=== PATIENT | male | born 1940 | race African-American/Black ===

== ENCOUNTER 2023-11-21 13:56 | Outpatient (CLI) | payer MEDICARE, SELFPAY ==
--- NOTE | ~2023-11-21 | CT_ITS ---
EXAMINATION: CT abdomen pelvis wo con DATE: 11/21/2023 14:34 INDICATION: Abdominal pain TECHNIQUE: Computed tomography (CT) of the abdomen and pelvis was performed without intravenous contr ast. Automated exposure control and iterative reconstruction technique were employed. Exam dose: 301 .36 mGy-cm total exam DLP. COMPARISON: None. FINDINGS: Multiple scattered bullae. No infiltrate or consolidation at the included lung bases. Normal heart size. No pericardial or pleural effusion. Posterior upper right hepatic approximately 1.7 cm probable cyst. The liver is otherwise unremarkable . The gallbladder is present. No gallbladder wall thickening or pericholecystic fluid or fat strandin g. No bile duct or pancreatic duct dilatation. No pancreatic mass lesion is noted. Normal splenic siz e. Normal morphology of the adrenal glands. There are multiple hypoattenuating and hyperattenuating lesions of variable size scattered throughout both kidneys including some with attenuation up to 96 Hounsfield units. Examination is limited on th is noncontrast examination. Occasional punctate calcifications the left kidney. No ureteral calculus or hydroureteronephrosis. Mild diffuse bladder wall thickening moderately prominent bladder distention. There is prostate enlargement. There is prominent abdominal aortic calcification, probably calcification at the origin of the celiac and superior mesenteric and renal arteries. There is extensive iliac and femoral arterial calcificat ion. No abdominal aortic aneurysm. No intraperitoneal or retroperitoneal or pelvic mass lesion or travis nopathy or ascites is noted. There is a prominent amount of fecal material within the colon. No bowel obstruction or intraperitone al free air is noted. Consider CT examination with IV contrast material or preferably MRI examination for more definitive evaluation of the renal masses. Transitional lumbosacral vertebra. No suspicious osteolytic or osteoblastic lesions are noted. IMPRESSION: Numerous bilateral hypoattenuating hyperattenuating lesions scattered throughout both ki dneys, with occasional calcifications on the left. Further evaluation with renal MRI is suggested for most optimal evaluation. 1.7 cm probable right hepatic cyst Prostate enlargement, prominent distention and mild thickening of the wall of the urinary bladder Reviewed, dictated and finalized at [facility]. Reviewed, dictated and finalized at [facility]. IMPRESSION: Numerous bilateral hypoattenuating hyperattenuating lesions scatte red throughout both kidneys, with occasional calcifications on the left. Furthe r evaluation with renal MRI is suggested for most optimal evaluation. 1.7 cm probable right hepatic cyst Prostate enlargement, prominent distention and mild thickening of the wall of t he urinary bladder
== END 2023-11-21 13:57 | disposition home or self-care (01) ==
PROVIDERS: Visit Provider Internal Medicine
DX: N28.89 Other specified disorders of kidney and ureter (principal); N40.0 Benign prostatic hyperplasia without lower urinary tract symptoms; N32.89 Other specified disorders of bladder
CPT/HCPCS: 74176

== ENCOUNTER 2024-10-07 12:32 | Outpatient (CLI) | payer MEDICARE, SELFPAY ==
[2024-10-07 13:49] LABS: Vitamin D 25 Hydroxy 52.2 ng/mL
--- OUTSIDE RECORDS SUMMARY | 2024-10-07 15:05 | XMS_ITS | Clinical Summary ---
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
--- OUTSIDE RECORDS SUMMARY | 2024-10-07 15:05 | XMS_ITS | Encounter Summary ---
Author Organization [facility] Address 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
--- OUTSIDE RECORDS SUMMARY | 2024-10-07 15:05 | XMS_ITS | Clinical Summary ---
Author Organization [facility] [id number] [place] [id number] Care Team Providers Care Instructor Business Education Name Role Phone James Hou MD Primary Care Provider [phone] Allergies Active Allergy Reactions Criticality Noted Date Comments Morphine Nausea only Medium 05/07/2019 Sulfa Unknown 01/04/2018 Sulfamethoxazole-Trimeth oprim Other (See comments) Low 03/04/2019 Sulfasalazine Unknown 01/21/2015 Turned penis black in color Medications cholecalcifer ol (VITAMIN D3) 2,000 unit capsule take one by oral route one time every day 0 0 014 Active amLODIPine (NORVASC) 10 mg tablet take 1 tablet by oral route every day 0 0 014 Active blood glucose diagnostic (ACCU-CHEK SMARTVIEW TEST STRIP) strip test 1 by finger stick BS route before meals and bed time 0 strip 0 014 Active lancets (ACCU-CHEK FASTCLIX) misc test blood sugars 4 times every day 0 each 0 014 Active blood-glucose meter (ACCU-CHEK JAMIE) misc test blood suagrs 4 times every day 0 each 0 014 Active montelukast (SINGULAIR) 10 mg tablet take 1 tablet by oral route every day in the evening 0 0 015 Active pen needle, diabetic (PEN NEEDLE) 31 gauge x 5/16 needle USE FOR INJECTIONS 4 TIMES DAILY 100 11 12/09/2 014 Active tamsulosin (FLOMAX) 0.4 mg capsule,exten ded release 24hr take 1 capsule by oral route every day 1/2 hour following the same meal each day 0 0 016 Active finasteride (PROSCAR) 5 mg tablet take 1 tablet by oral route every day 0 0 016 Active atorvastatin (LIPITOR) 10 mg tablet TK 1 T PO QD 3 017 Active valsartan (DIOVAN) 160 mg tablet Take 1 tablet (160 mg total) by mouth 2 daily to equal 320mg 021 Active flash glucose scanning reader ([employer] Herbert 2 [place]) misc Use for BG monitoring 1 each 023 Active insulin aspart niacinamide (FIASP) 100 unit/mL (3 mL) pen for injectionIndi cations:Type 2 diabetes mellitus with hyperglycemia , with long-term current use of insulin ([facility]) Inject 4-8 Units under the skin 3 (three) times a day before meals 3 mL 023 Active omeprazole (PriLOSEC) 20 mg capsule TAKE 1 CAPSULE BY MOUTH BEFORE BREAKFAST 023 Active calcitRIOL (ROCALTROL) 0.25 mcg capsule Take 1 capsule (0.25 mcg total) by mouth 3 (three) times a week 023 Active dapagliflozin propanediol (Farxiga) 5 mg tablet Take 1 tablet (5 mg total) by mouth daily Active famotidine (PEPCID) 20 mg tablet Take 1 tablet (20 mg total) by mouth 2 (two) times a day Activ e LANTUS 100 unit/mL (3 mL) pen for injectionIndi cations:Type 2 diabetes mellitus with hyperglycemia , with long-term current use of insulin ([facility]) Inject 40 Units under the skin nightly 45 mL 2 024 2024 Active Additional Information Patient taking differently: 40-42 Unitssubcutaneous Nightly, Reported on 09/17/2024 HumaLOG 100 unit/mL pen for injectionIndi cations:Type 2 diabetes mellitus with hyperglycemia , with long-term current use of insulin ([facility]) INJECT 8-16 UNITS SUBCUTANEOUSLY THREE TIMES DAILY BEFORE MEALS WITH SSI MAX DAILY DOSE 48 UNITS 15 mL 024 Active clobetasoL (TEMOVATE) 0.05 % external solution APPLY SOLUTION TOPICALLY TWICE DAILY TO AFFECTED AREA OF SCALP FOR 2 WEEKS, REPEAT NEEDED FOR FLARES Active Procto-Med HC 2.5 % rectal cream APPLY A THIN LAYER TOPICALLY TO THE AFFECTED AREA(S) TWICE DAILY Active oseltamivir (TAMIFLU) 75 mg capsule TAKE 1 CAPSULE BY MOUTH ONCE DAILY FOR 5 DAYS Active triamcinolone (KENALOG) 0.1 % cream APPLY TO AFFECTED AREA ONCE TO TWICE DAILY FOR UP TO TWO WEEKS. TAKE A SMALL BREAK FOR 1-2 DAYS, AND REPEAT NECESSARY FOR FLARES. AVOID THE FACE, AXILLA AND GROIN Active flash glucose sensor (FreeStyle Herbert 2 Sensor) kitIndication s:Type 2 diabetes mellitus with hyperglycemia , with long-term current use of insulin ([facility]) USE DIRECTED 2 kit 2 025 Active flash glucose sensor (FreeStyle Herbert 2 Sensor) kitIndication s:Type 2 diabetes mellitus with hyperglycemia , with long-term current use of insulin ([facility]) USE DIRECTED 2 kit 025 2024 Discontinued prednisoLONE acetate (PRED FORTE) 1 % ophthalmic suspension INSTILL 1 DROP INTO RIGHT EYE THREE TIMES DAILY FOR 1 WEEK THEN TWICE DAILY FOR 2 WEEKS 2024 Discontinued(T herapy completed) Active Problems Problem Noted Date Diagnosed Date CKD (chronic kidney disease) stage 4, GFR 15-29 ml/min ([facility]) 01/02/2023 Assessment & Plan (09/17/2024 1:55 PM INSPECTOR PROCESS): Chronic problem. Managed by Dr Beach at [place]; seen q3mos. 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 Valsartan 160mg daily. Last MA: 03/13/24 (186). Last creat/GFR: 03/13/24 GFR=22, CR=2.77. seeing Dr Núñez at [facility] for L kidney mass & bilat renal cysts. Had MRI 07/05/24 to check kidney lesions (3). Has repeat MRI set up for 11/2024. Will see Dr Núñez 12/06/24. Plan per Dr Núñez's note 07/05/24 is to continue surveillance of slow growing L renal mass. Assessment & Plan (03/13/2024 11:10 AM CDT): Chronic problem. Managed by Dr Beach at [place]. Seen q3mos. 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 Valsartan 160mg daily. Last MA: 07/13/22 (64). Last creat/GFR: 07/13/22 GFR=21, CR=2.85. L Kidney mass. Now seeing Dr Avery Núñez at [facility]. 06/14/24. Will be having MRI also per Mr Kahn. Assessment & Plan (05/08/2023 1:59 PM CDT): Chronic problem. Managed by Dr Beach at [place]. Seen q3mos. 05/30/23. Assessment & Plan (01/02/2023 1:59 PM CDT): Chronic problem. Managed by Dr Beach at [place]. Seen q3mos. Hypoglycemia associated with diabetes ([facility]) 03/04/2019 Assessment & Plan (07/13/2022 2:14 PM INSPECTOR PROCESS): Lower evening Lantus dose Assessment & Plan (09/12/2019 12:57 PM INSPECTOR PROCESS): Order Dexcom Assessment & Plan (03/04/2019 11:17 AM CDT): Dose of Lantus lowered Request DEXCOM Type 2 diabetes mellitus 02/22/2017 Assessment & Plan (09/17/2024 1:54 PM INSPECTOR PROCESS): Chronic problem. Not at goal but A1c improved slightly from at 9.9% 03/13/24 to 9.8 today. reviewed FSL download with Mr Kahn during appt. Reviewed diet; eating increased carbs (crackers). -increase lantus from 40 to 45 units every evening -increase Humalog with meals as below (higher if blood sugar is over 250--see below) Current medications: Lantus 45 units at dinner Humalog: breakfast 8 units (10 units if over 250), lunch 12 units (14 units if over 250), dinner 16 units (18 units if over 250) Will update lipid. Does not mychart. Verified phone #/address to contact re: results. 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 Receives injections OU) Strive for regular exercise (30min most days) and diet (get at least 4-5 servings of fruit and veggies daily, avoid processed foods, increase lean protein intake and decrease carb portions as well as fruit juices, regular soda & desserts). Watch carbs and simple sugars. Check the blood sugar Freestyle. Check the feet daily for skin breakdown and infection. Assessment & Plan (03/13/2024 11:04 AM CDT): Chronic problem. Not at goal but A1c stable at 9.9%. reviewed FSL download with Mr Kahn during appt. Please change insulin: -lantus 40 units at dinner (not twice any longer) -Humalog: keep breakfast at 6 units (8 units if over 250), increase lunch to 10 units (12 units if over 250), dinner 12 units (14 units if over 250) Current medications: Lantus 40 units at dinner Humalog 6 units before breakfast, 10 units before lunch, 12 units before dinner For blood sugars over 250: take 8 units with breakfast, 12 units with Lunch & 14 units with dinner Will update labs today. Does not mychart. Verified phone #/address to contact re: results. UTD on DM eye exam. Reports frequent appts to [facility]; appt 2-3 weeks ago. Letter sent to get copy of results. Strive for regular exercise (30min most days) and diet (get at least 4-5 servings of fruit and veggies daily, avoid processed foods, increase lean protein intake and decrease carb portions as well as fruit juices, regular soda & desserts). Watch carbs and simple sugars. Check the blood sugar Freestyle. Check the feet daily for skin breakdown and infection. Assessment & Plan (08/08/2023 1:42 PM INSPECTOR PROCESS): Hba1c was Lab Results Component Value Date HGBA1C 9.9 08/08/2023 today, indicating poor DM control, with hyper and hypoglycemia Blood glucose level in the 130-180 160 range was explained Low carb diet and daily aerobic and /or resistant exercise were advised Prevention and treatment of hyypoglcyemia were discussed with the patient Blood glucose monitoring : FSL Adjustment to medications: Take all of your insulin, Lantus and Humalog, in your belly. Take Lantus, 20 units at bedtime and 10 units in the morning. Take Humalog 6 units before breakfast and lunch and 10 units before dinner. For sugars over 250, take 8 units before breakfast and lunch and 12 units before dinner Assessment & Plan (05/08/2023 1:58 PM CDT): Chronic problem. Not at goal but A1c improved from 10.0% 11/16/22 to now 8.7% Asked him to ensure that he takes his insulin with him when he's going to be out of the house at mealtime (missing doses). Has been exercising on stationary bike nearly daily. UTD on labs. UTD on DM eye exam. Reports frequent appts to [facility]; appt 2-3 weeks ago. Letter sent to get copy of results. Strive for regular exercise (30min most days) and diet (get at least 4-5 servings of fruit and veggies daily, avoid processed foods, increase lean protein intake and decrease carb portions as well as fruit juices, regular soda & desserts). Watch carbs and simple sugars. Check the feet daily for skin breakdown and infection. Current medications: Lantus 18 units every morning, 20 units at bedtime Humalog before meals: For sugars <100, do not take any. For sugars over 100, take 8 units For sugars over 150, take 10 units For sugars over 200, take 12 units For sugars over 250, take 14 units For sugars over 300, take 16 units Once consistently under 200: For sugars <100, do not take any. For sugars over 100, take 4 units For sugars over 150, take 5 units For sugars over 200, take 6 units For sugars over 250, take 7 units For sugars over 300, take 8 units Strive for regular exercise (30min most days) and diet (get at least 4-5 servings of fruit and veggies daily, avoid processed foods, increase lean protein intake and decrease carb portions as well as fruit juices, regular soda & desserts). Watch carbs and simple sugars. Check the blood sugar Freestyle. Check the feet daily for skin breakdown and infection. Assessment & Plan (01/02/2023 2:30 PM CDT): Chronic problem. Not at goal but A1c improved from 10.0% 11/16/22 to now 8.7% Asked him to ensure that he takes his insulin with him when he's going to be out of the house at mealtime (missing doses). Has been exercising on stationary bike nearly daily. UTD on labs. UTD on DM eye exam. Reports frequent appts to [facility]. Letter sent to get copy of results. Strive for regular exercise (30min most days) and diet (get at least 4-5 servings of fruit and veggies daily, avoid processed foods, increase lean protein intake and decrease carb portions as well as fruit juices, regular soda & desserts). Watch carbs and simple sugars. Check the feet daily for skin breakdown and infection. Current medications: Lantus 18 units every morning, 20 units at bedtime Humalog before meals: For sugars <100, do not take any. For sugars over 100, take 8 units For sugars over 150, take 10 units For sugars over 200, take 12 units For sugars over 250, take 14 units For sugars over 300, take 16 units Once consistently under 200: For sugars <100, do not take any. For sugars over 100, take 4 units For sugars over 150, take 5 units For sugars over 200, take 6 units For sugars over 250, take 7 units For sugars over 300, take 8 units Assessment & Plan (11/16/2022 11:48 AM CDT): Hba1c was Lab Results Component Value Date HGBA1C 10.0 (A) 11/16/2022 today, indicating worsening DM control Goal Hba1c and blood glucose explained Diet and exercise were advised Prevention and treatment of hyypoglcyemia were discussed with the patient Blood glucose monitoring : Would recommend CGM with freestyle Herbert . Patient agrees. I have sent prescription to see if it is covered. In the meantime, the patient will continue doing fingersticks a.c. and HS Adjustment to medications: Increase Lantus : take 18 units in the morning and 20 units at bedtime Humalog before meals: For sugars <100, do not take any. For sugars over 100, take 8 units For sugars over 150, take 10 units For sugars over 200, take 12 units For sugars over 250, take 14 units For sugars over 300, take 16 units For your sugars start dropping under 200, most of the time, lower Humalog: Humalog before meals: For sugars <100, do not take any. For sugars over 100, take 4 units For sugars over 150, take 5 units For sugars over 200, take 6 units For sugars over 250, take 7 units For sugars over 300, take 8 units Patient to follow-up with us in 6 weeks Assessment & Plan (07/13/2022 2:10 PM INSPECTOR PROCESS): With some hypoglycemia Lower evening Lantus to 15 ( 18 units for BG over 200 ) Continue current Humalog sliding scale Assessment & Plan (03/15/2022 3:23 PM CDT): Chronic problem, not at goal. Due to day to day changes in diet, sometimes missed doses. He does not have logbook with him today and CBG recall is vague. Increase Lantus to 20 units at HS if >250, otherwise continue same insulin doses. We discussed again CGM but he declines, felt it was painful. He will bring his logbook to next visit so we can better evaluate. Update routine labs today. Assessment & Plan (09/13/2021 12:40 PM INSPECTOR PROCESS): Chronic problem, not at goal with frequent hypo and hyperglycemia. He has declined CGMS. Change insulin doses to below - lower Lantus in the evening for fasting lows, and lower aB HL by 2 units. He may need more HL at dinner but will see if eliminating lows first helps limit rebound highs. Given his age and CKD, want to avoid hypoglycemia. Lantus 10 units in the morning and 18 units at night. Before breakfast: For sugars <100, do not take any. For sugars over 100, take 2 units For sugars over 150, take 3 units For sugars over 200, take 4 units For sugars over 250, take 5 units For sugars over 300, take 6 units Before lunch and dinner: For sugars <100, do not take any. For sugars over 100, take 4 units For sugars over 150, take 5 units For sugars over 200, take 6 units For sugars over 250, take 7 units For sugars over 300, take 8 units Assessment & Plan (06/14/2021 11:44 AM CDT): Hba1c was Lab Results Component Value Date HGBA1C 8.7 06/14/2021 today, indicating Inadequate DM control Goal blood glucose levels : 120-160 Target Hba1c : 7-8 BG monitoring : ac and hs Pt not interested in CGM Prevention and treatment of hyypoglcyemia discussed. Insulin regimen adjustments: Take Lantus, 20 units at bedtime and 10 units in the morning. Take Humalog, 4 units before meals. For sugars over 150, take 5 units For sugars over 200, take 6 units For sugars over 250, take 7 units For sugars over 300,take 8 units Assessment & Plan (03/30/2021 4:07 PM CDT): A1c 7.8 but is reporting BG < 70. Reduce Lantus 22 bid. Do not take Humalog today or if not eating carbs at meal. Keep BG in mid 150, no lower than 130. Send in BG logs weekly. BG recovered to 120 with treatment of food and 35 grams juice and glucagon injection Assessment & Plan (11/30/2020 3:47 PM CDT): A1c 8.6. Variability in pattern may be due to snacks, prunes at various times. Advised to eat them at same time every day to see if pattern can be established. Continue Lantus 18 bid. Adjust Humalog as follows: For sugars under 100, none 101-150, take 3 units 151-200, take 6 units 201-300, take 9 units Over 301, take 10 units Assessment & Plan (08/31/2020 9:49 AM INSPECTOR PROCESS): Hba1c was Lab Results Component Value Date HGBA1C 8.8 08/31/2020 today, indicating inadequate DM control Goal blood sugars in the 120-150 range , with Hb1c under 7.0 % was explained 1800 calorie, consistent carb diet recommended. No more than 30-45 grams of carbs per meal recommended, as well as avoiding high concentrated sweet drinks . 25-45 min daily exercise, combining both aerobic and resistance exercise recommended. The need to monitor blood glucose before meals and bedtime was discussed. Prevention and treatment of hyypoglcyemia discussed. Check you sugars before meals and bedtime Stay on Lantus, 18 units morning and bedtime If you blood sugars are under 120, take 10 units of Lantus Humalog, before meals as follows: For sugars under 100, none 101-150, take 4 units 151-200, take 6 units 201-300, take 8 units Over 301, take 10 units Will request [facility] CGMS Assessment & Plan (02/24/2020 12:53 PM CDT): Hba1c was Lab Results Component Value Date HGBA1C 8.8 02/24/2020 today, indicating Inadequate DM control, with hypoglycemia 1800 calorie, consistent carb diet recommended. No more than 30-45 grams of carbs per meal recommended, as well as avoiding high concentrated sweet drinks . 25-45 min daily exercise, combining both aerobic and resistance exercise recommended. The need to monitor blood glucose before meals and bedtime was discussed. Prevention and treatment of hyypoglcyemia discussed. Insulin dose: continue current regimen, Assessment & Plan (11/11/2019 2:30 PM CDT): Continue Lantus 18 units every 12 h Humalog, before breakfast and dinner Take 4 units For sugars over 150 take 5 units For sugars over 200 take 6 units For sugars over 250 take 7 units Follow lunch time take Humalog 4 units If sugar is under 100 at lunchtime, eat 1st and then take the 4 units Assessment & Plan (09/12/2019 12:55 PM INSPECTOR PROCESS): A1c 8.9. Poor control continues to be impacted by diet. Reviewed insulin plan. Will refer to RD for education. Recommend that he has Dexcom for alerts for hypoglycemia and to monitor diet. In meantime advise to do ac/pc BG a few times a week to monitor diet impact. Recovered to 80 with treatment. Assessment & Plan (05/09/2019 9:49 AM CDT): A1c is 8.6. Lows are from taking insulin at a meal without carb. Reviewed and advised to only use CF if needed if no carb meal. Reduce portions and smaller fruit servings. Advised to schedule eye exam. Assessment & Plan (03/04/2019 11:12 AM CDT): Your Hba1c today was: Lab Results Component Value Date HGBA1C 10.5 03/04/2019 meaning a 3 month average sugar of : 264 Your goal sugars are in the 13-180 range Exercise recommendations: It is recommended that you do daily aerobic ( walking, riding a bike, swimming ) and resistance exercises ( light weight lifting, resistance band stretching ) for at least 30 minutes , most days of the week. If you can not walk, chair exercises for 10-15 min a day would help tremendously. As little as 15-20 minutes exercise , in one or two sessions a day, is still very helpful to improve your diabetes control . Diet recommendations: Eat small portion meals, trying not to consume more than 1800 calories a day . Try to eat not more than than 2 servings of carbs ( starches ) wiith your meals. Avoid soft drinks, including regular sodas , fruit juices and sweetened tea. Drink water instead. Eat plenty of green and leafy vegetables, including salads. Medications: Take your medications regularly. Setting phone alarms can help . Keep your medication on the kitchen dinner table, by the bedside table or by the sink where they are visible to you. If you are taking insulin : the insulin that you are currently using does not need to be refrigerated. Keep it where you can see it . Monitor your sugar levels with finger sticks regularly and keep a log sheet or book. Bring your sugar meter and /or a log book or log sheet to every office visit. Take Lantus, 18 units twice a day, before breakfast and dinner Take Humalog, before meals as follows For sugars under 100, none 100-150, 6 units 151-200, 8 units 201-250 9 units 251-300, 10 units Over 301 12 units Over 400, 13 units Will requeat a DEXCOM, continuous glucose monitoring Assessment & Plan (12/03/2018 2:33 PM CDT): A1c improving at 8.8 (9.5). Continue Januvia and Humalog. Increase Lantus to 24 units twice a day. Importance of diet and exercise reviewed. BG goals reviewed. Assessment & Plan (09/09/2018 7:45 PM INSPECTOR PROCESS): Your A1c worsening to 9.5.Increase Lantus to 23 units twice a day Humalog 6 ac. CF 1:50>150 tid ac. Send in BG weekly and will adjust this based on results. BG goals reviewed. Will need to check feet next OV so needs to wear shoes easy to remove. Assessment & Plan (03/21/2018 10:42 AM CDT): A1c continues to go up now at 8.9. Increase Lantus to 22 bid and send in BG logs for adjustment. Main issue appears to be diet related as no steroid exposure since last OV. Education provided on carbs and label reading. Have asked him to focus on 45-60 grams carb per meal and reduce snacks to 15-20 grams when needed. Continue with exercise efforts. Assessment & Plan (12/04/2017 10:17 AM CDT): A1c worsening at 8.4. Will increase Lantus 21/19 for one week. If continue > 150 advised to increase each 1 units and send in BG logs. Call if steroids prescribed. Continue same ssi for now. BG goals reviewed. Assessment & Plan (09/04/2017 12:43 PM INSPECTOR PROCESS): Hba1c was 8.0 today, indicating DM control 1800 calorie, consistent carb diet recommended 30 min daily aerobic and resistance exercise recommended Prevention and treatment of hyypoglcyemia discussed. Blood glucose monitoring with fingers sticks 1-2 x day . Foot care was discussed. Assessment & Plan (05/24/2017 9:56 AM CDT): A1c 7.5 with variable Bg. Pattern is that FBG are more often above goal. Will gently Increase hs dose Lantus to 17 units. Needs to schedule dilated eye exam. Assessment & Plan (02/22/2017 5:03 PM CDT): A1c 7.6. No change to insulin doses. Take noon dose daily. Check sugars before mowing lawn-provided with directions. Blood sugar goals reviewed. Hyperlipidemia associated with type 2 diabetes mira wells 01/25/2016 Overview (11/24/2016): Hyperlipidemia associated with type 2 diabetes mellitus Assessment & Plan (09/17/2024 12:49 PM INSPECTOR PROCESS): Chronic problem. Currently taking Atorvastatin 10mg. Last lipid panel: 08/07/23 LDL=56, TG=92. Will update labs. Does not mychart. Verified phone #/address to contact re: results. Assessment & Plan (03/13/2024 10:41 AM CDT): Chronic problem. Currently taking Atorvastatin 10mg. Last lipid panel: 07/13/22 LDL=22, PJ=388. Will update labs today. Does not mychart. Verified phone #/address to contact re: results. Assessment & Plan (05/08/2023 1:14 PM CDT): Chronic problem. Currently taking Atorvastatin 10mg. Last lipid panel: 07/13/22 LDL=22, PN=681. No changes at this time Assessment & Plan (01/02/2023 1:43 PM CDT): Chronic problem. Currently taking Atorvastatin 10mg. Last lipid panel: 07/13/22 LDL=22, XO=171. No changes at this time Assessment & Plan (03/15/2022 2:46 PM CDT): Chronic problem. On statin therapy, no changes. Assessment & Plan (09/13/2021 11:22 AM INSPECTOR PROCESS): Chronic problem. On statin therapy, no changes. Assessment & Plan (03/01/2021 9:39 AM CDT): Check lipid panel today Assessment & Plan (11/30/2020 3:30 PM CDT): LDL 72. Continue statin Assessment & Plan (09/12/2019 12:57 PM INSPECTOR PROCESS): Will order lipid panel and adjust as indicated. Assessment & Plan (05/09/2019 9:46 AM CDT): Controlled on current medications. Continue plan. Assessment & Plan (12/03/2018 2:32 PM CDT): At goal on current medications. Hypertension associated with diabetes 01/25/2016 Overview (11/24/2016): Hypertension associated with diabetes Assessment & Plan (09/17/2024 12:49 PM INSPECTOR PROCESS): Chronic problem. BP elevated upon rooming & again at recheck. Recently took antihypertensives. Currently taking Valsartan 160mg daily, amlodipine 10mg daily Assessment & Plan (03/13/2024 11:06 AM CDT): Chronic problem. BP elevated upon rooming & again at recheck. Recently took antihypertensives. Currently taking Valsartan 160mg daily, amlodipine 10mg daily Will update labs today. Does not mychart. Verified phone #/address to contact re: results. Assessment & Plan (05/08/2023 1:14 PM CDT): Chronic problem. Currently taking Valsartan 160mg daily, amlodipine 10mg daily Assessment & Plan (01/02/2023 2:08 PM CDT): Chronic problem. BP elevated initially & upon recheck today. Aware to check at home/pharmacy. To contact PCP if BP remains elevated. Currently taking Valsartan 160mg daily, amlodipine 10mg daily Assessment & Plan (07/13/2022 2:14 PM INSPECTOR PROCESS): Chronic, well controlled Importance of low salt diet and exercise were discussed Continue current meds Update BMP Assessment & Plan (03/15/2022 2:46 PM CDT): Controlled on current medications, no changes. Assessment & Plan (09/13/2021 11:22 AM INSPECTOR PROCESS): Controlled on current medications, no changes. Assessment & Plan (03/01/2021 9:39 AM CDT): Continue current medication. BP elevated likely d/t hypoglycemic event now. Assessment & Plan (11/30/2020 3:27 PM CDT): Controlled on current medications. Continue plan. Assessment & Plan (02/24/2020 12:54 PM CDT): Goal blood pressure is less than 140/85 Low salt diet recommended Daily aerobic exercise Continue current meds, including CHRISTIAN-I or ARB Assessment & Plan (09/12/2019 12:56 PM INSPECTOR PROCESS): Controlled on current medications. Continue plan. Assessment & Plan (05/09/2019 9:46 AM CDT): Controlled on current medications. Continue plan. Assessment & Plan (12/03/2018 2:32 PM CDT): Controlled on current medications. Assessment & Plan (09/09/2018 7:47 PM INSPECTOR PROCESS): Controlled on current medications. Assessment & Plan (03/21/2018 10:42 AM CDT): Controlled on current medications. Assessment & Plan (12/04/2017 10:15 AM CDT): Controlled on current medications. Assessment & Plan (09/04/2017 12:44 PM INSPECTOR PROCESS): Goal blood pressure is less than 140/85 Low salt diet recommended Daily aerobic exercise Continue current meds, including CHRISTIAN-I or ARB Assessment & Plan (05/24/2017 9:54 AM CDT): Controlled on current medications. Assessment & Plan (02/22/2017 5:03 PM CDT): Continue current medications. Resolved Problems Problem Noted Date Diagnosed Date Resolved Date Hyperlipidemia 02/22/2017 01/02/2023 Assessment & Plan (09/09/2018 7:46 PM INSPECTOR PROCESS): Check lipid panel today Assessment & Plan (03/21/2018 10:42 AM CDT): At goal on current medications. Assessment & Plan (12/04/2017 10:16 AM CDT): At goal on current medications. Assessment & Plan (09/04/2017 12:43 PM INSPECTOR PROCESS): Goal of treatment , LDL cholesterol less than 100 ( less than 70 in patients with history of heart attacks and / or strokes ) NonHDL cholesterol goal less than 130 ( less than 100 in patients with history of heart attacks and / or strokes ) Continue statin therapy Assessment & Plan (05/24/2017 9:54 AM CDT): Needs to have labs done today Assessment & Plan (02/22/2017 5:03 PM CDT): Check labs Encounters Date Type Department Care Team Description 10/01/2024 Telephone [facility] Diabetes and Endocrinology [address] [place] [phone] Gretel Burr, TELEGRAPH SERVICE RATER Med Management 09/27/2024 Orders Only [facility] Diabetes [facility] Endocrinology [address] [place] [phone] ProviderChristian MD 09/17/2024 2:00 PM INSPECTOR PROCESS - 09/17/2024 11:59 PM INSPECTOR PROCESS Hospital Encounter [address] [address] Type 2 diabetes mellitus with hyperglycemia, with long-term current use of insulin (HCC); Hyperlipidemia associated with type 2 diabetes mellitus (HCC) Discharge Disposition: Discharge to home or self care 09/17/2024 2:00 PM INSPECTOR PROCESS Lab [facility] Outpatient Lab at [address] [phone] Hyperlipidemia associated with type 2 diabetes mellitus (HCC) (Primary Dx); Hypertension associated with diabetes (HCC) 09/17/2024 1:00 PM INSPECTOR PROCESS Office Visit [facility] Diabetes [facility]ocr[facility] [address] [place] [phone] Gretel Burr, AMANDA Type 2 diabetes mellitus with hyperglycemia, with long-term current use of insulin (HCC) (Primary Dx); Hypertension associated with diabetes (HCC); Hyperlipidemia associated with type 2 diabetes mellitus (HCC); CKD (chronic kidney disease) stage 4, GFR 15-29 ml/min (CMS/HCC) (HCC) 08/05/2024 Telephone [facility] [address] [place] [phone] Ozzie Guadarrama MD Med Refill 07/31/2024 Orders Only [facility] [address] [phone] ProviderChristian MD from Last 3 Months Surgical History Surgery Date Site/Laterality Comments LA NJX AA&/STRD TFRML EPI CERVICAL/THORACIC 1 LEVEL Corticosteroid Inj Transforaminal Approach Cervical W/ Fluoroscopic Guidance - left C8 (Added by Conv) Medical History Medical History Date Comments Hx Other Medical claustrophobic; Comments: PETERSEN 07/02/2014 - Type 2 diabetes mellitus (HCC) D iabetes type 2 Hyperlipidemia Hyperlipidemia Hypertension Hypertension Family History Medical History Relation Name Comments Cancer Father Family history of malignant neoplasm - (Added by TW Conv) Cancer Sister Family history of malignant neoplasm - (Added by TW Conv) Relation Name Status Comments Father Sister Social History Tobacco Use Types Packs/Day Years Used Date Smoking Tobacco: Former Smokeless Tobacco: Never Alcohol Use Standard Drinks/Week Comments No 0 (1 standard drink = 0.6 oz pur e alcohol) PHQ-2 Answer Date Recorded PHQ-2 Total Score (If total score is 3 or more points, staff should administer the PHQ-9) 0 08/08/2023 Sex and Gender Information Value Date Recorded Sex Assigned at Not on file Legal Sex Male 1:10 PM INSPECTOR PROCESS Gender Identity Not on file Sexual Orientation Not on file Obstetrics History Last Filed Vital Signs Vital Sign Reading Time Taken Comments Blood Pressure 164/82 09/17/2024 1:03 PM INSPECTOR PROCESS Pulse 94 09/17/2024 1:03 PM INSPECTOR PROCESS Temperature - - Respiratory Rate 16 09/17/2024 1:03 PM INSPECTOR PROCESS Oxygen Saturation - - Inhaled Oxygen Concentration - - Weight 74.4 kg (164 lb) 09/17/2024 1:03 PM INSPECTOR PROCESS Height 170.2 cm (5' 7.01 ) 09/17/2024 1:03 PM CS T Body Mass Index 25.68 09/17/2024 1:03 PM INSPECTOR PROCESS Plan of Treatment Health Maintenance Due Date Last Done Comments DTaP/Tdap/Td Vaccine (1 - Tdap) 1951 Hepatitis B Screening 02/15/1958 Zoster Vaccine (1 of 2) 02/15/1988 Well Visit 65+ 2003 Influenza Vaccine (#1) 2024 9, 05/01/2018, 04/26/2018, Additional history exists Depression Screening 08/08/2024 08/08/2023, 01/02/2023, 11/16/2022, Additional history exists Fall Risk Assessment 08/08/2024 08/08/2023 Albumin Creatinine Ratio, Urine 03/13/2025 03/13/2024, 07/13/2022, 03/01/2021, Additional history exists eGFR 03/13/2025 03/13/2024, 06/22, 03/01/2021, Additional history exists Hemoglobin A1C 03/17/2025 09/17/2024, 02/19, 08/08/2023, Additional history exists Foot Exam 09/17/2025 09/17/2024, 02/19, 05/08/2023, Additional history exists Lipid Panel 09/17/2025 09/17/2024, 07/21, 07/13/2022, Additional history exists Dilated Eye Exam 09/19/2025 09/19/2024, 04/2024, 02/05/2024, Additional history exists Pneumococcal vaccine 65+ Completed 020, 09/12/2018, 07/27/2015 Procedures Procedure Name Priority Date/Time Associated Diagnosis Comments DIABETES EYE EXAM Routine 09/19/2024 7:19 AM INSPECTOR PROCESS LIPID PANEL Routine 09/17/2024 2:00 PM INSPECTOR PROCESS Type 2 diabetes mellitus with hyperglycemia, with long-term current use of insulin (HCC) Hyperlipidemia associated with type 2 diabetes mellitus (HCC) POCT GLUCOSE Routine 09/17/2024 1:05 PM INSPECTOR PROCESS Type 2 diabetes mellitus with hyperglycemia, with long-term current use of insulin (HCC) POCT HEMOGLOBIN A1C Routine 09/17/2024 1 :05 PM INSPECTOR PROCESS Type 2 diabetes mellitus with hyperglycemia, with long-term current use of insulin (HCC) DIABETES EYE EXAM Routine 07/29/2024 7:35 AM INSPECTOR PROCESS EGFR Routine 03/13/2024 11:17 AM CDT Type 2 diabetes mellitus with hyperglycemia, with long-term current use of insulin (HCC) Hypertension associated with diabetes (HCC) ALBUMIN CREATININE RATIO, URINE Routine 03/13/2024 11:17 AM CDT Type 2 diabetes mellitus with hyperglycemia, with long-term current use of insulin (HCC) from Last 3 Months or Most Recently Relevant to Health Maintenance Results * DIABETES EYE EXAM (09/19/2024 7:19 AM INSPECTOR PROCESS) Historical Provider HEALTH MAINTENANCE Final Result * (ABNORMAL) Lipid panel (09/17/2024 2:00 PM INSPECTOR PROCESS) [facility] Cholesterol 182 30 - 199 mg/dL Comment: Interpretive Data Ages < or = 19 years Acceptable: <170 mg/dL Borderline high: 170-199 mg/dL High: >or= 200 mg/dL Ages > or = 20 years Desirable: <200 mg/dL Borderline high: 200-239 mg/dL High: >or= 240 mg/dL Literature References: 1. Expert Panel on Integrated Guidelines for Cardiovascular Health and Risk Reduction in Children and Adolescents. Pediatrics 2011;128:S213 2. NCEP Expert Panel. Circulation 2004;110:227 Current Interpretive Data was last revised on 2018. Triglycerides 160(H) <=149 mg/dL [facility] CH Comment: Interpretive Data Ages < or = 9 years Acceptable: <75 mg/dL Borderline high: 75-99 mg/dL High: >or= 100 mg/dL Ages 10 to 20 years Acceptable: <90 mg/dL Borderline high: 90-129 mg/dL High: >or= 130 mg/dL Ages > or = 20 years Desirable: <150 mg/dL Borderline high: 150-199 mg/dL High: 200-499 mg/dL Very high: >or= 499 mg/dL Literature References: 1. Expert Panel on Integrated Guidelines for Cardiovascular Health and Risk Reduction in Children and Adolescents. Pediatrics 2011;128:S213 2. NCEP Expert Panel. Circulation 2004;110:227 Current Interpretive Data was last revised on 2018. HDL 61 >=40 mg/dL [facility] CH Comment: Interpretive Data Ages < or = 19 years Acceptable: >45 mg/dL Borderline low: 40-45 mg/dL Low: <40 mg/dL Ages > or = 20 years Desirable: >or= 60 mg/dL Low: <40 mg/dL Literature References: 1. Expert Panel on Integrated Guidelines for Cardiovascular Health and Risk Reduction in Children and Adolescents. Pediatrics 2011;128:S213 2. NCEP Expert Panel. Circulation 2004;110:227 Current Interpretive Data was last revised on 2018. LDL, calculated 94 <=129 mg/dL [facility] CH Comment: Interpretive Data Ages < or = 19 years Acceptable: <110 mg/dL Borderline high: 110-129 mg/dL High: >or= 130 mg/dL Ages > or = 20 years Optimal: <100 mg/dL Near optimal: 100-129 mg/dL Borderline high: 130-159 mg/dL High: >160 mg/dL Calculated using the Puma LDL-C estimating equation. This equation was implemented on 2024. Prior to this date LDL-C was estimated using the Friedewald equation. Literature References: 1. Expert Panel on Integrated Guidelines for Cardiovascular Health and Risk Reduction in Children and Adolescents. Pediatrics 2011;128:S213 2. NCEP Expert Panel. Circulation 2004;110:227 3. Puma Crowe al. AMANDA Cardiol. 2020 December 19;5(5):540-548. doi: [email or web address] Current Interpretive Data was last revised on 2024. Non-HDL Cholesterol 121 mg/dL [facility] Comment: Interpretive Data Ages < or = 19 years Acceptable: <120 mg/dL Borderline high: 120-144 mg/dL High: >145 mg/dL Ages > or = 20 years When triglycerides are >200 mg/dL, Non-HDL cholesterol is a secondary target of therapy with treatment goals that are 30 mg/dL greater than the LDL cholesterol target. Literature References: 1. Expert Panel on Integrated Guidelines for Cardiovascular Health and Risk Reduction in Children and Adolescents. Pediatrics 2011;128:S213 2. NCEP Expert Panel. Circulation 2004;110:227 Current Interpretive Data was last revised on 2018. Chol/HDL ratio 3 [facility] Blood 09/17/2024 2:00 PM INSPECTOR PROCESS 09/17/2024 8:37 PM INSPECTOR PROCESS Gretel Burr NP LAB BLOOD ORDERABLES Shaye l Result [facility] [id number] [place] [address] * (ABNORMAL) POCT hemoglobin A1c (09/17/2024 1:05 PM INSPECTOR PROCESS) Hemoglobin A1C, POC 9.8 4.0 - 5.6 % Blood 09/17/2024 1:05 PM INSPECTOR PROCESS Gretel Burr NP POINT OF CARE TEST ORDERA BLES Final Result * (ABNORMAL) POCT glucose (09/17/2024 1:05 PM INSPECTOR PROCESS) Glucose Blood, POC 478 mg/dL Blood 09/17/2024 1:05 PM INSPECTOR PROCESS Gretel Burr NP POINT OF CARE TEST ORDERA BLES Final Result * (ABNORMAL) DIABETES EYE EXAM (07/29/2024 7:35 AM INSPECTOR PROCESS) us Historical Provider HEALTH MAINTENANCE Final Result * (ABNORMAL) eGFR (03/13/2024 11:17 AM CDT) eGFR 22(L) >=60 mL/min/1. 73 m2 Comment: Interpretive Data Reference Interval Normal >/= 90 mL/min/1.73m2 Mildly decreased* 60 - 89 mL/min/1.73m2 Mildly to moderately decreased 45 - 59 mL/min/1.73m2 Moderately to severely decreased 30 - 44 mL/min/1.73m2 Severely decreased 15 - 29 mL/min/1.73m2 Kidney Failure < 15 mL/min/1.73m2 *Relative to young adult level Estimated glomerular filtration rate is determined by the 2020 CKD-EPI equation recommended by the National Kidney Foundation (A Unifying Approach to GFR Estimation: Recommendations of the NKF-ASK Task Force on Reassessing the Inclusion of Race in Diagnosing Kidney Disease, JASN 2020). The CKD-EPI equation should not be used for patients with unstable renal function and has not been validated in children and those over 70. Current interpretive data was last reviewed 2021. Blood 03/13/2024 11:1 7 AM CDT 03/13/2024 4:26 PM CDT Gretel Brur NP LAB BLOOD ORDERABLES Shaye alexa Result [facility] [address] [place] [address] * (ABNORMAL) Albumin Creatinine Ratio, Urine (03/13/2024 11:17 AM CDT) Albumin Ur 106.1 mg/L Comment: Interpretive Data No reference range established. Current interpretive data was last revised 2019. Creatinine Ur 57.1 mg/dL [facility] CH Comment: Interpretive Data No reference range established. Current interpretive data was last revised 2019. Albumin Creatinine Ratio, Ur 186(H) 1 - 29 mg/g [facility] CH Urine 03/13/2024 11:1 7 AM CDT 03/13/2024 2:48 PM CDT Gretel Burr NP LAB URINE ORDERABLES Shaye alexa Result Performing Organization Address City/State/ZIP [place] Phone Number [facility] [id number] [place] [address] from Last 3 Months or Most Recently Relevant to Health Maintenance Insurance [employer] [facility] MEDIC[facility] Address: [address] [place] [address] MEDICARE [email or web address] [facility] MED[facility] Address: [address] [place] [address] MEDICARE [email or web address] Care Teams Instructor Business Education Relationship Specialty Start Date End Date James Hou MD PCP - General 11/18/16
--- OUTSIDE RECORDS SUMMARY | 2024-10-07 15:05 | XMS_ITS | Encounter Summary ---
[facility] Organization [facility] Address [address] [place] [address] Care Team Providers Care Dictaphone Mechanic Name Role Phone Zac Floyd MD Primary Care Provider [phone] Encounter Details Date Type Department Care Team (Latest Contact Info) Description 09/06/2007 Outpatient Historical [facility] [place] [address] [place] [phone] Unspecified Disorder of Kidney and Ureter Social History Tobacco Use Types Packs/Day Years Used Date Smoking Tobacco: Never Assessed Sex and Gender Information Value Date Recorded Sex Assigned at Not on file Legal Sex Male 3:01 AM ALLERGIST/MD Gender Identity Not on file Sexual Orientation Not on file documented as of this encounter Plan of Treatment Not on file documented as of this encounter Procedures Procedure Name Priority Date/Time Associated Diagnosis Comments PSA Routine 09/06/2007 2:33 PM ALLERGIST/MD COMPREHENSIVE METABOLIC PANEL Routine 09/06/2007 2:33 PM ALLERGIST/MD documented in this encounter Results * PSA (09/06/2007 2:33 PM ALLERGIST/MD) PSA 1.1 0.0 - 4.0 ng/mL INTERFACE SYSTEM Comment:Performed on [email or web address] System 09/06/2007 2:33 PM ALLERGIST/MD us Yvan Kay MD CHEMISTRY ORDERABLES Edited INTERFACE SYSTEM Refer to clinic/hospital department * (ABNORMAL) COMPREHENSIVE METABOLIC PANEL (09/06/2007 2:33 PM ALLERGIST/MD) GLUCOSE 52(L) 65 - 99 mg/dL INTERFACE SYSTEM CREATININE 1.36(H) 0.67 - 1.17 mg/dL INTERFACE SYSTEM CALCIUM 8.3(L) 8.4 - 10.2 mg/dL INTERFACE SYSTEM ALKALINE PHOSPHATASE 77 40 - 129 U/L INTERFACE SYSTEM AST 25 12 - 38 U/L INTERFACE SYSTEM ALT 17 0 - 41 U/L INTERFACE SYSTEM TOTAL PROTEIN 7.4 6.3 - 8.6 g/dL INTERFACE SYSTEM ALBUMIN 3.6 3.4 - 4.8 g/dL INTERFACE SYSTEM BILIRUBIN TOTAL 0.4 0.2 - 1.0 mg/dL INTERFACE SYSTEM BUN 17 6 - 20 mg/dL INTERFACE SYSTEM SODIUM 139 135 - 145 mmol/L INTERFACE SYSTEM POTASSIUM 4.1 3.5 - 4.9 mmol/L INTERFACE SYSTEM CHLORIDE 103 96 - 108 mmol/L INTERFACE SYSTEM CO2 30 22 - 30 mmol/L INTERFACE SYSTEM GFR, >60 >=60 mL/min/1. 7 sq meter INTERFACE SYSTEM GFR 52(L) >=60 mL/min/1. 7 sq meter INTERFACE SYSTEM Comment: Estimated GFR rate interpretative information for both Americans and non- Americans is available on the [facility] Intranet at: [email or web address] Select: Lab Policies and Procedures Select: Reference Ranges - GFR 09/06/2007 2:33 PM ALLERGIST/MD Yvan Kay MD CHEMISTRY ORDERABLES Edited INTERFACE SYSTEM Refer to clinic/hospital department documented in this encounter Visit Diagnoses Diagnosis Unspecified disorder of kidney and ureter documented in this encounter Care Teams Dictaphone Mechanic Relationship Specialty Start Date End Date Zac Floyd MD [address] [place] [id number] PCP - General 06/19/03 documented as of this encounter
--- OUTSIDE RECORDS SUMMARY | 2024-10-07 15:05 | XMS_ITS | Data Portability ---
Author Organization [facility], Main Office Address [address] [place] [address] Care Team Providers Care Final Application Reviewer Name Role Phone JENNYFER HOU Primary Care Provider JENNYFER HOU Referring Provider THELMA MCNAIR Activities Director Scouting NICK ALAMO Family Preservation Worker Assessment Encounter Date Assessment Date Assessment LastModified by Organization Details LastModified Time 01/03/2023 01/03/2023 This note is dictated and transcribed by [employer]. [employer] Commission Agent variances may occur. Despite proofreading, typographical errors may occur. [email or web address] Not available 01/03/2023 12:19:31 02/17/2023 02/17/2023 Will continue with current therapy will follow-up in 4 months all questions answered [email or web address] Not available 02/18/2023 17:12:34 04/10/2023 04/10/2023 Will continue current therapy blood work has been ordered all questions have been answered he will follow-up in 4 months Not available 04/23/2023 21:23:44 08/07/2023 08/07/2023 Overall has been doing fine he has had his flu COVID and RSV immunizations will continue current therapy blood work has been ordered all questions have been answered will follow-up in 4 months. [email or web address] Not available 08/07/2023 22:27:15 Plan of Treatment Reminders Order Date Submit Date Provider Last Modified By Organization Details Last Modified Time Details Appointments None recorded. Lab glycohemogl obin, total, blood 2022 023 [facility] (Lab), [address] [place], [address], 3 20:50:46 CBC w/ auto diff 2022 023 [facility] (Lab), [address] [place], [address], 3 14:29:08 CMP, serum or plasma 2022 023 [facility] (Lab), [address] [place], [address], 3 14:36:40 lipid panel, serum 2022 023 [facility] (Lab), [address] [place], [address], 3 14:36:45 PSA, serum or plasma 2022 023 [facility] (Lab), [address] [place], [address], 3 14:23:37 PTH (parathyroi d hormone), intact, serum or plasma [address] (Lab), [address] [place], [address], 3 15:34:36 HbA1c (hemoglobin A1c), blood 2022 023 [facility] (Lab), [address] [place], [address], 3 14:23:31 CMP, serum or plasma [address] (Lab), [address] [place], [address], 3 15:34:36 lipid panel, serum [address] (Lab), [address] [place], [address], 3 15:34:36 CBC w/ auto diff 2022 023 [facility] (Lab), [address] [place], [address], 3 15:34:36 Referral None recorded. Procedures None recorded. Surgeries None recorded. Imaging None recorded. Medication Orders mometasone 0.1 % topical cream 2022 023 [facility] [place], [address], 14:27:49 Patient TargetsNo targets recorded. Patient InstructionsNo instructions recorded. Reason for Referral None Reported. Results Created Date Observation Date Name Description Value Unit Range Abnormal Flag Note LastModifiedBy Organization Detail LastModifiedTime 04/10/2004/10/2023 CBC/C OMPLE TE BLD COUNT W/DIF F white blood cells 4.7 x10'3 /uL 4.2-10 .8 Not Available [facility] (Lab) [address] [place], [address], 04/10/2023 13:43:41 04/10/20 23 04/10/2023 CBC/C OMPLE TE BLD COUNT W/DIF F red blood cells 4.31 x10'6 /uL 4.10-5 .80 Not Available [facility] (Lab) [address] [place], [address], 04/10/2023 13:43:41 04/10/20 23 04/10/2023 CBC/C OMPLE TE BLD COUNT W/DIF F hemoglobin 12.2 g/dL 13.2-1 7.0 low Not Available [facility] (Lab) [address] [place], [address], 04/10/2023 13:43:41 04/10/20 23 04/10/2023 CBC/C OMPLE TE BLD COUNT W/DIF F hematocrit 35.1 % 39.3-5 0.0 low Not Available [facility] (Lab) [address] [place], [address], 04/10/2023 13:43:41 04/10/20 23 04/10/2023 CBC/C OMPLE TE BLD COUNT W/DIF F mean red cell volume 81.4 fL 80.0-9 7.0 Not Available [facility] (Lab) [address] [place], [address], 04/10/2023 13:43:41 04/10/20 23 04/10/2023 CBC/C OMPLE TE BLD COUNT W/DIF F mean red cell hemoglobin 28.3 pg 27.0-3 3.0 Not Available [facility] (Lab) [address] [place], [address], 04/10/2023 13:43:41 04/10/20 23 04/10/2023 CBC/C OMPLE TE BLD COUNT W/DIF F mean RBC HGB concentratio n 34.8 g/dL 31.0-3 6.0 Not Available [facility] (Lab) [address] [place], [address], 04/10/2023 13:43:41 04/10/20 23 04/10/2023 CBC/C OMPLE TE BLD COUNT W/DIF F red cell distribution width 14.6 % 11.8-1 5.5 Not Available [facility] (Lab) [address] [place], [address], 04/10/2023 13:43:41 04/10/20 23 04/10/2023 CBC/C OMPLE TE BLD COUNT W/DIF F platelets 174 x10'3 /uL 150-40 0 Not Available [facility] (Lab) [address] [place], [address], 04/10/2023 13:43:41 04/10/20 23 04/10/2023 CBC/C OMPLE TE BLD COUNT W/DIF F mean platelet volume 12.7 fL 9.0-12 .4 high Not Available [facility] (Lab) [address] [place], [address], 04/10/2023 13:43:41 04/10/20 23 04/10/2023 CBC/C OMPLE TE BLD COUNT W/DIF F neutrophils 47.1 % 39.0-7 2.0 Not Available [facility] (Lab) [address] [place], [address], 04/10/2023 13:43:41 04/10/20 23 04/10/2023 CBC/C OMPLE TE BLD COUNT W/DIF F lymphocytes 33.0 % 16.0-4 7.0 Not Available [facility] (Lab) [address] [place], [address], 04/10/2023 13:43:41 04/10/20 23 04/10/2023 CBC/C OMPLE TE BLD COUNT W/DIF F monocytes 15.4 % 5.0-12 .0 high Not Available [facility] (Lab) [address] [place], [address], 04/10/2023 13:43:41 04/10/20 23 04/10/2023 CBC/C OMPLE TE BLD COUNT W/DIF F eosinophils 3.0 % 1.0-7. 0 Not Available [facility] (Lab) [address] [place], [address], 04/10/2023 13:43:41 04/10/20 23 04/10/2023 CBC/C OMPLE TE BLD COUNT W/DIF F basophils 1.1 % 0.0-2. 0 Not Available [facility] (Lab) [address] [place], [address], 04/10/2023 13:43:41 04/10/20 23 04/10/2023 CBC/C OMPLE TE BLD COUNT W/DIF F immature granulocytes 0.4 % 0.00-0 .50 Not Available [facility] (Lab) [address] [place], [address], 04/10/2023 13:43:41 04/10/20 23 04/10/2023 CBC/C OMPLE TE BLD COUNT W/DIF F neutrophils, absolute count 2.20 x10'3 /uL 1.5-8. 0 Not Available [facility] (Lab) [address] [place], [address], 04/10/2023 13:43:41 04/10/20 23 04/10/2023 CBC/C OMPLE TE BLD COUNT W/DIF F lymphocytes, absolute count 1.54 x10'3 /uL 1.07-3 .43 Not Available [facility] (Lab) [address] [place], [address], 04/10/2023 13:43:41 04/10/20 23 04/10/2023 CBC/C OMPLE TE BLD COUNT W/DIF F monocytes, absolute count 0.72 x10'3 /uL 0.29-0 .99 Not Available [facility] (Lab) [address] [place], [address], 04/10/2023 13:43:41 04/10/20 23 04/10/2023 CBC/C OMPLE TE BLD COUNT W/DIF F eosinophils, absolute count 0.14 x10'3 /uL 0.02-0 .53 Not Available [facility] (Lab) [address] [place], [address], 04/10/2023 13:43:41 04/10/20 23 04/10/2023 CBC/C OMPLE TE BLD COUNT W/DIF F basophils, absolute count 0.05 x10'3 /uL 0.01-0 .08 Not Available [facility] (Lab) [address] [place], [address], 04/10/2023 13:43:41 04/10/20 23 04/10/2023 CBC/C OMPLE TE BLD COUNT W/DIF F immature granulocytes ,absolute 0.02 x10'3 /uL 0.00-0 .05 Not Available [facility] (Lab) [address] [place], [address], 04/10/2023 13:43:41 04/10/20 23 04/10/2023 CBC/C OMPLE TE BLD COUNT W/DIF F nucleated red blood cells 0.0 % -0 Not Available [facility] (Lab) [address] [place], [address], 04/10/2023 13:43:41 04/10/20 23 04/10/2023 CBC/C OMPLE TE BLD COUNT W/DIF F NRBC# 0.00 x10'3 /uL Not Available [facility] (Lab) [address] [place], [address], 04/10/2023 13:43:41 04/10/20 23 04/10/2023 PARAT HY.HO RM(PT H)INT ACT-W /O CA intact parathyroid hormone 168.6 pg/mL 24.0-7 8.0 high Pleas e note new refer ence range effec tive 09/16 . Not Available [facility] (Lab) [address] [place], [address], 04/10/2023 14:35:59 04/10/20 23 04/10/2023 COMPR EHENS MAYNOR METAB OLIC PANEL sodium 133 mmol/ L 137-14 5 low Not Available [facility] (Lab) [address] [place], [address], 04/10/2023 14:42:43 04/10/20 23 04/10/2023 COMPR EHENS MAYNOR METAB OLIC PANEL potassium 5.2 mmol/ L 3.5-5. 1 high Not Available [facility] (Lab) [address] [place], [address], 04/10/2023 14:42:43 04/10/20 23 04/10/2023 COMPR EHENS MAYNOR METAB OLIC PANEL chloride 100 mmol/ L 98-107 Not Available [facility] (Lab) [address] [place], [address], 04/10/2023 14:42:43 04/10/20 23 04/10/2023 COMPR EHENS MAYNOR METAB OLIC PANEL carbon dioxide 24 mmol/ L 22-30 Not Available [facility] (Lab) [address] [place], [address], 04/10/2023 14:42:43 04/10/20 23 04/10/2023 COMPR EHENS MAYNOR METAB OLIC PANEL anion gap 14.2 mmol/ L 14-22 Not Available [facility] (Lab) [address] [place], [address], 04/10/2023 14:42:43 04/10/20 23 04/10/2023 COMPR EHENS MAYNOR METAB OLIC PANEL glucose 347 mg/dL 70-99 high Not Available [facility] (Lab) [address] [place], [address], 04/10/2023 14:42:43 04/10/20 23 04/10/2023 COMPR EHENS MAYNOR METAB OLIC PANEL BUN 47 mg/dL 8-19 high Not Available [facility] (Lab) [address] [place], [address], 04/10/2023 14:42:43 04/10/20 23 04/10/2023 COMPR EHENS MAYNOR METAB OLIC PANEL creatinine 2.61 mg/dL 0.66-1 .25 high Not Available [facility] (Lab) [address] [place], [address], 04/10/2023 14:42:43 04/10/20 23 04/10/2023 COMPR EHENS MAYNOR METAB OLIC PANEL GFR 28 Refer ence Range : Lead ge GFR Healt hy Adult : >60 mL/mi n/1.7 3 m2 Chron ic Kidne y Disea se: 15-60 mL/mi n/1.7 3 m2 Kidne y Failu re: <15/m L/min /1.73 m2 www.n iddk. nih.g ov The MDRD study equat ion has not been valid ated in child jose <18 years of age; pregn ant women ; the elder ly >85 years of age; or in some racia l or ethni c subgr oups, such as Hispa nics. Outsi de the valid ated ophelia eters , estim ated GFR is less accur ate, requi ring clini karen judgm ent on a case- by-ca se basis . Clini karen inter preta tion for other races and ages must be made by the clini srinath. The MDRD study equat ion has not been valid ated for the evalu ation of serum creat inine relat ed to nutri mónica l statu s or medic ation usage . For perso ns <18 years of age, a pedia tric GFR calcu lator is avail able on the [facility] websi te: https ://cris mckee.daria persaud.o rg/pr ofess ional s/kdo qi/gf r_cal culat or Not Available [facility] (Lab) [address] [place], [address], 04/10/2023 14:42:43 04/10/20 23 04/10/2023 COMPR EHENS MAYNOR METAB OLIC PANEL alkaline phosphatase 126 U/L 38-126 Not Available [facility] (Lab) [address] [place], [address], 04/10/2023 14:42:43 04/10/20 23 04/10/2023 COMPR EHENS MAYNOR METAB OLIC PANEL alanine aminotransfe rase 23 U/L 0-50 Not Available [facility] (Lab) [address] [place], [address], 04/10/2023 14:42:43 04/10/20 23 04/10/2023 COMPR EHENS MAYNOR METAB OLIC PANEL aspartate aminotransfe rase 30 U/L 15-46 Not Available [facility] (Lab) [address] [place], [address], 04/10/2023 14:42:43 04/10/20 23 04/10/2023 COMPR EHENS MAYNOR METAB OLIC PANEL bilirubin, total 0.30 mg/dL 0.20-1 .30 Not Available [facility] (Lab) [address] [place], [address], 04/10/2023 14:42:43 04/10/20 23 04/10/2023 COMPR EHENS MAYNOR METAB OLIC PANEL calcium 8.6 mg/dL 8.4-10 .2 Not Available [facility] (Lab) [address] [place], [address], 04/10/2023 14:42:43 04/10/20 23 04/10/2023 COMPR EHENS MAYNOR METAB OLIC PANEL total protein 7.3 g/dL 6.3-8. 2 Not Available [facility] (Lab) [address] [place], [address], 04/10/2023 14:42:43 04/10/20 23 04/10/2023 COMPR EHENS MAYNOR METAB OLIC PANEL albumin 4.0 g/dL 3.0-4. 4 Not Available [facility] (Lab) [address] [place], [address], 04/10/2023 14:42:43 04/10/20 23 04/10/2023 COMPR EHENS MAYNOR METAB OLIC PANEL globulin 3.3 g/dL 2.6-4. 2 Not Available [facility] (Lab) [address] [place], [address], 04/10/2023 14:42:43 04/10/20 23 04/10/2023 COMPR EHENS MAYNOR METAB OLIC PANEL A/G ratio 1.2 ratio 1.0-2. 0 Not Available [facility] (Lab) [address] [place], [address], 04/10/2023 14:42:43 04/10/20 23 04/10/2023 LIPID PANEL cholesterol 119 mg/dL 140-19 9 low NIH FRANCI NSUS RECOM MENDA TION FOR PERRY STERO L: ADULT CHILD LOW RISK: <200 <170 BORDE RLINE : <200- 239 ----- HIGH RISK: >240 >200 Not Available [facility] (Lab) [address] [place], [address], 04/10/2023 14:42:51 04/10/20 23 04/10/2023 LIPID PANEL triglyceride s 77 mg/dL 0-150 NIH FRANCI NSUS REPOR T RECOM MENDA TION FOR TRIGL YCERI ROCCO: ADULT CHILD LOW RISK: <150 ----- BODER LINE: 150-1 99 ----- HIGH RISK: >200 ----- Not Available [facility] (Lab) [address] [place], [address], 04/10/2023 14:42:51 04/10/20 23 04/10/2023 LIPID PANEL HDL cholesterol 51 mg/dL 40- Not Available [facility] (Lab) [address] [place], [address], 04/10/2023 14:42:51 04/10/20 23 04/10/2023 LIPID PANEL LDL cholesterol, calculated 53 mg/dL 0-130 NIH FRANCI NSUS REPOR T RECOM MENDA TIONS FOR LDL: ADULT CHILD LOW RISK <130 <110 (OPTI MAL LDL) <100 ----- BORDE RLINE : 130-1 59 ----- HIGH RISK: >160 >130 A TRIGL YCERI DE RESUL T >400 INVAL IDATE S THE CALCU LATIO N FOR LDL FRACT IONAT ION - THE LDL RESUL T WILL NOT BE REPOR EJ. Not Available [facility] (Lab) [address] [place], [address], 04/10/2023 14:42:51 04/10/20 23 04/10/2023 HEMOG LOBIN A1C HA1C 8.0 % 4.0-6. 0 high Diabe darrin Scree darek Crite eyal: <5.7% Consi stent with absen ce of diabe darrin 5.7-6 .4% Consi stent with incre ased risk for diabe darrin (pred iabet es) >OR=6 .5% Consi stent with diabe darrin REFER ENCE: Diabe darrin Care 2015, 39(Chavez ppl.1 ):s13 -s22 Not Available [facility] (Lab) [address] [place], [address], 04/10/2023 14:51:17 04/10/20 23 04/10/2023 PSA SCREE N PSA medicare screen 3.04 NG/mL 0.00-4 .00 Not Available [facility] (Lab) [address] [place], [address], 04/10/2023 15:25:14 08/07/20 23 08/07/2023 CBC/C OMPLE TE BLD COUNT W/DIF F white blood cells 4.0 x10'3 /uL 4.2-10 .8 low Not Available [facility] (Lab) [address] [place], [address], 08/07/2023 14:29:07 08/07/20 23 08/07/2023 CBC/C OMPLE TE BLD COUNT W/DIF F red blood cells 4.33 x10'6 /uL 4.10-5 .80 Not Available [facility] (Lab) [address] [place], [address], 08/07/2023 14:29:07 08/07/20 23 08/07/2023 CBC/C OMPLE TE BLD COUNT W/DIF F hemoglobin 12.2 g/dL 13.2-1 7.0 low Not Available [facility] (Lab) [address] [place], [address], 08/07/2023 14:29:07 08/07/20 23 08/07/2023 CBC/C OMPLE TE BLD COUNT W/DIF F hematocrit 35.8 % 39.3-5 0.0 low Not Available [facility] (Lab) [address] [place], [address], 08/07/2023 14:29:07 08/07/20 23 08/07/2023 CBC/C OMPLE TE BLD COUNT W/DIF F mean red cell volume 82.7 fL 80.0-9 7.0 Not Available [facility] (Lab) [address] [place], [address], 08/07/2023 14:29:07 08/07/20 23 08/07/2023 CBC/C OMPLE TE BLD COUNT W/DIF F mean red cell hemoglobin 28.2 pg 27.0-3 3.0 Not Available [facility] (Lab) [address] [place], [address], 08/07/2023 14:29:07 08/07/20 23 08/07/2023 CBC/C OMPLE TE BLD COUNT W/DIF F mean RBC HGB concentratio n 34.1 g/dL 31.0-3 6.0 Not Available [facility] (Lab) [address] [place], [address], 08/07/2023 14:29:07 08/07/20 23 08/07/2023 CBC/C OMPLE TE BLD COUNT W/DIF F red cell distribution width 13.7 % 11.8-1 5.5 Not Available [facility] (Lab) [address] [place], [address], 08/07/2023 14:29:07 08/07/20 23 08/07/2023 CBC/C OMPLE TE BLD COUNT W/DIF F platelets 176 x10'3 /uL 150-40 0 Not Available [facility] (Lab) [address] [place], [address], 08/07/2023 14:29:07 08/07/20 23 08/07/2023 CBC/C OMPLE TE BLD COUNT W/DIF F mean platelet volume 13.3 fL 9.0-12 .4 high Not Available [facility] (Lab) [address] [place], [address], 08/07/2023 14:29:07 08/07/20 23 08/07/2023 CBC/C OMPLE TE BLD COUNT W/DIF F neutrophils 48.0 % 39.0-7 2.0 Not Available [facility] (Lab) [address] [place], [address], 08/07/2023 14:29:07 08/07/20 23 08/07/2023 CBC/C OMPLE TE BLD COUNT W/DIF F lymphocytes 29.6 % 16.0-4 7.0 Not Available [facility] (Lab) [address] [place], [address], 08/07/2023 14:29:07 08/07/20 23 08/07/2023 CBC/C OMPLE TE BLD COUNT W/DIF F monocytes 17.0 % 5.0-12 .0 high Not Available [facility] (Lab) [address] [place], [address], 08/07/2023 14:29:07 08/07/20 23 08/07/2023 CBC/C OMPLE TE BLD COUNT W/DIF F eosinophils 3.8 % 1.0-7. 0 Not Available [facility] (Lab) [address] [place], [address], 08/07/2023 14:29:07 08/07/20 23 08/07/2023 CBC/C OMPLE TE BLD COUNT W/DIF F basophils 1.3 % 0.0-2. 0 Not Available [facility] (Lab) [address] [place], [address], 08/07/2023 14:29:07 08/07/20 23 08/07/2023 CBC/C OMPLE TE BLD COUNT W/DIF F immature granulocytes 0.3 % 0.00-0 .50 Not Available [facility] (Lab) [address] [place], [address], 08/07/2023 14:29:07 08/07/20 23 08/07/2023 CBC/C OMPLE TE BLD COUNT W/DIF F neutrophils, absolute count 1.92 x10'3 /uL 1.5-8. 0 Not Available [facility] (Lab) [address] [place], [address], 08/07/2023 14:29:07 08/07/20 23 08/07/2023 CBC/C OMPLE TE BLD COUNT W/DIF F lymphocytes, absolute count 1.18 x10'3 /uL 1.07-3 .43 Not Available [facility] (Lab) [address] [place], [address], 08/07/2023 14:29:07 08/07/20 23 08/07/2023 CBC/C OMPLE TE BLD COUNT W/DIF F monocytes, absolute count 0.68 x10'3 /uL 0.29-0 .99 Not Available [facility] (Lab) [address] [place], [address], 08/07/2023 14:29:07 08/07/20 23 08/07/2023 CBC/C OMPLE TE BLD COUNT W/DIF F eosinophils, absolute count 0.15 x10'3 /uL 0.02-0 .53 Not Available [facility] (Lab) [address] [place], [address], 08/07/2023 14:29:07 08/07/20 23 08/07/2023 CBC/C OMPLE TE BLD COUNT W/DIF F basophils, absolute count 0.05 x10'3 /uL 0.01-0 .08 Not Available [facility] (Lab) [address] [place], [address], 08/07/2023 14:29:07 08/07/20 23 08/07/2023 CBC/C OMPLE TE BLD COUNT W/DIF F immature granulocytes ,absolute 0.01 x10'3 /uL 0.00-0 .05 Not Available [facility] (Lab) [address] [place], [address], 08/07/2023 14:29:07 08/07/20 23 08/07/2023 CBC/C OMPLE TE BLD COUNT W/DIF F nucleated red blood cells 0.0 % -0 Not Available [facility] (Lab) [address] [place], [address], 08/07/2023 14:29:07 08/07/20 23 08/07/2023 CBC/C OMPLE TE BLD COUNT W/DIF F NRBC# 0.00 x10'3 /uL Not Available [facility] (Lab) [address] [place], [address], 08/07/2023 14:29:07 08/07/20 23 08/07/2023 COMPR EHENS MAYNOR METAB OLIC PANEL sodium 138 mmol/ L 137-14 5 Not Available [facility] (Lab) [address] [place], [address], 08/07/2023 14:36:40 08/07/20 23 08/07/2023 COMPR EHENS MAYNOR METAB OLIC PANEL potassium 4.0 mmol/ L 3.5-5. 1 Not Available [facility] (Lab) [address] [place], [address], 08/07/2023 14:36:40 08/07/20 23 08/07/2023 COMPR EHENS MAYNOR METAB OLIC PANEL chloride 105 mmol/ L 98-107 Not Available [facility] (Lab) [address] [place], [address], 08/07/2023 14:36:40 08/07/20 23 08/07/2023 COMPR EHENS MAYNOR METAB OLIC PANEL carbon dioxide 25 mmol/ L 22-30 Not Available [facility] (Lab) [address] [place], [address], 08/07/2023 14:36:40 08/07/20 23 08/07/2023 COMPR EHENS MAYNOR METAB OLIC PANEL anion gap 12.0 mmol/ L 14-22 low Not Available [facility] (Lab) [address] [place], [address], 08/07/2023 14:36:40 08/07/20 23 08/07/2023 COMPR EHENS MAYNOR METAB OLIC PANEL glucose 134 mg/dL 70-99 high Not Available [facility] (Lab) [address] [place], [address], 08/07/2023 14:36:40 08/07/20 23 08/07/2023 COMPR EHENS MAYNOR METAB OLIC PANEL BUN 48 mg/dL 8-19 high Not Available [facility] (Lab) [address] [place], [address], 08/07/2023 14:36:40 08/07/20 23 08/07/2023 COMPR EHENS MAYNOR METAB OLIC PANEL creatinine 2.70 mg/dL 0.66-1 .25 high Not Available [facility] (Lab) [address] [place], [address], 08/07/2023 14:36:40 08/07/20 23 08/07/2023 COMPR EHENS MAYNOR METAB OLIC PANEL GFR 27 Refer ence Range : Lead ge GFR Healt hy Adult : >60 mL/mi n/1.7 3 m2 Chron ic Kidne y Disea se: 15-60 mL/mi n/1.7 3 m2 Kidne y Failu re: <15/m L/min /1.73 m2 www.n iddk. nih.g ov The MDRD study equat ion has not been valid ated in child jose <18 years of age; pregn ant women ; the elder ly >85 years of age; or in some racia l or ethni c subgr oups, such as Hispa nics. Outsi de the valid ated ophelia eters , estim ated GFR is less accur ate, requi ring clini karen judgm ent on a case- by-ca se basis . Clini karen inter preta tion for other races and ages must be made by the clini srinath. The MDRD study equat ion has not been valid ated for the evalu ation of serum creat inine relat ed to nutri mónica l statu s or medic ation usage . For perso ns <18 years of age, a pedia tric GFR calcu lator is avail able on the [facility] websi te: https ://cris persaud.josie clancy/pr sosa vo s/kdo qi/gf r_cal culat or Not Available [facility] (Lab) [address] [place], [address], 08/07/2023 14:36:40 08/07/20 23 08/07/2023 COMPR EHENS MAYNOR METAB OLIC PANEL alkaline phosphatase 97 U/L 38-126 Not Available [facility] (Lab) [address] [place], [address], 08/07/2023 14:36:40 08/07/20 23 08/07/2023 COMPR EHENS MAYNOR METAB OLIC PANEL alanine aminotransfe rase 20 U/L 0-50 Not Available [facility] (Lab) [address] [place], [address], 08/07/2023 14:36:40 08/07/20 23 08/07/2023 COMPR EHENS MAYNOR METAB OLIC PANEL aspartate aminotransfe rase 27 U/L 15-46 Not Available [facility] (Lab) [address] [place], [address], 08/07/2023 14:36:40 08/07/20 23 08/07/2023 COMPR EHENS MAYNOR METAB OLIC PANEL bilirubin, total 0.50 mg/dL 0.20-1 .30 Not Available [facility] (Lab) [address] [place], [address], 08/07/2023 14:36:40 08/07/20 23 08/07/2023 COMPR EHENS MAYNOR METAB OLIC PANEL calcium 9.0 mg/dL 8.4-10 .2 Not Available [facility] (Lab) [address] [place], [address], 08/07/2023 14:36:40 08/07/20 23 08/07/2023 COMPR EHENS MAYNOR METAB OLIC PANEL total protein 7.4 g/dL 6.3-8. 2 Not Available [facility] (Lab) [address] [place], [address], 08/07/2023 14:36:40 08/07/20 23 08/07/2023 COMPR EHENS MAYNOR METAB OLIC PANEL albumin 3.8 g/dL 3.0-4. 4 Not Available [facility] (Lab) [address] [place], [address], 08/07/2023 14:36:40 08/07/20 23 08/07/2023 COMPR EHENS MAYNOR METAB OLIC PANEL globulin 3.6 g/dL 2.6-4. 2 Not Available [facility] (Lab) [address] [place], [address], 08/07/2023 14:36:40 08/07/20 23 08/07/2023 COMPR EHENS MAYNOR METAB OLIC PANEL A/G ratio 1.1 ratio 1.0-2. 0 Not Available [facility] (Lab) [address] [place], [address], 08/07/2023 14:36:40 08/07/20 23 08/07/2023 LIPID PANEL cholesterol 121 mg/dL 140-19 9 low NIH FRANCI NSUS RECOM MENDA TION FOR PERRY STERO L: ADULT CHILD LOW RISK: <200 <170 BORDE RLINE : <200- 239 ----- HIGH RISK: >240 >200 Not Available [facility] (Lab) [address] [place], [address], 08/07/2023 14:36:45 08/07/20 23 08/07/2023 LIPID PANEL triglyceride s 92 mg/dL 0-150 NIH FRANCI NSUS REPOR T RECOM MENDA TION FOR TRIGL YCERI ROCCO: ADULT CHILD LOW RISK: <150 ----- BODER LINE: 150-1 99 ----- HIGH RISK: >200 ----- Not Available [facility] (Lab) [address] [place] [address], [id number], 08/07/2023 14:36:45 08/07/20 23 08/07/2023 LIPID PANEL HDL cholesterol 47 mg/dL 40- Not Available [facility] (Lab) [address] [place] [address], [id number], 08/07/2023 14:36:45 08/07/20 23 08/07/2023 LIPID PANEL LDL cholesterol, calculated 56 mg/dL 0-130 NIH FRANCI NSUS REPOR T RECOM MENDA TIONS FOR LDL: ADULT CHILD LOW RISK <130 <110 (OPTI MAL LDL) <100 ----- BORDE RLINE : 130-1 59 ----- HIGH RISK: >160 >130 A TRIGL YCERI DE RESUL T >400 INVAL IDATE S THE CALCU LATIO N FOR LDL FRACT IONAT ION - THE LDL RESUL T WILL NOT BE REPOR EJ. Not Available [facility] (Lab) [address] [place], [address], 08/07/2023 14:36:45 08/07/20 23 08/07/2023 HEMOG LOBIN A1C HA1C 9.8 % 4.0-6. 0 high Diabe darrin Scree darek Crite eyal: <5.7% Consi stent with absen ce of diabe darrin 5.7-6 .4% Consi stent with incre ased risk for diabe darrin (pred iabet es) >OR=6 .5% Consi stent with diabe darrin REFER ENCE: Diabe darrin Care 2016, 39(Chavez ppl.1 ):s13 -s22 Not Available [facility] (Lab) [address] [place], [address], 08/07/2023 20:50:46 12/31/19 23 12/30/2022 (RODRICK) ankle brach ial index * No observ ation record ed. [email or web address] [facility] [address] [place], [address], 01/05/2023 08:03:15 11/21/19 24 11/21/2023 CT, abdom en + pelvi s, w/o contr ast No observ ation record ed. ind[address], [place], [address], 11/23/2023 10:39:23 11/23/19 24 11/21/2023 CT, abdom en, w/o contr ast No observ ation record ed. [address], [place], [address], 11/25/2023 15:38:21 01/18/20 24 01/17/2024 MRI, abdom en + pelvi s, w/wo contr ast No observ ation record ed. [address] [facility] [address] [facility] [address], [place], [address], 03/05/2024 10:17:01 Result Notes None recorded. Problems Name Problem SNOMED Code Status Onset Date Resolution Date Notes Provider Name and Address Organization Details Recorded Time Benign essential hypertens ion 5442503 Active Not Available [facility] 4 11:52:07 Nausea and vomiting 35444923 Completed Not Available [facility] 3 00:46:39 Gastroeso phageal reflux disease without esophagit is 627750299 Active 2021 Not Available [facility] 4 11:52:08 Retention of urine 206540925 Active Not Available [facility] 4 11:52:08 Pure hyperchol esterolem ia 943671692 Active Not Available [facility] 4 11:52:08 Low back pain 790271721 Active 2021 Not Available [facility] 4 11:52:08 Pain in toe 034450246 Completed Not Available [facility] 3 00:46:39 Chest pain 78016443 Completed Not Available [facility] 3 00:46:39 Hypoglyce hugo 712063778 Active Not Available [facility] 4 11:52:08 Pain in coccyx 22767202 Completed Not Available [facility] 3 00:46:40 Sinusitis 80854698 Completed Not Available [facility] 3 00:46:40 Chronic kidney disease stage 3 621075583 Active Not Available [facility] 4 11:52:08 Uncontrol led type 2 diabetes mellitus 067813859 Active Not Available [facility] 4 11:52:08 Herpes zoster 2390449 Completed Not Available [facility] 3 00:46:40 Hip pain 93426519 Active 2021 Not Available [facility] 4 11:52:08 Cough 32830441 Active 2021 Not Available [facility] 4 11:52:08 Upper respirato ry infection 82761788 Completed Not Available [facility] 3 00:46:41 Rhinitis 56470834 Completed Not Available [facility] 3 00:46:41 Hemorrhoi ds 14330850 Completed Not Available [facility] 3 00:46:41 Chronic kidney disease 582175765 Active 2021 Not Available [facility] 4 11:52:08 Diabetes mellitus 99170621 Active Not Available [facility] 4 11:52:08 COVID-19 057249580 Active 2022 Not Available [facility] 4 11:52:08 Periphera l arterial occlusive disease 381916851 Active 2022 Not Available [facility] 4 11:52:08 Arthritis 5548014 Active 2022 Not Available [facility] 4 11:52:08 Disorder of eye 133950402 Active 2022 Not Available [facility] 4 11:52:08 Ingrowing toenail 504441036 Active 2022 Not Available [facility] 4 11:52:08 Chronic sinusitis 10278937 Active 2022 Not Available [facility] 4 11:52:08 Acute sinusitis 14527415 Active 2022 Not Available [facility] 4 11:52:07 Eczema of external auditory canal 21086087 Active 2022 Not Available [facility] 4 11:52:08 Impacted cerumen in left ear 68728094653 [address] Active 2022 Not Available [facility] 4 11:52:07 Problem Notes None recorded. Procedures Surgical History Date Name Laterality Status Provider Name and Address Organization Details Recorded Time 01/04/20 23 Nail Debridement completed Dimitrios Hokpins DPM [address], [place], [address], [employer] [facility] [employer] 01/03/2023 12:20:45 12/09/19 23 Nail Debridement completed Dimitrios Hopkins DPM [address], [place], [address], [employer] [facility] [employer] [facility] 12/08/2022 10:15:31 12/09/19 17 Colon ca scrn not hi rsk ind completed Not Available [facility] 10/19/2022 00:42:26 excision of lipoma completed Not Available [facility] 10/19/2022 00:42:26 Imaging Results Imaging Date Name Status LastModified by Organiz ation Details LastModified Time 12/30/2022 (RODRICK) ankle brachial index* completed [email or web address] [facility] [address] [place], [address], 01/05/2023 08:03:15 11/21/2023 CT, abdomen + pelvis, w/o contrast completed [email or web address] [place] [address] [place] [address], [address], 11/23/2023 10:39:23 11/21/2023 CT, abdomen, w/o contrast completed [email or web address], [address], 11/25/2023 15:38:21 01/17/2024 MRI, abdomen + pelvis, w/wo contrast completed [email or web address] [place] [address] [facility] [address] [facility] [address], Medical [address], [place], [address], 03/05/2024 10:17:01 Procedure Notes None recorded. Medical Equipment None Reported. Allergies Allergen ID Allergen Name Allergen Category Reaction Reaction Severity Criticality Documentation Date Start Date Code Code System Note Provider Name and Address Organization Details Recorded Time 334 morphine medicatio n nausea moderate Not available 10/19/2022 7052 RxNorm itchi ng and nause a Not Available [facility] 3 00:51:13 335 Bactrim medicatio n Not available Not available Not available 10/19/2022 [address]50 9 RxNorm Not Available [facility] 3 00:51:14 Medications Name Sig Start Date Stop Date Status Note LastModified by Organization Details LastModified Time amoxicillin 500 mg capsule 11/07 completed Not Available Not Available Not Available atorvastati n 10 mg tablet TAKE 1 TABLET BY MOUTH ONCE DAILY active Not Available Not Available No t Available azithromyci n 250 mg tablet 01/05 completed Not Available Not Available Not Available tizanidine 4 mg tablet Take 1 tablet every day by oral route at bedtime. active Not Available Not Available No t Available hydrocodone 5 mg-acetamin ophen 325 mg tablet 03/16 completed Not Available Not Available Not Available ondansetron HCl 8 mg tablet Take 1 tablet every 8 hours by oral route for 2 days. 01/05 completed Not Available Not Available Not Available prednisone 20 mg tablet Take 2 tablets every day by oral route for 5 days. active Not Available Not Available No t Available Lantus U-100 Insulin 100 unit/mL subcutaneou s solution inject 19 units in the morning and 16 units in the evening active Not Available Not Available No t Available acetaminoph en 300 mg-codeine 30 mg tablet Take 1 tablet twice a day by oral route as needed. 03/16 completed Not Available Not Available Not Available Tamiflu 75 mg capsule Take 1 capsule twice a day by oral route for 5 days. 08/08 completed Not Available Not Available Not Available hydrocodone 10 mg-acetamin ophen 325 mg tablet 03/16 completed Not Available Not Available Not Available peg-electro lyte solution 420 gram oral solution TAKE DIRECTED PER OFFICE active Not Available Not Available No t Available aspirin 81 mg tablet,slava yed release Take 1 tablet every day by oral route. 04/04 completed Not Available Not Available Not Available amoxicillin 500 mg tablet Take 1 tablet 3 times a day by oral route for 10 days. 11/07 completed Not Available Not Available Not Available acyclovir 800 mg tablet active Not Available Not Available Not Available ketorolac 0.5 % eye drops active Not Available Not Available Not Available famotidine 20 mg tablet TAKE 1 TABLET BY MOUTH TWICE DAILY active Not Available Not Available No t Available tamsulosin 0.4 mg capsule TAKE 1 CAPSULE BY MOUTH ONCE DAILY active Not Available Not Available No t Available OneTouch Ultra Test strips USE 1 STRIP EACH TIME YOU TEST BLOOD SUGAR QID 03/16 completed Not Available Not Available Not Available amlodipine 10 mg tablet TAKE 1 TABLET BY MOUTH ONCE DAILY active Not Available Not Available No t Available hydrocodone 7.5 mg-acetamin ophen 325 mg tablet 03/16 completed Not Available Not Available Not Available cephalexin 500 mg capsule Take 1 capsule twice a day by oral route for 7 days. 08/08 completed Not Available Not Available Not Available promethazin e 25 mg tablet TAKE 1/2 (ONE-HALF ) TABLET BY MOUTH EVERY 6 HOURS NEEDED active Not Available Not Available No t Available valsartan 320 mg tablet TAKE 1 TABLET BY MOUTH ONCE DAILY active Not Available Not Available No t Available metoprolol tartrate 50 mg tablet Take 1 tablet by mouth twice daily active Not Available Not Available No t Available omeprazole 20 mg capsule,del ayed release TAKE 1 CAPSULE BY MOUTH BEFORE BREAKFAST active Not Available Not Available No t Available montelukast 10 mg tablet TAKE 1 TABLET BY MOUTH ONCE DAILY active Not Available Not Available No t Available Nasonex 50 mcg/actuati on [place] active Not Available Not Available Not Available Anusol-HC 25 mg rectal suppository Insert 1 supposito ry twice a day by rectal route for 14 days. 07/23 completed Not Available Not Available Not Available methylpredn isolone 4 mg tablets in a dose pack Take 1 dose pk by oral route as directed. 11/06 completed Not Available Not Available Not Available cefdinir 300 mg capsule TAKE 1 CAPSULE BY MOUTH EVERY 12 HOURS 08/16 completed Not Available Not Available Not Available fluticasone propionate 50 mcg/actuati on nasal spray,suspe nsion Lincoln 1 spray every day by intranasa l route. 09/18 completed Not Available Not Available Not Available calcitriol 0.25 mcg capsule TAKE 1 TAB BY MOUTH 3 TIMES WEEKLY active Not Available Not Available No t Available finasteride 5 mg tablet TAKE 1 TABLET BY MOUTH ONCE DAILY active Not Available Not Available No t Available gentamicin 0.1 % topical ointment 07/08 completed Not Available Not Available Not Available mometasone 0.1 % topical cream APPLY A THIN LAYER TOPICALLY TO THE AFFECTED AREA(S) ONCE DAILY active Not Available Not Available No t Available valsartan 160 mg tablet TAKE 2 TABLETS BY MOUTH ONCE DAILY active Not Available Not Available No t Available Pneumovax-2 3 25 mcg/0.5 mL injection syringe PHARMACIS T ADMINISTE RED IMMUNIZAT ION ADMINISTE RED AT TIME OF DISPENSIN G active Not Available Not Available No t Available Crestor 10 mg tablet Take 1 tablet every day by oral route. 09/14 completed Not Available Not Available Not Available Cinnamon 500 mg capsule Take by oral route. 08/08 completed Not Available Not Available Not Available mometasone 0.1 % topical solution APPLY 4 DROPS TOPICALLY TO EACH EAR TWICE DAILY active Not Available Not Available No t Available BD Ultra-Fine Short Pen Needle 31 gauge x 5/16 use bid active Not Available Not Available Not Available Januvia 25 mg tablet TAKE 1 TABLET BY MOUTH ONCE DAILY 09/18 completed Not Available Not Available Not Available Lantus Solostar U-100 Insulin 100 unit/mL (3 mL) subcutaneou s pen INJECT 18 UNITS IN THE MORNING. INJECT 20 UNITS AT BEDTIME active Not Available Not Available No t Available Bystolic 10 mg tablet Take 1 tablet every day by oral route. 02/19 completed Not Available Not Available Not Available Humalog KwikPen (U-100) Insulin 100 unit/mL subcutaneou s INJECT 5 UNITS SUBCUTANE OUSLY THREE TIMES DAILY BEFORE MEAL(S) PLUS SLIDING SCALE. MAX DAILY DOSE OF 40 UNITS active Not Available Not Available No t Available cholecalcif tian (vitamin D3) 50 mcg (2,000 unit) capsule Take 1 capsule every day by oral route. 2019 active Not Available Not Available Not Avai lable Apidra SoloStar U-100 Insulin 100 unit/mL subcutaneou s pen 09/14 completed Not Available Not Available Not Available Prevnar 13 (PF) 0.5 mL intramuscul ar syringe 11/09 completed Not Available Not Available Not Available Accu-Chek Viviane active Not Available Not Available Not Available Accu-Chek SmartView Control Solution active Not Available Not Available Not Available Farxiga 5 mg tablet TAKE 1 TABLET BY MOUTH ONCE DAILY active Not Available Not Available No t Available Procto-Med HC 2.5 % topical cream perineal applicator APPLY A THIN LAYER TOPIUCALL Y TO THE AFFECTED AREA(S) TWICE DAILY active Not Available Not Available No t Available FreeStyle Herbert 2 Sensor kit USE DIRECTED FOR BLOOD GLUCOSE MONITORIN G active Not Available Not Available No t Available FreeStyle Herbert 2 [employer] USE DIRECTED FOR BLOOD GLUCOSE MONITORIN G active Not Available Not Available No t Available Fluzone High-Dose Quad 2019- (PF) 240 mcg/0.7 mL IM syringe PHARMACIS T ADMINISTE RED IMMUNIZAT ION ADMINISTE RED AT TIME OF DISPENSIN G active Not Available Not Available No t Available Paxlovid 300 mg (150 mg x 2)-100 mg tablets in a dose pack Take 3 tablets twice a day by oral route for 5 days. 11/14 completed Not Available Not Available Not Available Vitals Date Recorded Body height Provider Name an d Address Organization Details Last Updated DateTime 01/03/2023 172.72 cm [facility] 01/03/2023 11:53:08 Date Recorded Body mass index (BMI) Body weight Heart rate Respiratory rate Oxygen saturation Oxygen saturation in Arterial blood by Pulse oximetry Systolic blood pressure Diastolic blood pressure Provider Name and Address Organization Details Last Updated DateTime 3 24 kg/m2 95148.5 9 g 85 /min 14 /min 98 % 98 % 162 mm[Hg] 73 mm[Hg] Kanika Curiel [facility] [employer] [facility] 3 12:03:19 Date Recorded Body height Body mass index (BMI) Body weight Body temperature Heart rate Oxygen saturation Oxygen saturation in Arterial blood by Pulse oximetry Systolic blood pressure Diastolic blood pressure Provider Name and Address Organization Details Last Updated DateTime 3 172.72 cm 24.4 kg/m2 54078.5 g 96.6 [degF] 80 /min 97 % 97 % 140 mm[Hg] 86 mm[Hg] Sonal Loza MA [facility] [employer] [facility] 3 13:26:52 Date Recorded Body height Body mass index (BMI) Body weight Body temperature Heart rate Oxygen saturation Oxygen saturation in Arterial blood by Pulse oximetry Systolic blood pressure Diastolic blood pressure Provider Name and Address Organization Details Last Updated DateTime 3 172.72 cm 25.4 kg/m2 01711.9 3 g 97 [degF] 84 /min 98 % 98 % 130 mm[Hg] 68 mm[Hg] Bernie Funes MA [facility] [employer] [facility] 3 11:17:47 Date Recorded Body height Body mass index (BMI) Body weight Body temperature Heart rate Oxygen saturation Oxygen saturation in Arterial blood by Pulse oximetry Systolic blood pressure Diastolic blood pressure Provider Name and Address Organization Details Last Updated DateTime 3 172.72 cm 25.2 kg/m2 92653.3 3 g 97.8 [degF] 84 /min 98 % 98 % 128 mm[Hg] 68 mm[Hg] Geena early CMA [facility] [employer] [facility] 12:03:20 Date Recorded Body height Body mass index (BMI) Body weight Body temperature Provider Name and Address Organization Details Last Updated DateTime 08/17/2023 172.72 cm 25.7 kg/m2 18311.11 g 98.1 [degF] Jocelyne Chaves RN [facility] [employer] [facility] 08/17/2023 14:01:38 Social History Question Answer Notes LastModified by Organization Details LastModified Time Tobacco Smoking Status Former Smoker quit in Not Available [facility] 10/19/2022 00:41:25 Do You Have An Advance Directive? No MIGRATION.0301 [id number] Information not available 10/19/2022 What Is Your Level Of Alcohol Consumption? None MIGRATION.0301 [id number] Information not available 10/19/2022 Are You Blind Or Do You Have Difficulty Seeing? Yes Wears Glasses MIGRATION.030 [id number] Information not available 10/19/2022 What Is Your Level Of Caffeine Consumption? Occasional MIGRATION.0301 431558 Information not available 10/19/2022 How Much Tobacco Do You Chew? None MIGRATION.0301 237118 Information not available 10/19/2022 In The 14 Days Before Symptom Onset, Have You Had Close Contact With A Laboratory-conf irmed COVID-19 While That Case Was Ill? No MIGRATION.0301 [id number] Information not available 10/19/2022 In The 14 Days Before Symptom Onset, Have You Had Close Contact With A Person Who Is Under Investigation For COVID-19 While That Person Was Ill? No MIGRATION.0301 361901 Information not available 10/19/2022 Are You Deaf Or Do You Have Serious Difficulty Hearing? Yes Diminished MIGRATION.0301 604086 Information not available 10/19/2022 What Type Of Diet Are You Following? REGULAR MIGRATION.0301 808221 Information not available 10/19/2022 Which Illicit Or Recreational Drugs Have You Used? None Cannabis User In The 1970s MIGRATION.0301 748212 Information not available 10/19/2022 Do You Or Have You Ever Used E-cigarettes Or Vape? Never Used Electronic Cigarettes MIGRATION.0301 780496 Information not available 10/19/2022 What Is The Highest Grade Or Level Of School You Have Completed Or The Highest Degree You Have Received? [id number] MIGRATION.0301 450702 Information not available 10/19/2022 What Is Your Occupation? Retired MIGRATION.0301 189634 Information not available 10/19/2022 Have There Been Any Changes To Your Family Or Social Situation? No MIGRATION.0301 181864 Information not available 10/19/2022 What Is The Fluoride Status Of Your Home? Unknown MIGRATION.0301 905891 Information not available 10/19/2022 When Did You Quit Smoking? 14+yearssincelastc igarette MIGRATION.0301 495985 Information not available 10/19/2022 Are There Any Guns Present In Your Home? Yes MIGRATION.0301 807249 Information not available 10/19/2022 Do You Use Insect Repellent Routinely? No MIGRATION.0301 666097 Information not available 10/19/2022 Where Do You Live? SingleLevelHouse MIGRATION.0301 516885 Information not available 10/19/2022 Do You Have A Medical Power Of Jumpbasting Canvas Baster? No MIGRATION.0301 431488 Information not available 10/19/2022 What Was The Date Of Your Most Recent Tobacco Screening? 11/14/2022 [email or web address] Information not available 11/14/2022 Do You Have Any Pets? No MIGRATION.0301 750363 Information not available 10/19/2022 What Is Your Relationship Status? MIGRATION.0301 307864 Information not available 10/19/2022 Do You Use Your Seat Belt Or Car Seat Routinely? Yes MIGRATION.0301 182492 Information not available 10/19/2022 Do You Have Smoke And Carbon Monoxide Detectors In Your Home? Yes MIGRATION.0301 771277 Information not available 10/19/2022 Are You Passively Exposed To Smoke? No MIGRATION.0301 989401 Information not available 10/19/2022 Do You Or Have You Ever Used Smokeless Tobacco? Never Used Smokeless Tobacco MIGRATION.0301 070466 Information not available 10/19/2022 Are There Any Smokers In Your House? No MIGRATION.0301 586574 Information not available 10/19/2022 How Much Tobacco Do You Smoke? No Was Less Than 1ppd MIGRATION.0301 348671 Information not available 10/19/2022 What Types Of Sporting Activities Do You Participate In? None MIGRATION.0301 701916 Information not available 10/19/2022 Do You Feel Stressed (tense, Restless, Nervous, Or Anxious, Or Unable To Sleep At Night)? [id number] MIGRATION.0301 046105 Information not available 10/19/2022 Do You Use Any Illicit Or Recreational Drugs? No MIGRATION.0301 107531 Information not available 10/19/2022 Do You Use Sunscreen Routinely? No MIGRATION.0301 660241 Information not available 10/19/2022 Has Tobacco Cessation Counseling Been Provided? No MIGRATION.0301 337580 Information not available 10/19/2022 Have You Recently Traveled Abroad? No MIGRATION.0301 044910 Information not available 10/19/2022 Do You Have Any Dietary Restrictions? No MIGRATION.0301 046929 Information not available 10/19/2022 Do You Or Have You Ever Used Any Other Forms Of Tobacco Or Nicotine? No MIGRATION.0301 248884 Information not available 10/19/2022 Sex: Male Functional Status Question Answer Note LastModified by The [employer] ion Details LastModified Time Do you have difficulty walking or climbing stairs? No MIGRATION.8021625 026 Information not available 10/19/2022 Do you have transportation difficulties? No MIGRATION.7895362 026 Information not available 10/19/2022 Are you able to walk? YESWOREST MIGRATION.9861203 026 Information not available 10/19/2022 Do you have difficulty doing errands alone? No MIGRATION.4054802 026 Information not available 10/19/2022 Are you able to care for yourself? Yes MIGRATION.9157478 026 Information not available 10/19/2022 Do you have difficulty dressing or bathing? No MIGRATION.4774444 026 Information not available 10/19/2022 What is your exercise level? Occasional MIGRATION.5823951 026 Information not available 10/19/2022 Mental Status Question Answer Note LastModified by Organizat ion Details LastModified Time Do you have difficulty concentrating, remembering or making decisions? No MIGRATION.[id number] 6 Information not available 10/19/2022 Family History Relationship Description Onset Age of this Age Resolved Age Notes LastModified by Organization Details LastModified Time Father General health good MIGRATION.056 [id number] Not available 10/19/2022 00:42:29 Mother General health good MIGRATION.201 [id number] Not available 10/19/2022 00:42:29 Unspecified Relation Family history of Hypertension MIGRATION.177 [id number] Not available 10/19/2022 00:42:29 Unspecified Relation Arthritis [email or web address] Not available 023 11:55:08 Notes:NO ENT Medical History Condition Response NERVE DISEASE N BLINDNESS N RHEUMATIC FEVER N KIDNEY STONES N BLADDER PROBLEMS N MRSA N OTHER # 1 N POLIO N LUNG DISEASE/DISORDER N RADIATION / CHEMOTHERAPY N COPD N Other # 2 N BLOOD DISEASES N SURGERY N EAR OR HEARING PROBLEMS Y MUMPS N BOWEL PROBLEMS N DEPRESSION (INCLUDING POST ) N STROKE/TIA N ULCERS N BENIGN PROSTATIC HYPERPLASIA N MEASLES N MYOCARDIAL INFARCTION N OBESITY N GERD/NAUSEA N ANEURYSM N URINARY/BLADDER/KIDNEY PROBLEMS Y INPATIENT PSYCH CARE N CORONARY ARTERY DISEASE (CAD) N ENDOMETRIOSIS N Impotence N USE OF BLOOD THINNERS N SKIN PROBLEMS N GASTROINTESTINAL DISORDER N PARATHYROID DISEASE N PERIPHERAL VASCULAR DISEASE N MUSCLE,JOINT OR BONE PROBLEMS N GASTROINTESTINAL BLEEDING N BLOOD CLOTS N ASTHMA N CATARACTS N ERECTILE DYSFUNCTION N VARICOSITIES N GI PROBLEMS N CHF N Low Testosterone N AIDS/HIV N FRACTURES N CHEMOTHERAPY / RADIATION N LIVER DISEASE N MALE HYPOGONADISM N HYPERTENSION Y Deficiency N TOURETTE'S N BLOOD TRANSFUSION N ANEMIA/BLOOD DISORDER N CHRONIC EAR INFECTIONS N BRONCHITIS N TUBERCULOSIS N GLAUCOMA N FOOT PROBLEM N DIVERTICULITIS N CHICKENPOX N SLEEP APNEA N ALLERGIES/HAYFEVER N INFECTIOUS DISEASE N HEART ARRHYTHMIA N PROSTATE N INSOMNIA N HIGH CHOLESTEROL / HYPERLIPIDEMIA Y HYPERTHYROIDISM N EYE PROBLEMS N NEUROLOGICAL PROBLEMS N EDEMA N CHRONIC PAIN SYNDROME N HYPOTHYROIDISM N CAROTID BLOCKAGE N CONSTIPATION N BACK / NECK PROBLEMS N HAVE YOU BEEN HOSPITALIZED OR SEEN IN [facility] IN THE PAST YEAR ? N BREAST PROBLEMS N DIALYSIS N ECZEMA N OSTEOPOROSIS N ARTHRITIS Y NO SIGNIFICANT PAST MEDICAL HISTORY N DIABETES, TYPE Y ENT N SEASONAL ALLERGIES N HEARTBURN / REFLUX N HEPATITIS / LIVER DISEASE N PULMONARY DISEASE N SLEEP DISORDER N ALZHEIMER'S DISEASE N FATIGUE N Brain Problems N HERPES N DEMENTIA N HEADACHES/MIGRAINES N SEIZURES/EPILEPSY N VASCULAR DISEASE N PACEMAKER N Blood Disorder N DIZZINESS N HEART DISEASE/HEART PROBLEMS N KIDNEY DISEASE Y MULTIPLE SCLEROSIS N CARDIAC ARRHYTHMIA N CANCER: SPECIFY N ANESTHESIA COMPLICATIONS N ATRIAL FIBRILLATION N PULMONARY EMBOLISM N AUTOIMMUNE DISEASE N Immunizations Vaccine Type Date Status Note Provider Nam e and Address Organization Details Recorded Time COVID-19, mRNA, LNP-S, PF, 100 mcg/0.5mL dose or 50 mcg/0.25mL dose 3 completed Not Available [facility] 09/25/2023 11:52:09 RSV, recombinant, protein subunit RSVpreF, adjuvant reconstituted, 0.5 mL, PF 3 completed Not Available [facility] 09/25/2023 11:52:09 Influenza, high-dose, quadrivalent, PF 3 completed Not Available [facility] 09/25/2023 11:52:08 Influenza, split virus, trivalent, preservative 3 completed Not Available [facility] 09/25/2023 11:52:09 COVID-19, mRNA, LNP-S, PF, 100 mcg/0.5mL dose or 50 mcg/0.25mL dose 1 completed Not Available [facility] 09/25/2023 11:52:09 COVID-19, mRNA, LNP-S, PF, 100 mcg/0.5mL dose or 50 mcg/0.25mL dose 1 completed Not Available [facility] 09/25/2023 11:52:09 Influenza, high-dose, quadrivalent, PF 0 completed Not Available [facility] 09/25/2023 11:52:08 pneumococcal polysaccharide PPV23 0 completed Not Available [facility] 09/25/2023 11:52:09 Pneumococcal conjugate PCV 13 9 completed Not Available [facility] 09/25/2023 11:52:09 influenza, unspecified formulation 8 completed Not Available [facility] 09/25/2023 11:52:09 Influenza, high-dose, quadrivalent, PF 2 completed Not Available [facility] 09/25/2023 11:52:08 COVID-19, mRNA, LNP-S, PF, 100 mcg/0.5mL dose or 50 mcg/0.25mL dose 1 completed Not Available [facility] 09/25/2023 11:52:09 Influenza, high-dose, quadrivalent, PF 1 completed Not Available [facility] 09/25/2023 11:52:08 Influenza, high-dose, trivalent, PF 6 completed Not Available [facility] 09/25/2023 11:52:09 Influenza, split virus, trivalent, preservative 5 completed Not Available [facility] 09/25/2023 11:52:09 Influenza, high-dose, trivalent, PF 9 completed Not Available [facility] 09/25/2023 11:52:09 Influenza, high-dose, trivalent, PF 6 completed Not Available [facility] 09/25/2023 11:52:09 Influenza, high-dose, trivalent, PF 7 completed Not Available [facility] 09/25/2023 11:52:09 Pneumococcal conjugate PCV 13 5 completed Not Available [facility] 09/25/2023 11:52:09 Influenza, split virus, trivalent, preservative 4 completed Not Available [facility] 09/25/2023 11:52:09 Influenza, split virus, quadrivalent, PF 5 completed Not Available [facility] 09/25/2023 11:52:09 Past Encounters Encounter ID Performer Location Encounter Start Date Encounter Closed Date Diagnosis/Indication Diagnosis SNOMED-CT Code Diagnosis ICD10 Code Diagnosis Note [id number] _SOPHIE_M IGRATION_ DEFAULT_1 _1 , 10/23/2020 00:00:00 10/23/2020 10:15:13 [id number] [facility] Internal [facility] [address] [place] [address] [address] [address] 01/15/2021 00:00:00 01/16/2021 10:56:58 [id number] S_[facility] Internal Med [facility] [address] [place] [address] Ave[address] [address] 02/19/2021 00:00:00 03/12/2021 21:35:56 [id number] [facility] Internal Med [facility] [address] [place] [address] Ave[address] [address] 05/17/2021 00:00:00 06/06/2021 15:56:26 [id number] [facility] Internal Med [facility] [address] [place] [address] Ave[address] [address] 09/20/2021 00:00:00 09/20/2021 21:21:00 [id number] [facility] Internal Med [address] [place] [address] 09/27/2021 00:00:00 09/27/2021 21:40:44 [id number] [facility] [address] [place] [address] 10/11/2021 00:00:00 10/17/2021 17:34:54 [id number] [facility] Internal Med [address] [address] 01/03/2022 00:00:00 01/03/2022 21:54:38 [id number] [facility] [address] [place] [address] 04/04/2022 00:00:00 04/05/2022 21:07:05 [id number] [facility] [address] [address] 08/08/2022 00:00:00 08/08/2022 21:36:45 [id number] Jennyfer Hou MD [facility] [address] [place] [address] 11/14/2022 11:49:09 11/14/2022 12:27:18 Benign essential hypertension 4342057 I10 Chronic ki dney disease stage 3 036598559 N18.30 Diabetes mellitus 664316 09 E11.21 Gastroesop hageal reflux disease without esophagitis 882677841 K21.9 [id number] Dimitrios Hopkins DPM [facility] [place] [address] [facility] [place] [address] 12/08/2022 09:54:28 12/08/2022 12:23:28 Diabetes mellitus 87995606 E11.21 Patient educated on neuropathy , diabetes, diabetic diet, and daily foot exams. Patient is to check feet daily for new wounds, blisters, redness to prevent infection and ulceration s to the feet. Patient will return to clinic in 3 months for diabetic foot workup. Peripheral arterial occlusive disease 590152700 I73.9 Noninvasiv e vascular testing orderedRet urn to office in 3-4 weeks to review [id number] Dimitrios Hopkins DPM [facility] [place] [address] [place] [address] 01/03/2023 11:50:39 01/03/2023 12:27:55 Peripheral arterial occlusive disease 427413881 I73.9 Noninvasiv e vascular testing reviewed with the patientwil l continue to monitor Ingrowing toenail 855148 009 L60.0 right medial borderSlan t back procedure performedC ontinue wound care daily to prevent infectionF ollow-up in 1 week if not resolved [id number] Jennyfer Hou MD [facility] Internal Med [place] [address] [facility] 15 [place] [address] 02/17/2023 12:38:24 02/17/2023 14:03:57 Chronic kidney disease stage 3 656540554 N18.30 Benign ess ential hypertension 8231040 I10 Diabetes mellitus 790314 09 E11.21 Gastroesop hageal reflux disease without esophagitis 301888420 K21.9 [id number] Jennyfer Hou MD [facility] Internal Med [place] [address] [facility] 15 [place] [address] 04/10/2023 11:06:39 04/10/2023 11:55:28 Benign essential hypertension 1667767 I10 Chronic ki dney disease 455685469 N18.9 Diabetes mellitus 988415 09 E11.21 Screening for malignant neoplasm of prostate 982826454 Z12.5 [id number] Ian Parra MD [facility] [place] [address] [place] [address] 08/17/2023 13:51:18 08/17/2023 14:37:34 Eczema of external auditory canal 21181930 H60.549 Impacted c erumen in left ear 6607730341 043476 H61.22 [id number] Jennyfer Hou MD S_G Internal Med [facility] [address] [facility] [place] [address] 08/07/2023 11:20:31 08/07/2023 12:11:31 Benign essential hypertension 9754307 I10 Uncontroll ed type 2 diabetes mellitus 919365319 E11.65 Chronic ki dney disease stage 3 191453004 N18.30 Pure hypercholesterolemia 822860578 E78.00 Health Concerns Section Related Observation LastModified by Organization Detai ls LastModified Time None Recorded Concern Status LastModified by Organization Details LastModified Time None Recorded Advance Directives Directive N: Payers Encounter Date Sequence Insurance Name Policy Number Policy Soria Covered Member ID Soria Member ID Guarantor Name 01/03/2023 1 [facility] (MEDICARE REPLACEMENT/A DVANTAGE - HMO) [id number] Aliyah Kahn [id number] Aliyah Kahn 02/17/2023 1 [facility] (MEDICARE REPLACEMENT/A DVANTAGE - HMO) [id number] Aliyah Kahn [id number] Aliyah Kahn 04/10/2023 1 [facility] (MEDICARE REPLACEMENT/A DVANTAGE - HMO) [id number] Aliyah Kahn [id number] Aliyah Kahn 08/07/2023 1 [facility] (MEDICARE REPLACEMENT/A DVANTAGE - HMO) [id number] Aliyah Kahn [id number] Aliyah Kahn 08/17/2023 1 [facility] (MEDICARE REPLACEMENT/A DVANTAGE - HMO) [id number] Aliyah Kahn [id number] Aliyah Kahn Notes Date Note Type Note Provider Name and Address Organization Details Recorded Time 3 text/html . Patient is an 82-year-old male who returns for follow-up on arterial testing. Patient was shown to have some disease to the lower legs. Patient states overall he is doing okay. Patient denies any new cramping of the lower legs. Patient states that he has developed new pain to his right great toe. Patient states the medial corner is causing him a lot of discomfort and shooting pain at the toe. Patient denies any injury of the toe. Patient denies any fever, chills, nausea vomiting. Patient denies any treatment. Patient states this has been ongoing for the last couple days. Patient denies any other pedal complaints. Dimitrios Hopkins DPM [address], [place], [address], [facility] [employer] [facility] [employer] [facility] 01/03/2023 12:21:00 3 text/html GERD been doing okayDiabetes no polyphagia no polydipsiaChronic kidney disease he has not had any nausea vomiting skin rashes or fatigueHypertension no headache no dizzinessChronic low back pain about the same Jennyfer Hou MD [address], [place], [address], [employer] [facility] [employer] 02/18/2023 17:12:52 3 text/html GERD been doing okayDiabetes no polyphagia no polydipsiaChronic kidney disease he has not had any nausea vomiting skin rashes or fatigueHypertension no headache no dizzinessChronic low back pain about the same Jennyfer Hou MD [address], [place], [address], [employer] [facility] [employer] 04/23/2023 21:24:01 3 text/html GERD been doing okayDiabetes no polyphagia no polydipsiaChronic kidney disease he has not had any nausea vomiting skin rashes or fatigueHypertension no headache no dizzinessChronic low back pain about the same Jennyfer Hou MD [address], [place], [address], [employer] [facility] [employer] 08/07/2023 22:28:04 3 text/html this gentleman reports itching of both ears. He was given mometasone almost 3 years ago but has run out Ian Parra MD [address], [place], [address], [facility] [employer] 08/17/2023 14:28:03
--- OUTSIDE RECORDS SUMMARY | 2024-10-07 15:05 | XMS_ITS | Clinical Summary ---
Author Organization [facility] [employer] Address [address] [place] [address] Care Team Providers Care Software Engineer Mobile Name Role Phone James Hou MD Primary Care Provider [phone] Source Comments [facility],non-[facility] Affiliates and Associated Physician Practices is amultiple site organization consisting of ambulatory clinics and hospital sitesin [place], [place], [place] and [place]. This disclosure is being madepursuant to the Care Everywhere program and may not contain all information available regarding this patient. Last updated 18.[facility] [employer] Allergies Active Allergy Reactions Criticality Noted Date Comments Morphine Nausea and/or Vomiting Medium 05/07/2019 Sulfa Drugs 01/21/2015 Turned penis black in color Sulfacetamide Unknown 01/04/2018 Sulfamethoxazole W-Trimethoprim Unknown,Other Low 03/04/2019 Medications * Be aware that medications may not be up to date on this document. Alwaysverify current medications with the patient. Medication Sig Dispensed Refills Start Date End Date Status acarbose (PRECOSE) 50 MG tablet Take 1 Tab by mouth 6 times daily. 180 prn 01/06/2011 Active metoprolol succinate XL 24hr (TOPROL XL) 50 MG tabletIndications: Hypertension Take 1 (one) tablet by mouth 2 times daily Reasons: High Blood Pressure Active Insulin Glargine (LANTUS SC) Inject 18 Units subcutaneously 2 times daily. Active insulin glulisine (APIDRA SOLOSTAR) pen Inject subcutaneously 3 times daily before meals. Sliding scale Active valsartan (DIOVAN) 320 MG tabletIndications: Hypertension Take 1 (one) tablet by mouth once daily Reasons: High Blood Pressure Active amLODIPine (NORVASC) 10 MG tablet Take 1 (one) tablet by mouth once daily Active rosuvastatin (CRESTOR) 10 MG tablet Take 1 (one) tablet by mouth once daily Active montelukast (SINGULAIR) 10 MG tablet Take 1 (one) tablet by mouth at bedtime Active vitamin D, cholecalciferol, 2000 UNITS tablet Take 1 (one) tablet by mouth once daily Active finasteride (Proscar) 5 MG tablet Take 1 (one) tablet by mouth once daily Active Social History Tobacco Use Types Packs/Day Years Used Date Smoking Tobacco: Never Smokeless Tobacco: Never Alcohol Use Standard Drinks/Week Comments No 0 (1 standard drink = 0.6 oz pur e alcohol) Sex and Gender Information Value Date Recorded Sex Assigned at Not on file Gender Identity Not on file Sexual Orientation Not on file Last Filed Vital Signs Vital Sign Reading Time Taken Comments Blood Pressure 196/87 07/05/2024 11:02 AM WOODS SUPERINTENDENT Pulse 99 07/05/2024 11:02 AM WOODS SUPERINTENDENT Temperature 37.1 C (98.8 F) 07/05/2024 11:02 AM WOODS SUPERINTENDENT Respiratory Rate 16 02/16/2024 8:11 AM CDT Oxygen Saturation 98% 07/05/2024 11:02 AM WOODS SUPERINTENDENT Inhaled Oxygen Concentration - - Weight 72.1 kg (159 lb) 07/05/2024 11:02 AM WOODS SUPERINTENDENT Height 170.2 cm (5' 7 ) 07/05/2024 11:02 AM WOODS SUPERINTENDENT Body Mass Index 24.9 07/05/2024 11:02 AM WOODS SUPERINTENDENT Plan of Treatment Upcoming Encounters Date Type Department Care Team (Late st Contact Info) Description 12/06/2024 9:30 AM CDT Appointment [facility] MRI [address] [place] [address] Gurwinder Núñez MD [address] [address] 01/03/2025 8:30 AM CDT Office Visit [facility] - Urology [facility] [address] [place] [address] Gurwinder Núñez MD [address] [place] [address] Health Maintenance Due Date Last Done Comments DTAP/TDAP/TD VACCINES (1 - Tdap) 1959 PNEUMOCOCCAL VACCINE 50+ (1 of 1 - PCV) 02/15/1988 ZOSTER VACCINE (1 of 2) 02/15/1988 Respiratory Syncytial Virus (RSV) Vaccine Pt: or over 60 yrs (1 - 1-dose 75+ series) 2013 COVID-19 VACCINE ( season) 2024 06/13/2023, 07/28/2021, 11/09/2020, Additional history exists INFLUENZA VACCINE (#1) 2024 9, 05/01/2018, 06/08/2017, Additional history exists DEPRESSION SCREENING 08/21/2024 MEDICARE AWV CALENDAR YEAR 2024 HEPATITIS B VACCINE Aged Out No longe r eligible based on patient's age to complete this topic HIB VACCINE Aged Out No longer eligi ble based on patient's age to complete this topic HPV VACCINE Aged Out No longer eligi ble based on patient's age to complete this topic MENINGOCOCCAL (Group B) VACCINE Aged Out No longer eligible based on patient's age to complete this topic MENINGOCOCCAL VACCINE Aged Out No lul marta eligible based on patient's age to complete this topic Medical Devices Implanted Type Area Boot Trimmer Device Identifier Shelf Expiration Date Model / Serial / Lot Lens Iol Dioptr 21.5 Implanted:Qty: 1 on 01/21/2015 by Marielos Caputo MD at [facility] Left: Eye [employer] 09/20/2019 [id number] / / [id number] Care Teams Software Engineer Mobile Relationship Specialty Start Date End Date James Hou MD PCP - General Internal Medicine 01/19/15
--- OUTSIDE RECORDS SUMMARY | 2024-10-07 15:05 | XMS_ITS | Referral Summary ---
Author Organization [facility] [employer] Address [address] [place] [address] Care Team Providers Care Manager Billing Name Role Phone James Hou MD Primary Care Provider Source Comments [facility]non[facility] Affiliates and Associated Physician Practices is amultiple site organization consisting of ambulatory clinics and hospital sitesin [place], [place], [place] and [place]. This disclosure is being madepursuant to the Care Everywhere program and may not contain all information available regarding this patient. Last updated 18.[facility] [employer] Allergies Active Allergy Reactions Criticality Noted Date [...] Comments Blood Pressure 196/87 07/05/2024 11:02 AM SALES DEPARTMENT CLERK Pulse 99 07/05/2024 11:02 AM SALES DEPARTMENT CLERK Temperature 37.1 C (98.8 F) 07/05/2024 11:02 AM SALES DEPARTMENT CLERK Respiratory Rate 16 02/16/2024 8:11 AM CDT Oxygen Saturation 98% 07/05/2024 11:02 AM SALES DEPARTMENT CLERK Inhaled Oxygen Concentration - - Weight 72.1 kg (159 lb) 07/05/2024 11:02 AM SALES DEPARTMENT CLERK Height 170.2 cm (5' 7 ) 07/05/2024 11:02 AM SALES DEPARTMENT CLERK Body Mass Index 24.9 07/05/2024 11:02 AM SALES DEPARTMENT CLERK Functional Status Functional Status Response Date of Assess ment Is person deaf or have serious hearing difficult y? No 01/21/2015 Is person blind or have serious difficulty seein g? No 01/21/2015 Does person have serious dif ficulty walking/climbing stairs? No 01/21/2015 Does person have difficulty dressing/bathing? No 01/21/2015 Does person have difficulty doing errands alone? No 01/21/2015 Cognitive Status Response Date of Assessm ent Does person have difficulty concentrating/remembering/making decisions? No 01/21/2015 Plan of Treatment Upcoming Encounters Date Type Department Care Team (Late st Contact Info) Description 12/06/2024 9:30 AM CDT Appointment [facility] MRI [address] [place] [address] Gurwinder Núñez MD [address] [facility] [address] [place] [address] 01/03/2025 8:30 AM CDT Office Visit [facility] - Urology [address] [place] [address] [address] [place] [phone] Gurwinder Núñez MD [address] [facility] [address] [place] [address] Medical Devices Implanted Type Area Fern Picker Device Identifier Shelf Expiration Date Model / Serial / Lot Lens Iol Dioptr 21.5 Implanted:Qty: 1 on 01/21/2015 by Marielos Caputo MD at [facility] Left: Eye [employer] 09/20/2019 [id number] / / [id number] Care Teams Manager Billing Relationship Specialty Start Date End Date James Hou MD PCP - General Internal Medicine 01/19/15
--- OUTSIDE RECORDS SUMMARY | 2024-10-07 15:05 | XMS_ITS | Patient Health Summary ---
Author Organization [facility] Address [address] [place] [address] Care Team Providers Care Charge Lpn Name Role Phone James Hou MD Primary Care Provider [phone] Note from [facility],non-owned Affiliates and Associated Physician Practices is amultiple site organization consisting of ambulatory clinics and hospital sitesin [place], [place], [place] and [place]. This disclosure is being madepursuant to the Care Everywhere program and may not contain all information available regarding this patient. Last updated 18.[facility] Allergies * Morphine(Nausea and/or Vomiting) -Medium Criticality * Sulfa Drugs(Turned penis black in color) * Sulfacetamide(Unknown) * Sulfamethoxazole W-Trimethoprim(Unknown,Other) -Low Criticality Medications * Be aware that medications may not be up to date on this document. Alwaysverify current medications with the patient. * acarbose (PRECOSE) 50 MG tablet(Started 01/06/2011) Take 1 Tab by mouth 6 times daily. * metoprolol succinate XL 24hr (TOPROL XL) 50 MG tablet Take 1 (one) tablet by mouth 2 times daily Reasons: High Blood Pressure * Insulin Glargine (LANTUS SC) Inject 18 Units subcutaneously 2 times daily. * insulin glulisine (APIDRA SOLOSTAR) pen Inject subcutaneously 3 times daily before meals. Sliding scale * valsartan (DIOVAN) 320 MG tablet Take 1 (one) tablet by mouth once daily Reasons: High Blood Pressure * amLODIPine (NORVASC) 10 MG tablet Take 1 (one) tablet by mouth once daily * rosuvastatin (CRESTOR) 10 MG tablet Take 1 (one) tablet by mouth once daily * montelukast (SINGULAIR) 10 MG tablet Take 1 (one) tablet by mouth at bedtime * vitamin D, cholecalciferol, 2000 UNITS tablet Take 1 (one) tablet by mouth once daily * finasteride (Proscar) 5 MG tablet Take 1 (one) tablet by mouth once daily Social History Tobacco Use Types Packs/Day Years [...] Comments Blood Pressure 196/87 07/05/2024 11:02 AM DONOR RELATIONS MANAGER Pulse 99 07/05/2024 11:02 AM DONOR RELATIONS MANAGER Temperature 37.1 C (98.8 F) 07/05/2024 11:02 AM DONOR RELATIONS MANAGER Respiratory Rate 16 02/16/2024 8:11 AM CDT Oxygen Saturation 98% 07/05/2024 11:02 AM DONOR RELATIONS MANAGER Inhaled Oxygen Concentration - - Weight 72.1 kg (159 lb) 07/05/2024 11:02 AM DONOR RELATIONS MANAGER Height 170.2 cm (5' 7 ) 07/05/2024 11:02 AM DONOR RELATIONS MANAGER Body Mass Index 24.9 07/05/2024 11:02 AM DONOR RELATIONS MANAGER Medical Devices Implanted Type Area Public Service Director Device Identifier Shelf Expiration Date Model / Serial / Lot Lens Iol Dioptr 21.5 Implanted:Qty: 1 on 01/21/2015 by Marielos Caputo MD at [facility] Left: Eye Chago [employer] 09/20/2019 [id number] / / [id number] Procedures * MRI ABDOMEN WWO CONTRAST(Performed 07/05/2024) Performed for Left kidney mass, Bilateral renal cysts * EXTRACTION CATARACT WITH INSERTION LENS (COMPLEX)(Performed 01/21/2015) Performed for Total or mature senile cataract * GLUCOSE - POINT OF CARE(Performed 01/21/2015) * BASIC METABOLIC PANEL (CALCIUM TOTAL)(Performed 08/25/2008) * GROSS + MICRO EXAM(Performed 01/08/1998) Results * MRI ABDOMEN WWO CONTRAST (07/05/2024 9:28 AM DONOR RELATIONS MANAGER) Anatomical Region Laterality Modality Abdomen Magnetic Resonan ce 07/05/2024 11:5 1 AM DONOR RELATIONS MANAGER Impressions 07/05/2024 2:51 PM DONOR RELATIONS MANAGER IMPRESSION: 1. 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 2. 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 3. Numerous additional Bosniak 2F cystic lesions bilaterally. > Interpreting Provider: James Coronado MD on 07/05/2024 2:51 PM Narrative 07/05/2024 2:51 PM DONOR RELATIONS MANAGER PROCEDURE: MRI ABDOMEN WWO CONTRAST DATE/TIME OF EXAM: 07/05/2024 9:29 AM CLINICAL INFORMATION: None relevant/not provided if blank. Indication: N28.89: Other specified disorders of kidney and ureter N28.1: Cyst of kidney, acquired Additional History: COMPARISON: None. TECHNIQUE: Multiplanar multisequence MR imaging of the abdomen before and following uneventful administration of intravenous contrast according to standard contrast-enhanced protocol. CONTRAST: GADOTERATE MEGLUMINE 0.5 MMOL/ML IV SSM SO:16 mL FINDINGS: Liver: Parenchyma: No evidence of hepatic steatosis. No evidence of cirrhosis. Focal lesions: Few cysts.. Vasculature: The hepatic veins are normal. The portal veins are normal. Biliary tree: Normal. Gallbladder: Normal. Spleen: Normal. Pancreas: Normal. Adrenal glands: Normal. Kidneys: Suggestion of 3 heterogeneously T2 hyperintense avidly enhancing left interpolar/lower pole lesions, for reference the largest measuring 3.0 x 2.8 cm on image 18 of series 2 which abuts a lesion more anteriorly, in conglomerate measuring approximately 4.1 x 2.8 cm axially. No definite intra-Voxel lipid. Numerous bilateral cortical cysts, including numerous hemorrhagic/proteinaceous cysts, some of which are heterogeneous hemorrhagic/proteinaceous, as well as others containing several smooth enhancing septations (Bosniak 2F). The most suspicious cystic lesion is a complex cyst or conglomeration of cysts in the left lower pole posteriorly measuring 3.3 x 2.2 cm axially on image 20 of series 2 with heterogeneously hemorrhagic/proteinaceous components, thick enhancing and somewhat irregular septations (Bosniak 3). Additional findings: Trace bilateral pleural effusions. Bladder is distended and trabeculated. Procedure Note James Coronado MD - 07/05/2024 PROCEDURE: MRI ABDOMEN WWO CONTRAST DATE/TIME OF EXAM: 07/05/2024 9:29 AM CLINICAL INFORMATION: None relevant/not provided if blank. Indication: N28.89: Other specified disorders of kidney and ureter N28.1: Cyst of kidney, acquired Additional History: COMPARISON: None. TECHNIQUE: Multiplanar multisequence MR imaging of the abdomen before and following uneventful administration of intravenous contrast according to standard contrast-enhanced protocol. CONTRAST: GADOTERATE MEGLUMINE 0.5 MMOL/ML IV SSM SO:16 mL FINDINGS: Liver: Parenchyma: No evidence of hepatic steatosis. No evidence of cirrhosis. Focal lesions: Few cysts.. Vasculature: The hepatic veins are normal. The portal veins are normal. Biliary tree: Normal. Gallbladder: Normal. Spleen: Normal. Pancreas: Normal. Adrenal glands: Normal. Kidneys: Suggestion of 3 heterogeneously T2 hyperintense avidlyenhancing left interpolar/lower pole lesions, for reference the largest measuring3.0 x 2.8 cm on image 18 of series 2 which abuts a lesion more anteriorly,in conglomerate measuring approximately 4.1 x 2.8 cm axially. No definite intra-Voxel lipid. Numerous bilateral cortical cysts, including numerous hemorrhagic/proteinaceous cysts, some of which are heterogeneous hemorrhagic/proteinaceous, as well as others containing several smooth enhancing septations (Bosniak 2F). The most suspicious cystic lesion is a complex cyst or conglomeration of cysts in the left lower pole posteriorly measuring 3.3 x 2.2 cm axiallyon image 20 of series 2 with heterogeneously hemorrhagic/proteinaceous components, thick enhancing and somewhat irregular septations (Bosniak3). Additional findings: Trace bilateral pleural effusions. Bladder is distended and trabeculated. IMPRESSION: 1. 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 Primary considerations are clear cell renal cell carcinoma oroncocytoma. 2. 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 3. Numerous additional Bosniak 2F cystic lesions bilaterally. > Interpreting Provider: James Coronado MD on 07/05/2024 2:51 PM Gurwinder Núñez MD MR ORDERABLES * (ABNORMAL) GLUCOSE - POINT OF CARE (01/21/2015 9:06 AM CDT) Glucose WB/POC 306(H) 70 - 106 mg/dL 01/21/2015 9:09 AM CDT [facility] Blood BLOOD SPECIMEN / Unknown 01/21/2015 9:06 AM CDT 01/21/2015 9:09 AM CDT Marielos Caputo MD LAB - POINT OF CARE ORDERABLES [facility] [address] [id number] * (ABNORMAL) BASIC METABOLIC PANEL (CALCIUM TOTAL) (08/25/2008 4:29 PM DONOR RELATIONS MANAGER) Glucose 44(L) 65 - 99 mg/dL [facility] ACCOUNT BILL Comment: This serum sample was in contact with the red cells when received. This may adversely affect serum Chemistries. BUN 25 5 - 26 mg/dL [facility] ACCOUNT BILL Creatinine 1.80(H) 0.76 - 1.27 mg/dL [facility] ACCOUNT BILL eGFR by MDRD 37(L) >59 mL/min/1.7 3 [facility] ACCOUNT BILL eGFR by MDRD 45(L) >59 mL/min/1.7 3 [facility] ACCOUNT BILL Comment: Note: Persistent reduction for 3 months or more in an eGFR <60 mL/min/1.73 m2 defines CKD. Patients with eGFR values >/=60 mL/min/1.73 m2 may also have CKD if evidence of persistent proteinuria is present. Additional information may be found at [email or web address]. BUN/Creatinine Ratio 14 8 - 27 [facility] ACCOUNT BILL Sodium 137 135 - 145 mmol/L [facility] ACCOUNT BILL Potassium 4.8 3.5 - 5.2 mmol/L [facility] ACCOUNT BILL Chloride 100 97 - 108 mmol/L [facility] ACCOUNT BILL CO2 21 20 - 32 mmol/L [facility] ACCOUNT BILL Calcium 8.7 8.5 - 10.6 mg/dL [facility] ACCOUNT BILL 08/25/2008 4:29 PM DONOR RELATIONS MANAGER 08/25/2008 10:12 PM DONOR RELATIONS MANAGER Narrative Resulting Agency Comment [facility] [address] [id number] Zac Floyd MD LAB - CHEMISTRY KATTY [facility] Organization Address City/State/ZIP Co de Phone Number [facility] ACCOUNT BILL * GROSS + MICRO EXAM (01/08/1998 9:45 AM CDT) Result CASE NUMBER [id number] Comment: ORDERING PHYSICIAN HALLIE HOOKER SPECIMEN TYPE Tissue-Rt up. chest Date 01/09/1998 Physician Ishan Gross Description The specimen is received in a container labeled with the patient's name and right upper chest mass , and consists of a fragment of guy-yellow soft tissue measuring 2 x 1 x 0.8 cm. The entire surface of the specimen is painted with black ink. The specimen is bisected, revealing the cut surface as guy-yellow. The entire specimen is submitted in cassette A. The next specimen is received in formalin, labeled with the patient's name and chest mass, left upper chest , and consists of a fragment of guy-white relatively firm soft tissue measuring 2.5 x 2.3 x 1.3 cm. The surface of the specimen is painted with black ink. The specimen is bisected revealing the cut surface to be a guy-yellow well-circumscribed mass. Tooling Manager section is submitted in cassette B. The next specimen is received in formalin, labeled with the patient's name and lower chest mass , and consists of a piece of guy-yellow soft tissue measuring 2.8 x 2 x 1.3 cm. The surface of the specimen is painted with black ink. The specimen is bisected revealing the cut surface as guy-yellow. Tooling Manager section of the specimen is submitted in cassette C. YZ/lmj Microscopic Exam Part A-Microscopic Fragments of mature adipose tissue with adherent fibroconnective tissue showing mild focal fibrosis. Part B-Microscopic Mature adipose tissue with adherent fibroconnective tissue showing mild focal fibrosis. Part C-Microscopic Mature adipose tissue with adherent fibroconnective tissue showing diffuse irregular fibrosis. A focus of granulation tissue reaction formation with capillary proliferation is focally identified within one of the fatty lobules. Diagnosis I. Chest, right upper A. Lipoma. II. Chest, left upper A. Lipoma. III. Chest, lower A. Lipoma. Assistance Specialist [facility] All Gates M.D. Snomed. 01/13/1998 1702 <1> CPT code 81639 [id number] MISCELLANEOUS SAMPLES / Unknown 01/08/1998 9:45 AM CDT 01/09/1998 9:45 AM CDT Historical Provider LAB - PATHOLOGY/C YTOLOGY ORDERABLES Care Teams Charge Lpn Relationship Specialty Start Date End Date James Hou MD PCP - General Internal Medicine 01/19/15
--- OUTSIDE RECORDS SUMMARY | 2024-10-07 15:05 | XMS_ITS | Encounter Summary ---
Author Organization [facility] Address 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 Gender Identity Not on file Sexual Orientation Not on file documented as of this encounter Plan of Treatment Not on file documented as of this encounter Procedures Procedure Name Priority Date/Time Associated Diagnosis Comments POC CREATININE Routine 03/07/2007 7:47 AM CDT documented in this encounter Results * (ABNORMAL) POC CREATININE (03/07/2007 7:47 AM CDT) CREATININE POC 1.4(H) 0.6 - 1.3 mg/dL INTERFACE SYSTEM 03/07/2007 7:47 AM CDT us Yvan Kay MD POINT OF CARE TESTING Edited INTERFACE SYSTEM Refer to clinic/hospital department documented in this encounter Visit Diagnoses Diagnosis Hypertrophy of prostate without urinary obstruction and other lower urinary tract symptoms (LUTS)- Primary documented in this encounter Care Teams Rn Telehealth Relationship Specialty Start Date End Date Zac Floyd MD [address] [place] [id number] PCP - General 06/19/03 documented as of this encounter
--- OUTSIDE RECORDS SUMMARY | 2024-10-07 15:05 | XMS_ITS | Encounter Summary ---
Author Organization [facility] Address 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
--- OUTSIDE RECORDS SUMMARY | 2024-10-07 15:05 | XMS_ITS | Encounter Summary ---
Author Organization [facility] Address 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
--- OUTSIDE RECORDS SUMMARY | 2024-10-07 15:05 | XMS_ITS | Encounter Summary ---
Author Organization [facility] Address 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 MAIL DISTRIBUTOR Gender Identity Not on file Sexual Orientation Not on file documented as of this encounter Plan of Treatment Not on file documented as of this encounter Procedures Procedure Name Priority Date/Time Associated Diagnosis Comments CT ABDOMEN W WO CONT PELVIS W CONT Routine 09/20/2007 11:20 AM MAIL DISTRIBUTOR documented in this encounter Results * CT ABDOMEN W WO CONT PELVIS W CONT (09/20/2007 11:20 AM MAIL DISTRIBUTOR) Anatomical Region Laterality Modality Abdomen Other 09/20/2007 11:2 0 AM MAIL DISTRIBUTOR Narrative 09/26/2007 8:01 AM MAIL DISTRIBUTOR [facility] [address], [place] [address] Admit Date: 09/20/2007 ALIYAH KAHN Sex: M Admit Prov: YVAN KAY Date: 1940 Primary Care Prov: ZAC FLOYD CMRN: [id number] Room: [facility] SSN: [id number] IMAGING SERVICES Ordering Prov: N/A Accession Number: [id number] Interpretation EXAM: CT OF THE ABDOMEN WITHOUT AND WITH INTRAVENOUS CONTRAST AND CT OF THE PELVIS WITH INTRAVENOUS CONTRAST, 09/20/2007 History: Abnormal left kidney with multiple left renal nodules. Scan Technique: CT of the abdomen is performed without and with contrast and CT of the pelvis is performed with contrast. Continuous spiral imaging is performed from above the diaphragm to below the symphysis pubis. Images are reconstructed in the axial plane at 5 mm intervals. Lung, liver, soft tissue and bone windows are reviewed. Oral contrast was not administered. Findings: Exam is compared to prior exams dated 03/07/2007 and 08/24/2006. Tiny hypodensities in the liver are unchanged since prior examinations. These are too small to definitively characterize at this time. There is no bile duct dilatation. The spleen, pancreas, and right adrenal gland are unremarkable. The hypodense nodule in the left adrenal gland which measures fat density on the noncontrast examination consistent with adenoma is not different since prior examinations. Tiny hypodensities in the upper pole of the right kidney are unchanged since prior examination. Lesions are too small to definitively determine contrast enhancement. The atypical lesions in the left kidney are again identified and are unchanged in size since prior examinations. One in the upper pole of the left kidney measures 1.6 x 1.1 cm and another in the lower pole of the left kidney measures 1.5 x 1 cm. These lesions do show definite enhancement after contrast and I am suspicious of renal neoplasm. The one in the lower pole of the left kidney enhances from 28 Hounsfield units to 80 Hounsfield units and the one in the upper pole of the left kidney enhances from 17 Hounsfield units to 40-50 Hounsfield units. No additional abnormality is seen in the kidneys. There is no hydronephrosis. No adenopathy is seen. The prostate is unchanged since prior examination. No bowel obstruction, free air, or fluid collection is seen. There is no additional finding except for sclerotic bone densities described on prior exam which are unchanged. No new abnormality or other change is seen. Impression: Enhancing lesions in the left kidney are unchanged in size since prior exam. However, the pattern of enhancement is suspicious for small renal neoplasms in the left kidney. There is no evidence of distant metastatic disease or adenopathy currently. The left renal vein is patent, the inferior vena cava is patent, and the right renal vein is patent, with no evidence of thrombosis. Tiny lesions in the upper pole of the right kidney are unchanged since prior exam. Stable left adrenal adenoma. Stable sclerotic lesions in right iliac bone and L1 spinous process. No additional finding and no other change since prior exam. . Dictated by: JAMES SARABIA 09/25/2007 13:27 Electronically signed by: JAMES SARABIA 09/26/2007 08:01 Transcribed: 09/25/2007 18:41 DKT Procedure Note James Sarabia - 09/26/2007 [facility] [address], [place] [address] Admit Date: 09/20/2007 ALIYAH KAHN Sex: M Admit Prov: YVAN KAY Date: 1940 Primary Care Prov: ZAC FLOYD CMRN: [id number] Room: [facility] SSN: [id number] IMAGING SERVICES Ordering Prov: N/A Interpretation EXAM: CT OF THE ABDOMEN WITHOUT AND WITH INTRAVENOUS CONTRAST AND CTOF THE PELVIS WITH INTRAVENOUS CONTRAST, 09/20/2007 History: Abnormal left kidney with multiple left renal nodules. Scan Technique: CT of the abdomen is performed without and withcontrast and CT of the pelvis is performed with contrast. Continuous spiralimaging is performed from above the diaphragm to below the symphysis pubis.Images are reconstructed in the axial plane at 5 mm intervals. Lung, liver,soft tissue and bone windows are reviewed. Oral contrast was notadministered. Findings: Exam is compared to prior exams dated 03/07/2007 and08/24/2006. Tiny hypodensities in the liver are unchanged since priorexaminations. These are too small to definitively characterize at this time. Thereis no bile duct dilatation. The spleen, pancreas, and right adrenal glandare unremarkable. The hypodense nodule in the left adrenal gland whichmeasures fat density on the noncontrast examination consistent with adenoma isnot different since prior examinations. Tiny hypodensities in the upper pole of the right kidney areunchanged since prior examination. Lesions are too small to definitivelydetermine contrast enhancement. The atypical lesions in the left kidney are again identified andare unchanged in size since prior examinations. One in the upper pole ofthe left kidney measures 1.6 x 1.1 cm and another in the lower pole ofthe left kidney measures 1.5 x 1 cm. These lesions do show definiteenhancement after contrast and I am suspicious of renal neoplasm. The one in thelower pole of the left kidney enhances from 28 Hounsfield units to 80Hounsfield units and the one in the upper pole of the left kidney enhances from17 Hounsfield units to 40-50 Hounsfield units. No additional abnormalityis seen in the kidneys. There is no hydronephrosis. No adenopathy isseen. The prostate is unchanged since prior examination. No bowel obstruction,free air, or fluid collection is seen. There is no additional findingexcept for sclerotic bone densities described on prior exam which are unchanged.No new abnormality or other change is seen. Impression: Enhancing lesions in the left kidney are unchanged in size sinceprior exam. However, the pattern of enhancement is suspicious for smallrenal neoplasms in the left kidney. There is no evidence of distantmetastatic disease or adenopathy currently. The left renal vein is patent, the inferior vena cava is patent, and the right renal vein is patent,with no evidence of thrombosis. Tiny lesions in the upper pole of the right kidney are unchangedsince prior exam. Stable left adrenal adenoma. Stable sclerotic lesions in right iliac bone and L1 spinousprocess. No additional finding and no other change since prior exam. . Dictated by: JAMES SARABIA 09/25/2007 13:27 Electronically signed by: JAMES SARABIA 09/26/2007 08:01 Transcribed: 09/25/2007 18:41 DKT us Yvan Kay MD CT ORDERABLES Final Result documented in this encounter Visit Diagnoses Diagnosis Unspecified disorder of kidney and ureter documented in this encounter Care Teams [employer] Division Manager Relationship Specialty Start Date End Date Zac Floyd MD [address] [place] [address] PCP - General 06/19/03 documented as of this encounter
--- OUTSIDE RECORDS SUMMARY | 2024-10-07 15:05 | XMS_ITS | Data Portability ---
Author Organization [facility] [place] Address [address] [facility] [place] [address] Care Team Providers Care Reshipping Clerk Name Role Phone JENNYFER HOU Primary Care Provider [phone] Assessment Encounter Date Assessment Date Assessment LastModified by Organization Details LastModified Time 11/13/2023 11/13/[address] of the abdomen pelvis obtain blood work. To include CBC CMP lipid A1c urinalysis. I like to see him back in a month he can try some Tylenol but do not take Advil diabetes hypertension hyperlipidemia BPH is chronic rhinitis GERD and his abdominal back pain have been discussed in detail. Obtain old records for database completion [email or web address] Not available 11/13/2023 22:10:43 02/13/2024 02/13/2024 we will await the specialist opinion diagnosis and assessment and plan have been discussed as well as target for blood pressure A1c and LDL he will see me back in about 3 months all questions have been answered to patient's satisfaction was also in attendance today. [email or web address] Not available 02/25/2024 20:23:17 03/20/2024 03/20/2024 clinically blood sugars have been doing okay note from Endo reviewed we will follow up with me in 4 months check a urinalysis blood pressures have been doing fine BPH stable renal lesions to be rescanned by specialist GERD has been doing fine on H2 tuan dyslipidemia atorvastatin follow up in 3-4 months [email or web address] Not available 03/20/2024 13:58:02 06/19/2024 06/19/2024 flu B positive. Tamiflu. Rest. Fluids. Isolate for 5 days wear mask for 10 days. Call if worse. Otherwise medicines we will continue. Follow up in 3 months [email or web address] Not available 06/23/2024 15:11:10 09/18/2024 09/18/2024 I will obtain some blood Bliss. Trial of primidone. Continue to follow up with specialists. Agreeable to immunizations today Tdap unfortunately we do not have high dose flu shot in the clinic today he will have to get it at local pharmacy follow up with me in 3 months [email or web address] Not available 09/21/2024 22:39:42 Plan of Treatment Reminders Order Date Submit Date Provider Last Modified By Organization Details Last Modified Time Details Appointments ANY 15 2024 11:00A Emma Hou MD Not available Not available Not available Lab HbA1c (hemoglob in A1c), blood 2024 025 [facility], [address] [place] [address], [address], [place], [address], 09/19/2024 10:13:43 albumin/c reatinine , mass ratio, urine 2024 025 [facility], [address] [place] [address], [address], [place], [address], 09/19/2024 10:13:39 lipid panel, serum 2024 025 [facility], [address] [place] [address], [address], [place], [address], 09/19/2024 10:13:40 CMP, serum or plasma 2024 025 [facility], [address] [place] [address], [address], [place], [address], 09/19/2024 10:13:42 CBC w/ auto diff 2024 025 [facility], [address] [place] [address], [address], [place], [address], 09/19/2024 10:13:44 influenza virus A + B + SARS-CoV- 2 (COVID19) Ag panel, rapid IA, upper respirato ry specimen 2023 024 [email or web address] In-Office Order, Internal Use Only DO Not Attach Compendium DO Not Attach Compendium, Do Not Delete/merge, [id number] 06/19/2024 15:31:33 urinalysi s complete, reflex culture 2023 024 [facility], [address] [facility], [address], [place], [address], 03/21/2024 08:28:28 HbA1c (hemoglob in A1c), blood 2023 024 [email or web address] In-Office Order, Internal Use Only DO Not Attach Compendium DO Not Attach Compendium, Do Not Delete/merge, [id number] 11/13/2023 13:42:52 Referral None recorded. Procedures None recorded. Surgeries None recorded. Imaging CT, abdomen + pelvis, w/o contrast 2023 024 [facility] (Im[facility]), [address] [place] [address], [address], 11/30/2023 12:43:43 Medication Orders primidone 50 mg tablet [address] [facility], [address] [place] [address], [address], 09/23/2024 14:06:47 Tamiflu 75 mg capsule 2023 024 [email or web address] [facility], [address] [place] [address], [address], 06/19/2024 15:31:33 Patient TargetsNo targets recorded. Patient Instructions Encounter Date Encounter Id Patient Instructions Last Modified By Organization Details Last Modified Time 02/13/2024 [id number] A healthy lifestyle: care instructions [email or web address] Not available 02/13/2024 13:25:15 09/18/2024 [id number] A healthy lifestyle: care instructions [email or web address] Not available 09/18/2024 14:04:22 Reason for Referral None Reported. Results Created Date Observation Date Name Description Value Unit Range Abnormal Flag Note LastModifiedBy Organization Detail LastModifiedTime 11/13/19 24 11/13/2023 HbA1c (hemo globi n A1c), blood HbA1c 8.6 Not Available In-Office Order Internal Use Only DO Not Attach Compendium DO Not Attach Compendium, Do Not Delete/merge, [id number] 11/13/2023 12:45:22 03/20/20 24 03/21/2024 MICRO SCOPI C EXAMI NATIO N WBC 0-5 /hpf 0-5 Not Available [facility] ([facility]) [address] [facility], [place], [address], 03/21/2024 08:28:28 03/20/20 24 03/21/2024 MICRO SCOPI C EXAMI NATIO N RBC None seen /hpf 0-2 Not Available [facility] ([facility]) [address] [facility], [place], [address], 03/21/2024 08:28:28 03/20/20 24 03/21/2024 MICRO SCOPI C EXAMI NATIO N epithelial cells (non renal) None seen /hpf 0-10 Not Available [facility] ([facility]) [address] [facility], [place], [address], 03/21/2024 08:28:28 03/20/20 24 03/21/2024 MICRO SCOPI C EXAMI NATIO N casts None seen /lpf nonese en Not Available [facility] ([facility]) [address] [facility], [place], [address], 03/21/2024 08:28:28 03/20/20 24 03/21/2024 MICRO SCOPI C EXAMI NATIO N bacteria None seen nonese en/few Not Available [facility] ([facility]) [address] [facility], [place], [address], 03/21/2024 08:28:28 03/20/20 24 03/21/2024 UA/M W/RFL X CULTU RE, ROUTI NE specific gravity 1.015 1.005- 1.030 Not Available [facility] ([facility]) [address] [place], [address], 03/21/2024 08:28:28 03/20/20 24 03/21/2024 UA/M W/RFL X CULTU RE, ROUTI NE pH 6.0 5.0-7. 5 Not Available [facility] ([facility]) [address] [place], [address], 03/21/2024 08:28:28 03/20/20 24 03/21/2024 UA/M W/RFL X CULTU RE, ROUTI NE urine-color YELLOW yellow Not Available [facility] ([facility]) [address] [facility], [place], [address], 03/21/2024 08:28:28 03/20/20 24 03/21/2024 UA/M W/RFL X CULTU RE, ROUTI NE appearance CLEAR clear Not Available [facility] ([facility]) [address] [place], [address], 03/21/2024 08:28:28 03/20/20 24 03/21/2024 UA/M W/RFL X CULTU RE, ROUTI NE WBC esterase NEGATI VE negati ve Not Available [facility] ([facility]) [address] [place], [address], 03/21/2024 08:28:28 03/20/20 24 03/21/2024 UA/M W/RFL X CULTU RE, ROUTI NE protein 1+ negati ve/tra ce abnormal Not Available [facility] ([facility]) [address] [place], [address], 03/21/2024 08:28:28 03/20/20 24 03/21/2024 UA/M W/RFL X CULTU RE, ROUTI NE glucose 1+ negati ve abnormal Not Available [facility] ([facility]) [address] [facility], [place], [address], 03/21/2024 08:28:28 03/20/20 24 03/21/2024 UA/M W/RFL X CULTU RE, ROUTI NE ketones NEGATI VE negati ve Not Available [facility] ([facility]) [address] [facility], [place], [address], 03/21/2024 08:28:28 03/20/20 24 03/21/2024 UA/M W/RFL X CULTU RE, ROUTI NE occult blood NEGATI VE negati ve Not Available [facility] ([facility]) [address] [facility], [place], [address], 03/21/2024 08:28:28 03/20/20 24 03/21/2024 UA/M W/RFL X CULTU RE, ROUTI NE bilirubin NEGATI VE negati ve Not Available [facility] ([facility]) [address] [facility], [place], [address], 03/21/2024 08:28:28 03/20/20 24 03/21/2024 UA/M W/RFL X CULTU RE, ROUTI NE urobilinogen ,semi-qn 0.2 mg/dL 0.2-1. 0 Not Available [facility] ([facility]) [address] [facility], [place], [address], 03/21/2024 08:28:28 03/20/20 24 03/21/2024 UA/M W/RFL X CULTU RE, ROUTI NE nitrite, urine NEGATI VE negati ve Not Available [facility] ([facility]) [address] [facility], [place], [address], 03/21/2024 08:28:28 03/20/20 24 03/21/2024 UA/M W/RFL X CULTU RE, ROUTI NE microscopic examination SEE BELOW: Micro scopi c was indic ated and was perfo rmed. Not Available [facility] ([facility]) [address] [facility], [place], [address], 03/21/2024 08:28:28 03/20/20 24 03/21/2024 UA/M W/RFL X CULTU RE, ROUTI NE urinalysis reflex COMMEN T This speci men will not refle x to a Urine Cultu re. Not Available [facility] ([facility]) [address] [facility], [place], [address], 03/21/2024 08:28:28 06/19/20 24 06/19/2024 influ zachary virus A + B + SARS- CoV-2 (COVI D19) Ag panel , rapid IA, upper respi rator y speci men Flu A negati ve Not Available In-Office Order Internal Use Only DO Not Attach Compendium DO Not Attach Compendium, Do Not Delete/merge, [id number] 06/19/2024 12:55:06 06/19/20 24 06/19/2024 influ zachary virus A + B + SARS- CoV-2 (COVI D19) Ag panel , rapid IA, upper respi rator y speci men Flu B positi ve Not Available In-Office Order Internal Use Only DO Not Attach Compendium DO Not Attach Compendium, Do Not Delete/merge, [id number] 06/19/2024 12:55:06 06/19/20 24 06/19/2024 influ zachary virus A + B + SARS- CoV-2 (COVI D19) Ag panel , rapid IA, upper respi rator y speci men Rapid SARS CoV 2 Ag, QL IA, respiratory specimen negati ve Not Available In-Office Order Internal Use Only DO Not Attach Compendium DO Not Attach Compendium, Do Not Delete/merge, [id number] 06/19/2024 12:55:06 09/18/19 25 09/19/2024 ALBUM IN/CR EATIN INE RATIO ,URIN E creatinine, urine 55.3 mg/dL notest ab. Not Available [facility] ([facility]) [address] [facility], [place], [address], 09/19/2024 10:13:38 09/18/19 25 09/19/2024 ALBUM IN/CR EATIN INE RATIO ,URIN E albumin, urine 474.0 ug/mL notest ab. Resul ts confi rmed on dilut ion. Not Available [facility] ([facility]) [address] [facility], [place], [address], 09/19/2024 10:13:38 09/18/19 25 09/19/2024 ALBUM IN/CR EATIN INE RATIO ,URIN E alb/creat ratio 857 mg/g_ creat 0-29 above high normal Beryl l: 0 - 29 Moder ately incre ased: 30 - 300 Sever caitie incre ased: >300 Not Available [facility] ([facility]) [address] [facility], [place], [address], 09/19/2024 10:13:38 09/18/19 25 09/19/2024 LIPID PANEL cholesterol, total 183 mg/dL 100-19 9 Not Available [facility] ([facility]) [address] [facility], [place], [address], 09/19/2024 10:13:40 09/18/19 25 09/19/2024 LIPID PANEL triglyceride s 116 mg/dL 0-149 Not Available [facility] ([facility]) [address] [facility], [place], [address], 09/19/2024 10:13:40 09/18/19 25 09/19/2024 LIPID PANEL HDL cholesterol 60 mg/dL >39 Not Available [facility] ([facility]) [address] [place], [address], 09/19/2024 10:13:40 09/18/19 25 09/19/2024 LIPID PANEL VLDL cholesterol karen 21 mg/dL 5-40 Not Available [facility] ([facility]) [address] [place], [address], 09/19/2024 10:13:40 09/18/19 25 09/19/2024 LIPID PANEL LDL chol calc ([facility]) 102 mg/dL 0-99 above high normal Not Available [facility] ([facility]) [address] [place], [address], 09/19/2024 10:13:40 09/18/19 25 09/19/2024 COMP. METAB OLIC PANEL (14) glucose 83 mg/dL 70-99 Not Available [facility] ([facility]) [address] [place], [address], 09/19/2024 10:13:41 09/18/19 25 09/19/2024 COMP. METAB OLIC PANEL (14) BUN 43 mg/dL 8-27 above high normal Not Available [facility] ([facility]) [address] [place], [address], 09/19/2024 10:13:41 09/18/19 25 09/19/2024 COMP. METAB OLIC PANEL (14) creatinine 3.01 mg/dL 0.76-1 .27 above high normal Not Available [facility] ([facility]) [address] [place], [address], 09/19/2024 10:13:41 09/18/19 25 09/19/2024 COMP. METAB OLIC PANEL (14) eGFR 20 mL/mi n/1.7 3 >59 below low normal Not Available [facility] ([facility]) [address] [place], [address], 09/19/2024 10:13:41 09/18/19 25 09/19/2024 COMP. METAB OLIC PANEL (14) BUN/creatini ne ratio 14 10-24 Not Available [facility] ([facility]) [address] [place], [address], 09/19/2024 10:13:41 09/18/19 25 09/19/2024 COMP. METAB OLIC PANEL (14) sodium 138 mmol/ L 134-14 4 Not Available [facility] ([facility]) [address] [facility] [place], [address], 09/19/2024 10:13:41 09/18/19 25 09/19/2024 COMP. METAB OLIC PANEL (14) potassium 4.8 mmol/ L 3.5-5. 2 Not Available [facility] ([facility] [address] [facility] [place], [address], 09/19/2024 10:13:41 09/18/19 25 09/19/2024 COMP. METAB OLIC PANEL (14) chloride 101 mmol/ L 96-106 Not Available [facility] ([facility]) [address] [place], [address], 09/19/2024 10:13:41 09/18/19 25 09/19/2024 COMP. METAB OLIC PANEL (14) carbon dioxide, total 24 mmol/ L - Not Available [facility] ([facility]) [address] [place], [address], 09/19/2024 10:13:41 09/18/19 25 09/19/2024 COMP. METAB OLIC PANEL (14) calcium 9.2 mg/dL 8.6-10 .2 Not Available [facility] ([facility]) [address] [facility] [place], [address], 09/19/2024 10:13:41 09/18/19 25 09/19/2024 COMP. METAB OLIC PANEL (14) protein, total 7.3 g/dL 6.0-8. 5 Not Available [facility] ([facility]) [address] [facility] [place], [address], 09/19/2024 10:13:41 09/18/19 25 09/19/2024 COMP. METAB OLIC PANEL (14) albumin 4.2 g/dL 3.7-4. 7 Not Available [facility] ([facility]) [address] [facility], [place], [address], 09/19/2024 10:13:41 09/18/19 25 09/19/2024 COMP. METAB OLIC PANEL (14) globulin, total 3.1 g/dL 1.5-4. 5 Not Available [facility] ([facility]) [address] [place], [address], 09/19/2024 10:13:41 09/18/19 25 09/19/2024 COMP. METAB OLIC PANEL (14) bilirubin, total 0.3 mg/dL 0.0-1. 2 Not Available [facility] ([facility]) [address] [place], [address], 09/19/2024 10:13:41 09/18/19 25 09/19/2024 COMP. METAB OLIC PANEL (14) alkaline phosphatase 99 IU/L 44-121 Not Available [facility] ([facility]) [address] [facility], [place], [address], 09/19/2024 10:13:41 09/18/19 25 09/19/2024 COMP. METAB OLIC PANEL (14) AST (SGOT) 21 IU/L 0-40 Not Available [facility] ([facility]) [address] [facility], [place], [address], 09/19/2024 10:13:41 09/18/19 25 09/19/2024 COMP. METAB OLIC PANEL (14) ALT (SGPT) 18 IU/L 0-44 Not Available [facility] ([facility]) [address] [place], [address], 09/19/2024 10:13:41 09/18/19 25 09/19/2024 HEMOG LOBIN A1C hemoglobin A1C 10.1 % 4.8-5. 6 above high normal Predi abete s: 5.7 - 6.4 Diabe darrin: >6.4 Glyce cullen contr ol for adult s with diabe darrin: <7.0 Not Available [facility] ([facility]) [address] [place], [address], 09/19/2024 10:13:43 09/18/19 25 09/19/2024 CBC WITH DIFFE RENTI AL/PL ATELE T WBC 6.1 x10e3 /uL 3.4-10 .8 Not Available [facility] ([facility]) [address] [place], [address], 09/19/2024 10:13:44 09/18/19 25 09/19/2024 CBC WITH DIFFE RENTI AL/PL ATELE T RBC 4.11 x10e6 /uL 4.14-5 .80 below low normal Not Available [facility] ([facility]) [address] [facility], [place], [address], 09/19/2024 10:13:44 09/18/19 25 09/19/2024 CBC WITH DIFFE RENTI AL/PL ATELE T hemoglobin 11.4 g/dL 13.0-1 7.7 below low normal Not Available [facility] ([facility]) [address] [place], [address], 09/19/2024 10:13:44 09/18/19 25 09/19/2024 CBC WITH DIFFE RENTI AL/PL ATELE T hematocrit 35.0 % 37.5-5 1.0 below low normal Not Available [facility] ([facility]) [address] [place], [address], 09/19/2024 10:13:44 09/18/19 25 09/19/2024 CBC WITH DIFFE RENTI AL/PL ATELE T MCV 85 fL 79-97 Not Available [facility] ([facility]) [address] [place], [address], 09/19/2024 10:13:44 09/18/19 25 09/19/2024 CBC WITH DIFFE RENTI AL/PL ATELE T MCH 27.7 pg 26.6-3 3.0 Not Available [facility] ([facility]) [address] [facility], [place], [address], 09/19/2024 10:13:44 09/18/19 25 09/19/2024 CBC WITH DIFFE RENTI AL/PL ATELE T MCHC 32.6 g/dL 31.5-3 5.7 Not Available [facility] ([facility]) [address] [facility], [place], [address], 09/19/2024 10:13:44 09/18/19 25 09/19/2024 CBC WITH DIFFE RENTI AL/PL ATELE T RDW 14.1 % 11.6-1 5.4 Not Available [facility] ([facility]) [address] [facility], [place], [address], 09/19/2024 10:13:44 09/18/19 25 09/19/2024 CBC WITH DIFFE RENTI AL/PL ATELE T platelets 166 x10e3 /uL 150-45 0 Not Available [facility] ([facility]) [address] [facility], [place], [address], 09/19/2024 10:13:44 09/18/19 25 09/19/2024 CBC WITH DIFFE RENTI AL/PL ATELE T neutrophils 59 % notest ab. Not Available [facility] ([facility]) [address] [facility], [place], [address], 09/19/2024 10:13:44 09/18/19 25 09/19/2024 CBC WITH DIFFE RENTI AL/PL ATELE T lymphs 23 % notest ab. Not Available [facility] ([facility]) [address] [place], [address], 09/19/2024 10:13:44 09/18/19 25 09/19/2024 CBC WITH DIFFE RENTI AL/PL ATELE T monocytes 15 % notest ab. Not Available [facility] ([facility]) [address] [facility], [place], [address], 09/19/2024 10:13:44 09/18/19 25 09/19/2024 CBC WITH DIFFE RENTI AL/PL ATELE T eos 2 % notest ab. Not Available [facility] ([facility]) [address] [facility], [place], [address], 09/19/2024 10:13:44 09/18/19 25 09/19/2024 CBC WITH DIFFE RENTI AL/PL ATELE T basos 1 % notest ab. Not Available [facility] ([facility]) [address] [facility], [place], [address], 09/19/2024 10:13:44 09/18/19 25 09/19/2024 CBC WITH DIFFE RENTI AL/PL ATELE T neutrophils (absolute) 3.6 x10e3 /uL 1.4-7. 0 Not Available [facility] ([facility]) [address] [facility], [place], [address], 09/19/2024 10:13:44 09/18/19 25 09/19/2024 CBC WITH DIFFE RENTI AL/PL ATELE T lymphs (absolute) 1.4 x10e3 /uL 0.7-3. 1 Not Available [facility] ([facility]) [address] [facility], [place], [address], 09/19/2024 10:13:44 09/18/19 25 09/19/2024 CBC WITH DIFFE RENTI AL/PL ATELE T monocytes(ab solute) 0.9 x10e3 /uL 0.1-0. 9 Not Available [facility] ([facility]) [address] [facility], [place], [address], 09/19/2024 10:13:44 09/18/19 25 09/19/2024 CBC WITH DIFFE RENTI AL/PL ATELE T eos (absolute) 0.1 x10e3 /uL 0.0-0. 4 Not Available [facility] ([facility]) [address] [facility], [place], [address], 09/19/2024 10:13:44 09/18/19 25 09/19/2024 CBC WITH DIFFE RENTI AL/PL ATELE T baso (absolute) 0.0 x10e3 /uL 0.0-0. 2 Not Available [facility] ([facility]) [address] [facility], [place], [address], 09/19/2024 10:13:44 09/18/19 25 09/19/2024 CBC WITH DIFFE RENTI AL/PL ATELE T immature granulocytes 0 % notest ab. Not Available [facility] ([facility]) [address] [facility], [place], [address], 09/19/2024 10:13:44 09/18/19 25 09/19/2024 CBC WITH DIFFE RENTI AL/PL ATELE T immature grans (abs) 0.0 x10e3 /uL 0.0-0. 1 Not Available [facility] ([facility]) [address] [facility], [place], [address], 09/19/2024 10:13:44 11/30/19 24 11/21/2023 CT, abdom en + pelvi s, w/o contr ast No observ ation record ed. [facility] [address], [place], [address], 12/01/2023 14:33:41 Result Notes None recorded. Problems Name Problem SNOMED Code Status Onset Date Resolution Date Notes Provider Name and Address Organization Details Recorded Time Low back pain 493138690 Active 2023 MYLES Gilbert [place] - [facility] 13:17:25 Abdominal pain 63915439 Active 2023 MYLES Gilbert, [place] - [facility] 4 13:17:26 Type 2 diabetes mellitus 22181601 Active 2023 Aubrey Abdullahi [place] null, [place] - [facility] 4 13:17:30 Essential hypertension 29875313 Active 2023 Jennyfer Hou MD Attn: Ladonna yolanda,[address] [place], [address], [place] - [facility] 4 22:08:41 Benign prostatic hyperplasia with outflow obstruction 663402953 Active 2023 Jennyfer Hou MD Attn: Ladonna guerrero,[address] [place], [address], [place] [facility] 4 22:08:50 Chronic rhinitis 31744434 Active 2023 Jennyfer Hou MD Attn: Ladonna guerrero,[address] [place], [address], [place] [facility] 4 22:08:51 Gastroesophage al reflux disease without esophagitis 825938576 Active 2023 Jennyfer Hou MD Attn: Ladonna guerrero,[address] [place], [address], [place] [facility] 4 22:08:53 Chronic kidney disease stage 3B 408684885 Active 2023 Jennyfer Hou MD Attn: Ladonna guerrero,[address] [place], [address], [place] [facility] 4 22:08:54 Tremor 40130792 Active 2024 Jennyfer Hou MD Attn: Ladonna guerrero,[address] [place] [address], [address], [place] [facility] 5 22:39:56 Administration of diphtheria, pertussis, and tetanus vaccine Active 2024 Jennyfer Hou MD Attn: Ladonna guerrero,[address] [place] [address], [address], [place] - [facility] 5 22:39:58 Problem Notes None recorded. Procedures Surgical History None recorded. Imaging Results Imaging Date Name Status [facility]Modified by [facility] Details LastModified Time 11/21/2023 CT, abdomen + pelvis, w/o contrast completed [facility] [address], [place], [address], 12/01/2023 14:33:41 Procedure Notes None recorded. Medical Equipment None Reported. Allergies No known drug allergies Medications Name Sig Start Date Stop Date Status Note LastModified by Organization Details LastModified Time primidone 50 mg tablet Take 1 tablet twice a day by oral route. 09/[address] Hou stated to this medicati on immediat caitie Not Available Not Available Not Available atorvasta tin 10 mg tablet TAKE 1 TABLET BY MOUTH ONCE DAILY active Not Available Not Available No t Available peg-elect rolyte solution 420 gram oral solution TAKE DIRECTED PER OFFICE 11/12 completed Not Available Not Available Not Available triamcino lone acetonide 0.1 % topical cream APPLY TO AFFECTED AREA ONCE TO TWICE DAILY FOR UP TO TWO WEEKS. TAKE A SMALL BREAK FOR 1-2 DAYS, AND REPEAT NECESSAR Y FOR FLARES. AVOID THE FACE, AXILLA AND GROIN active Not Available Not Available No t Available famotidin e 20 mg tablet Take 1 tablet twice a day by oral route. active Not Available Not Available No t Available prednisol one acetate 1 % eye drops,brian pension INSTILL 1 DROP INTO RIGHT EYE THREE TIMES DAILY FOR 1 WEEK THEN TWICE DAILY FOR 2 WEEKS active Not Available Not Available No t Available tamsulosi n 0.4 mg capsule TAKE 1 CAPSULE BY MOUTH TWICE DAILY FOR 7 DAYS active Not Available Not Available No t Available amlodipin e 10 mg tablet TAKE 1 TABLET BY MOUTH ONCE DAILY active Not Available Not Available No t Available oseltamiv ir 75 mg capsule TAKE 1 CAPSULE BY MOUTH ONCE DAILY FOR 5 DAYS active Not Available Not Available No t Available promethaz ine 25 mg tablet TAKE 1/2 (ONE-[place] F) TABLET BY MOUTH EVERY 6 HOURS NEEDED 11/12 completed Not Available Not Available Not Available omeprazol e 20 mg capsule,d elayed release TAKE 1 CAPSULE BY MOUTH BEFORE BREAKFAS T active Not Available Not Available No t Available [address] 10 mg tablet TAKE 1 TABLET BY MOUTH ONCE DAILY active Not Available Not Available No t Available clobetaso l 0.05 % scalp solution APPLY SOLUTION TOPICALL Y TWICE DAILY TO AFFECTED AREA OF SCALP FOR 2 WEEKS, REPEAT NEEDED FOR FLARES active Not Available Not Available No t Available cefdinir 300 mg capsule TAKE 1 CAPSULE BY MOUTH EVERY 12 HOURS 11/12 completed Not Available Not Available Not Available calcitrio l 0.25 mcg capsule TAKE 1 CAPSULE BY MOUTH THREE TIMES A WEEK active Not Available Not Available No t Available finasteri de 5 mg tablet TAKE 1 TABLET BY MOUTH ONCE DAILY active Not Available Not Available No t Available mometason e 0.1 % topical cream APPLY A THIN LAYER TOPICALL Y TO THE AFFECTED AREA(S) ONCE DAILY active Not Available Not Available No t Available valsartan 160 mg tablet TAKE 2 TABLETS BY MOUTH ONCE DAILY active Not Available Not Available No t Available Lantus Solostar U-100 Insulin 100 unit/mL (3 mL) subcutane ous pen INJECT 40 UNITS SUBCUTAN EOUSLY NIGHTLY active Not Available Not Available No t Available Humalog KwikPen (U-100) Insulin 100 unit/mL subcutane ous INJECT 8-16 UNITS SUBCUTAN EOUSLY THREE TIMES DAILY BEFORE MEALS WITH SSI MAX DAILY DOSE 48 UNITS active Not Available Not Available No t Available Farxiga 5 mg tablet TAKE 1 TABLET BY MOUTH ONCE DAILY 12/03 completed pt stopped himself BS too low Not Available Not Available Not Available Procto-Me d HC 2.5 % topical cream perineal applicato r APPLY A THIN LAYER TOPICALL Y TO THE AFFECTED AREA(S) TWICE DAILY active Not Available Not Available No t Available FreeStyle Herbert 2 Sensor kit USE DIRECTED active Not Available Not Available No t Available FreeStyle Herbert 2 Rogers USE DIRECTED FOR BLOOD GLUCOSE MONITORI NG active Not Available Not Available No t Available Vitals Date Recorded Body height Body weight Heart rate Oxygen saturation Oxygen saturation in Arterial blood by Pulse oximetry Systolic blood pressure Diastolic blood pressure Provider Name and Address Organization Details Last Updated DateTime 4 168.91 cm 45266.7 6 g 96 /min 98 % 98 % 130 mm[Hg] 68 mm[Hg] KARLA He[place] - [facility] 4 12:39:54 Date Recorded Body height Body mass index (BMI) Body weight Heart rate Body temperature Oxygen saturation Oxygen saturation in Arterial blood by Pulse oximetry Systolic blood pressure Diastolic blood pressure Provider Name and Address Organization Details Last Updated DateTime 4 168.91 cm 25.2 kg/m2 42665.3 9 g 86 /min 97.8 [degF] 97 % 97 % 132 mm[Hg] 60 mm[Hg] Kenia Joya MA [facility] 4 11:09:15 Date Recorded Body height Body mass index (BMI) Body weight Heart rate Oxygen saturation Oxygen saturation in Arterial blood by Pulse oximetry Systolic blood pressure Diastolic blood pressure Provider Name and Address Organization Details Last Updated DateTime 4 168.91 cm 25.4 kg/m2 38717.9 8 g 79 /min 98 % 98 % 122 mm[Hg] 64 mm[Hg] Silke Alfaro MA [facility] 4 11:47:00 Date Recorded Body height Body mass index (BMI) Body weight Heart rate Oxygen saturation Oxygen saturation in Arterial blood by Pulse oximetry Systolic blood pressure Diastolic blood pressure Provider Name and Address Organization Details Last Updated DateTime 4 168.91 cm 25.7 kg/m2 22880.6 g 85 /min 98 % 98 % 122 mm[Hg] 68 mm[Hg] Silke Alfaro MA [facility] 4 12:08:00 Date Recorded Body height Body mass index (BMI) Body weight Heart rate Oxygen saturation Oxygen saturation in Arterial blood by Pulse oximetry Systolic blood pressure Diastolic blood pressure Provider Name and Address Organization Details Last Updated DateTime 5 168.91 cm 26 kg/m2 49267.3 5 g 84 /min 98 % 98 % 118 mm[Hg] 62 mm[Hg] Silke Alfaro MA [facility] 5 12:40:11 Social History Question Answer Notes LastModified by Organizat ion Details LastModified Time Tobacco Smoking Status Former Smoker quit 1986 cigarettes Kenia Joya MA [facility], [facility] 02/13/2024 11:11:05 Do You Have An Advance Directive? No Information not available 03/20/2024 What Is Your Level Of Alcohol Consumption? Moderate Quit 1986 Information not available 02/13/2024 Are You Blind Or Do You Have Difficulty Seeing? Yes Glasses Information not available 03/20/2024 What Is Your Level Of Caffeine Consumption? Moderate Information not available 03/20/2024 In The 14 Days Before Symptom Onset, Have You Had Close Contact With A Laboratory-confi rmed COVID-19 While That Case Was Ill? No Information not available 03/20/2024 In The 14 Days Before Symptom Onset, Have You Had Close Contact With A Person Who Is Under Investigation For COVID-19 While That Person Was Ill? No Information not available 03/20/2024 Have You Been To An Area Known To Be High Risk For COVID-19? No Information not available 03/20/2024 Are You Currently Employed? No Information not available 03/20/2024 Are You Deaf Or Do You Have Serious Difficulty Hearing? No A Little Bit Information not available 03/20/2024 What Type Of Diet Are You Following? REGULAR Information not available 03/20/2024 Are There Any Guns Present In Your Home? No Information not available 03/20/2024 What Was The Date Of Your Most Recent Tobacco Screening? 09/18/2024 Information not available 09/18/2024 What Is Your Current Pack Years? [id number] ars Information not available 02/13/2024 What Is Your Relationship Status? Information not available 03/20/2024 Do You Use Your Seat Belt Or Car Seat Routinely? Yes Information not available 03/20/2024 Do You Have Smoke And Carbon Monoxide Detectors In Your Home? Yes Information not available 03/20/2024 How Much Tobacco Do You Smoke? No Information not available 02/13/2024 Do You Feel Stressed (tense, Restless, Nervous, Or Anxious, Or Unable To Sleep At Night)? [id number] Information not available 03/20/2024 Do You Use Sunscreen Routinely? No Information not available 03/20/2024 Has Tobacco Cessation Counseling Been Provided? No Information not available 02/13/2024 How Many Years Have You Smoked Tobacco? 30 Information not available 02/13/2024 Do You Or Have You Ever Used Any Other Forms Of Tobacco Or Nicotine? No Information not available 02/13/2024 Sex: Male Functional Status Question Answer Note LastModified by Organization D etails LastModified Time Are you able to care for yourself? Yes Information n ot available 03/20/2024 What is your exercise level? None Information not available 03/20/2024 Mental Status None recorded. Family History Nothing Reported. Medical History Condition Response Diabetes Y High Blood Pressure Y Immunizations Vaccine Type Date Status Note Provider Nam e and Address Organization Details Recorded Time Influenza, high-dose, quadrivalent, PF 0 completed [place]am [place], [place] [facility] 02/12/2024 16:01:21 Influenza, high-dose, quadrivalent, PF 2 completed [place] [facility] 02/12/2024 16:01:21 Influenza, high-dose, quadrivalent, PF 3 completed [place] [facility] 02/12/2024 16:01:21 Influenza, high-dose, quadrivalent, PF 1 [place] [facility] 02/12/2024 16:01:21 COVID-19, mRNA, LNP-S, PF, 100 mcg/0.5mL dose or 50 mcg/0.25mL dose 1 [place] [facility] 02/12/2024 16:01:21 COVID-19, mRNA, LNP-S, PF, 100 mcg/0.5mL dose or 50 mcg/0.25mL dose 1 [place] [facility] 02/12/2024 16:01:21 COVID-19, mRNA, LNP-S, PF, 100 mcg/0.5mL dose or 50 mcg/0.25mL dose 1 [place] [facility] 02/12/2024 16:01:21 RSV, recombinant, protein subunit RSVpreF, adjuvant reconstituted, 0.5 mL, PF 3 completed [place] [facility] 02/12/2024 16:01:21 COVID-19, mRNA, LNP-S, PF, 50 mcg/0.5 mL 3 completed [place]am [place] [facility] 02/12/2024 16:01:21 pneumococcal polysaccharide PPV23 0 completed [place] [facility] 02/12/2024 16:01:21 influenza, unspecified formulation 8 completed [place] [facility] 02/12/2024 16:01:21 Pneumococcal conjugate PCV 13 9 completed [place] [facility] 02/12/2024 16:01:21 Pneumococcal conjugate PCV 13 5 completed [place] [facility] 02/12/2024 16:01:21 Influenza, high-dose, trivalent, PF 8 completed [place] [facility] 02/12/2024 16:01:21 Influenza, high-dose, trivalent, PF 6 completed [place] [facility] 02/12/2024 16:01:21 Influenza, high-dose, trivalent, PF 6 completed [place] [facility] 02/12/2024 16:01:21 Influenza, high-dose, trivalent, PF 7 completed [place] [facility] 02/12/2024 16:01:21 Influenza, high-dose, trivalent, PF 9 completed [place] [facility] 02/12/2024 16:01:21 Influenza, split virus, trivalent, preservative 3 completed [place] [facility] 02/12/2024 16:01:21 Influenza, split virus, trivalent, preservative 4 completed [place] [facility] 02/12/2024 16:01:21 Influenza, split virus, quadrivalent, PF 5 completed [place] [facility] 02/12/2024 16:01:21 Tdap 5 completed Jennyfer Hou MD Attn: Accounting,[address] [facility], [place], [address], [facility] 09/21/2024 22:33:56 Past Encounters Encounter ID Performer Location Encounter Start Date Encounter Closed Date Diagnosis/Indication Diagnosis SNOMED-CT Code Diagnosis ICD10 Code Diagnosis Note [id number] Jennyfer Hou MD [facility] - [facility] Manuel Lofton [address] [place] [address] 11/13/2023 12:07:50 11/13/2023 13:13:56 Type 2 diabetes mellitus 52704320 E11.9 Low back pain 988798868 M54.50 Abdominal pain 07876568 R10.9 Essential hypertension 98476112 I10 Benign pro static hyperplasia with outflow obstruction 100104216 N40.1 Chronic rhinitis 0762397 6 J31.0 Gastroesop hageal reflux disease without esophagitis 645557437 K21.9 Chronic ki dney disease stage 3B 508383420 N18.32 [id number] Jennyfer Hou MD [facility] (Adult Med) [address] [place] [address] 02/13/2024 10:56:02 02/13/2024 12:02:02 Overweight 369027632 E66.3 Essential hypertension 45070506 I10 Gastroesop hageal reflux disease without esophagitis 357340729 K21.9 Low back pain 679519600 M54.50 Type 2 chato betes mellitus 96371197 E11.9 Chronic ki dney disease stage 3B 394160947 N18.32 Renal mass 915715115 N28 .89 [id number] Jennyfer Hou MD [facility] (Adult Med) [address] [place] [address] 03/20/2024 11:34:31 03/20/2024 12:18:53 Low back pain 364330653 M54.50 Essential hypertension 34011026 I10 Gastroesop hageal reflux disease without esophagitis 954266927 K21.9 Type 2 chato betes mellitus 18082671 E11.9 Chronic ki dney disease stage 3B 839709701 N18.32 [id number] [facility]fer H[facility] MD [facility] [address] [place] [address] [place] [address] 06/19/2024 11:49:55 06/19/2024 12:44:14 Influenza B virus present 216542831 J10.1 Nasal disc harge present 799479311 R09.89 Type 2 chato betes mellitus 56322264 E11.9 Gastroesop hageal reflux disease without esophagitis 804221337 K21.9 Essential hypertension 88805860 I10 Chronic ki dney disease stage 3B 568814847 N18.32 [id number] MD [facility] (Adult Med) [address] [place] [address] 09/18/2024 11:45:49 09/18/2024 13:09:59 Body mass index 25-29 - overweight 018159006 Z68.26 Overweight 848449462 E66 .3 Essential hypertension 41552833 I10 Type 2 chato betes mellitus 02801257 E11.9 Administra tion of diphtheria, pertussis, and tetanus vaccine 488891177 Z23 Tremor 67115155 R25.1 Chronic rhinitis 1848319 6 J31.0 Health Concerns Section Related Observation LastModified by Organization Detai ls LastModified Time None Recorded Concern Status LastModified by Organization Details LastModified Time None Recorded Advance Directives Directive N: Payers Encounter Date Sequence Insurance Name Policy Number Policy Soria Covered Member ID Soria Member ID Guarantor Name 11/13/2023 1 [facility] (MEDICARE REPLACEMENT/A DVANTAGE - HMO) [id number] Aliyah Kahn [id number] Aliyah Kahn 02/13/2024 1 [facility] (MEDICARE REPLACEMENT/A DVANTAGE - HMO) [id number] Aliyah Kahn [id number] Aliyah Kahn 03/20/2024 1 [facility] (MEDICARE REPLACEMENT/A DVANTAGE - HMO) [id number] Aliyah Kahn [id number] Aliyah Kahn 06/19/2024 1 [facility] (MEDICARE REPLACEMENT/A DVANTAGE - HMO) [id number] Aliyah Kahn [id number] Aliyah Kahn 09/18/2024 1 [facility] (MEDICARE REPLACEMENT/A DVANTAGE - HMO) [id number] Aliyah Kahn [id number] Aliyah Kahn Notes Date Note Type Note Provider Name and Address Organization Details Recorded Time 11/13/2023 text/html Diabetes no polyphasia no polydipsia. BPH doing fine on tamsulosin chronic rhinitis has been stable but this time a year with pollen up he gets a little bit more congested. GERD no nausea no vomiting. CKD 3B no new symptoms and he does have an appointment assess with his kidney doctor by phone. He has been of some low back pain and left lower quadrant pain has been kind of nagging and coming off and on for a couple of months now with no weight disturbance no change in stools no blood in the stool is mild to moderate nothing makes better nothing makes worse it does not wake him up at night Jennyfer Hou MD Attn: Accounting,[address] [facility], [place], [address], [facility] 11/13/2023 22:11:02 02/13/2024 text/html Diabetes no polyphasia no polydipsia. BPH doing fine on tamsulosin chronic rhinitis has been stable but this time a year with pollen up he gets a little bit more congested. GERD no nausea no vomiting. CKD 3B no new symptoms He has been of some low back pain and left lower quadrant pain has been kind of nagging and coming off and on for a couple of months now with no weight disturbance no change in stools no blood in the stool is mild to moderate nothing makes better nothing makes worse it does not wake him up at night. He has a left renal mass he is going to [facility] to see a specialist next week and they are going to contemplate a biopsy Jennyfer Hou MD Attn: Accounting,[address] [facility], [place], [address], [facility] 02/25/2024 20:23:39 03/20/2024 text/html Diabetes no polyphasia no polydipsia. BPH doing fine on tamsulosin chronic rhinitis has been stable but this time a year with pollen up he gets a little bit more congested. GERD no nausea no vomiting. CKD 3B no new symptoms He has been of some low back pain and left lower quadrant pain has been kind of nagging and coming off and on for a couple of months now with no weight disturbance no change in stools no blood in the stool is mild to moderate nothing makes better nothing makes worse it does not wake him up at night. his kidney masses were evaluated [facility] and they have chosen to monitor these lesions he will have an MRI they say in May of this year Jennyfer Hou MD Attn: Accounting, [address] [facility], [place], [address], [facility] 03/20/2024 13:58:20 06/19/2024 text/html hypertension he has not had any headache or dizziness. GERD no nausea no vomiting CKD 3 asymptomatic BPH urination has been okay diabetes does not take his sugars that often denies polyphagia polydipsia no hypoglycemic spells. She had a couple of days now nasal congestion body aches fever but he is not taking his temperature maybe some chills there has been slight cough mostly sinus type symptomatology though Jennyfer Hou MD Attn: Accounting, [address] [facility], [place], [address], [facility] 06/23/2024 15:11:29 09/18/2024 text/html diabetes he is d ue for blood work sugars I suspect her high at home he is not checking him that much but no polyphagia polydipsia or hypoglycemia. 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
--- OUTSIDE RECORDS SUMMARY | 2024-10-07 15:05 | XMS_ITS | Referral Summary ---
Author Organization [facility] Physician Office Building [address] [place] [id number] Care Team Providers Care Wood [place] Neck Whipper Name Role Phone James Hou MD Primary Care Provider [phone] Encounters Date Type Department Care Team Description 10/01/2024 Telephone [facility] Diabetes and Endocrinology [address] [place] [phone] Gretel Burr NP Med Management 09/27/2024 Orders Only [facility] Diabetes and Endocrinology [address] [place] [phone] ProviderChristian MD 09/17/2024 2:00 PM SCHOOL BUS DRIVER/CUSTODIAN - 09/17/2024 11:59 PM SCHOOL BUS DRIVER/CUSTODIAN Hospital Encounter [facility] [id number] [place] [id number] Type 2 diabetes mellitus with hyperglycemia, with long-term current use of insulin (HCC); Hyperlipidemia associated with type 2 diabetes mellitus (HCC) Discharge Disposition: Discharge to home or self care 09/17/2024 2:00 PM SCHOOL BUS DRIVER/CUSTODIAN Lab [facility] Outpatient Lab at [address] [phone] Hyperlipidemia associated with type 2 diabetes mellitus (HCC) (Primary Dx); Hypertension associated with diabetes (HCC) 09/17/2024 1:00 PM SCHOOL BUS DRIVER/CUSTODIAN Office Visit [facility] Diabetes and Endocrinology [address] [place] [phone] Gretel Burr, AMANDA Type 2 diabetes mellitus with hyperglycemia, with long-term current use of insulin (HCC) (Primary Dx); Hypertension associated with diabetes (HCC); Hyperlipidemia associated with type 2 diabetes mellitus (HCC); CKD (chronic kidney disease) stage 4, GFR 15-29 ml/min ([facility]) (HCC) 08/05/2024 Telephone [facility] Specialists of [address] [place] [phone] Ozzie Guadarrama MD Med Refill 07/31/2024 Orders Only [facility] Specialists of [address] [address] ProviderChristian MD from Last 3 Months Allergies Active Allergy Reactions Criticality Noted Date [...] meals and bed time 0 strip 0 Active lancets (ACCU-CHEK FASTCLIX) misc test blood [...] FOR INJECTIONS 4 TIMES DAILY 100 11 07/29/ 014 Active tamsulosin (FLOMAX) 0.4 mg capsule,exten [...] 320mg 021 Active flash glucose scanning reader (FreeStyle Herbert 2 Cades) misc Use for BG monitoring 1 each 023 Active insulin aspart niacinamide (FIASP) 100 unit/mL (3 mL) pen for injectionIndi cations:Type 2 diabetes mellitus with hyperglycemia , with long-term current use of insulin (HCC) Inject 4-8 Units under the skin 3 [...] with long-term current use of insulin (HCC) Inject 40 Units under the skin nightly 45 mL 2 024 2024 Active Additional Information Patient taking differently: 40-42 Unitssubcutaneous Nightly, Reported on 09/17/2024 HumaLOG 100 unit/mL pen for injectionIndi cations:Type 2 diabetes mellitus with hyperglycemia , with long-term current use of insulin (HCC) INJECT 8-16 UNITS SUBCUTANEOUSLY THREE TIMES DAILY BEFORE MEALS WITH SSI MAX DAILY DOSE 48 UNITS 15 mL 024 Active clobetasoL (TEMOVATE) 0.05 % external solution APPLY SOLUTION TOPICALLY TWICE DAILY TO AFFECTED AREA OF SCALP FOR 2 WEEKS, REPEAT NEEDED FOR FLARES 025 Active Procto-Med HC 2.5 % rectal cream [...] WEEK THEN TWICE DAILY FOR 2 WEEKS 024 2024 Discontinued(T herapy completed) Active Problems Problem Noted Date Diagnosed Date CKD (chronic kidney disease) stage 4, GFR 15-29 ml/min ([facility]) 01/02/2023 Assessment & Plan (09/17/2024 1:55 PM SCHOOL BUS DRIVER/CUSTODIAN): Chronic problem. Managed by Dr Beach at [place]; seen q3mos. 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 Valsartan 160mg daily. Last MA: 03/13/24 (186). Last creat/GFR: 03/13/24 GFR=22, CR=2.77. seeing Dr Núñez at [facility] for L kidney mass & bilat renal cysts. Had MRI 07/05/24 to check kidney lesions (3). Has repeat MRI set up for 11/2024. Will see Dr Núñez 12/06/24. Plan per [address] Núñez's note 07/05/24 is to continue surveillance of slow growing L renal mass. Assessment & Plan (03/13/2024 11:10 AM CDT): Chronic problem. Managed by Dr Beach at [place]. Seen q3mos. 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 Valsartan 160mg daily. Last MA: 07/13/22 (64). Last creat/GFR: 07/13/22 GFR=21, CR=2.85. L Kidney mass. Now seeing Dr Avery Núñez at [facility]. 06/14/24. Will be having MRI also per Mr Kahn. Assessment & Plan (05/08/2023 1:59 PM CDT): Chronic problem. Managed by Dr Beach at [place]. Seen q3mos. 05/30/23. Assessment & Plan (01/02/2023 1:59 PM CDT): Chronic problem. Managed by Dr Beach at [place]. Seen q3mos. Hypoglycemia associated with diabetes ([facility]) 03/04/2019 Assessment & Plan (07/13/2022 2:14 PM SCHOOL BUS DRIVER/CUSTODIAN): Lower evening Lantus dose Assessment & Plan (09/12/2019 12:57 PM SCHOOL BUS DRIVER/CUSTODIAN): Order Dexcom Assessment & Plan (03/04/2019 11:17 AM CDT): Dose of Lantus lowered Request DEXCOM Type 2 diabetes mellitus 02/22/2017 Assessment & Plan (09/17/2024 1:54 PM SCHOOL BUS DRIVER/CUSTODIAN): Chronic problem. Not at goal but A1c [...] DM eye exam. Reports frequent appts to [facility]; appt 2-3 weeks ago. Letter sent to [...] infection. Assessment & Plan (08/08/2023 1:42 PM SCHOOL BUS DRIVER/CUSTODIAN): Hba1c was Lab Results Component Value Date [...] DM eye exam. Reports frequent appts to [facility]; appt 2-3 weeks ago. Letter sent to [...] DM eye exam. Reports frequent appts to [facility]. Letter sent to get copy of results. [...] weeks Assessment & Plan (07/13/2022 2:10 PM SCHOOL BUS DRIVER/CUSTODIAN): With some hypoglycemia Lower evening Lantus to [...] today. Assessment & Plan (09/13/2021 12:40 PM SCHOOL BUS DRIVER/CUSTODIAN): Chronic problem, not at goal with frequent [...] units Assessment & Plan (08/31/2020 9:49 AM SCHOOL BUS DRIVER/CUSTODIAN): Hba1c was Lab Results Component Value Date [...] Over 301, take 10 units Will request [employer] Herbert CGMS Assessment & Plan (02/24/2020 12:53 PM [...] units Assessment & Plan (09/12/2019 12:55 PM SCHOOL BUS DRIVER/CUSTODIAN): A1c 8.9. Poor control continues to be [...] reviewed. Assessment & Plan (09/09/2018 7:45 PM SCHOOL BUS DRIVER/CUSTODIAN): Your A1c worsening to 9.5.Increase Lantus to [...] reviewed. Assessment & Plan (09/04/2017 12:43 PM SCHOOL BUS DRIVER/CUSTODIAN): Hba1c was 8.0 today, indicating DM control [...] reviewed. Hyperlipidemia associated with type 2 diabetes m russell 01/25/2016 Overview (11/24/2016): Hyperlipidemia associated with type 2 diabetes mellitus Assessment & Plan (09/17/2024 12:49 PM SCHOOL BUS DRIVER/CUSTODIAN): Chronic problem. Currently taking Atorvastatin 10mg. Last lipid panel: 08/07/23 LDL=56, TG=92. Will update labs. Does not mychart. Verified phone #/address to contact re: results. Assessment & Plan (03/13/2024 10:41 AM CDT): Chronic problem. Currently taking Atorvastatin 10mg. Last lipid panel: 07/13/22 LDL=22, HA=094. Will update labs today. Does not mychart. Verified phone #/address to contact re: results. Assessment & Plan (05/08/2023 1:14 PM CDT): Chronic problem. Currently taking Atorvastatin 10mg. Last lipid panel: 07/13/22 LDL=22, ZS=679. No changes at this time Assessment & Plan (01/02/2023 1:43 PM CDT): Chronic problem. Currently taking Atorvastatin 10mg. Last lipid panel: 07/13/22 LDL=22, UB=103. No changes at this time Assessment & Plan (03/15/2022 2:46 PM CDT): Chronic problem. On statin therapy, no changes. Assessment & Plan (09/13/2021 11:22 AM SCHOOL BUS DRIVER/CUSTODIAN): Chronic problem. On statin therapy, no changes. Assessment & Plan (03/01/2021 9:39 AM CDT): Check lipid panel today Assessment & Plan (11/30/2020 3:30 PM CDT): LDL 72. Continue statin Assessment & Plan (09/12/2019 12:57 PM SCHOOL BUS DRIVER/CUSTODIAN): Will order lipid panel and adjust as indicated. Assessment & Plan (05/09/2019 9:46 AM CDT): Controlled on current medications. Continue plan. Assessment & Plan (12/03/2018 2:32 PM CDT): At goal on current medications. Hypertension associated with diabetes 01/25/2016 Overview (11/24/2016): Hypertension associated with diabetes Assessment & Plan (09/17/2024 12:49 PM SCHOOL BUS DRIVER/CUSTODIAN): Chronic problem. BP elevated upon rooming & [...] daily Assessment & Plan (07/13/2022 2:14 PM SCHOOL BUS DRIVER/CUSTODIAN): Chronic, well controlled Importance of low salt diet and exercise were discussed Continue current meds Update BMP Assessment & Plan (03/15/2022 2:46 PM CDT): Controlled on current medications, no changes. Assessment & Plan (09/13/2021 11:22 AM SCHOOL BUS DRIVER/CUSTODIAN): Controlled on current medications, no changes. Assessment [...] ARB Assessment & Plan (09/12/2019 12:56 PM SCHOOL BUS DRIVER/CUSTODIAN): Controlled on current medications. Continue plan. Assessment & Plan (05/09/2019 9:46 AM CDT): Controlled on current medications. Continue plan. Assessment & Plan (12/03/2018 2:32 PM CDT): Controlled on current medications. Assessment & Plan (09/09/2018 7:47 PM SCHOOL BUS DRIVER/CUSTODIAN): Controlled on current medications. Assessment & Plan (03/21/2018 10:42 AM CDT): Controlled on current medications. Assessment & Plan (12/04/2017 10:15 AM CDT): Controlled on current medications. Assessment & Plan (09/04/2017 12:44 PM SCHOOL BUS DRIVER/CUSTODIAN): Goal blood pressure is less than 140/85 Low salt diet recommended Daily aerobic exercise Continue current meds, including CHRISTIAN-I or ARB Assessment & Plan (05/24/2017 9:54 AM CDT): Controlled on current medications. Assessment & Plan (02/22/2017 5:03 PM CDT): Continue current medications. Resolved Problems Problem Noted Date Diagnosed Date Resolved Date Hyperlipidemia 02/22/2017 01/02/2023 Assessment & Plan (09/09/2018 7:46 PM SCHOOL BUS DRIVER/CUSTODIAN): Check lipid panel today Assessment & Plan (03/21/2018 10:42 AM CDT): At goal on current medications. Assessment & Plan (12/04/2017 10:16 AM CDT): At goal on current medications. Assessment & Plan (09/04/2017 12:43 PM SCHOOL BUS DRIVER/CUSTODIAN): Goal of treatment , LDL cholesterol less [...] Plan (02/22/2017 5:03 PM CDT): Check labs Social History Tobacco Use Types Packs/Day Years [...] on file Legal Sex Male 1:10 PM SCHOOL BUS DRIVER/CUSTODIAN Gender Identity Not on file Sexual Orientation Not on file Last Filed Vital Signs Vital Sign Reading Time Taken Comments Blood Pressure 164/82 09/17/2024 1:03 PM SCHOOL BUS DRIVER/CUSTODIAN Pulse 94 09/17/2024 1:03 PM SCHOOL BUS DRIVER/CUSTODIAN Temperature - - Respiratory Rate 16 09/17/2024 1:03 PM SCHOOL BUS DRIVER/CUSTODIAN Oxygen Saturation - - Inhaled Oxygen Concentration - - Weight 74.4 kg (164 lb) 09/17/2024 1:03 PM SCHOOL BUS DRIVER/CUSTODIAN Height 170.2 cm (5' 7.01 ) 09/17/2024 1:03 PM CS T Body Mass Index 25.68 09/17/2024 1:03 PM SCHOOL BUS DRIVER/CUSTODIAN Plan of Treatment Not on file Procedures Procedure Name Priority Date/Time Associated Diagnosis Comments DIABETES EYE EXAM Routine 09/19/2024 7:19 AM SCHOOL BUS DRIVER/CUSTODIAN LIPID PANEL Routine 09/17/2024 2:00 PM SCHOOL BUS DRIVER/CUSTODIAN Type 2 diabetes mellitus with hyperglycemia, with long-term current use of insulin (HCC) Hyperlipidemia associated with type 2 diabetes mellitus (HCC) POCT GLUCOSE Routine 09/17/2024 1:05 PM SCHOOL BUS DRIVER/CUSTODIAN Type 2 diabetes mellitus with hyperglycemia, with long-term current use of insulin (HCC) POCT HEMOGLOBIN A1C Routine 09/17/2024 1 :05 PM SCHOOL BUS DRIVER/CUSTODIAN Type 2 diabetes mellitus with hyperglycemia, with long-term current use of insulin (HCC) DIABETES EYE EXAM Routine 07/29/2024 7:35 AM SCHOOL BUS DRIVER/CUSTODIAN EGFR Routine 03/13/2024 11:17 AM CDT Type [...] * DIABETES EYE EXAM (09/19/2024 7:19 AM SCHOOL BUS DRIVER/CUSTODIAN) us Historical Provider HEALTH MAINTENANCE Final Result * (ABNORMAL) Lipid panel (09/17/2024 2:00 PM SCHOOL BUS DRIVER/CUSTODIAN) [facility] Cholesterol 182 30 - 199 mg/dL Comment: [...] on 2018. HDL 61 >=40 mg/dL CARMELITA Comment: Interpretive Data Ages < or = [...] 2018. LDL, calculated 94 <=129 mg/dL CARMELITA Comment: Interpretive Data Ages < or = [...] 2004;110:227 3. Puma Crowe al. AMANDA Cardiol. 2019December 19;5(5):540-548. doi: [email or web address] Current Interpretive Data was [...] revised on 2018. Chol/HDL ratio 3 CARMELITA CH Blood 09/17/2024 2:00 PM SCHOOL BUS DRIVER/CUSTODIAN 09/17/2024 8:37 PM SCHOOL BUS DRIVER/CUSTODIAN Gretel Burr NP LAB BLOOD ORDERABLES Shaye l Result CARMELITA [id number] [place] [address] * (ABNORMAL) POCT hemoglobin A1c (09/17/2024 1:05 PM SCHOOL BUS DRIVER/CUSTODIAN) Hemoglobin A1C, POC 9.8 4.0 - 5.6 % Blood 09/17/2024 1:05 PM SCHOOL BUS DRIVER/CUSTODIAN Gretel Burr NP POINT OF CARE TEST ORDERA BLES Final Result * (ABNORMAL) POCT glucose (09/17/2024 1:05 PM SCHOOL BUS DRIVER/CUSTODIAN) Glucose Blood, POC 478 mg/dL Blood 09/17/2024 1:05 PM SCHOOL BUS DRIVER/CUSTODIAN Gretel Burr NP POINT OF CARE TEST ORDERA BLES Final Result * (ABNORMAL) DIABETES EYE EXAM (07/29/2024 7:35 AM SCHOOL BUS DRIVER/CUSTODIAN) us Historical Provider HEALTH MAINTENANCE Final Result [...] AM CDT 03/13/2024 4:26 PM CDT Gretel Burr PC NETWORK TECHNICIAN LAB BLOOD ORDERABLES Shaye l Result CARMELITA [id number] [place] [address] * (ABNORMAL) Albumin Creatinine Ratio, Urine (03/13/2024 [...] 7 AM CDT 03/13/2024 2:48 PM CDT us Gretel Burr NP LAB URINE ORDERABLES Shaye l Result CARMELITA [address] [place] [address] from Last 3 Months or Most Recently Relevant to Health Maintenance Insurance MEDICARE SOLUTIONS MEDICARE SOLUTIONS MEDICARE [employer] Care Teams Wood [place] Neck Whipper Relationship Specialty Start Date End Date James Hou MD PCP - General 11/18/16
--- OUTSIDE RECORDS SUMMARY | 2024-10-07 15:05 | XMS_ITS | Encounter Summary ---
Author Organization [facility] Address [address] [place] [address] Care Team Providers Care Translational Specialist Name Role Phone Zac Floyd MD Primary Care Provider [phone] Encounter Details Date Type Department Care Team (Late st Contact Info) Description 06/25/2006 Outpatient Historical [facility] Landry Higginbotham DO [address] [place] [address] Er, Authorized P NO ADDRESS ON FILE Orchitis/Epididymit NEC (Primary Dx) Social History Tobacco Use Types Packs/Day Years Used Date Smoking Tobacco: Never Assessed Sex and Gender Information Value Date Recorded Sex Assigned at Not on file Legal Sex Male 3:01 AM INSTRUCTOR BALLROOM DANCING Gender Identity Not on file Sexual Orientation Not on file documented as of this encounter Plan of Treatment Not on file documented as of this encounter Procedures Procedure Name Priority Date/Time Associated Diagnosis Comments URINALYSIS W/REFLEX MICROSCOPIC Routine 06/25/2006 4:39 PM INSTRUCTOR BALLROOM DANCING CBC WITH DIFFERENTIAL Routine 06/25/2006 3:53 PM INSTRUCTOR BALLROOM DANCING CBC WITH DIFFERENTIAL Routine 06/25/2006 3:53 PM INSTRUCTOR BALLROOM DANCING C-REACTIVE PROTEIN Routine 06/25/2006 3: 53 PM INSTRUCTOR BALLROOM DANCING documented in this encounter Results * (ABNORMAL) URINALYSIS (06/25/2006 4:39 PM INSTRUCTOR BALLROOM DANCING) COLOR UA Yellow INTERFACE SYSTEM CLARITY UA Clear Clear INTERFACE SYSTEM SPECIFIC GRAVITY UA 1.013 1.001 - 1.035 INTERFACE SYSTEM PH UA 5.5 5.0 - 8.0 INTERFACE SYSTEM LEUKOCYTE ESTERASE UA 3+(A) Negative INTERFACE SYSTEM NITRITE UA Negative Negative INTERFACE SYSTEM PROTEIN UA Negative Negative INTERFACE SYSTEM GLUCOSE UA 4+(A) Negative INTERFACE SYSTEM KETONES UA Negative Negative INTERFACE SYSTEM UROBILINOGEN UA <1 <=1 mg/dL INTE RFACE SYSTEM BILIRUBIN UA Negative Negative INTERFA CE SYSTEM BLOOD UA Trace(A) Negative INTERFACE SYSTEM WBC UA 43(H) 0 - 3 /HPF INTERFACE SYSTEM RBC UA 2 0 - 3 /HPF INTERFACE SYSTEM Comment: Microscopic verified by repeat analysis. Suggest red cell hemolysis or interfering substance. WBC CLUMPS Present(A) None Seen INTERFAC E SYSTEM MACRO COMMENT Results called INTERFACE SYSTEM Comment:Called 4+ glucose to Briana 06/25/2006 5:42 PM 06/25/2006 4:39 PM INSTRUCTOR BALLROOM DANCING Landry Higginbotham DO URINE ORDERABLES Final Result Performing Organization Address [facility] Phone Number INTERFACE SYSTEM Refer to clinic/hospital department * (ABNORMAL) CBC WITH DIFFERENTIAL (06/25/2006 3:53 PM INSTRUCTOR BALLROOM DANCING) Pathologist [facility] NEUTROPHILS 65 45 - 70 % INTERFAC E SYSTEM LYMPHOCYTES 19 16 - 45 % INTERFAC E SYSTEM MONOCYTES 15(H) 3 - 13 % INTERFACE SYSTEM EOSINOPHILS 1 0 - 7 % INTERFAC E SYSTEM BASOPHILS 0 0 - 2 % INTERFACE SYSTEM NEUTROPHIL ABSOLUTE 3.91 1.90 - 7.00 K/uL INTERFACE SYSTEM LYMPHOCYTE ABSOLUTE 1.11 0.70 - 4.50 K/uL INTERFACE SYSTEM MONOCYTE ABSOLUTE 0.91 0.10 - 1.30 K/uL INTERFACE SYSTEM EOSINOPHIL ABSOLUTE 0.04 0.00 - 0.70 K/uL INTERFACE SYSTEM BASOPHILS ABSOLUTE 0.02 0.00 - 0.20 K/uL INTERFACE SYSTEM 06/25/2006 3:53 PM INSTRUCTOR BALLROOM DANCING Landry Higginbotham DO HEMATOLOGY ORDERABLES Final R esult Performing Organization Address [facility] Phone Number INTERFACE SYSTEM Refer to clinic/hospital department * (ABNORMAL) CBC WITH DIFFERENTIAL (06/25/2006 3:53 PM INSTRUCTOR BALLROOM DANCING) WBC 6.0 4.0 - 9.8 K/uL INTERFACE SYSTEM RBC 4.39(L) 4.50 - 5.40 M/uL INTERFACE SYSTEM HEMOGLOBIN 11.8(L) 13.6 - 16.5 g/dL INTERFACE SYSTEM HEMATOCRIT 34.4(L) 40.0 - 48.0 % INTERFACE SYSTEM MCV 78.4(L) 82.0 - 99.0 fL INTERFACE SYSTEM MCH 26.9(L) 27.2 - 32.6 pg INTERFACE SYSTEM MCHC 34.3 31.5 - 35.5 % INTERFACE SYSTEM RDW 15.0(H) 11.5 - 14.5 % INTERFACE SYSTEM RDW-STDEV 42.8 37.1 - 48.7 fL INTERFACE SYSTEM PLATELETS 277 140 - 350 K/uL INTERFACE SYSTEM MPV 10.6 9.3 - 12.4 fL INTERFACE SYSTEM 06/25/2006 3:53 PM INSTRUCTOR BALLROOM DANCING Landry Higginbotham DO HEMATOLOGY ORDERABLES Final R esult Performing Organization Address [facility] Co de Phone Number INTERFACE SYSTEM Refer to clinic/hospital department * (ABNORMAL) C-REACTIVE PROTEIN (06/25/2006 3:53 PM INSTRUCTOR BALLROOM DANCING) Pathologist [facility] CRP 4.5(H) 0.0 - 0.8 mg/dL INTERFACE SYSTEM 06/25/2006 3:53 PM INSTRUCTOR BALLROOM DANCING Landry Higginbotham DO CHEMISTRY ORDERABLES Final Re sult Performing Organization Address [facility] Co de Phone Number INTERFACE SYSTEM Refer to clinic/hospital department documented in this encounter Visit Diagnoses Diagnosis Other orchitis, epididymitis, and epididymo-orchitis, without mention of abscess(604.99)- Primary Other orchitis, epididymitis, and epididymo-orchitis, without mention of abscess documented in this encounter Care Teams Translational Specialist Relationship Specialty Start Date End Date Zac Floyd MD [address] [address] PCP - General 06/19/03 documented as of this encounter
--- OUTSIDE RECORDS SUMMARY | 2024-10-07 15:05 | XMS_ITS | Clinical Summary ---
Author Organization [facility] Caitie rodríguez Address [address], [place] [address] Phone Care Team Providers Care Taxicab Driver Name Role Phone James Hou MD Primary Care Provider [phone] Allergies Active Allergy Reactions Criticality Noted Date Comments Sulfamethoxazole-Trimethoprim Medications Medication Sig Dispensed Refills Start Date End Date Status metoprolol tartrate (LOPRESSOR) 50 MG tablet One tablet two times daily 0 05/30/2016 Active amLODIPine (NORVASC) 10 MG tablet One tablet daily 0 05/30/2016 Active montelukast (SINGULAIR) 10 MG tablet One tablet daily 0 05/30/2016 Active cholecalciferol (VITAMIN D-3) 1000 units tablet One tablet daily 0 05/30/2016 Active valsartan (DIOVAN) 320 MG tablet One tablet daily 0 05/30/2016 Activ e insulin glargine (LANTUS) 100 UNIT/ML injection 22 units at noon and 22 units at bedtime 0 05/30/2016 Active Additional Information Patient taking differently:Subcutaneous,Indications: 18 units at noon and 18 units at bedtime, Reported on 04/30/2024 atorvastatin (LIPITOR) 10 MG tablet 1 tab by mouth daily 0 05/29/2018 Active Additional Information Patient taking differently: 10 mgOral Daily, Reported on 04/30/2024 omeprazole (PriLOSEC) [address] capsule 1 capsule by mouth daily 0 05/29/2018 Active insulin lispro (HUMALOG MAUREEN KWIKPEN) 100 UNIT/ML injection sliding scale 0 11/28/2017 Acti ve aspirin 81 MG tablet Take 81 mg by mouth 1 (one) time each day. Active finasteride (PROSCAR) 5 MG tablet finasteride 5 mg tablet TAKE 1 TABLET BY MOUTH ONCE DAILY Active tamsulosin (FLOMAX) 0.4 MG 24 hr capsule Take 0.4 mg by mouth 1 (one) time each day 07/17/2019 Active famotidine (PEPCID) 20 MG tablet Take by mouth Active calcitriol (ROCALTROL) 0.25 MCG capsule TAKE 1 CAPSULE BY MOUTH THREE TIMES A WEEK 15 capsule 3 05/27/2024 Active Active Problems Problem Noted Date Diagnosed Date Chronic kidney disease, stage 4 (severe) 023 Secondary hyperparathyroidism 05/22/2018 Type 2 diabetes mellitus with diabetic nephropat hy 05/22/2018 Hypertensive chronic kidney disease, benign, with chronic kidney disease stage I through stage IV, or unspecified 05/30/2016 Resolved Problems Problem Noted Date Diagnosed Date Resolved Date Urinary tract infectious disease 10/26/2022 05/19/2023 Stage 3b chronic kidney disease 05/30/2016 08/23/2022 Family History Medical History Relation Comments Cancer Father Malignant neoplastic disease Father Kidney disease Relative Relation Status Comments Father Relative Social History Tobacco Use Types Packs/Day Years Used Date Smoking Tobacco: Former Smokeless Tobacco: Never Tobacco Cessation:Counseling Given: Not Answered Alcohol Use Standard Drinks/Week Comments No 0 (1 standard drink = 0.6 oz pur e alcohol) AUDIT-C Answer Date Recorded Frequency of Alcohol Consumption Never 02/04/2019 Average Number of Drinks Not on file 019 Frequency of Binge Drinking Not on file 01/19 Sex and Gender Information Value Date Recorded Sex Assigned at Not on file Gender Identity Not on file Sexual Orientation Not on file Last Filed Vital Signs Vital Sign Reading Time Taken Comments Blood Pressure 152/79 04/30/2024 2:16 PM CDT Pulse 89 04/30/2024 2:16 PM CDT Temperature 36.4 C (97.6 F) 08/03/2021 10:41 AM MASKING MACHINE FEEDER Respiratory Rate - - Oxygen Saturation - - Inhaled Oxygen Concentration - - Weight 72.6 kg (160 lb) 04/30/2024 2:16 PM CDT Height 172.7 cm (5' 8 ) 04/30/2024 2:16 PM CDT Body Mass Index 24.33 04/30/2024 2:16 PM CDT Plan of Treatment Upcoming Encounters Date Type Department Care Team (Late st Contact Info) Description 10/29/2024 12:40 PM CDT Office Visit [facility] [address] [facility] [address] [place] [id number] Chidi Monae MD [address] [facility] [address] [place] [address] Health Maintenance Due Date Last Done Comments Diabetic Foot Exam 02/15/1950 Ophthalmology Exam 02/15/1950 Pneumococcal PPSV23/PCV13 65 + Years / High and Highest Risk (2 of 4 - PPSV23 or PCV20) 11/07/2018 09/12/2018, 07/27/2015 Influenza Vaccine (#1) 2024 8, 05/28/2015, 05/28/2015, Additional history exists Care Teams Taxicab Driver Relationship Specialty Start Date End Date James Hou MD [address] [facility] [address] [place] [id number] PCP - General 02/12/19
--- OUTSIDE RECORDS SUMMARY | 2024-10-07 15:05 | XMS_ITS | Encounter Summary ---
Author Organization [facility] Address 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
[2024-10-11 00:54] LABS: Vitamin D 1,25 (OH)2 Total 42 pg/mL (18-72); Vitamin D2 1,25 (OH)2 <8 pg/mL; Vitamin D3 1,25 (OH)2 42 pg/mL
== END 2024-10-07 12:33 | disposition home or self-care (01) ==
DX: L29.89 Other pruritus (principal); Z79.899 Other long term (current) drug therapy
CPT/HCPCS: 36415; 82306; 82652; 84443

== ENCOUNTER 2024-11-21 09:37 | Outpatient (CLI) | payer MEDICARE, SELFPAY ==
--- OUTSIDE RECORDS SUMMARY | 2024-11-21 10:05 | XMS_ITS | Encounter Summary ---
Author Organization [facility] Address 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 Gender Identity Not on file Sexual Orientation Not on file documented as of this encounter Plan of Treatment Not on file documented as of this encounter Procedures Procedure Name Priority Date/Time Associated Diagnosis Comments URINALYSIS W/REFLEX MICROSCOPIC Routine 06/25/2006 4:39 PM GEOPHYSICAL ENGINEER CBC WITH DIFFERENTIAL Routine 06/25/2006 3:53 PM GEOPHYSICAL ENGINEER CBC WITH DIFFERENTIAL Routine 06/25/2006 3:53 PM GEOPHYSICAL ENGINEER C-REACTIVE PROTEIN Routine 06/25/2006 3: 53 PM GEOPHYSICAL ENGINEER documented in this encounter Results * (ABNORMAL) URINALYSIS (06/25/2006 4:39 PM GEOPHYSICAL ENGINEER) COLOR UA Yellow INTERFACE SYSTEM CLARITY UA [...] Briana 06/25/2006 5:42 PM 06/25/2006 4:39 PM GEOPHYSICAL ENGINEER Landry Higginbotham DO URINE ORDERABLES Final Result Performing Organization Address [facility] Phone Number INTERFACE SYSTEM Refer to clinic/hospital department * (ABNORMAL) CBC WITH DIFFERENTIAL (06/25/2006 3:53 PM GEOPHYSICAL ENGINEER) Pathologist [facility] NEUTROPHILS 65 45 - 70 % INTERFAC [...] 0.20 K/uL INTERFACE SYSTEM 06/25/2006 3:53 PM GEOPHYSICAL ENGINEER Landry Higginbotham DO HEMATOLOGY ORDERABLES Final R esult Performing Organization Address [facility] Phone Number INTERFACE SYSTEM Refer to clinic/hospital department * (ABNORMAL) CBC WITH DIFFERENTIAL (06/25/2006 3:53 PM GEOPHYSICAL ENGINEER) WBC 6.0 4.0 - 9.8 K/uL INTERFACE [...] 12.4 fL INTERFACE SYSTEM 06/25/2006 3:53 PM GEOPHYSICAL ENGINEER Landry Higginbotham DO HEMATOLOGY ORDERABLES Final R esult Performing Organization Address City/[facility] Co de Phone Number INTERFACE SYSTEM Refer to clinic/hospital department * (ABNORMAL) C-REACTIVE PROTEIN (06/25/2006 3:53 PM GEOPHYSICAL ENGINEER) Pathologist [facility] CRP 4.5(H) 0.0 - 0.8 mg/dL INTERFACE SYSTEM 06/25/2006 3:53 PM GEOPHYSICAL ENGINEER Landry Higginbotham DO CHEMISTRY ORDERABLES Final Re sult Performing Organization Address [facility] Co de Phone Number INTERFACE SYSTEM Refer to clinic/hospital department documented in this encounter Visit Diagnoses Diagnosis Other orchitis, epididymitis, and epididymo-orchitis, without mention of abscess(604.99)- Primary Other orchitis, epididymitis, and epididymo-orchitis, without mention of abscess documented in this encounter Care Teams Shift Nurse Manager Relationship Specialty Start Date End Date Zac Floyd MD [address] [address] PCP - General 06/19/03 documented as of this encounter
--- OUTSIDE RECORDS SUMMARY | 2024-11-21 10:05 | XMS_ITS | Encounter Summary ---
Author Organization [employer] Address 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
--- OUTSIDE RECORDS SUMMARY | 2024-11-21 10:05 | XMS_ITS | Clinical Summary ---
Author Organization [facility] Caitie rodríguez Address [address] [place] [address] Phone Care Team Providers Care Dowel Pin Man Name Role Phone James Hou MD Primary Care Provider [phone] Allergies Active Allergy Reactions Criticality Noted Date [...] MOUTH THREE TIMES A WEEK 15 capsule 10/21/2024 Active Active Problems Problem Noted Date Diagnosed [...] Stage 3b chronic kidney disease 05/30/2016 08/23/2022 Encounters Date Type Department Care Team Description 10/21/2024 Refill [facility] [address] [facility] [address] [place] [address] Coral Hubbard, AMANDA from Last 3 Months Family History Medical History Relation Comments Cancer [...] 36.4 C (97.6 F) 08/03/2021 10:41 AM 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 Respiratory Rate - - Oxygen Saturation - - Inhaled Oxygen Concentration - - Weight 72.6 kg (160 lb) 04/30/2024 2:16 PM CDT Height 172.7 cm (5' 8 ) 04/30/2024 2:16 PM CDT Body Mass Index 24.33 04/30/2024 2:16 PM CDT Plan of Treatment Upcoming Encounters Date Type Department Care Team (Late st Contact Info) Description 11/26/2024 12:40 PM CDT Office Visit [facility] [address] [facility] [place] [address] Chidi Monae MD [address] [facility] [address] [place] [address] Health Maintenance Due Date Last Done Comments Diabetic Foot Exam 02/15/1948 Ophthalmology Exam 02/15/1948 Pneumococcal PPSV23/PCV13 65 + Years / High and Highest Risk (2 of 4 - PPSV23 or PCV20) 11/07/2018 09/12/2018, 07/27/2015 Influenza Vaccine (#1) 2024 8, 05/28/2015, 05/28/2015, Additional history exists Care Teams Dowel Pin Man Relationship Specialty Start Date End Date Jamse Hou MD [address] [facility] [address] [place] [address] PCP - General 02/12/19
--- OUTSIDE RECORDS SUMMARY | 2024-11-21 10:06 | XMS_ITS | Encounter Summary ---
Author Organization [facility] Address 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
--- OUTSIDE RECORDS SUMMARY | 2024-11-21 10:06 | XMS_ITS | Encounter Summary ---
Author Organization [facility] Address 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
--- OUTSIDE RECORDS SUMMARY | 2024-11-21 10:06 | XMS_ITS | Encounter Summary ---
Author Organization [facility] Address 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 Gender Identity Not on file Sexual Orientation Not on file documented as of this encounter Plan of Treatment Not on file documented as of this encounter Procedures Procedure Name Priority Date/Time Associated Diagnosis Comments CT ABDOMEN W WO CONT PELVIS W CONT Routine 09/20/2007 11:20 AM ANTHROPOLOGY PROFESSOR documented in this encounter Results * CT ABDOMEN W WO CONT PELVIS W CONT (09/20/2007 11:20 AM ANTHROPOLOGY PROFESSOR) Anatomical Region Laterality Modality Abdomen Other 09/20/2007 11:2 0 AM ANTHROPOLOGY PROFESSOR Narrative 09/26/2007 8:01 AM ANTHROPOLOGY PROFESSOR [facility] [address] [place], [place] [address] Admit Date: 09/20/2007 ALIYAH KAHN Sex: M Admit Prov: YVAN KAY Date: 1940 Primary Care Prov: ZAC FLOYD CMRN: [id number] Room: [facility] SSN: [id number] IMAGING SERVICES Ordering Prov: N/A Accession Number: [id number] Interpretation EXAM: CT OF THE ABDOMEN WITHOUT [...] DKT Procedure Note James Sarabia - 09/26/2007 [facility] [address] [place], [place] [address] Admit Date: 09/20/2007 ALIYAH KAHN Sex: M Admit Prov: YVAN KAY Date: 1940 Primary Care Prov: ZAC FLOYD CMRN: [id number] Room: [facility] SSN: [id number] IMAGING SERVICES Ordering Prov: N/A Interpretation EXAM: [...] ureter documented in this encounter Care Teams Loan Interviewer Relationship Specialty Start Date End Date Zac Floyd MD [address] [place] [address] PCP - General 06/19/03 documented as of this encounter
--- OUTSIDE RECORDS SUMMARY | 2024-11-21 10:06 | XMS_ITS | Data Portability ---
Author Organization [facility] [place] Address [address] [facility] [place] [address] Care Team Providers Care Tube Inspector Name Role Phone JENNYFER HOU Primary Care Provider [phone] Assessment Encounter Date Assessment Date Assessment LastModified [...] detail. Obtain old records for database completion [email or web address] Not available 11/13/2023 22:10:43 02/13/2024 02/13/2024 we will await the specialist opinion diagnosis and assessment and plan have been discussed as well as target for blood pressure A1c and LDL he will see me back in about 3 months all questions have been answered to patient's satisfaction was also in attendance today. Not available 02/25/2024 20:23:17 03/20/2024 03/20/2024 clinically blood sugars have been doing okay note from Endo reviewed we will follow up with me in 4 months check a urinalysis blood pressures have been doing fine BPH stable renal lesions to be rescanned by specialist GERD has been doing fine on H2 tuan dyslipidemia atorvastatin follow up in 3-4 months [email or web address] Not available 03/20/2024 13:58:02 06/19/2024 06/19/2024 flu B positive. Tamiflu. Rest. Fluids. Isolate for 5 days wear mask for 10 days. Call if worse. Otherwise medicines we will continue. Follow up in 3 months [email or web address] Not available 06/23/2024 15:11:10 09/18/2024 09/18/2024 I will obtain some blood Bliss. Trial of primidone. Continue to follow up with specialists. Agreeable to immunizations today Tdap unfortunately we do not have high dose flu shot in the clinic today he will have to get it at local pharmacy follow up with me in 3 months Not available 09/21/2024 22:39:42 Plan of Treatment Reminders Order Date Submit Date Provider Last Modified By Organization Details Last Modified Time Details Appointments ANY 15 2024 11:00A Emma Hou MD Not available Not available Not available Lab HbA1c (hemoglob in A1c), blood 2024 025 [facility], [address] [place] [address], [address], [place], [address], 09/19/2024 10:13:43 albumin/c reatinine , mass ratio, urine 2024 025 [facility], [address] [place] [address], [address], [place], [address], 09/19/2024 10:13:39 lipid panel, serum 2024 025 [facility], [address] [place] [address], [address], [place], [address], 09/19/2024 10:13:40 CMP, serum or plasma 2024 025 [facility], [address] [place] [address], [address], [place], [address], 09/19/2024 10:13:42 CBC w/ auto diff 2024 025 [facility], [address] [place] [address], [address], [place], [address], 09/19/2024 10:13:44 influenza virus A + B + SARS-CoV- 2 (COVID19) Ag panel, rapid IA, upper respirato ry specimen 2023 024 [email or web address] In-Office Order, Internal Use Only DO Not Attach Compendium DO Not Attach Compendium, Do Not Delete/merge, [id number] 06/19/2024 15:31:33 urinalysi s complete, reflex culture 2023 024 [facility], [address] [facility], [address], [place], [address], 03/21/2024 08:28:28 HbA1c (hemoglob in A1c), blood 2023 024 In-Office Order, Internal Use Only DO Not Attach Compendium DO Not Attach Compendium, Do Not Delete/merge, [id number] 11/13/2023 13:42:52 Referral None recorded. Procedures None recorded. Surgeries None recorded. Imaging CT, abdomen + pelvis, w/o contrast 2023 024 [facility] (Im[facility]), [address] [place] [address], [address], 11/30/2023 12:43:43 Medication Orders primidone 50 mg tablet 2024 025 [facility], [address] [place] [address], [address], 09/23/2024 14:06:47 Tamiflu 75 mg capsule 2023 024 [email or web address] [facility], [address] [place] [address], [address], 06/19/2024 15:31:33 Patient TargetsNo targets recorded. Patient Instructions Encounter Date Encounter Id Patient Instructions Last Modified By Organization Details Last Modified Time 02/13/2024 [id number] A healthy lifestyle: care instructions [email or web address] Not available 02/13/2024 13:25:15 09/18/2024 [id number] A healthy lifestyle: care instructions [email or web address] Not available 09/18/2024 14:04:22 Reason for Referral None Reported. Results Created Date Observation Date Name Description Value Unit Range Abnormal Flag Note LastModifiedBy Organization Detail LastModifiedTime 11/13/19 24 11/13/2023 HbA1c (hemo globi n A1c), blood HbA1c 8.6 Not Available In-Office Order Internal Use Only DO Not Attach Compendium DO Not Attach Compendium, Do Not Delete/merge, [id number] 11/13/2023 12:45:22 03/20/20 24 03/21/2024 MICRO SCOPI C EXAMI NATIO N WBC 0-5 /hpf 0-5 Not Available [facility] ([facility]) [address] [facility], [place], [address], 03/21/2024 08:28:28 03/20/20 24 03/21/2024 MICRO SCOPI C EXAMI NATIO N RBC None seen /hpf 0-2 Not Available [facility] ([facility]) [address] [facility], [place], [address], 03/21/2024 08:28:28 03/20/20 24 03/21/2024 MICRO SCOPI C EXAMI NATIO N epithelial cells (non renal) None seen /hpf 0-10 Not Available [facility] ([facility]) [address] [facility], [place], [address], 03/21/2024 08:28:28 03/20/20 24 03/21/2024 MICRO SCOPI C EXAMI NATIO N casts None seen /lpf nonese en Not Available [facility] ([facility]) [address] [facility], [place], [address], 03/21/2024 08:28:28 03/20/20 24 03/21/2024 MICRO SCOPI C EXAMI NATIO N bacteria None seen nonese en/few Not Available [facility] ([facility]) [address] [facility], [place], [address], 03/21/2024 08:28:28 03/20/20 24 03/21/2024 UA/M W/RFL X CULTU RE, ROUTI NE specific gravity 1.015 1.005- 1.030 Not Available [facility] ([facility]) [address] [place], [address], 03/21/2024 08:28:28 03/20/20 24 03/21/2024 UA/M W/RFL X CULTU RE, ROUTI NE pH 6.0 5.0-7. 5 Not Available [facility] ([facility]) [address] [place], [address], 03/21/2024 08:28:28 03/20/20 24 03/21/2024 UA/M W/RFL X CULTU RE, ROUTI NE urine-color YELLOW yellow Not Available [facility] ([facility]) [address] [facility], [place], [address], 03/21/2024 08:28:28 03/20/20 24 03/21/2024 UA/M W/RFL X CULTU RE, ROUTI NE appearance CLEAR clear Not Available [facility] ([facility]) [address] [place], [address], 03/21/2024 08:28:28 03/20/20 24 03/21/2024 UA/M W/RFL X CULTU RE, ROUTI NE WBC esterase NEGATI VE negati ve Not Available [facility] ([facility]) [address] [place], [address], 03/21/2024 08:28:28 03/20/20 24 03/21/2024 UA/M W/RFL X CULTU RE, ROUTI NE protein 1+ negati ve/tra ce abnormal Not Available [facility] ([facility]) [address] [place], [address], 03/21/2024 08:28:28 03/20/20 24 03/21/2024 UA/M W/RFL X CULTU RE, ROUTI NE glucose 1+ negati ve abnormal Not Available [facility] ([facility]) [address] [facility], [place], [address], 03/21/2024 08:28:28 03/20/20 24 03/21/2024 UA/M W/RFL X CULTU RE, ROUTI NE ketones NEGATI VE negati ve Not Available [facility] ([facility]) [address] [facility], [place], [address], 03/21/2024 08:28:28 03/20/20 24 03/21/2024 UA/M W/RFL X CULTU RE, ROUTI NE occult blood NEGATI VE negati ve Not Available [facility] ([facility]) [address] [facility], [place], [address], 03/21/2024 08:28:28 03/20/20 24 03/21/2024 UA/M W/RFL X CULTU RE, ROUTI NE bilirubin NEGATI VE negati ve Not Available [facility] ([facility]) [address] [facility], [place], [address], 03/21/2024 08:28:28 03/20/20 24 03/21/2024 UA/M W/RFL X CULTU RE, ROUTI NE urobilinogen ,semi-qn 0.2 mg/dL 0.2-1. 0 Not Available [facility] ([facility]) [address] [facility], [place], [address], 03/21/2024 08:28:28 03/20/20 24 03/21/2024 UA/M W/RFL X CULTU RE, ROUTI NE nitrite, urine NEGATI VE negati ve Not Available [facility] ([facility]) [address] [facility], [place], [address], 03/21/2024 08:28:28 03/20/20 24 03/21/2024 UA/M W/RFL X CULTU RE, ROUTI NE microscopic examination SEE BELOW: Micro scopi c was indic ated and was perfo rmed. Not Available [facility] ([facility]) [address] [facility], [place], [address], 03/21/2024 08:28:28 03/20/20 24 03/21/2024 UA/M W/RFL X CULTU RE, ROUTI NE urinalysis reflex COMMEN T This speci men will not refle x to a Urine Cultu re. Not Available [facility] ([facility]) [address] [facility], [place], [address], 03/21/2024 08:28:28 06/19/20 24 06/19/2024 influ zachary virus A + B + SARS- CoV-2 (COVI D19) Ag panel , rapid IA, upper respi rator y speci men Flu A negati ve Not Available In-Office Order Internal Use Only DO Not Attach Compendium DO Not Attach Compendium, Do Not Delete/merge, [id number] 06/19/2024 12:55:06 06/19/20 24 06/19/2024 influ zachary virus A + B + SARS- CoV-2 (COVI D19) Ag panel , rapid IA, upper respi rator y speci men Flu B positi ve Not Available In-Office Order Internal Use Only DO Not Attach Compendium DO Not Attach Compendium, Do Not Delete/merge, [id number] 06/19/2024 12:55:06 06/19/20 24 06/19/2024 influ zachary virus A + B + SARS- CoV-2 (COVI D19) Ag panel , rapid IA, upper respi rator y speci men Rapid SARS CoV 2 Ag, QL IA, respiratory specimen negati ve Not Available In-Office Order Internal Use Only DO Not Attach Compendium DO Not Attach Compendium, Do Not Delete/merge, [id number] 06/19/2024 12:55:06 09/17/19 25 09/17/2024 Hemog lobin A1c/H emogl obin. total in Blood hemoglobin A1C, POC 9.8 % low: 4%high : 5.6% Hemog lobin A1C, POC 9.8 4.0 - 5.6 % Not Available Not Available 10/09/2024 11:38:41 09/17/19 25 09/17/2024 Hemog lobin A1c/H emogl obin. total in Blood interpretati on and review of laboratory results Abnorm al Not Available Not Available 11:38:41 09/18/19 25 09/19/2024 ALBUM IN/CR EATIN INE RATIO ,URIN E creatinine, urine 55.3 mg/dL notest ab. Not Available [facility] ([facility]) [address] [place], [address], 09/19/2024 10:13:38 09/18/19 25 09/19/2024 ALBUM IN/CR EATIN INE RATIO ,URIN E albumin, urine 474.0 ug/mL notest ab. Resul ts confi rmed on dilut ion. Not Available [facility] ([facility]) [address] [place], [address], 09/19/2024 10:13:38 09/18/19 25 09/19/2024 ALBUM IN/CR EATIN INE RATIO ,URIN E alb/creat ratio 857 mg/g_ creat 0-29 above high normal Beryl l: 0 - 29 Moder ately incre ased: 30 - 300 Sever caitie incre ased: >300 Not Available [facility] ([facility]) [address] [place], [address], 09/19/2024 10:13:38 09/18/19 25 09/19/2024 LIPID PANEL cholesterol, total 183 mg/dL 100-19 9 Not Available [facility] ([facility]) [address] [place], [address], 09/19/2024 10:13:40 09/18/19 25 09/19/2024 LIPID PANEL triglyceride s 116 mg/dL 0-149 Not Available [facility] ([facility]) [address] [place], [address], 09/19/2024 10:13:40 09/18/19 25 09/19/2024 LIPID PANEL HDL cholesterol 60 mg/dL >39 Not Available [facility] ([facility]) [address] [place], [address], 09/19/2024 10:13:40 09/18/19 25 09/19/2024 LIPID PANEL VLDL cholesterol karen 21 mg/dL 5-40 Not Available [facility] ([facility]) [address] [place], [address], 09/19/2024 10:13:40 09/18/19 25 09/19/2024 LIPID PANEL LDL chol calc ([facility]) 102 mg/dL 0-99 above high normal Not Available [facility] ([facility]) [address] [place], [address], 09/19/2024 10:13:40 09/18/19 25 09/19/2024 COMP. METAB OLIC PANEL (14) glucose 83 mg/dL 70-99 Not Available [facility] ([facility]) [address] [place], [address], 09/19/2024 10:13:41 09/18/19 25 09/19/2024 COMP. METAB OLIC PANEL (14) BUN 43 mg/dL 8-27 above high normal Not Available [facility] ([facility]) [address] [place], [address], 09/19/2024 10:13:41 09/18/19 25 09/19/2024 COMP. METAB OLIC PANEL (14) creatinine 3.01 mg/dL 0.76-1 .27 above high normal Not Available [facility] ([facility]) [address] [place], [address], 09/19/2024 10:13:41 09/18/19 25 09/19/2024 COMP. METAB OLIC PANEL (14) eGFR 20 mL/mi n/1.7 3 >59 below low normal Not Available [facility] ([facility]) [address] [facility], [address], 09/19/2024 10:13:41 09/18/19 25 09/19/2024 COMP. METAB OLIC PANEL (14) BUN/creatini ne ratio 14 10-24 Not Available [facility] ([facility]) [address] [facility], [place], [address], 09/19/2024 10:13:41 09/18/19 25 09/19/2024 COMP. METAB OLIC PANEL (14) sodium 138 mmol/ L 134-14 4 Not Available [facility] ([facility]) [address] [facility] [place], [address], 09/19/2024 10:13:41 09/18/19 25 09/19/2024 COMP. METAB OLIC PANEL (14) potassium 4.8 mmol/ L 3.5-5. 2 Not Available [facility] ([facility]) [address] [facility], [place], [address], 09/19/2024 10:13:41 09/18/19 25 09/19/2024 COMP. METAB OLIC PANEL (14) chloride 101 mmol/ L 96-106 Not Available [facility] ([facility]) [address] [facility], [place], [address], 09/19/2024 10:13:41 09/18/19 25 09/19/2024 COMP. METAB OLIC PANEL (14) carbon dioxide, total 24 mmol/ L 20-29 Not Available [facility] ([facility]) [address] [facility], [place], [address], 09/19/2024 10:13:41 09/18/19 25 09/19/2024 COMP. METAB OLIC PANEL (14) calcium 9.2 mg/dL 8.6-10 .2 Not Available [facility] ([facility]) [address] [facility], [place], [address], 09/19/2024 10:13:41 09/18/19 25 09/19/2024 COMP. METAB OLIC PANEL (14) protein, total 7.3 g/dL 6.0-8. 5 Not Available [facility] ([facility]) [address] [facility], [place], [address], 09/19/2024 10:13:41 09/18/19 25 09/19/2024 COMP. METAB OLIC PANEL (14) albumin 4.2 g/dL 3.7-4. 7 Not Available [facility] ([facility]) [address] [facility], [place], [address], 09/19/2024 10:13:41 09/18/19 25 09/19/2024 COMP. METAB OLIC PANEL (14) globulin, total 3.1 g/dL 1.5-4. 5 Not Available [facility] ([facility]) [address] [facility], [place], [address], 09/19/2024 10:13:41 09/18/19 25 09/19/2024 COMP. METAB OLIC PANEL (14) bilirubin, total 0.3 mg/dL 0.0-1. 2 Not Available [facility] ([facility]) [address] [facility], [place], [address], 09/19/2024 10:13:41 09/18/19 25 09/19/2024 COMP. METAB OLIC PANEL (14) alkaline phosphatase 99 IU/L 44-121 Not Available [facility] ([facility]) [address] [facility], [place], [address], 09/19/2024 10:13:41 09/18/19 25 09/19/2024 COMP. METAB OLIC PANEL (14) AST (SGOT) 21 IU/L 0-40 Not Available [facility] ([facility]) [address] [facility], [place], [address], 09/19/2024 10:13:41 09/18/19 25 09/19/2024 COMP. METAB OLIC PANEL (14) ALT (SGPT) 18 IU/L 0-44 Not Available [facility] ([facility]) [address] [place], [address], 09/19/2024 10:13:41 09/18/19 25 09/19/2024 HEMOG LOBIN A1C hemoglobin A1C 10.1 % 4.8-5. 6 above high normal Predi abete s: 5.7 - 6.4 Diabe darrni: >6.4 Glyce cullen contr ol for adult s with diabe darrin: <7.0 Not Available [facility] ([facility]) [address] [place], [address], 09/19/2024 10:13:43 09/18/19 25 09/19/2024 CBC WITH DIFFE RENTI AL/PL ATELE T WBC 6.1 x10e3 /uL 3.4-10 .8 Not Available [facility] ([facility]) [address] [place], [address], 09/19/2024 10:13:44 09/18/19 25 09/19/2024 CBC WITH DIFFE RENTI AL/PL ATELE T RBC 4.11 x10e6 /uL 4.14-5 .80 below low normal Not Available [facility] ([facility]) [address] [place], [address], 09/19/2024 10:13:44 09/18/19 25 09/19/2024 CBC WITH DIFFE RENTI AL/PL ATELE T hemoglobin 11.4 g/dL 13.0-1 7.7 below low normal Not Available [facility] ([facility]) [address] [place], [address], 09/19/2024 10:13:44 09/18/19 25 09/19/2024 CBC WITH DIFFE RENTI AL/PL ATELE T hematocrit 35.0 % 37.5-5 1.0 below low normal Not Available [facility] ([facility]) [address] [place], [address], 09/19/2024 10:13:44 09/18/19 25 09/19/2024 CBC WITH DIFFE RENTI AL/PL ATELE T MCV 85 fL 79-97 Not Available [facility] ([facility]) [address] [facility], [place], [address], 09/19/2024 10:13:44 09/18/19 25 09/19/2024 CBC WITH DIFFE RENTI AL/PL ATELE T MCH 27.7 pg 26.6-3 3.0 Not Available [facility] ([facility]) [address] [facility], [place], [address], 09/19/2024 10:13:44 09/18/19 25 09/19/2024 CBC WITH DIFFE RENTI AL/PL ATELE T MCHC 32.6 g/dL 31.5-3 5.7 Not Available [facility] ([facility]) [address] [facility], [place], [address], 09/19/2024 10:13:44 09/18/19 25 09/19/2024 CBC WITH DIFFE RENTI AL/PL ATELE T RDW 14.1 % 11.6-1 5.4 Not Available [facility] ([facility]) [address] [facility], [place], [address], 09/19/2024 10:13:44 09/18/19 25 09/19/2024 CBC WITH DIFFE RENTI AL/PL ATELE T platelets 166 x10e3 /uL 150-45 0 Not Available [facility] ([facility]) [address] [facility], [place], [address], 09/19/2024 10:13:44 09/18/19 25 09/19/2024 CBC WITH DIFFE RENTI AL/PL ATELE T neutrophils 59 % notest ab. Not Available [facility] ([facility]) [address] [facility], [place], [address], 09/19/2024 10:13:44 09/18/19 25 09/19/2024 CBC WITH DIFFE RENTI AL/PL ATELE T lymphs 23 % notest ab. Not Available [facility] ([facility]) [address] [facility], [place], [address], 09/19/2024 10:13:44 09/18/19 25 09/19/2024 CBC WITH DIFFE RENTI AL/PL ATELE T monocytes 15 % notest ab. Not Available [facility] ([facility]) [address] [facility], [place], [address], 09/19/2024 10:13:44 09/18/19 25 09/19/2024 CBC WITH DIFFE RENTI AL/PL ATELE T eos 2 % notest ab. Not Available [facility] ([facility]) [address] [facility], [place], [address], 09/19/2024 10:13:44 09/18/19 25 09/19/2024 CBC WITH DIFFE RENTI AL/PL ATELE T basos 1 % notest ab. Not Available [facility] ([facility]) [address] [facility], [place], [address], 09/19/2024 10:13:44 09/18/19 25 09/19/2024 CBC WITH DIFFE RENTI AL/PL ATELE T neutrophils (absolute) 3.6 x10e3 /uL 1.4-7. 0 Not Available [facility] ([facility]) [address] [facility], [place], [address], 09/19/2024 10:13:44 09/18/19 25 09/19/2024 CBC WITH DIFFE RENTI AL/PL ATELE T lymphs (absolute) 1.4 x10e3 /uL 0.7-3. 1 Not Available [facility] ([facility]) [address] [facility], [place], [address], 09/19/2024 10:13:44 09/18/19 25 09/19/2024 CBC WITH DIFFE RENTI AL/PL ATELE T monocytes(ab solute) 0.9 x10e3 /uL 0.1-0. 9 Not Available [facility] ([facility]) [address] [facility], [place], [address], 09/19/2024 10:13:44 09/18/19 25 09/19/2024 CBC WITH DIFFE RENTI AL/PL ATELE T eos (absolute) 0.1 x10e3 /uL 0.0-0. 4 Not Available [facility] ([facility]) [address] [facility], [place], [address], 09/19/2024 10:13:44 09/18/19 25 09/19/2024 CBC WITH DIFFE RENTI AL/PL ATELE T baso (absolute) 0.0 x10e3 /uL 0.0-0. 2 Not Available [facility] ([facility]) [address] [facility], [place], [address], 09/19/2024 10:13:44 09/18/19 25 09/19/2024 CBC WITH DIFFE RENTI AL/PL ATELE T immature granulocytes 0 % notest ab. Not Available [facility] ([facility]) [address] [facility], [place], [address], 09/19/2024 10:13:44 09/18/19 25 09/19/2024 CBC WITH DIFFE RENTI AL/PL ATELE T immature grans (abs) 0.0 x10e3 /uL 0.0-0. 1 Not Available [facility] ([facility]) [address] [facility], [place], [address], 09/19/2024 10:13:44 11/30/19 24 11/21/2023 CT, abdom en + pelvi s, w/o contr ast No observ ation record ed. [facility] [address], [place], [address], 12/01/2023 14:33:41 Result Notes None recorded. Problems Name Problem SNOMED Code Status Onset Date Resolution Date Notes Provider Name and Address Organization Details Recorded Time Low back pain 198935194 Active 2023 Aubrey Abdullahi MA null, [place] - [facility] 4 13:17:25 Abdominal pain 57019426 Active 2023 Aubrey Abdullahi [place], [place] [facility] 4 13:17:26 Type 2 diabetes mellitus 13671699 Active 2023 Aubrey Abdullahi [place], [place] [facility] 4 13:17:30 Essential hypertension 89851198 Active 2023 Jennyfer Hou MD Attn: Ladonna guerrero,[address] [place] [address], [address], [place] - [facility] 4 22:08:41 Benign prostatic hyperplasia with outflow obstruction 260575221 Active 2023 Jennyfer Hou MD Attn: Ladonna guerrero,[address] [place], [address], [place] [facility] 4 22:08:50 Chronic rhinitis 19290138 Active 2023 Jennyfer Hou MD Attn: Ladonna guerrero,[address] [place], [address], [place] [facility] 4 22:08:51 Gastroesophage al reflux disease without esophagitis 619633233 Active 2023 Jennyfer Hou MD Attn: Ladonna guerrero,[address] [place], [address], [place] [facility] 4 22:08:53 Chronic kidney disease stage 3B 323690864 Active 2023 Jennyfer Hou MD Attn: Ladonna guerrero,[address] [place] [address], [address], [place] - [facility] 4 22:08:54 Tremor 09762620 Active 2024 Jennyfer Hou MD Attn: Ladonna guerrero,[address] [place] [address], [address], [facility] - [facility] 22:39:56 Administration of diphtheria, pertussis, and tetanus vaccine Active 2024 Jennyfer Hou MD Attn: Ladonna guerrero,[address], [place], [address], [facility] - [facility] 22:39:58 Problem Notes None recorded. Procedures Surgical History None recorded. Imaging Results Imaging Date Name Status LastModified by Organiz ation Details LastModified Time 11/21/2023 CT, abdomen + pelvis, w/o contrast completed [facility] [address], [place], [address], 12/01/2023 14:33:41 Procedure Notes None recorded. Medical [...] t Available amlodipin e 10 mg tablet Take 1 tablet by mouth once daily 2024 active Not Available Not Available Not Avai lable oseltamiv ir 75 mg capsule TAKE 1 CAPSULE BY MOUTH ONCE DAILY FOR 5 DAYS active Not Available Not Available No t Available promethaz ine 25 mg tablet TAKE 1/2 (ONE-[place] F) TABLET BY MOUTH EVERY 6 HOURS NEEDED 11/12 completed Not Available Not Available Not Available omeprazol e 20 mg capsule,d elayed release TAKE 1 CAPSULE BY MOUTH BEFORE BREAKFAS T 2024 active Not Available Not Available Not Avai lable monteluka st 10 mg tablet Take 1 tablet by mouth once daily 2024 active Not Available Not Available Not Avai lable clobetaso l 0.05 % scalp solution APPLY [...] No t Available valsartan 160 mg tablet Take 2 tablets by mouth once daily 2024 active Not Available Not Available Not Avai lable Lantus Solostar U-100 Insulin 100 unit/mL (3 [...] Available No t Available FreeStyle [place] 2 [place] USE DIRECTED FOR BLOOD GLUCOSE MONITORI NG active Not Available Not Available No t Available Vitals Date Recorded Body height Body weight Heart rate Oxygen saturation Oxygen saturation in Arterial blood by Pulse oximetry Systolic blood pressure Diastolic blood pressure Provider Name and Address Organization Details Last Updated DateTime 4 168.91 cm 73707.7 6 g 96 /min 98 % 98 % 130 mm[Hg] 68 mm[Hg] KARLA Heaton [facility] 4 12:39:54 Date Recorded Body height Body mass index (BMI) Body weight Heart rate Body temperature Oxygen saturation Oxygen saturation in Arterial blood by Pulse oximetry Systolic blood pressure Diastolic blood pressure Provider Name and Address Organization Details Last Updated DateTime 4 168.91 cm 25.2 kg/m2 29523.3 9 g 86 /min 97.8 [degF] 97 % 97 % 132 mm[Hg] 60 mm[Hg] Kenia [place] [facility] 4 11:09:15 Date Recorded Body height Body mass index (BMI) Body weight Heart rate Oxygen saturation Oxygen saturation in Arterial blood by Pulse oximetry Systolic blood pressure Diastolic blood pressure Provider Name and Address Organization Details Last Updated DateTime 4 168.91 cm 25.4 kg/m2 50686.9 8 g 79 /min 98 % 98 % 122 mm[Hg] 64 mm[Hg] Silke Alfaro [place] [facility] 4 11:47:00 Date Recorded Body height Body mass index (BMI) Body weight Heart rate Oxygen saturation Oxygen saturation in Arterial blood by Pulse oximetry Systolic blood pressure Diastolic blood pressure Provider Name and Address Organization Details Last Updated DateTime 4 168.91 cm 25.7 kg/m2 26098.6 g 85 /min 98 % 98 % 122 mm[Hg] 68 mm[Hg] Silke Alfaro MA [facility] 4 12:08:00 Date Recorded Body height Body mass index (BMI) Body weight Heart rate Oxygen saturation Oxygen saturation in Arterial blood by Pulse oximetry Systolic blood pressure Diastolic blood pressure Provider Name and Address Organization Details Last Updated DateTime 5 168.91 cm 26 kg/m2 48651.3 5 g 84 /min 98 % 98 % 118 mm[Hg] 62 mm[Hg] Silke Alfaro [place] [facility] 12:40:11 Social History Question Answer Notes LastModified by Organizat ion Details LastModified Time Tobacco Smoking Status Former Smoker quit 1986 cigarettes Kenia MYLES [place], [place] - [facility] 02/13/2024 11:11:05 Do You Have An Advance [...] What Is Your Current Pack Years? 20-29packye gen Information not available 02/13/2024 What Is Your [...] Anxious, Or Unable To Sleep At Night)? [id number] Information not available 03/20/2024 Do You Use [...] Influenza, high-dose, quadrivalent, PF 0 completed Selam [place] [facility] 02/12/2024 16:01:21 Influenza, high-dose, quadrivalent, PF 2 completed Selam [place] [facility] 02/12/2024 16:01:21 Influenza, high-dose, quadrivalent, PF 3 completed [place] [facility] 02/12/2024 16:01:21 Influenza, high-dose, quadrivalent, PF 1 completed [place] [facility] 02/12/2024 16:01:21 COVID-19, mRNA, LNP-S, PF, 100 mcg/0.5mL dose or 50 mcg/0.25mL dose 1 completed [place] [facility] 02/12/2024 16:01:21 COVID-19, mRNA, LNP-S, PF, 100 mcg/0.5mL dose or 50 mcg/0.25mL dose 1 completed Selam [place] [facility] 02/12/2024 16:01:21 COVID-19, mRNA, LNP-S, PF, 100 mcg/0.5mL dose or 50 mcg/0.25mL dose 1 completed Selam [place] [facility] 02/12/2024 16:01:21 RSV, recombinant, protein subunit RSVpreF, adjuvant reconstituted, 0.5 mL, PF 3 completed Selam [place] [facility] 02/12/2024 16:01:21 COVID-19, mRNA, LNP-S, PF, 50 mcg/0.5 mL 3 completed [place]am [place] [facility] 02/12/2024 16:01:21 pneumococcal polysaccharide PPV23 0 completed Selam [place] [facility] 02/12/2024 16:01:21 influenza, unspecified formulation 8 completed Selam [place] [facility] 02/12/2024 16:01:21 Pneumococcal conjugate PCV 13 9 completed Selam [place] [facility] 02/12/2024 16:01:21 Pneumococcal conjugate PCV 13 5 completed Selam [place] [facility] 02/12/2024 16:01:21 Influenza, high-dose, trivalent, PF 8 completed [place]am [place] [facility] 02/12/2024 16:01:21 Influenza, high-dose, trivalent, PF 6 completed [place]am [place] [facility] 02/12/2024 16:01:21 Influenza, high-dose, trivalent, PF 6 completed [place]am [place] [facility] 02/12/2024 16:01:21 Influenza, high-dose, trivalent, PF 7 completed [place] [facility] 02/12/2024 16:01:21 Influenza, high-dose, trivalent, PF 9 completed Selam [place] [facility] 02/12/2024 16:01:21 Influenza, split virus, trivalent, preservative 3 completed Selam [place] [facility] 02/12/2024 16:01:21 Influenza, split virus, trivalent, preservative 4 completed Selam [place] [facility] 02/12/2024 16:01:21 Influenza, split virus, quadrivalent, PF 5 completed Selam [place] [facility] 02/12/2024 16:01:21 Tdap 5 completed Jennyfer Hou MD Attn: Accounting,[address] [place], [address], [facility] - [facility] 09/21/2024 22:33:56 Past Encounters Encounter ID Performer Location Encounter Start Date Encounter Closed Date Diagnosis/Indication Diagnosis SNOMED-CT Code Diagnosis ICD10 Code Diagnosis Note [id number] Jennyfer Hou MD [facility] [address] [place] [address] 11/13/2023 12:07:50 11/13/2023 13:13:56 Type 2 diabetes mellitus 76479179 E11.9 Low back pain 603201239 M54.50 Abdominal pain 21806676 R10.9 Essential hypertension 44748954 I10 Benign pro static hyperplasia with outflow obstruction 625612206 N40.1 Chronic rhinitis 4096586 6 J31.0 Gastroesop hageal reflux disease without esophagitis 993571848 K21.9 Chronic ki dney disease stage 3B 160434365 N18.32 [id number] Jennyfer Hou MD [facility] ([facility]ult [facility]) [address] [place] [phone] 02/13/2024 10:56:02 02/13/2024 12:02:02 Overweight 162166602 E66.3 Essential hypertension 99019216 I10 Gastroesop hageal reflux disease without esophagitis 102224617 K21.9 Low back pain 976954543 M54.50 Type 2 chato betes mellitus 03374119 E11.9 Chronic ki dney disease stage 3B 478462398 N18.32 Renal mass 828840404 N28 .89 [id number] Jennyfer Hou MD [facility] ([facility]) [address] [place] [phone] 03/20/2024 11:34:31 03/20/2024 12:18:53 Low back pain 169103253 M54.50 Essential hypertension 99928270 I10 Gastroesop hageal reflux disease without esophagitis 841651915 K21.9 Type 2 chato betes mellitus 82976660 E11.9 Chronic ki dney disease stage 3B 513025243 N18.32 [id number] Jennyfer Hou MD [facility] ([facility]) [address] [place] [phone] 06/19/2024 11:49:55 06/19/2024 12:44:14 Influenza B virus present 732725540 J10.1 Nasal disc harge present 847850438 R09.89 Type 2 chato betes mellitus 29035702 E11.9 Gastroesop hageal reflux disease without esophagitis 818917208 K21.9 Essential hypertension 77804703 I10 Chronic ki dney disease stage 3B 437733796 N18.32 [id number] [facility] [address] [place] [phone] 09/18/2024 11:45:49 09/18/2024 13:09:59 Body mass index 25-29 - overweight 456168497 Z68.26 Overweight 027810840 E66 .3 Essential hypertension 00815431 I10 Type 2 chato betes mellitus 44591402 E11.9 Administra tion of diphtheria, pertussis, and tetanus vaccine 201061750 Z23 Tremor 71011436 R25.1 Chronic rhinitis 9957459 6 J31.0 Health Concerns Section Related Observation LastModified by Organization Detai ls LastModified Time None Recorded Concern Status LastModified by Organization Details LastModified Time None Recorded Advance Directives Directive N: Payers Encounter Date Sequence Insurance Name Policy Number Policy Soria Covered Member ID Soria Member ID Guarantor Name 11/13/2023 1 [facility] (MEDICARE REPLACEMENT/A DVANTAGE - HMO) [id number] Aliyah Kahn [id number] Aliyah Kahn 02/13/2024 1 [facility] (MEDICARE REPLACEMENT/A DVANTAGE - HMO) [id number] Aliyah Kahn [id number] lAiyah Kahn 03/20/2024 1 [facility] (MEDICARE REPLACEMENT/A DVANTAGE - HMO) [id number] Aliyah Kahn [id number] Aliyah Kahn 06/19/2024 1 [facility] (MEDICARE REPLACEMENT/A DVANTAGE - HMO) [id number] Aliyah Kahn [id number] Aliyah Kahn 09/18/2024 1 [facility] (MEDICARE REPLACEMENT/A DVANTAGE - HMO) [id number] Aliyah Kahn [id number] Aliyah Kahn Notes Date Note Type Note [...] night Jennyfer Hou MD Attn: Accounting[address] [place], [address], [facility] 11/13/2023 22:11:02 02/13/2024 text/html Diabetes no polyphasia [...] left renal mass he is going to [facility] to see a specialist next week and they are going to contemplate a biopsy Jennyfer Hou MD Attn: Accounting[address] [place], [address], [place] [facility] 02/25/2024 20:23:39 03/20/2024 text/html Diabetes no polyphasia [...] at night. his kidney masses were evaluated [facility] and they have chosen to monitor these lesions he will have an MRI they say in May of this year Jennyfer Hou MD Attn: Accounting, [address] [place], [address], [facility] 03/20/2024 13:58:20 06/19/2024 text/html hypertension he [...] though Jennyfer Hou MD Attn: Accounting, [address] [place], [address], [facility] 06/23/2024 15:11:29 09/18/2024 text/html diabetes he is d ue for blood work sugars I suspect her high at home he is not checking him that much but no polyphagia polydipsia or hypoglycemia. 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
--- OUTSIDE RECORDS SUMMARY | 2024-11-21 10:06 | XMS_ITS | CONTINUITY OF CARE DOCUMENT ---
Author Name carleen durant Address Unknown Organization [facility] Address [address] [place] [address] Phone [phone] Care Team Providers Care Manufacturing Advisor Name Role Phone Donavan COTO, Viviane Unavailable JENNYFER PEREZ MD Unavailable JENNYFER PEREZ MD Unavailable [phone] INSURANCE PROVIDERS Payer name Policy type / Coverage type [place] [employer] party ID [id number] MEDICARE COMPLETE HMO Other [id number]
--- OUTSIDE RECORDS SUMMARY | 2024-11-21 10:06 | XMS_ITS | Encounter Summary ---
Author Organization [facility] Address 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
--- OUTSIDE RECORDS SUMMARY | 2024-11-21 10:06 | XMS_ITS | Referral Summary ---
Author Organization [facility] Physician Office Building 1 Address [address] [place] [address] Care Team Providers Care Ground Instructor Basic Name Role Phone James Hou MD Primary Care Provider Encounters Date Type Department Care Team Description 10/08/2024 Orders Only [facility] Diabetes and Endocrinology [address] [place] [address] [phone] Christian Vasques MD 10/01/2024 Telephone [facility] Medical [facility] Diabetes and Endocrinology [address] [place] [address] [phone] Gretel Burr, PROJECT SYSTEMS ENGINEER Med Management 09/27/2024 Orders Only [facility] Medical [facility] Diabetes and Endocrinology [address] [place] [address] [phone] Christian Vasques MD 09/17/2024 2:00 PM OFFICE SERVICES REPRESENTATIVE - 09/17/2024 11:59 PM OFFICE SERVICES REPRESENTATIVE Hospital Encounter [facility] [address] [place] [address] Type 2 diabetes mellitus with hyperglycemia, with long-term current use of insulin (HCC); Hyperlipidemia associated with type 2 diabetes mellitus (HCC) Discharge Disposition: Discharge to home or self care 09/17/2024 2:00 PM OFFICE SERVICES REPRESENTATIVE Lab [facility] Outpatient Lab at [address] [phone] Hyperlipidemia associated with type 2 diabetes mellitus (HCC) (Primary Dx); Hypertension associated with diabetes (HCC) 09/17/2024 1:00 PM OFFICE SERVICES REPRESENTATIVE Office Visit [facility] Diabetes and Endocrinology [address] [place] [phone] Gretel Burr NP Type 2 diabetes mellitus with hyperglycemia, with long-term current use of insulin ([facility]) (Primary Dx); Hypertension associated with diabetes ([facility]); Hyperlipidemia associated with type 2 diabetes mellitus ([facility]); CKD (chronic kidney disease) stage 4, GFR 15-29 ml/min ([facility]) from Last 3 Months Allergies Active Allergy Reactions Criticality Noted Date Comments Morphine Nausea only Medium 05/07/2019 Sulfa Unknown 01/04/2018 Sulfamethoxazole-Trimeth oprim Other (See comments) Low 03/04/2019 Sulfasalazine Unknown 01/21/2015 Turned penis black in color Medications cholecalciferol (VITAMIN D3) 2,000 unit capsule take one by oral route one time every day 0 0 07/02/20 14 Active amLODIPine (NORVASC) 10 mg tablet take 1 tablet by oral route every day 0 0 07/02/20 14 Active blood glucose diagnostic (ACCU-CHEK SMARTVIEW TEST STRIP) strip test 1 by finger stick BS route before meals and bed time 0 strip 0 07/02/20 14 Active lancets (ACCU-CHEK FASTCLIX) misc test blood sugars 4 times every day 0 each 0 07/02/20 14 Active blood-glucose meter (ACCU-CHEK JAMIE) misc test blood suagrs 4 times every day 0 each 0 07/02/20 14 Active montelukast (SINGULAIR) 10 mg tablet take 1 tablet by oral route every day in the evening 0 0 11/07/19 15 Active pen needle, diabetic (PEN NEEDLE) 31 gauge x 5/16 needle USE FOR INJECTIONS 4 TIMES DAILY 100 11 07/29/20 14 Active tamsulosin (FLOMAX) 0.4 mg capsule,extende d release 24hr take 1 capsule by oral route every day 1/2 hour following the same meal each day 0 0 01/25/20 16 Active finasteride (PROSCAR) 5 mg tablet take 1 tablet by oral route every day 0 0 01/25/20 16 Active atorvastatin (LIPITOR) 10 mg tablet TK 1 T PO QD 3 02/16/20 17 Active valsartan (DIOVAN) 160 mg tablet Take 1 tablet (160 mg total) by mouth 2 daily to equal 320mg 06/30/20 21 Active flash glucose scanning reader (FreeStyle Herbert 2 Lavinia) [facility] Use for BG monitoring 1 each 11/17/19 23 Active insulin aspart niacinamide (FIASP) 100 unit/mL (3 mL) pen for injectionIndica tions:Type 2 diabetes mellitus with hyperglycemia, with long-term current use of insulin (HCC) Inject 4-8 Units under the skin 3 (three) times a day before meals 3 mL 01/03/20 23 Active omeprazole (PriLOSEC) 20 mg capsule TAKE 1 CAPSULE BY MOUTH BEFORE BREAKFAST 02/08/20 23 Active calcitRIOL (ROCALTROL) 0.25 mcg capsule Take 1 capsule (0.25 mcg total) by mouth 3 (three) times a week 05/31/20 23 Active dapagliflozin propanediol (Farxiga) 5 mg tablet Take 1 tablet (5 mg total) by mouth daily Active famotidine (PEPCID) 20 mg tablet Take 1 tablet (20 mg total) by mouth 2 (two) times a day Active LANTUS 100 unit/mL (3 mL) pen for injectionIndica tions:Type 2 diabetes mellitus with hyperglycemia, with long-term current use of insulin (HCC) Inject 40 Units under the skin nightly 45 mL 2 05/17/20 24 025 Active Additional Information Patient taking differently: 40-42 Unitssubcutaneous Nightly, Reported on 09/17/2024 clobetasoL (TEMOVATE) 0.05 % external solution APPLY SOLUTION TOPICALLY TWICE DAILY TO AFFECTED AREA OF SCALP FOR 2 WEEKS, REPEAT NEEDED FOR FLARES 08/30/19 25 Active Procto-Med HC 2.5 % rectal cream APPLY A THIN LAYER TOPICALLY TO THE AFFECTED AREA(S) TWICE DAILY 07/24/20 24 Active oseltamivir (TAMIFLU) 75 mg capsule TAKE 1 CAPSULE BY MOUTH ONCE DAILY FOR 5 DAYS 06/19/20 24 Active triamcinolone (KENALOG) 0.1 % cream APPLY TO AFFECTED AREA ONCE TO TWICE DAILY FOR UP TO TWO WEEKS. TAKE A SMALL BREAK FOR 1-2 DAYS, AND REPEAT NECESSARY FOR FLARES. AVOID THE FACE, AXILLA AND GROIN 01/10/20 25 Active flash glucose sensor (FreeStyle Herbert 2 Sensor) kitIndications: Type 2 diabetes mellitus with hyperglycemia, with long-term current use of insulin ([facility]) USE DIRECTED 2 kit 2 10/01/19 Active HumaLOG 100 unit/mL pen for injectionIndica tions:Type 2 diabetes mellitus with hyperglycemia, with long-term current use of insulin ([facility]) INJECT 8-16 UNITS SUBCUTANEOUSLY THREE TIMES DAILY BEFORE MEALS WITH SSI MAX DAILY DOSE 48 UNITS 15 mL 3 10/16/19 25 Active Active Problems Problem Noted Date Diagnosed Date CKD (chronic kidney disease) stage 4, GFR 15-29 ml/min 01/02/2023 Assessment & Plan (09/17/2024 1:55 PM OFFICE SERVICES REPRESENTATIVE): Chronic problem. Managed by Dr Beach at [facility]; seen q3mos. 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 Valsartan 160mg daily. Last MA: 03/13/24 (186). Last creat/GFR: 03/13/24 GFR=22, CR=2.77. seeing Dr Núñez at [facility] for L kidney mass & bilat renal cysts. Had MRI 07/05/24 to check kidney lesions (3). Has repeat MRI set up for 11/2024. Will see Dr Núñez 12/06/24. Plan [address] Núñez's note 07/05/24 is to continue surveillance of slow growing L renal mass. Assessment & Plan (03/13/2024 11:10 AM CDT): Chronic problem. Managed by Dr Beach at [facility]. Seen q3mos. 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 Valsartan 160mg daily. Last MA: 07/13/22 (64). Last creat/GFR: 07/13/22 GFR=21, CR=2.85. L Kidney mass. Now seeing Dr [place] Núñez at [facility]. 06/14/24. Will be having MRI also per Mr Kahn. Assessment & Plan (05/08/2023 1:59 PM CDT): Chronic problem. Managed by Dr Beach at [facility]. Seen q3mos. NOV 05/30/23. Assessment & Plan (01/02/2023 1:59 PM CDT): Chronic problem. Managed by Dr Beach at [facility]. Seen q3mos. Hypoglycemia associated with diabetes 03/04/2019 Assessment & Plan (07/13/2022 2:14 PM OFFICE SERVICES REPRESENTATIVE): Lower evening Lantus dose Assessment & Plan (09/12/2019 12:57 PM OFFICE SERVICES REPRESENTATIVE): Order Dexcom Assessment & Plan (03/04/2019 11:17 AM CDT): Dose of Lantus lowered Request DEXCOM Type 2 diabetes mellitus 02/22/2017 Assessment & Plan (09/17/2024 1:54 PM OFFICE SERVICES REPRESENTATIVE): Chronic problem. Not at goal but A1c [...] DM eye exam. Reports frequent appts to [facility]; appt 2-3 weeks ago. Letter sent to [...] infection. Assessment & Plan (08/08/2023 1:42 PM OFFICE SERVICES REPRESENTATIVE): Hba1c was Lab Results Component Value Date [...] DM eye exam. Reports frequent appts to [facility]; appt 2-3 weeks ago. Letter sent to [...] DM eye exam. Reports frequent appts to [facility]. Letter sent to get copy of results. [...] weeks Assessment & Plan (07/13/2022 2:10 PM OFFICE SERVICES REPRESENTATIVE): With some hypoglycemia Lower evening Lantus to [...] today. Assessment & Plan (09/13/2021 12:40 PM OFFICE SERVICES REPRESENTATIVE): Chronic problem, not at goal with frequent [...] units Assessment & Plan (08/31/2020 9:49 AM OFFICE SERVICES REPRESENTATIVE): Hba1c was Lab Results Component Value Date [...] Over 301, take 10 units Will request Frestyle Herbert CGMS Assessment & Plan (02/24/2020 12:53 [...] units Assessment & Plan (09/12/2019 12:55 PM OFFICE SERVICES REPRESENTATIVE): A1c 8.9. Poor control continues to be [...] reviewed. Assessment & Plan (09/09/2018 7:45 PM OFFICE SERVICES REPRESENTATIVE): Your A1c worsening to 9.5.Increase Lantus to [...] reviewed. Assessment & Plan (09/04/2017 12:43 PM OFFICE SERVICES REPRESENTATIVE): Hba1c was 8.0 today, indicating DM control [...] mellitus Assessment & Plan (09/17/2024 12:49 PM OFFICE SERVICES REPRESENTATIVE): Chronic problem. Currently taking Atorvastatin 10mg. Last lipid panel: 08/07/23 LDL=56, TG=92. Will update labs. Does not mychart. Verified phone #/address to contact re: results. Assessment & Plan (03/13/2024 10:41 AM CDT): Chronic problem. Currently taking Atorvastatin 10mg. Last lipid panel: 07/13/22 LDL=22, CZ=837. Will update labs today. Does not mychart. Verified phone #/address to contact re: results. Assessment & Plan (05/08/2023 1:14 PM CDT): Chronic problem. Currently taking Atorvastatin 10mg. Last lipid panel: 07/13/22 LDL=22, WY=570. No changes at this time Assessment & Plan (01/02/2023 1:43 PM CDT): Chronic problem. Currently taking Atorvastatin 10mg. Last lipid panel: 07/13/22 LDL=22, NC=219. No changes at this time Assessment & Plan (03/15/2022 2:46 PM CDT): Chronic problem. On statin therapy, no changes. Assessment & Plan (09/13/2021 11:22 AM OFFICE SERVICES REPRESENTATIVE): Chronic problem. On statin therapy, no changes. Assessment & Plan (03/01/2021 9:39 AM CDT): Check lipid panel today Assessment & Plan (11/30/2020 3:30 PM CDT): LDL 72. Continue statin Assessment & Plan (09/12/2019 12:57 PM OFFICE SERVICES REPRESENTATIVE): Will order lipid panel and adjust as indicated. Assessment & Plan (05/09/2019 9:46 AM CDT): Controlled on current medications. Continue plan. Assessment & Plan (12/03/2018 2:32 PM CDT): At goal on current medications. Hypertension associated with diabetes 01/25/2016 Overview (11/24/2016): Hypertension associated with diabetes Assessment & Plan (09/17/2024 12:49 PM OFFICE SERVICES REPRESENTATIVE): Chronic problem. BP elevated upon rooming & [...] daily Assessment & Plan (07/13/2022 2:14 PM OFFICE SERVICES REPRESENTATIVE): Chronic, well controlled Importance of low salt diet and exercise were discussed Continue current meds Update BMP Assessment & Plan (03/15/2022 2:46 PM CDT): Controlled on current medications, no changes. Assessment & Plan (09/13/2021 11:22 AM OFFICE SERVICES REPRESENTATIVE): Controlled on current medications, no changes. Assessment [...] ARB Assessment & Plan (09/12/2019 12:56 PM OFFICE SERVICES REPRESENTATIVE): Controlled on current medications. Continue plan. Assessment & Plan (05/09/2019 9:46 AM CDT): Controlled on current medications. Continue plan. Assessment & Plan (12/03/2018 2:32 PM CDT): Controlled on current medications. Assessment & Plan (09/09/2018 7:47 PM OFFICE SERVICES REPRESENTATIVE): Controlled on current medications. Assessment & Plan (03/21/2018 10:42 AM CDT): Controlled on current medications. Assessment & Plan (12/04/2017 10:15 AM CDT): Controlled on current medications. Assessment & Plan (09/04/2017 12:44 PM OFFICE SERVICES REPRESENTATIVE): Goal blood pressure is less than 140/85 Low salt diet recommended Daily aerobic exercise Continue current meds, including CHRISTIAN-I or ARB Assessment & Plan (05/24/2017 9:54 AM CDT): Controlled on current medications. Assessment & Plan (02/22/2017 5:03 PM CDT): Continue current medications. Resolved Problems Problem Noted Date Diagnosed Date Resolved Date Hyperlipidemia 02/22/2017 01/02/2023 Assessment & Plan (09/09/2018 7:46 PM OFFICE SERVICES REPRESENTATIVE): Check lipid panel today Assessment & Plan (03/21/2018 10:42 AM CDT): At goal on current medications. Assessment & Plan (12/04/2017 10:16 AM CDT): At goal on current medications. Assessment & Plan (09/04/2017 12:43 PM OFFICE SERVICES REPRESENTATIVE): Goal of treatment , LDL cholesterol less [...] on file Legal Sex Male 1:10 PM OFFICE SERVICES REPRESENTATIVE Gender Identity Not on file Sexual Orientation Not on file Last Filed Vital Signs Vital Sign Reading Time Taken Comments Blood Pressure 164/82 09/17/2024 1:03 PM OFFICE SERVICES REPRESENTATIVE Pulse 94 09/17/2024 1:03 PM OFFICE SERVICES REPRESENTATIVE Temperature - - Respiratory Rate 16 09/17/2024 1:03 PM OFFICE SERVICES REPRESENTATIVE Oxygen Saturation - - Inhaled Oxygen Concentration - - Weight 74.4 kg (164 lb) 09/17/2024 1:03 PM OFFICE SERVICES REPRESENTATIVE Height 170.2 cm (5' 7.01 ) 09/17/2024 1:03 PM CS T Body Mass Index 25.68 09/17/2024 1:03 PM OFFICE SERVICES REPRESENTATIVE Plan of Treatment Not on file Procedures Procedure Name Priority Date/Time Associated Diagnosis Comments DIABETES EYE EXAM Routine 09/30/2024 8:45 AM OFFICE SERVICES REPRESENTATIVE DIABETES EYE EXAM Routine 09/19/2024 7:19 AM OFFICE SERVICES REPRESENTATIVE LIPID PANEL Routine 09/17/2024 2:00 PM OFFICE SERVICES REPRESENTATIVE Type 2 diabetes mellitus with hyperglycemia, with long-term current use of insulin (HCC) Hyperlipidemia associated with type 2 diabetes mellitus (HCC) POCT GLUCOSE Routine 09/17/2024 1:05 PM OFFICE SERVICES REPRESENTATIVE Type 2 diabetes mellitus with hyperglycemia, with long-term current use of insulin (HCC) POCT HEMOGLOBIN A1C Routine 09/17/2024 1 :05 PM OFFICE SERVICES REPRESENTATIVE Type 2 diabetes mellitus with hyperglycemia, with long-term current use of insulin (HCC) EGFR Routine 03/13/2024 11:17 AM CDT Type 2 diabetes mellitus with hyperglycemia, with long-term current use of insulin (HCC) Hypertension associated with diabetes (HCC) ALBUMIN CREATININE RATIO, URINE Routine 03/13/2024 11:17 AM CDT Type 2 diabetes mellitus with hyperglycemia, with long-term current use of insulin (HCC) from Last 3 Months or Most Recently Relevant to Health Maintenance Results * (ABNORMAL) DIABETES EYE EXAM (09/30/2024 8:45 AM OFFICE SERVICES REPRESENTATIVE) us Historical Provider MD HEALTH MAINTENANCE Final Result * DIABETES EYE EXAM (09/19/2024 7:19 AM OFFICE SERVICES REPRESENTATIVE) us Historical Provider MD HEALTH MAINTENANCE Final Result * (ABNORMAL) Lipid panel (09/17/2024 2:00 PM OFFICE SERVICES REPRESENTATIVE) Cholesterol 182 30 - 199 mg/dL Comment: [...] 3 [facility] Blood 09/17/2024 2:00 PM OFFICE SERVICES REPRESENTATIVE 09/17/2024 8:37 PM OFFICE SERVICES REPRESENTATIVE Gretel Burr NP LAB BLOOD ORDERABLES Shaye l Result [place] [address] [address] [facility] [place] [address] * (ABNORMAL) POCT hemoglobin A1c (09/17/2024 1:05 PM OFFICE SERVICES REPRESENTATIVE) Hemoglobin A1C, POC 9.8 4.0 - 5.6 % Blood 09/17/2024 1:05 PM OFFICE SERVICES REPRESENTATIVE Gretel Burr NP POINT OF CARE TEST ORDERA BLES Final Result * (ABNORMAL) POCT glucose (09/17/2024 1:05 PM OFFICE SERVICES REPRESENTATIVE) Glucose Blood, POC 478 mg/dL Blood 09/17/2024 1:0 5 PM OFFICE SERVICES REPRESENTATIVE Gretel Burr NP POINT OF CARE TEST ORDERA BLES Final Result * (ABNORMAL) eGFR (03/13/2024 11:17 [...] glomerular filtration rate is determined by the 2021 CKD-EPI equation recommended by the National Kidney Foundation (A Unifying Approach to GFR Estimation: Recommendations of the NKF-ASK Task Force on Reassessing the Inclusion of Race in Diagnosing Kidney Disease, JASN 202). The CKD-EPI equation should not be used for patients with unstable renal function and has not been validated in children and those over 70. Current interpretive data was last reviewed 2021. Blood 03/13/2024 11:1 7 AM CDT 03/13/2024 4:26 PM CDT us Gretelpedro Burr PROJECT SYSTEMS ENGINEER LAB BLOOD ORDERABLES Shaye l Result Performing Organization Address City[facility] [place] [address] [address] [facility] [facility] [place], [place] [id number] * (ABNORMAL) Albumin Creatinine Ratio, Urine (03/13/2024 11:17 AM CDT) Albumin Ur 106.1 mg/L Comment: Interpretive Data No reference range established. Current interpretive data was last revised 2019. Creatinine Ur 57.1 mg/dL [facility] CH Comment: Interpretive Data No reference range established. Current interpretive data was last revised 2019. Albumin Creatinine Ratio, Ur 186(H) 1 - 29 mg/g [facility] Urine 03/13/2024 11:1 7 AM CDT 03/13/2024 2:48 PM CDT us Gretel Burr PROJECT SYSTEMS ENGINEER LAB URINE [place] [address] [address] [facility] [place] [address] from Last 3 Months or Most Recently Relevant to Health Maintenance Insurance [facility] MEDICARE [facility] MEDICARE Address: [address] [place] [address] MED[address] [facility] MEDICARE Address: [address] [place], [place] [id number] [address] [facility] MEDICARE Address: [address] [place], [place] [phone] Care Teams Ground Instructor Basic Relationship Specialty Start Date End Date James Hou MD PCP - General 11/18/16
--- OUTSIDE RECORDS SUMMARY | 2024-11-21 10:06 | XMS_ITS | Clinical Summary ---
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
--- OUTSIDE RECORDS SUMMARY | 2024-11-21 10:06 | XMS_ITS | Encounter Summary ---
Author Organization [email or web address] Address 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
--- OUTSIDE RECORDS SUMMARY | 2024-11-21 10:06 | XMS_ITS | Clinical Summary ---
Author Organization [facility] [employer] Address [address] [address] Care Team Providers Care Configuration Management Advisor Name Role Phone James Hou MD Primary Care Provider [phone] Source Comments [facility],non-[facility] Affiliates and Associated Physician Practices is amultiple site organization consisting of ambulatory clinics and hospital sitesin [place], [place], [place] and [place]. This disclosure is being madepursuant to the Care Everywhere program and may not contain all information available regarding this patient. Last updated 18.[facility] Allergies Active Allergy Reactions Criticality Noted Date [...] (one) tablet by mouth once daily Active Encounters Date Type Department Care Team Description 11/01/2024 Travel from Last 3 Months Social History Tobacco Use Types Packs/Day Years [...] Comments Blood Pressure 196/87 07/05/2024 11:02 AM BENCH TECHNICIAN Pulse 99 07/05/2024 11:02 AM BENCH TECHNICIAN Temperature 37.1 C (98.8 F) 07/05/2024 11:02 AM BENCH TECHNICIAN Respiratory Rate 16 02/16/2024 8:11 AM CDT Oxygen Saturation 98% 07/05/2024 11:02 AM BENCH TECHNICIAN Inhaled Oxygen Concentration - - Weight 72.1 kg (159 lb) 07/05/2024 11:02 AM BENCH TECHNICIAN Height 170.2 cm (5' 7 ) 07/05/2024 11:02 AM BENCH TECHNICIAN Body Mass Index 24.9 07/05/2024 11:02 AM BENCH TECHNICIAN Plan of Treatment Upcoming Encounters Date Type Department Care Team (Late st Contact Info) Description 12/06/2024 8:15 AM CDT Appointment [facility] Health Imaging Services - [facility] [address] [place] [address] Gurwinder Núñez MD [address] [place] [phone] 01/03/2025 8:30 AM CDT Office Visit [facility] - Urology [address] [place] [address] [address] [place] [address] Gurwinder Núñez MD [address] [place] [phone] Health Maintenance Due Date Last Done Comments DTAP/TDAP/TD VACCINES (1 - Tdap) 1957 PNEUMOCOCCAL VACCINE 50+ (1 of 1 - PCV) 02/15/1988 ZOSTER VACCINE (1 of 2) 02/15/1988 Respiratory Syncytial Virus (RSV) Vaccine Pt: or over 60 yrs (1 - 1-dose 75+ series) 2013 COVID-19 VACCINE ( season) 2024 06/13/2023, 07/28/2021, 11/09/2020, Additional history exists DEPRESSION SCREENING 08/21/2024 MEDICARE AWV CALENDAR YEAR 2024 INFLUENZA VACCINE (Season Ended) 2025 07/10/2019, 05/01/2018, 06/08/2017, Additional history exists HEPATITIS B VACCINE Aged Out No longe r eligible based on patient's age to complete this topic HIB VACCINE Aged Out No longer eligi ble based on patient's age to complete this topic HPV VACCINE Aged Out No longer eligi ble based on patient's age to complete this topic MENINGOCOCCAL (Group B) VACCINE SHARED DECISION-MAKING Aged Out No longer eligible based on patient's age to complete this topic MENINGOCOCCAL GROUPS A/C/Y/W VACCINE Aged Out No longer eligible based on patient's age to complete this topic Medical Devices Implanted Type Area Ice Skating Instructor Device Identifier Shelf Expiration Date Model / Serial / Lot Lens Iol Dioptr 21.5 Implanted:Qty: 1 on 01/21/2015 by Marielos Caputo MD at [facility] Left: Eye [employer] 09/20/2019 [id number] / / [id number] Care Teams Configuration Management Advisor Relationship Specialty Start Date End Date James Hou MD PCP - General Internal Medicine 01/19/15
--- OUTSIDE RECORDS SUMMARY | 2024-11-21 10:06 | XMS_ITS | Encounter Summary ---
Author Organization [facility] Address 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 Gender Identity Not on file Sexual Orientation Not on file documented as of this encounter Plan of Treatment Not on file documented as of this encounter Procedures Procedure Name Priority Date/Time Associated Diagnosis Comments PSA Routine 09/06/2007 2:33 PM BOLT MAKER COMPREHENSIVE METABOLIC PANEL Routine 09/06/2007 2:33 PM BOLT MAKER documented in this encounter Results * PSA (09/06/2007 2:33 PM BOLT MAKER) PSA 1.1 0.0 - 4.0 ng/mL INTERFACE SYSTEM Comment:Performed on Galenea70 System 09/06/2007 2:33 PM BOLT MAKER us Yvan Kay MD CHEMISTRY ORDERABLES Edited INTERFACE SYSTEM Refer to clinic/hospital department * (ABNORMAL) COMPREHENSIVE METABOLIC PANEL (09/06/2007 2:33 PM BOLT MAKER) GLUCOSE 52(L) 65 - 99 mg/dL INTERFACE [...] and non- Americans is available on the [facility] Intranet at: [email or web address] Select: Lab Policies and Procedures Select: Reference Ranges - GFR 09/06/2007 2:33 PM BOLT MAKER Yvan Kay MD CHEMISTRY ORDERABLES Edited INTERFACE SYSTEM Refer to clinic/hospital department documented in this encounter Visit Diagnoses Diagnosis Unspecified disorder of kidney and ureter documented in this encounter Care Teams Sport Intern Relationship Specialty Start Date End Date Zac Floyd MD [address] [place] [address] PCP - General 06/19/03 documented as of this encounter
--- OUTSIDE RECORDS SUMMARY | 2024-11-21 10:06 | XMS_ITS | Clinical Summary ---
Author Organization [facility] [id number] [place] [phone] Care Team Providers Care Program Dir Name Role Phone James Hou MD Primary Care Provider Allergies Active Allergy Reactions Criticality Noted Date [...] FOR INJECTIONS 4 TIMES DAILY 100 11 12/09/20 14 Active tamsulosin (FLOMAX) 0.4 mg capsule,extende [...] 06/30/20 21 Active flash glucose scanning reader ([employer] Herbert 2 [place] Use for BG monitoring 1 each 11/17/19 [...] MOUTH ONCE DAILY FOR 5 DAYS 06/19/20 Active triamcinolone (KENALOG) 0.1 % cream APPLY TO AFFECTED AREA ONCE TO TWICE DAILY FOR UP TO TWO WEEKS. TAKE A SMALL BREAK FOR 1-2 DAYS, AND REPEAT NECESSARY FOR FLARES. AVOID THE FACE, AXILLA AND GROIN 08/30/19 Active flash glucose sensor (FreeStyle Herbert 2 Sensor) kitIndications: Type 2 diabetes mellitus with hyperglycemia, with long-term current use of insulin (HCC) USE DIRECTED 2 kit 2 10/01/19 25 Active HumaLOG 100 unit/mL pen for injectionIndica [...] 01/02/2023 Assessment & Plan (09/17/2024 1:55 PM MEDICAL RECORDS ANALYST): Chronic problem. Managed by Dr Beach at [facility]; seen q3mos. 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 Valsartan 160mg daily. Last MA: 03/13/24 (186). Last creat/GFR: 03/13/24 GFR=22, CR=2.77. seeing Dr Núñez at [facility] for L kidney mass & bilat renal cysts. Had MRI 07/05/24 to check kidney lesions (3). Has repeat MRI set up for 11/2024. Will see Dr Núñez 12/06/24. Plan per Dr Núñez's note 07/05/24 is to continue surveillance of slow growing L renal mass. Assessment & Plan (03/13/2024 11:10 AM CDT): Chronic problem. Managed by Dr Beach at [facility]. Seen q3mos. 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 Valsartan 160mg daily. Last MA: 07/13/22 (64). Last creat/GFR: 07/13/22 GFR=21, CR=2.85. L Kidney mass. Now seeing Dr Avery Núñez at [facility]. 06/14/24. Will be having MRI also per Mr Kahn. Assessment & Plan (05/08/2023 1:59 PM CDT): Chronic problem. Managed by Dr Beach at [facility]. Seen q3mos. NOV 05/30/23. Assessment & Plan (01/02/2023 1:59 PM CDT): Chronic problem. Managed by Dr Beach at [facility]. Seen q3mos. Hypoglycemia associated with diabetes 03/04/2019 Assessment & Plan (07/13/2022 2:14 PM MEDICAL RECORDS ANALYST): Lower evening Lantus dose Assessment & Plan (09/12/2019 12:57 PM MEDICAL RECORDS ANALYST): Order Dexcom Assessment & Plan (03/04/2019 11:17 AM CDT): Dose of Lantus lowered Request DEXCOM Type 2 diabetes mellitus 02/22/2017 Assessment & Plan (09/17/2024 1:54 PM MEDICAL RECORDS ANALYST): Chronic problem. Not at goal but A1c [...] DM eye exam. Reports frequent appts to click[facility]; appt 2-3 weeks ago. Letter sent to [...] infection. Assessment & Plan (08/08/2023 1:42 PM MEDICAL RECORDS ANALYST): Hba1c was Lab Results Component Value Date [...] DM eye exam. Reports frequent appts to clickTRUE; appt 2-3 weeks ago. Letter sent to [...] DM eye exam. Reports frequent appts to clickTRUE. Letter sent to get copy of results. [...] weeks Assessment & Plan (07/13/2022 2:10 PM MEDICAL RECORDS ANALYST): With some hypoglycemia Lower evening Lantus to [...] today. Assessment & Plan (09/13/2021 12:40 PM MEDICAL RECORDS ANALYST): Chronic problem, not at goal with frequent [...] units Assessment & Plan (08/31/2020 9:49 AM MEDICAL RECORDS ANALYST): Hba1c was Lab Results Component Value Date [...] Over 301, take 10 units Will request [employer] Herbert CGMS Assessment & Plan (02/24/2020 12:53 [...] units Assessment & Plan (09/12/2019 12:55 PM MEDICAL RECORDS ANALYST): A1c 8.9. Poor control continues to be [...] reviewed. Assessment & Plan (09/09/2018 7:45 PM MEDICAL RECORDS ANALYST): Your A1c worsening to 9.5.Increase Lantus to [...] reviewed. Assessment & Plan (09/04/2017 12:43 PM MEDICAL RECORDS ANALYST): Hba1c was 8.0 today, indicating DM control [...] mellitus Assessment & Plan (09/17/2024 12:49 PM MEDICAL RECORDS ANALYST): Chronic problem. Currently taking Atorvastatin 10mg. Last lipid panel: 08/07/23 LDL=56, TG=92. Will update labs. Does not mychart. Verified phone #/address to contact re: results. Assessment & Plan (03/13/2024 10:41 AM CDT): Chronic problem. Currently taking Atorvastatin 10mg. Last lipid panel: 07/13/22 LDL=22, SI=035. Will update labs today. Does not mychart. Verified phone #/address to contact re: results. Assessment & Plan (05/08/2023 1:14 PM CDT): Chronic problem. Currently taking Atorvastatin 10mg. Last lipid panel: 07/13/22 LDL=22, OP=289. No changes at this time Assessment & Plan (01/02/2023 1:43 PM CDT): Chronic problem. Currently taking Atorvastatin 10mg. Last lipid panel: 07/13/22 LDL=22, KO=593. No changes at this time Assessment & Plan (03/15/2022 2:46 PM CDT): Chronic problem. On statin therapy, no changes. Assessment & Plan (09/13/2021 11:22 AM MEDICAL RECORDS ANALYST): Chronic problem. On statin therapy, no changes. Assessment & Plan (03/01/2021 9:39 AM CDT): Check lipid panel today Assessment & Plan (11/30/2020 3:30 PM CDT): LDL 72. Continue statin Assessment & Plan (09/12/2019 12:57 PM MEDICAL RECORDS ANALYST): Will order lipid panel and adjust as indicated. Assessment & Plan (05/09/2019 9:46 AM CDT): Controlled on current medications. Continue plan. Assessment & Plan (12/03/2018 2:32 PM CDT): At goal on current medications. Hypertension associated with diabetes 01/25/2016 Overview (11/24/2016): Hypertension associated with diabetes Assessment & Plan (09/17/2024 12:49 PM MEDICAL RECORDS ANALYST): Chronic problem. BP elevated upon rooming & [...] daily Assessment & Plan (07/13/2022 2:14 PM MEDICAL RECORDS ANALYST): Chronic, well controlled Importance of low salt diet and exercise were discussed Continue current meds Update BMP Assessment & Plan (03/15/2022 2:46 PM CDT): Controlled on current medications, no changes. Assessment & Plan (09/13/2021 11:22 AM MEDICAL RECORDS ANALYST): Controlled on current medications, no changes. Assessment [...] ARB Assessment & Plan (09/12/2019 12:56 PM MEDICAL RECORDS ANALYST): Controlled on current medications. Continue plan. Assessment & Plan (05/09/2019 9:46 AM CDT): Controlled on current medications. Continue plan. Assessment & Plan (12/03/2018 2:32 PM CDT): Controlled on current medications. Assessment & Plan (09/09/2018 7:47 PM MEDICAL RECORDS ANALYST): Controlled on current medications. Assessment & Plan (03/21/2018 10:42 AM CDT): Controlled on current medications. Assessment & Plan (12/04/2017 10:15 AM CDT): Controlled on current medications. Assessment & Plan (09/04/2017 12:44 PM MEDICAL RECORDS ANALYST): Goal blood pressure is less than 140/85 Low salt diet recommended Daily aerobic exercise Continue current meds, including CHRISTIAN-I or ARB Assessment & Plan (05/24/2017 9:54 AM CDT): Controlled on current medications. Assessment & Plan (02/22/2017 5:03 PM CDT): Continue current medications. Resolved Problems Problem Noted Date Diagnosed Date Resolved Date Hyperlipidemia 02/22/2017 01/02/2023 Assessment & Plan (09/09/2018 7:46 PM MEDICAL RECORDS ANALYST): Check lipid panel today Assessment & Plan (03/21/2018 10:42 AM CDT): At goal on current medications. Assessment & Plan (12/04/2017 10:16 AM CDT): At goal on current medications. Assessment & Plan (09/04/2017 12:43 PM MEDICAL RECORDS ANALYST): Goal of treatment , LDL cholesterol less [...] Department Care Team Description 10/08/2024 Orders Only [facility] Medical [facility] Diabetes and Endocrinology [address] [place] [phone] Christian Vasques MD 10/01/2024 Telephone [facility] Diabetes and Endocrinology [address] [place] [phone] Gretel Burr, YARD CLEANER Med Management 09/27/2024 Orders Only [facility] [address] [place] [phone] Christian Vasques MD 09/17/2024 2:00 PM MEDICAL RECORDS ANALYST - 09/17/2024 11:59 PM MEDICAL RECORDS ANALYST Hospital Encounter [address] [address] Type 2 diabetes mellitus with hyperglycemia, with long-term current use of insulin (HCC); Hyperlipidemia associated with type 2 diabetes mellitus (HCC) Discharge Disposition: Discharge to home or self care 09/17/2024 2:00 PM MEDICAL RECORDS ANALYST Lab [facility] Medical Group Outpatient Lab at [address] [phone] Hyperlipidemia associated with type 2 diabetes mellitus (HCC) (Primary Dx); Hypertension associated with diabetes (HCC) 09/17/2024 1:00 PM MEDICAL RECORDS ANALYST Office Visit [facility] End[facility] [address] [place] [phone] Gretel Burr, AMANDA Type 2 diabetes mellitus with hyperglycemia, with long-term current use of insulin (HCC) (Primary Dx); Hypertension associated with diabetes (HCC); Hyperlipidemia associated with type 2 diabetes mellitus (HCC); CKD (chronic kidney disease) stage 4, GFR 15-29 ml/min (HCC) from Last 3 Months Surgical History Surgery Date Site/Laterality Comments [place] NJX AA&/STRD TFRML EPI CERVICAL/THORACIC 1 LEVEL [...] history of malignant neoplasm - (Added by Conv) Cancer Sister Family history of malignant neoplasm - (Added by Conv) Relation Name Status Comments Father Sister [...] on file Legal Sex Male 1:10 PM MEDICAL RECORDS ANALYST Gender Identity Not on file Sexual Orientation Not on file Obstetrics History Last Filed Vital Signs Vital Sign Reading Time Taken Comments Blood Pressure 164/82 09/17/2024 1:03 PM MEDICAL RECORDS ANALYST Pulse 94 09/17/2024 1:03 PM MEDICAL RECORDS ANALYST Temperature - - Respiratory Rate 16 09/17/2024 1:03 PM MEDICAL RECORDS ANALYST Oxygen Saturation - - Inhaled Oxygen Concentration - - Weight 74.4 kg (164 lb) 09/17/2024 1:03 PM MEDICAL RECORDS ANALYST Height 170.2 cm (5' 7.01 ) 09/17/2024 1:03 PM CS T Body Mass Index 25.68 09/17/2024 1:03 PM MEDICAL RECORDS ANALYST Plan of Treatment Health Maintenance Due Date [...] 07/13/2022, Additional history exists Dilated Eye Exam 09/30/2025 09/30/2024, , 07/29/2024, Additional history exists Pneumococcal vaccine 65+ Completed 020, 09/12/2018, 07/27/2015 Procedures Procedure Name Priority Date/Time Associated Diagnosis Comments HM DIABETES EYE EXAM Routine 09/30/2024 8:45 AM MEDICAL RECORDS ANALYST HM DIABETES EYE EXAM Routine 09/19/2024 7:19 AM MEDICAL RECORDS ANALYST LIPID PANEL Routine 09/17/2024 2:00 PM MEDICAL RECORDS ANALYST Type 2 diabetes mellitus with hyperglycemia, with long-term current use of insulin (HCC) Hyperlipidemia associated with type 2 diabetes mellitus (HCC) POCT GLUCOSE Routine 09/17/2024 1:05 PM MEDICAL RECORDS ANALYST Type 2 diabetes mellitus with hyperglycemia, with long-term current use of insulin (HCC) POCT HEMOGLOBIN A1C Routine 09/17/2024 1 :05 PM MEDICAL RECORDS ANALYST Type 2 diabetes mellitus with hyperglycemia, with [...] (ABNORMAL) DIABETES EYE EXAM (09/30/2024 8:45 AM MEDICAL RECORDS ANALYST) us Historical Provider MD HEALTH MAINTENANCE Final Result * DIABETES EYE EXAM (09/19/2024 7:19 AM MEDICAL RECORDS ANALYST) us Historical Provider HEALTH MAINTENANCE Final Result * (ABNORMAL) Lipid panel (09/17/2024 2:00 PM MEDICAL RECORDS ANALYST) Cholesterol 182 30 - 199 mg/dL Comment: [...] NCEP Expert Panel. Circulation 2004;110:227 3. Puma Carter et al. AMANDA Cardiol. 2019December 19;5(5):540-548. doi: [email or web address] [...] revised on 2018. Chol/HDL ratio 3 CARMELITA DIMA Blood 09/17/2024 2:00 PM MEDICAL RECORDS ANALYST 09/17/2024 8:37 PM MEDICAL RECORDS ANALYST Gretel Burr NP LAB BLOOD ORDERABLES Shaye l Result CARMELITA [address] [address] [place] [address] * (ABNORMAL) POCT hemoglobin A1c (09/17/2024 1:05 PM MEDICAL RECORDS ANALYST) Hemoglobin A1C, POC 9.8 4.0 - 5.6 % Blood 09/17/2024 1:05 PM MEDICAL RECORDS ANALYST Gretel Burr NP POINT OF CARE TEST ORDERA BLES Final Result * (ABNORMAL) POCT glucose (09/17/2024 1:05 PM MEDICAL RECORDS ANALYST) Glucose Blood, POC 478 mg/dL Blood 09/17/2024 1:05 PM MEDICAL RECORDS ANALYST us Gretel Burr NP POINT OF CARE TEST [...] CDT 03/13/2024 4:26 PM CDT Gretel Burr YARD CLEANER LAB BLOOD ORDERABLES Shaye l Result Performing Organization Address [facility] de Phone Number HALLEELLIS [address] [address] [place] [place], [place] [id number] * (ABNORMAL) Albumin Creatinine Ratio, Urine (03/13/2024 11:17 AM CDT) Albumin Ur 106.1 mg/L Comment: Interpretive Data No reference range established. Current interpretive data was last revised 2019. Creatinine Ur 57.1 mg/dL CARMELITA Comment: Interpretive Data No reference range established. Current interpretive data was last revised 2019. Albumin Creatinine Ratio, Ur 186(H) 1 - 29 mg/g CARMELITA Urine 03/13/2024 11:1 7 AM CDT 03/13/2024 2:48 PM CDT Gretel Burr NP LAB URINE ORDERABLES Shaye l Result Performing Organization Address [facility] Co de Phone Number CARMELITA DIMA [address] [address] [place] [place] [address] from Last 3 Months or Most Recently Relevant to Health Maintenance Insurance [facility] MEDICARE ADVANTAGE [place] [id number] MEDICARE ADVANTAGE [place] [id number] MEDICARE ADVANTAGE Care Teams Program Dir Relationship Specialty Start Date End Date James Hou MD PCP - General 11/18/16
[2024-11-21 10:32] LABS: Basophils Percent Auto 0.8 % (0.2-1.2); Eosinophils Absolute Auto 0.2 K/mm3 (0-0.3); Eosinophils Percent Auto 3.1 % (0-4.4); Hematocrit 36.5 % (42.0-52.0); Hemoglobin 12.4 g/dL (14.0-18.0); Immature Granulocyte Absolute 0.01 K/mm3 (0.00-0.031); Immature Granulocyte Percent A 0.2 % (0-0.5); Lymphocytes Absolute Auto 1.29 K/mm3 (0.9-3.2); Lymphocytes Percent Auto 24.9 % (18.3-44.2); Mean Corpuscular Hemoglobin 27.2 pg (26-34); Monocytes Absolute Auto 0.7 K/mm3 (0.1-0.6); Monocytes Percent Auto 13.1 % (2.6-8.5); Neutrophils Percent Auto 57.9 % (45.5-73.1); Platelet Count Result 178 k/mm3 (150-375); Red Blood Count 4.56 M/mm3 (4.6-6.20); Red Cell Distribution Width 14.6 % (11.5-14.5); White Blood Count 5.2 K/mm3 (4.5-10.0)
[2024-11-21 10:49] LABS: Albumin Level 4.8 g/dL (3.5-5.1); Anion Gap 13 mmol/L (4-12); Blood Urea Nitrogen 49 mg/dL (9-20); Calcium 9.2 mg/dL (8.4-10.2); Carbon Dioxide 23 mmol/L (22-30); Chloride 102 mmol/L (98-107); Estimated Glomerular Filt Rate 20; Glucose 357 mg/dL (65-110); Phosphorus 4.5 mg/dL (2.5-4.5); Potassium 4.5 mmol/L (3.4-5.0); Sodium 138 mmol/L (137-145)
== END 2024-11-21 09:38 | disposition home or self-care (01) ==
PROVIDERS: PCP Internal Medicine; Visit Provider Internal Medicine Nephrology
DX: N25.81 Secondary hyperparathyroidism of renal origin (principal)
CPT/HCPCS: 36415; 80069; 83970; 85025

== ENCOUNTER 2024-12-16 20:39 | Emergency (ER) | payer MEDICARE, SELFPAY ==
--- NOTE | ~2024-12-16 | XR_ITS ---
AP view of the pelvis and AP and lateral views of the right hip Clinical history: Pain Findings: No acute fracture or dislocation is seen. Osseous alignment is anatomic. Bilateral hip and SI joint spaces are preserved. Soft tissues are unremarkable. Impression: No significant abnormality is seen. Reviewed, dictated and finalized at [facility]. Impression: No significant abnormality is seen.
--- OUTSIDE RECORDS SUMMARY | 2024-12-16 20:42 | XMS_ITS | Encounter Summary ---
Author Organization [facility] Address 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
--- OUTSIDE RECORDS SUMMARY | 2024-12-16 20:42 | XMS_ITS | Clinical Summary ---
Author Organization [facility] Address [address] [place] [address] Care Team Providers Care Gage Designer Name Role Phone James Hou MD Primary Care Provider [phone] Source Comments [facility] Affiliates and Associated Physician Practices is amultiple site organization consisting of ambulatory clinics and hospital sitesin [place], [place], [place] and [place]. This disclosure is being madepursuant to the Care Everywhere program and may not contain all information available regarding this patient. Last updated 18.[facility] Allergies Active Allergy Reactions Criticality Noted Date Comments Morphine Nausea and/or Vomiting Medium 05/07/2019 Sulfa Drugs 01/21/2015 Turned penis black in color Sulfacetamide Unknown 01/04/2018 Sulfamethoxazole W-Trimethoprim Unknown,Other Low 03/04/2019 Medications * Be aware that medications may not be up to date on this document. Alwaysverify current medications with the patient. acarbose (PRECOSE) 50 MG tablet Take 1 Tab by mouth 6 times daily. 180 prn 1 Active metoprolol succinate XL 24hr (TOPROL XL) 50 MG tabletIndicati ons:Hypertensi on Take 1 (one) tablet by mouth 2 times daily Reasons: High Blood Pressure Active Insulin Glargine (LANTUS SC) Inject 18 Units subcutaneously 2 times daily. Active insulin glulisine (APIDRA SOLOSTAR) pen Inject subcutaneously 3 times daily before meals. Sliding scale Active valsartan (DIOVAN) 320 MG tabletIndicati ons:Hypertensi on Take 1 (one) tablet by mouth once daily Reasons: High Blood Pressure Active amLODIPine (NORVASC) 10 MG tablet Take 1 (one) tablet by mouth once daily Active rosuvastatin (CRESTOR) 10 MG tablet Take 1 (one) tablet by mouth once daily Active montelukast (SINGULAIR) 10 MG tablet Take 1 (one) tablet by mouth at bedtime Active vitamin D, cholecalcifero l, 2000 UNITS tablet Take 1 (one) tablet by mouth once daily Active finasteride (Proscar) 5 MG tablet Take 1 (one) tablet by mouth once daily Active Encounters Date Type Department Care Team Description 12/06/2024 7:27 AM CDT - 12/06/2024 11:59 PM CDT Hospital Encounter [facility] Health Imaging Services - [facility] [address] [place] [address] Gurwinder Núñez MD Discharge Disposition: Home or Self Care 11/01/2024 Travel from Last 3 Months Social History Tobacco Use Types Packs/Day Years Used Date Smoking Tobacco: Never Smokeless Tobacco: Never Alcohol Use Standard Drinks/Week Comments No 0 (1 standard drink = 0.6 oz pur e alcohol) Sex and Gender Information Value Date Recorded Sex Assigned at Not on file Legal Sex Male 6:46 AM HVAC INSTALLATION TECHNICIAN Gender Identity Not on file Sexual Orientation Not on file Last Filed Vital Signs Vital Sign Reading Time Taken Comments Blood Pressure 196/87 07/05/2024 11:02 AM HVAC INSTALLATION TECHNICIAN Pulse 99 07/05/2024 11:02 AM HVAC INSTALLATION TECHNICIAN Temperature 37.1 C (98.8 F) 07/05/2024 11:02 AM HVAC INSTALLATION TECHNICIAN Respiratory Rate 16 02/16/2024 8:11 AM CDT Oxygen Saturation 98% 07/05/2024 11:02 AM HVAC INSTALLATION TECHNICIAN Inhaled Oxygen Concentration - - Weight 72.1 kg (159 lb) 07/05/2024 11:02 AM HVAC INSTALLATION TECHNICIAN Height 170.2 cm (5' 7 ) 07/05/2024 11:02 AM HVAC INSTALLATION TECHNICIAN Body Mass Index 24.9 07/05/2024 11:02 AM HVAC INSTALLATION TECHNICIAN Plan of Treatment Upcoming Encounters Date Type Department Care Team (Late st Contact Info) Description 01/03/2025 8:30 AM CDT Office Visit [facility] - Urology [address] [place] [address] Rd [address] [place] [address] Gurwinder Núñez MD [address] [place] [address] Health Maintenance Due Date Last Done Comments [...] this topic Medical Devices Implanted Type Area Configuration Management Advisor Device Identifier Shelf Expiration Date Model / Serial / Lot Lens Iol Dioptr 21.5 Implanted:Qty: 1 on 01/21/2015 by Marielos Caputo MD at [facility] Left: Eye [employer] 09/20/2019 [id number] / / [id number] Procedures Procedure Name Priority Date/Time Associated Diagnosis Comments MRI ABDOMEN WWO CONTRAST Routine 12/06/2024 9:41 AM CDT Bilateral renal cysts from Last 3 Months Results * MRI Abdomen Wwo Contrast (12/06/2024 9:41 AM CDT) Anatomical Region Laterality Modality Abdomen Magnetic Resonan ce 12/06/2024 9:58 AM CDT Impressions 12/06/2024 1:00 PM CDT IMPRESSION: 1. Numerous bilateral renal complex cysts, Bosniak 2F or lower. 2. Unchanged left mid to lower renal pole enhancing mass. 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 3. Unchanged small indeterminate left adrenal nodule. 4. Distended urinary bladder up to 17 cm > Interpreting Provider: Rocio Harrison MD on 12/06/2024 1:00 PM Narrative 12/06/2024 1:00 PM CDT PROCEDURE: MRI ABDOMEN WWO CONTRAST DATE/TIME OF EXAM: 12/06/2024 9:41 AM CLINICAL INFORMATION: None relevant/not provided if blank. Indication: N28.1: Cyst of kidney, acquired Additional History: COMPARISON: Abdominal MRI from 07/05/2024 TECHNIQUE: Multiplanar multisequence MR imaging of the abdomen before and following uneventful administration of intravenous contrast according to dynamic contrast-enhanced protocol. CONTRAST: GADOTERATE MEGLUMINE 0.5 MMOL/ML IV SSM SO:15 mL FINDINGS: Renal evaluation is complex due to the number of cysts in each kidney, many of which contain varying degrees of proteinaceous debris which alter signal intensity. There is only one lesion with convincing enhancement located within the left mid to lower pole which currently measures 2.7 x 2.1 cm and previously measured 2.6 x 2.2 cm. The lesion is predominantly solid but with some internal cystic or vascular spaces and has a somewhat spoke wheel appearance on T2 imaging. There is no hydronephrosis or perinephric stranding. The renal veins are patent. There is no retroperitoneal adenopathy. Overall liver size and signal intensity is normal. Numerous small simple cysts scattered throughout the right lobe and a few in the left. The gallbladder is normal in size and contains a nonobstructing calculus. No dilatation of biliary tree or common duct. The pancreas and pancreatic duct are normal. The spleen is normal. 1.3 cm left adrenal nodule is unchanged and is indeterminant. The right adrenal is normal. The urinary bladder is distended up to 17 cm. Bone marrow signal is normal. The lung bases are clear. Procedure Note Rocio Harrison MD - 12/06/2024 PROCEDURE: MRI ABDOMEN WWO CONTRAST DATE/TIME OF EXAM: 12/06/2024 9:41 AM CLINICAL INFORMATION: None relevant/not provided if blank. Indication: N28.1: Cyst of kidney, acquired Additional History: COMPARISON: Abdominal MRI from 07/05/2024 TECHNIQUE: Multiplanar multisequence MR imaging of the abdomen before and following uneventful administration of intravenous contrast according to dynamic contrast-enhanced protocol. CONTRAST: GADOTERATE MEGLUMINE 0.5 MMOL/ML IV SSM SO:15 mL FINDINGS: Renal evaluation is complex due to the number of cysts in each kidney,many of which contain varying degrees of proteinaceous debris which altersignal intensity. There is only one lesion with convincing enhancement located within the left mid to lower pole which currently measures 2.7 x 2.1 cmand previously measured 2.6 x 2.2 cm. The lesion is predominantly solid but with some internal cystic or vascular spaces and has a somewhat spokewheel appearance on T2 imaging. There is no hydronephrosis or perinephric stranding. The renal veins are patent. There is no retroperitoneal adenopathy. Overall liver size and signal intensity is normal. Numerous smallsimple cysts scattered throughout the right lobe and a few in the left. The gallbladder is normal in size and contains a nonobstructing calculus.No dilatation of biliary tree or common duct. The pancreas and pancreatic duct are normal. The spleen is normal. 1.3cm left adrenal nodule is unchanged and is indeterminant. The rightadrenal is normal. The urinary bladder is distended up to 17 cm. Bone marrow signal is normal. The lung bases are clear. IMPRESSION: 1. Numerous bilateral renal complex cysts, Bosniak 2F or lower. 2. Unchanged left mid to lower renal pole enhancing mass. Findingsremain concerning for a primary renal neoplasm. 3. Unchanged small indeterminate left adrenal nodule. 4. Distended urinary bladder up to 17 cm > Interpreting Provider: Rocio Harrison MD on 12/06/2024 1:00 PM Gurwinder Núñez MD MR ORDERABLES Final Resu lt from Last 3 Months Insurance [facility] MANAGED MEDICARE ADV Care Teams Gage Designer Relationship Specialty Start Date End Date James Hou MD PCP - General Internal Medicine 01/19/15
--- OUTSIDE RECORDS SUMMARY | 2024-12-16 20:42 | XMS_ITS | Clinical Summary ---
Author Organization [facility] Address [address] Attn: Epic Prelude ADT [place] [address] Care Team Providers Care Ramp And Cargo Supervisor Name Role Phone Zac Floyd MD Primary Care Provider Social History Tobacco Use Types Packs/Day Years Used Date Smoking Tobacco: Never Assessed Sex and Gender Information Value Date Recorded Sex Assigned at Not on file Legal Sex Male 3:01 AM CAMP BOSS Gender Identity Not on file Sexual Orientation Not on file Plan of Treatment Health Maintenance Due Date Last Done Comments DTAP/TDAP/TD VACCINES (1 - Tdap) 1959 PNEUMOCOCCAL VACCINE 50+ YEARS (1 of 1 - PCV) 02/14/19 88 ZOSTER VACCINE (1 of 2) 02/15/1988 RSV VACCINE (60+ or ) (1 - 1-dose 75+ series) 2013 INFLUENZA VACCINE (#1) 2024 Care Teams Ramp And Cargo Supervisor Relationship Specialty Start Date End Date Zac Floyd MD [address] [place] [id number] PCP - General 06/19/03
--- OUTSIDE RECORDS SUMMARY | 2024-12-16 20:42 | XMS_ITS | Clinical Summary ---
Author Organization [facility] Physician Office Building [address] [place] [phone] Care Team Providers Care Cafeteria Team Leader Name Role Phone James Hou MD Primary Care Provider [phone] Allergies Active Allergy Reactions Criticality Noted Date [...] 06/30/20 21 Active flash glucose scanning reader ([employer] Herbert 2 [place]) [facility] 1 each 11/17/19 [...] 01/02/2023 Assessment & Plan (09/17/2024 1:55 PM CONFERENCE DIRECTOR): Chronic problem. Managed by Dr Beach at [facility]; seen q3mos. 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 Valsartan 160mg daily. Last MA: 03/13/24 (186). Last creat/GFR: 03/13/24 GFR=22, CR=2.77. seeing Dr Núñez at [facility] for L kidney mass & bilat renal cysts. Had MRI 07/05/24 to check kidney lesions (3). Has repeat MRI set up for 11/2024. Will see Dr Núñez 12/06/24. Plan per Dr Núñez's note 07/05/24 is to continue surveillance of slow growing L renal mass. Assessment & Plan (03/13/2024 11:10 AM CDT): Chronic problem. Managed by Dr Beach at [facility]. Seen q3mos. 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 Valsartan 160mg daily. Last MA: 07/13/22 (64). Last creat/GFR: 07/13/22 GFR=21, CR=2.85. L Kidney mass. Now seeing Dr Avery Núñez at [facility]. 06/14/24. Will be having MRI also per Mr Kahn. Assessment & Plan (05/08/2023 1:59 PM CDT): Chronic problem. Managed by Dr Beach at [facility]. Seen q3mos. NOV 05/30/23. Assessment & Plan (01/02/2023 1:59 PM CDT): Chronic problem. Managed by Dr Beach at [facility]. Seen q3mos. Hypoglycemia associated with diabetes 03/04/2019 Assessment & Plan (07/13/2022 2:14 PM CONFERENCE DIRECTOR): Lower evening Lantus dose Assessment & Plan (09/12/2019 12:57 PM CONFERENCE DIRECTOR): Order Dexcom Assessment & Plan (03/04/2019 11:17 AM CDT): Dose of Lantus lowered Request DEXCOM Type 2 diabetes mellitus 02/22/2017 Assessment & Plan (09/17/2024 1:54 PM CONFERENCE DIRECTOR): Chronic problem. Not at goal but A1c [...] DM eye exam. Reports frequent appts to [facility]; appt 2-3 weeks ago. Letter sent to [...] infection. Assessment & Plan (08/08/2023 1:42 PM CONFERENCE DIRECTOR): Hba1c was Lab Results Component Value Date [...] DM eye exam. Reports frequent appts to [facility]; appt 2-3 weeks ago. Letter sent to [...] DM eye exam. Reports frequent appts to [facility]. Letter sent to get copy of results. [...] weeks Assessment & Plan (07/13/2022 2:10 PM CONFERENCE DIRECTOR): With some hypoglycemia Lower evening Lantus to [...] today. Assessment & Plan (09/13/2021 12:40 PM CONFERENCE DIRECTOR): Chronic problem, not at goal with frequent [...] units Assessment & Plan (08/31/2020 9:49 AM CONFERENCE DIRECTOR): Hba1c was Lab Results Component Value Date [...] Over 301, take 10 units Will request [employer] Herbert CGMS Assessment & Plan (02/24/2020 12:53 [...] units Assessment & Plan (09/12/2019 12:55 PM CONFERENCE DIRECTOR): A1c 8.9. Poor control continues to be [...] reviewed. Assessment & Plan (09/09/2018 7:45 PM CONFERENCE DIRECTOR): Your A1c worsening to 9.5.Increase Lantus to [...] reviewed. Assessment & Plan (09/04/2017 12:43 PM CONFERENCE DIRECTOR): Hba1c was 8.0 today, indicating DM control [...] mellitus Assessment & Plan (09/17/2024 12:49 PM CONFERENCE DIRECTOR): Chronic problem. Currently taking Atorvastatin 10mg. Last lipid panel: 08/07/23 LDL=56, TG=92. Will update labs. Does not mychart. Verified phone #/address to contact re: results. Assessment & Plan (03/13/2024 10:41 AM CDT): Chronic problem. Currently taking Atorvastatin 10mg. Last lipid panel: 07/13/22 LDL=22, LL=193. Will update labs today. Does not mychart. Verified phone #/address to contact re: results. Assessment & Plan (05/08/2023 1:14 PM CDT): Chronic problem. Currently taking Atorvastatin 10mg. Last lipid panel: 07/13/22 LDL=22, QZ=959. No changes at this time Assessment & Plan (01/02/2023 1:43 PM CDT): Chronic problem. Currently taking Atorvastatin 10mg. Last lipid panel: 07/13/22 LDL=22, FT=700. No changes at this time Assessment & Plan (03/15/2022 2:46 PM CDT): Chronic problem. On statin therapy, no changes. Assessment & Plan (09/13/2021 11:22 AM CONFERENCE DIRECTOR): Chronic problem. On statin therapy, no changes. Assessment & Plan (03/01/2021 9:39 AM CDT): Check lipid panel today Assessment & Plan (11/30/2020 3:30 PM CDT): LDL 72. Continue statin Assessment & Plan (09/12/2019 12:57 PM CONFERENCE DIRECTOR): Will order lipid panel and adjust as indicated. Assessment & Plan (05/09/2019 9:46 AM CDT): Controlled on current medications. Continue plan. Assessment & Plan (12/03/2018 2:32 PM CDT): At goal on current medications. Hypertension associated with diabetes 01/25/2016 Overview (11/24/2016): Hypertension associated with diabetes Assessment & Plan (09/17/2024 12:49 PM CONFERENCE DIRECTOR): Chronic problem. BP elevated upon rooming & [...] daily Assessment & Plan (07/13/2022 2:14 PM CONFERENCE DIRECTOR): Chronic, well controlled Importance of low salt diet and exercise were discussed Continue current meds Update BMP Assessment & Plan (03/15/2022 2:46 PM CDT): Controlled on current medications, no changes. Assessment & Plan (09/13/2021 11:22 AM CONFERENCE DIRECTOR): Controlled on current medications, no changes. Assessment [...] ARB Assessment & Plan (09/12/2019 12:56 PM CONFERENCE DIRECTOR): Controlled on current medications. Continue plan. Assessment & Plan (05/09/2019 9:46 AM CDT): Controlled on current medications. Continue plan. Assessment & Plan (12/03/2018 2:32 PM CDT): Controlled on current medications. Assessment & Plan (09/09/2018 7:47 PM CONFERENCE DIRECTOR): Controlled on current medications. Assessment & Plan (03/21/2018 10:42 AM CDT): Controlled on current medications. Assessment & Plan (12/04/2017 10:15 AM CDT): Controlled on current medications. Assessment & Plan (09/04/2017 12:44 PM CONFERENCE DIRECTOR): Goal blood pressure is less than 140/85 Low salt diet recommended Daily aerobic exercise Continue current meds, including CHRISTIAN-I or ARB Assessment & Plan (05/24/2017 9:54 AM CDT): Controlled on current medications. Assessment & Plan (02/22/2017 5:03 PM CDT): Continue current medications. Resolved Problems Problem Noted Date Diagnosed Date Resolved Date Hyperlipidemia 02/22/2017 01/02/2023 Assessment & Plan (09/09/2018 7:46 PM CONFERENCE DIRECTOR): Check lipid panel today Assessment & Plan (03/21/2018 10:42 AM CDT): At goal on current medications. Assessment & Plan (12/04/2017 10:16 AM CDT): At goal on current medications. Assessment & Plan (09/04/2017 12:43 PM CONFERENCE DIRECTOR): Goal of treatment , LDL cholesterol less [...] Encounters Date Type Department Care Team Description 12/04/2024 Telephone [facility] Medical [facility] [address] [place] [phone] Gretel Burr, INSTITUTIONAL AIDE Med Management 10/08/2024 Orders Only [facility] [address] [place] [phone] Christian Vasques MD 10/01/2024 Telephone [facility] Diabetes [facility] Endocrinology [address] [place] [phone] Gretel Burr, INSTITUTIONAL AIDE Med Management 09/27/2024 Orders Only [facility] Endocr[facility]ology [address] [place] [phone] ProviderChristian MD 09/17/2024 2:00 PM CONFERENCE DIRECTOR - 09/17/2024 11:59 PM CONFERENCE DIRECTOR Hospital Encounter [address] [address] Type 2 diabetes mellitus with hyperglycemia, with long-term current use of insulin (HCC); Hyperlipidemia associated with type 2 diabetes mellitus (HCC) Discharge Disposition: Discharge to home or self care 09/17/2024 2:00 PM CONFERENCE DIRECTOR Lab [facility] Outpatient Lab at [address] [address] Hyperlipidemia associated with type 2 diabetes mellitus (HCC) (Primary Dx); Hypertension associated with diabetes (HCC) 09/17/2024 1:00 PM CONFERENCE DIRECTOR Office Visit [facility] Endocr[facility]ology [address] [place] [phone] Gretel Burr, AMANDA Type 2 diabetes mellitus with hyperglycemia, with long-term current use of insulin (HCC) (Primary Dx); Hypertension associated with diabetes (HCC); Hyperlipidemia associated with type 2 diabetes mellitus (HCC); CKD (chronic kidney disease) stage 4, GFR 15-29 ml/min (HCC) from Last 3 Months Surgical History Surgery Date Site/Laterality Comments MA NJX AA&/STRD TFRML EPI CERVICAL/THORACIC 1 LEVEL Corticosteroid Inj Transforaminal Approach Cervical W/ Fluoroscopic Guidance - left C8 (Added by TW Conv) Medical History Medical History Date Comments [...] on file Legal Sex Male 1:10 PM CONFERENCE DIRECTOR Gender Identity Not on file Sexual Orientation Not on file Obstetrics History Last Filed Vital Signs Vital Sign Reading Time Taken Comments Blood Pressure 164/82 09/17/2024 1:03 PM CONFERENCE DIRECTOR Pulse 94 09/17/2024 1:03 PM CONFERENCE DIRECTOR Temperature - - Respiratory Rate 16 09/17/2024 1:03 PM CONFERENCE DIRECTOR Oxygen Saturation - - Inhaled Oxygen Concentration - - Weight 74.4 kg (164 lb) 09/17/2024 1:03 PM CONFERENCE DIRECTOR Height 170.2 cm (5' 7.01 ) 09/17/2024 1:03 PM CS T Body Mass Index 25.68 09/17/2024 1:03 PM CONFERENCE DIRECTOR Plan of Treatment Health Maintenance Due Date Last Done Comments DTaP/Tdap/Td Vaccine (1 - Tdap) 1951 Hepatitis B Screening 02/15/1958 Zoster Vaccine (1 of 2) 02/15/1988 Well Visit 65+ 2003 Depression Screening 08/08/2024 08/08/2023, 01/02/2023, 11/16/2022, Additional history exists Fall Risk Assessment 08/08/2024 08/08/2023 Albumin Creatinine Ratio, Urine 03/13/2025 03/13/2024, 07/13/2022, 03/01/2021, Additional history exists eGFR 03/13/2025 03/13/2024, 06/22, 03/01/2021, Additional history exists Hemoglobin A1C 03/17/2025 09/17/2024, 02/19, 08/08/2023, Additional history exists Influenza Vaccine (Season Ended) 2025 07/10/2019, 05/01/2018, 04/26/2018, Additional history exists Foot Exam 09/17/2025 09/17/2024, 02/19, 05/08/2023, Additional history exists Lipid Panel 09/17/2025 09/17/2024, 07/21, 07/13/2022, Additional history exists Dilated Eye Exam 09/30/2025 09/30/2024, , 07/29/2024, Additional history exists Pneumococcal vaccine 65+ Completed 020, 09/12/2018, 07/27/2015 Procedures Procedure Name Priority Date/Time Associated Diagnosis Comments DIABETES EYE EXAM Routine 09/30/2024 8:45 AM CONFERENCE DIRECTOR HM DIABETES EYE EXAM Routine 09/19/2024 7:19 AM CONFERENCE DIRECTOR LIPID PANEL Routine 09/17/2024 2:00 PM CONFERENCE DIRECTOR Type 2 diabetes mellitus with hyperglycemia, with long-term current use of insulin (HCC) Hyperlipidemia associated with type 2 diabetes mellitus (HCC) POCT GLUCOSE Routine 09/17/2024 1:05 PM CONFERENCE DIRECTOR Type 2 diabetes mellitus with hyperglycemia, with long-term current use of insulin (HCC) POCT HEMOGLOBIN A1C Routine 09/17/2024 1 :05 PM CONFERENCE DIRECTOR Type 2 diabetes mellitus with hyperglycemia, with [...] (ABNORMAL) DIABETES EYE EXAM (09/30/2024 8:45 AM CONFERENCE DIRECTOR) Historical Provider HEALTH MAINTENANCE Final Result * DIABETES EYE EXAM (09/19/2024 7:19 AM CONFERENCE DIRECTOR) Historical Provider MD HEALTH MAINTENANCE Final Result * (ABNORMAL) Lipid panel (09/17/2024 2:00 PM CONFERENCE DIRECTOR) Cholesterol 182 30 - 199 mg/dL Comment: [...] 3. Puma Carter et al. AMANDA Cardiol. 2020 December 19;5(5):540-548. doi: [...] 3 CARMEL[place] DIMA Blood 09/17/2024 2:00 PM CONFERENCE DIRECTOR 09/17/2024 8:37 PM CONFERENCE DIRECTOR Gretel Burr NP LAB BLOOD ORDERABLES Shaye l Result [place]ITA [address] [address] [facility] [place] [address] * (ABNORMAL) POCT hemoglobin A1c (09/17/2024 1:05 PM CONFERENCE DIRECTOR) Hemoglobin A1C, POC 9.8 4.0 - 5.6 % Blood 09/17/2024 1:05 PM CONFERENCE DIRECTOR us Gretel Burr NP POINT OF CARE TEST ORDERA BLES Final Result * (ABNORMAL) POCT glucose (09/17/2024 1:05 PM CONFERENCE DIRECTOR) Glucose Blood, POC 478 mg/dL Blood 09/17/2024 1:05 PM CONFERENCE DIRECTOR Gretel Burr NP POINT OF CARE TEST [...] AM CDT 03/13/2024 4:26 PM CDT us Gretel Burr INSTITUTIONAL AIDE LAB BLOOD ORDERABLES Shaye l Result Performing Organization Address [facility] [place] [address] [address] [place] [place] [place] [address] * (ABNORMAL) Albumin Creatinine Ratio, [...] ORDERABLES Shaye l Result Performing Organization Address City/[facility]/[place] [address] [address] [facility] [facility] [employer] [place], [place] [phone] from Last 3 Months or Most Recently Relevant to Health Maintenance Insurance MEDICARE ADVANTAGE [facility] MEDICARE Address: [place] [id number] MEDICARE ADVANTAGE [facility] MEDICARE Address: [address] [address] MEDICARE ADVANTAGE Member Subscriber Plan / Payer (Ef fective 2023-Present) Name:Aliyah Kahn Relation to Subscriber:Self Name:Aliyah Kahn Payer ID:[id number] (NAIC) Type:UHC MEDICARE Address: [place] [id number] Care Teams Cafeteria Team Leader Relationship Specialty Start Date End Date James Hou MD PCP - General 11/18/16
--- OUTSIDE RECORDS SUMMARY | 2024-12-16 20:42 | XMS_ITS | Encounter Summary ---
Author Organization [facility] Address [address] [place] [address] Care Team Providers Care Air Gun Operator Name Role Phone Zac Floyd MD Primary Care Provider [phone] Encounter Details Date Type Department Care Team (Latest Contact Info) Description 09/06/2007 Outpatient Historical [facility] [place] [address] [place] [address] Unspecified Disorder of Kidney and Ureter Social History Tobacco Use Types Packs/Day Years Used Date Smoking Tobacco: Never Assessed Sex and Gender Information Value Date Recorded Sex Assigned at Not on file Legal Sex Male 3:01 AM CAUL DRESSER Gender Identity Not on file Sexual Orientation Not on file documented as of this encounter Plan of Treatment Not on file documented as of this encounter Procedures Procedure Name Priority Date/Time Associated Diagnosis Comments PSA Routine 09/06/2007 2:33 PM CAUL DRESSER COMPREHENSIVE METABOLIC PANEL Routine 09/06/2007 2:33 PM CAUL DRESSER documented in this encounter Results * PSA (09/06/2007 2:33 PM CAUL DRESSER) PSA 1.1 0.0 - 4.0 ng/mL INTERFACE SYSTEM Comment:Performed on [employer] System 09/06/2007 2:33 PM CAUL DRESSER us Yvan Kay MD CHEMISTRY ORDERABLES Edited INTERFACE SYSTEM Refer to clinic/hospital department * (ABNORMAL) COMPREHENSIVE METABOLIC PANEL (09/06/2007 2:33 PM CAUL DRESSER) GLUCOSE 52(L) 65 - 99 mg/dL INTERFACE [...] and non- Americans is available on the [facility] Intranet at: [email or web address] Select: Lab Policies and Procedures Select: Reference Ranges - GFR 09/06/2007 2:33 PM CAUL DRESSER Yvan Kay MD CHEMISTRY ORDERABLES Edited INTERFACE SYSTEM Refer to clinic/hospital department documented in this encounter Visit Diagnoses Diagnosis Unspecified disorder of kidney and ureter documented in this encounter Care Teams Air Gun Operator Relationship Specialty Start Date End Date Zac Floyd MD [address] [place] [address] PCP - General 06/19/03 documented as of this encounter
--- OUTSIDE RECORDS SUMMARY | 2024-12-16 20:42 | XMS_ITS | Encounter Summary ---
Author Organization [facility] Address 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
--- OUTSIDE RECORDS SUMMARY | 2024-12-16 20:42 | XMS_ITS | Referral Summary ---
Author Organization [facility] [id number] [place] [address] Care Team Providers Care Ball Racker Name Role Phone James Hou MD Primary Care Provider [phone] Encounters Date Type Department Care Team Description 12/04/2024 Telephone [facility] Diabetes and Endocrinology [address] [place] [phone] Gretel Burr, ELECTRON BEAM MACHINE WELDER SETTER Med Management 10/08/2024 Orders Only [facility] Medical [facility] Diabetes and Endocrinology [address] [place] [phone] Christian Vasques MD 10/01/2024 Telephone [facility] Diabetes and Endocrinology [address] [place] [phone] Gretel Burr, ELECTRON BEAM MACHINE WELDER SETTER Med Management 09/27/2024 Orders Only [facility] Medical [facility] Diabetes and Endocrinology [address] [place] [phone] Christian Vasques MD 09/17/2024 2:00 PM BRIM CURLER - 09/17/2024 11:59 PM BRIM CURLER Hospital Encounter [address] [address] Type 2 diabetes mellitus with hyperglycemia, with long-term current use of insulin (HCC); Hyperlipidemia associated with type 2 diabetes mellitus (HCC) Discharge Disposition: Discharge to home or self care 09/17/2024 2:00 PM BRIM CURLER Lab [facility] Outpatient Lab at [address] [phone] Hyperlipidemia associated with type 2 diabetes mellitus (HCC) (Primary Dx); Hypertension associated with diabetes (HCC) 09/17/2024 1:00 PM BRIM CURLER Office Visit [facility] Diabetes and Endocrinology [facility] [place] [address] Gretel Burr, AMANDA Type 2 diabetes mellitus with hyperglycemia, with long-term current use of insulin (HCC) (Primary Dx); Hypertension associated with diabetes (HCC); Hyperlipidemia associated with type 2 diabetes mellitus (HCC); CKD (chronic kidney disease) stage 4, GFR 15-29 ml/min ([facility]) from Last 3 Months Allergies Active Allergy [...] flash glucose scanning reader (FreeStyle Herbert 2 [place]) misc Use for BG monitoring 1 each 11/17/19 [...] hyperglycemia, with long-term current use of insulin ([facility]) USE DIRECTED 2 kit 2 10/01/19 Active HumaLOG 100 unit/mL pen for injectionIndica tions:Type 2 diabetes mellitus with hyperglycemia, with long-term current use of insulin ([facility]) INJECT 8-16 UNITS SUBCUTANEOUSLY THREE TIMES DAILY BEFORE MEALS WITH SSI MAX DAILY DOSE 48 UNITS 15 mL 3 10/16/19 Active Active Problems Problem Noted Date Diagnosed Date CKD (chronic kidney disease) stage 4, GFR 15-29 ml/min 01/02/2023 Assessment & Plan (09/17/2024 1:55 PM BRIM CURLER): Chronic problem. Managed by Dr Beach at [facility]; seen q3mos. 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 Valsartan 160mg daily. Last MA: 03/13/24 (186). Last creat/GFR: 03/13/24 GFR=22, CR=2.77. seeing Dr Núñez at [facility] for L kidney mass & bilat renal cysts. Had MRI 07/05/24 to check kidney lesions (3). Has repeat MRI set up for 11/2024. Will see Dr Núñez 12/06/24. Plan [address] Dr Núñez's note 07/05/24 is to continue surveillance of slow growing L renal mass. Assessment & Plan (03/13/2024 11:10 AM CDT): Chronic problem. Managed by Dr Beach at [facility]. Seen q3mos. 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 Valsartan 160mg daily. Last MA: 07/13/22 (64). Last creat/GFR: 07/13/22 GFR=21, CR=2.85. L Kidney mass. Now seeing Dr Avery Núñez at [facility]. NOV 06/14/24. Will be having MRI also per Mr Kahn. Assessment & Plan (05/08/2023 1:59 PM CDT): Chronic problem. Managed by Dr Beach at [facility]. Seen q3mos. NOV 05/30/23. Assessment & Plan (01/02/2023 1:59 PM CDT): Chronic problem. Managed by Dr Beach at [facility]. Seen q3mos. Hypoglycemia associated with diabetes 03/04/2019 Assessment & Plan (07/13/2022 2:14 PM BRIM CURLER): Lower evening Lantus dose Assessment & Plan (09/12/2019 12:57 PM BRIM CURLER): Order Dexcom Assessment & Plan (03/04/2019 11:17 AM CDT): Dose of Lantus lowered Request DEXCOM Type 2 diabetes mellitus 02/22/2017 Assessment & Plan (09/17/2024 1:54 PM BRIM CURLER): Chronic problem. Not at goal but A1c [...] DM eye exam. Reports frequent appts to [facility]; appt 2-3 weeks ago. Letter sent to [...] infection. Assessment & Plan (08/08/2023 1:42 PM BRIM CURLER): Hba1c was Lab Results Component Value Date [...] DM eye exam. Reports frequent appts to [facility]; appt 2-3 weeks ago. Letter sent [...] DM eye exam. Reports frequent appts to [facility]. Letter sent to get copy of results. [...] weeks Assessment & Plan (07/13/2022 2:10 PM BRIM CURLER): With some hypoglycemia Lower evening Lantus to [...] today. Assessment & Plan (09/13/2021 12:40 PM BRIM CURLER): Chronic problem, not at goal with frequent [...] units Assessment & Plan (08/31/2020 9:49 AM BRIM CURLER): Hba1c was Lab Results Component Value Date [...] units Assessment & Plan (09/12/2019 12:55 PM BRIM CURLER): A1c 8.9. Poor control continues to be [...] reviewed. Assessment & Plan (09/09/2018 7:45 PM BRIM CURLER): Your A1c worsening to 9.5.Increase Lantus to [...] reviewed. Assessment & Plan (09/04/2017 12:43 PM BRIM CURLER): Hba1c was 8.0 today, indicating DM control [...] mellitus Assessment & Plan (09/17/2024 12:49 PM BRIM CURLER): Chronic problem. Currently taking Atorvastatin 10mg. Last lipid panel: 08/07/23 LDL=56, TG=92. Will update labs. Does not mychart. Verified phone #/address to contact re: results. Assessment & Plan (03/13/2024 10:41 AM CDT): Chronic problem. Currently taking Atorvastatin 10mg. Last lipid panel: 07/13/22 LDL=22, WD=396. Will update labs today. Does not mychart. Verified phone #/address to contact re: results. Assessment & Plan (05/08/2023 1:14 PM CDT): Chronic problem. Currently taking Atorvastatin 10mg. Last lipid panel: 07/13/22 LDL=22, ME=069. No changes at this time Assessment & Plan (01/02/2023 1:43 PM CDT): Chronic problem. Currently taking Atorvastatin 10mg. Last lipid panel: 07/13/22 LDL=22, LD=520. No changes at this time Assessment & Plan (03/15/2022 2:46 PM CDT): Chronic problem. On statin therapy, no changes. Assessment & Plan (09/13/2021 11:22 AM BRIM CURLER): Chronic problem. On statin therapy, no changes. Assessment & Plan (03/01/2021 9:39 AM CDT): Check lipid panel today Assessment & Plan (11/30/2020 3:30 PM CDT): LDL 72. Continue statin Assessment & Plan (09/12/2019 12:57 PM BRIM CURLER): Will order lipid panel and adjust as indicated. Assessment & Plan (05/09/2019 9:46 AM CDT): Controlled on current medications. Continue plan. Assessment & Plan (12/03/2018 2:32 PM CDT): At goal on current medications. Hypertension associated with diabetes 01/25/2016 Overview (11/24/2016): Hypertension associated with diabetes Assessment & Plan (09/17/2024 12:49 PM BRIM CURLER): Chronic problem. BP elevated upon rooming & [...] daily Assessment & Plan (07/13/2022 2:14 PM BRIM CURLER): Chronic, well controlled Importance of low salt diet and exercise were discussed Continue current meds Update BMP Assessment & Plan (03/15/2022 2:46 PM CDT): Controlled on current medications, no changes. Assessment & Plan (09/13/2021 11:22 AM BRIM CURLER): Controlled on current medications, no changes. Assessment [...] ARB Assessment & Plan (09/12/2019 12:56 PM BRIM CURLER): Controlled on current medications. Continue plan. Assessment & Plan (05/09/2019 9:46 AM CDT): Controlled on current medications. Continue plan. Assessment & Plan (12/03/2018 2:32 PM CDT): Controlled on current medications. Assessment & Plan (09/09/2018 7:47 PM BRIM CURLER): Controlled on current medications. Assessment & Plan (03/21/2018 10:42 AM CDT): Controlled on current medications. Assessment & Plan (12/04/2017 10:15 AM CDT): Controlled on current medications. Assessment & Plan (09/04/2017 12:44 PM BRIM CURLER): Goal blood pressure is less than 140/85 Low salt diet recommended Daily aerobic exercise Continue current meds, including CHRISTIAN-I or ARB Assessment & Plan (05/24/2017 9:54 AM CDT): Controlled on current medications. Assessment & Plan (02/22/2017 5:03 PM CDT): Continue current medications. Resolved Problems Problem Noted Date Diagnosed Date Resolved Date Hyperlipidemia 02/22/2017 01/02/2023 Assessment & Plan (09/09/2018 7:46 PM BRIM CURLER): Check lipid panel today Assessment & Plan (03/21/2018 10:42 AM CDT): At goal on current medications. Assessment & Plan (12/04/2017 10:16 AM CDT): At goal on current medications. Assessment & Plan (09/04/2017 12:43 PM BRIM CURLER): Goal of treatment , LDL cholesterol less [...] on file Legal Sex Male 1:10 PM BRIM CURLER Gender Identity Not on file Sexual Orientation Not on file Last Filed Vital Signs Vital Sign Reading Time Taken Comments Blood Pressure 164/82 09/17/2024 1:03 PM BRIM CURLER Pulse 94 09/17/2024 1:03 PM BRIM CURLER Temperature - - Respiratory Rate 16 09/17/2024 1:03 PM BRIM CURLER Oxygen Saturation - - Inhaled Oxygen Concentration - - Weight 74.4 kg (164 lb) 09/17/2024 1:03 PM BRIM CURLER Height 170.2 cm (5' 7.01 ) 09/17/2024 1:03 PM CS T Body Mass Index 25.68 09/17/2024 1:03 PM BRIM CURLER Plan of Treatment Not on file Procedures Procedure Name Priority Date/Time Associated Diagnosis Comments HM DIABETES EYE EXAM Routine 09/30/2024 8:45 AM BRIM CURLER HM DIABETES EYE EXAM Routine 09/19/2024 7:19 AM BRIM CURLER LIPID PANEL Routine 09/17/2024 2:00 PM BRIM CURLER Type 2 diabetes mellitus with hyperglycemia, with long-term current use of insulin (HCC) Hyperlipidemia associated with type 2 diabetes mellitus (HCC) POCT GLUCOSE Routine 09/17/2024 1:05 PM BRIM CURLER Type 2 diabetes mellitus with hyperglycemia, with long-term current use of insulin (HCC) POCT HEMOGLOBIN A1C Routine 09/17/2024 1 :05 PM BRIM CURLER Type 2 diabetes mellitus with hyperglycemia, with [...] (ABNORMAL) DIABETES EYE EXAM (09/30/2024 8:45 AM BRIM CURLER) Historical Provider MD HEALTH MAINTENANCE Final Result * DIABETES EYE EXAM (09/19/2024 7:19 AM BRIM CURLER) Historical Provider MD HEALTH MAINTENANCE Final Result * (ABNORMAL) Lipid panel (09/17/2024 2:00 PM BRIM CURLER) [facility] Signature Cholesterol 182 30 - 199 mg/dL Comment: [...] NCEP Expert Panel. Circulation 2004;110:227 3. Puma Crwoe al. AMANDA Cardiol. 2020 December 19;5(5):540-548. doi: [...] 3 CARMELITA DIMA Blood 09/17/2024 2:00 PM BRIM CURLER 09/17/2024 8:37 PM BRIM CURLER Gretel Burr NP LAB BLOOD ORDERABLES Shaye l Result [place] [address] [address] [place] [address] * (ABNORMAL) POCT hemoglobin A1c (09/17/2024 1:05 PM BRIM CURLER) Hemoglobin A1C, POC 9.8 4.0 - 5.6 % Blood 09/17/2024 1:05 PM BRIM CURLER us Gretel Burr NP POINT OF CARE TEST ORDERA BLES Final Result * (ABNORMAL) POCT glucose (09/17/2024 1:05 PM BRIM CURLER) Glucose Blood, POC 478 mg/dL Blood 09/17/2024 1:05 PM BRIM CURLER us Gretel Burr NP POINT OF CARE [...] 03/13/2024 4:26 PM CDT us Gretelpedro Burr NP LAB BLOOD ORDERABLES Shaye l Result Performing Organization Address [facility] [place] [address] [address] [place], [place] [phone] * (ABNORMAL) Albumin Creatinine Ratio, Urine (03/13/2024 [...] ORDERABLES Shaye l Result Performing Organization Address [facility] [place] [address] [address] [place] [address] from Last 3 Months or Most Recently Relevant to Health Maintenance Insurance MEDICARE ADVANTAGE [place] [id number] MEDICARE ADVANTAGE [place] [id number] MEDICARE ADVANTAGE [place] [id number] Care Teams Ball Racker Relationship Specialty Start Date End Date James Hou MD [phone] (work) PCP - General 11/18/16
--- OUTSIDE RECORDS SUMMARY | 2024-12-16 20:42 | XMS_ITS | Encounter Summary ---
Author Organization [facility] Address [address] [place] [address] Care Team Providers Care Fabricator Industrial Furnace Name Role Phone Zac Floyd MD Primary Care Provider [phone] Encounter Details Date Type Department Care Team (Late st Contact Info) Description 09/20/2007 Outpatient Historical [place] [address] [place] [address] Unspecified Disorder of Kidney and Ureter Social History Tobacco Use Types Packs/Day Years Used Date Smoking Tobacco: Never Assessed Sex and Gender Information Value Date Recorded Sex Assigned at Not on file Legal Sex Male 3:01 AM SOLDERER PRODUCTION LINE Gender Identity Not on file Sexual Orientation Not on file documented as of this encounter Plan of Treatment Not on file documented as of this encounter Procedures Procedure Name Priority Date/Time Associated Diagnosis Comments CT ABDOMEN W WO CONT PELVIS W CONT Routine 09/20/2007 11:20 AM SOLDERER PRODUCTION LINE documented in this encounter Results * CT ABDOMEN W WO CONT PELVIS W CONT (09/20/2007 11:20 AM SOLDERER PRODUCTION LINE) Anatomical Region Laterality Modality Abdomen Other 09/20/2007 11:2 0 AM SOLDERER PRODUCTION LINE Narrative 09/26/2007 8:01 AM SOLDERER PRODUCTION LINE [facility] [address] [place], [place] [address] Admit Date: 09/20/2007 ALIYAH KAHN Sex: M Admit Prov: YVAN KAY Date: 1940 Primary Care Prov: ZAC FLOYD CMRN: [id number] Room: [facility] SSN: [id number] IMAGING SERVICES Ordering Prov: N/A Accession Number: [id number] Interpretation EXAM: CT OF THE ABDOMEN WITHOUT [...] DKT Procedure Note James Sarabia - 09/26/2007 [facility] [address] [place] [place], [place] [address] Admit Date: 09/20/2007 ALIYAH KAHN Sex: M Admit Prov: YVAN KAY Date: 1940 Primary Care Prov: ZAC FLOYD CMRN: [id number] Room: [facility] SSN: [id number] IMAGING SERVICES Ordering Prov: N/A Interpretation EXAM: [...] ureter documented in this encounter Care Teams Fabricator Industrial Furnace Relationship Specialty Start Date End Date Zac Floyd MD [address] [place] [address] PCP - General 06/19/03 documented as of this encounter
--- OUTSIDE RECORDS SUMMARY | 2024-12-16 20:42 | XMS_ITS | Encounter Summary ---
Author Organization [facility] Address [address] [place] [address] Care Team Providers Care Director Business Management Name Role Phone Zac Floyd MD Primary Care Provider [phone] Encounter Details Date Type Department Care Team (Late st Contact Info) Description 06/19/2003 Outpatient Historical [place] [address] [place] [address] HEMATURIA (Primary Dx) Social History Tobacco Use Types Packs/Day Years Used Date Smoking Tobacco: Never Assessed Sex and Gender Information Value Date Recorded Sex Assigned at Not on file Legal Sex Male 3:01 AM ROTATIONAL MOULDING OPERATOR Gender Identity Not on file Sexual Orientation Not on file documented as of this encounter Plan of Treatment Not on file documented as of this encounter Visit Diagnoses Diagnosis Hematuria- Primary documented in this encounter Care Teams Director Business Management Relationship Specialty Start Date End Date Zac Floyd MD [address] [place] [address] PCP - General 06/19/03 documented as of this encounter
--- OUTSIDE RECORDS SUMMARY | 2024-12-16 20:42 | XMS_ITS | Clinical Summary ---
Author Organization [facility] ro[facility] Address [address] [address] Phone Care Team Providers Care Nail Artist Name Role Phone James Hou MD Primary Care Provider Allergies Active Allergy Reactions Criticality Noted Date Comments Sulfamethoxazole-Trimethoprim Medications metoprolol tartrate (LOPRESSOR) 50 MG tablet One tablet two times daily 0 05/30/20 16 Active amLODIPine (NORVASC) 10 MG tablet One tablet daily 0 05/30/20 16 Active montelukast (SINGULAIR) 10 MG tablet One tablet daily 0 05/30/20 16 Active cholecalcifero l (VITAMIN D-3) 1000 units tablet One tablet daily 0 05/30/20 16 Active valsartan (DIOVAN) 320 MG tablet One tablet daily 0 05/30/20 16 Active insulin glargine (LANTUS) 100 UNIT/ML injection 22 units at noon and 22 units at bedtime 0 05/30/20 16 Active Additional Information Patient taking differently:Subcutaneous,Indications: 18 units at noon and 18 units at bedtime, Reported on 04/30/2024 atorvastatin (LIPITOR) 10 MG tablet 1 tab by mouth daily 0 05/29/20 18 Active Additional Information Patient taking differently: 10 mgOral Daily, Reported on 04/30/2024 omeprazole (PriLOSEC) [address] capsule 1 capsule by mouth daily 0 05/29/20 18 Active insulin lispro (HUMALOG MAUREEN KWIKPEN) 100 UNIT/ML injection sliding scale 0 11/29/19 18 Active aspirin 81 MG tablet Take 81 mg by mouth 1 (one) time each day. Active finasteride (PROSCAR) 5 MG tablet finasteride 5 mg tablet TAKE 1 TABLET BY MOUTH ONCE DAILY Active tamsulosin (FLOMAX) 0.4 MG 24 hr capsule Take 0.4 mg by mouth 1 (one) time each day 07/17/20 19 Active famotidine (PEPCID) 20 MG tablet Take by mouth Active calcitriol (ROCALTROL) 0.25 MCG capsule TAKE 1 CAPSULE BY MOUTH THREE TIMES A WEEK 15 capsule 11/26/19 25 Active calcitriol (ROCALTROL) 0.25 MCG capsule TAKE 1 CAPSULE BY MOUTH THREE TIMES A WEEK 15 capsule 10/22/19 25 025 Discontinued Active Problems Problem Noted Date Diagnosed Date Chronic kidney disease, Stage IV (severe) 2024 Secondary hyperparathyroidism 05/22/2018 Type 2 diabetes mellitus with diabetic nephropat hy 05/22/2018 Hypertensive chronic kidney disease, benign, with chronic kidney disease stage I through stage IV, or unspecified 05/30/2016 Resolved Problems Problem Noted Date Diagnosed Date Resolved Date Urinary tract infectious disease 10/26/2022 05/19/2023 Chronic kidney disease, stage 4 (severe) 08/23/2022 11/25/2024 Stage 3b chronic kidney disease 05/30/2016 08/23/2022 Encounters Date Type Department Care Team Description 11/24/2024 Refill [facility] [address] [place] [address] Coral Hubbard NP 10/21/2024 Refill [facility] [address] [place] [address] Coral Hubbard NP from Last 3 Months Family History Medical [...] at Not on file Legal Sex Male 8:40 AM MST Gender Identity Not on file Sexual Orientation Not on file Last Filed Vital Signs Vital Sign Reading Time Taken Comments Blood Pressure 160/82 11/26/2024 12:37 PM CDT Pulse 83 11/26/2024 12:37 PM CDT Temperature 36.4 C (97.6 F) 08/03/2021 10:41 AM ADMINISTRATIVE APPEALS TRIBUNAL MEMBER Respiratory Rate - - Oxygen Saturation - - Inhaled Oxygen Concentration - - Weight 73.5 kg (162 lb) 11/26/2024 12:37 PM CDT Height 172.7 cm (5' 8 ) 11/26/2024 12:37 PM CDT Body Mass Index 24.63 11/26/2024 12:37 PM CDT Plan of Treatment Upcoming Encounters Date Type Department Care Team (Late st Contact Info) Description 06/03/2025 11:20 AM CDT Office Visit [facility] [address], [facility] [address] [place] [address] Chidi Monae MD [address] [address] Health Maintenance Due Date Last Done Comments Diabetic Foot Exam 02/15/1950 Ophthalmology Exam 02/15/1950 Pneumococcal PPSV23/PCV13 65 + Years / High and Highest Risk (2 of 4 - PPSV23) 11/07/2018 09/12/2018, 07/27/2015 Influenza Vaccine (Season Ended) 2025 05/01/2018, 05/28/2015, 05/28/2015, Additional history exists Insurance [facility] [place] [place] [id number] Care Teams Nail Artist Relationship Specialty Start Date End Date James Hou MD [address] [address] PCP - General 02/12/19
--- OUTSIDE RECORDS SUMMARY | 2024-12-16 20:42 | XMS_ITS | CONTINUITY OF CARE DOCUMENT ---
Author Name carleen durant Address Unknown Organization [facility] Address [address] [address] [facility] [address] [place] [address] Phone [phone] Care Team Providers Care Criminal Profiler Name Role Phone Donavan COTO, Viviane Unavailable JENNYFER PEREZ MD Unavailable JENNYFER PEREZ MD Unavailable INSURANCE PROVIDERS Payer name Policy type / Coverage type [place] red republican ID [employer] MEDICARE COMPLETE HMO Other [id number]
--- OUTSIDE RECORDS SUMMARY | 2024-12-16 20:42 | XMS_ITS | Encounter Summary ---
[facility] Organization [facility] Address 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 Gender Identity Not on file Sexual Orientation Not on file documented as of this encounter Plan of Treatment Not on file documented as of this encounter Procedures Procedure Name Priority Date/Time Associated Diagnosis Comments URINALYSIS W/REFLEX MICROSCOPIC Routine 06/25/2006 4:39 PM TRANSFORMER TESTER CBC WITH DIFFERENTIAL Routine 06/25/2006 3:53 PM TRANSFORMER TESTER CBC WITH DIFFERENTIAL Routine 06/25/2006 3:53 PM TRANSFORMER TESTER C-REACTIVE PROTEIN Routine 06/25/2006 3: 53 PM TRANSFORMER TESTER documented in this encounter Results * (ABNORMAL) URINALYSIS (06/25/2006 4:39 PM TRANSFORMER TESTER) COLOR UA Yellow INTERFACE SYSTEM CLARITY UA [...] Briana 06/25/2006 5:42 PM 06/25/2006 4:39 PM TRANSFORMER TESTER Landry Higginbotham DO URINE ORDERABLES Final Result Performing Organization Address [facility] Phone Number INTERFACE SYSTEM Refer to clinic/hospital department * (ABNORMAL) CBC WITH DIFFERENTIAL (06/25/2006 3:53 PM TRANSFORMER TESTER) Pathologist [facility] NEUTROPHILS 65 45 - 70 % INTERFAC [...] 0.20 K/uL INTERFACE SYSTEM 06/25/2006 3:53 PM TRANSFORMER TESTER Landry Higginbotham DO HEMATOLOGY ORDERABLES Final R esult Performing Organization Address [facility] Phone Number INTERFACE SYSTEM Refer to clinic/hospital department * (ABNORMAL) CBC WITH DIFFERENTIAL (06/25/2006 3:53 PM TRANSFORMER TESTER) WBC 6.0 4.0 - 9.8 K/uL INTERFACE [...] 12.4 fL INTERFACE SYSTEM 06/25/2006 3:53 PM TRANSFORMER TESTER Landry Higginbotham DO HEMATOLOGY ORDERABLES Final R esult Performing Organization Address City/[facility] Co de Phone Number INTERFACE SYSTEM Refer to clinic/hospital department * (ABNORMAL) C-REACTIVE PROTEIN (06/25/2006 3:53 PM TRANSFORMER TESTER) Pathologist [facility] CRP 4.5(H) 0.0 - 0.8 mg/dL INTERFACE SYSTEM 06/25/2006 3:53 PM TRANSFORMER TESTER Landry Higginbotham DO CHEMISTRY ORDERABLES Final Re sult Performing Organization Address [facility] Co de Phone Number INTERFACE SYSTEM Refer to clinic/hospital department documented in this encounter Visit Diagnoses Diagnosis Other orchitis, epididymitis, and epididymo-orchitis, without mention of abscess(604.99)- Primary Other orchitis, epididymitis, and epididymo-orchitis, without mention of abscess documented in this encounter Care Teams Door Puller Relationship Specialty Start Date End Date Zac Floyd MD [address] [address] PCP - General 06/19/03 documented as of this encounter
--- OUTSIDE RECORDS SUMMARY | 2024-12-16 20:42 | XMS_ITS | Encounter Summary ---
Author Organization [facility] Address 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
--- OUTSIDE RECORDS SUMMARY | 2024-12-16 20:42 | XMS_ITS | Data Portability ---
Author Organization [employer], Main Office Address [address] [place] [address] Care Team Providers Care Medicaid Service Coordinator Name Role Phone JENNYFER HOU Primary Care Provider JENNYFER HOU Referring Provider THELMA MCNAIR Unit Aide Tech NICK ALAMO Cataloging Assistant Assessment Encounter Date Assessment Date Assessment LastModified by Organization Details LastModified Time 01/03/2023 01/03/2023 This note is dictated and transcribed by [email or web address]. Wall Taper Helper variances may occur. Despite proofreading, typographical errors may occur. [email or web address] Not available 01/03/2023 12:19:31 02/17/2023 02/17/2023 Will continue with current therapy will follow-up in 4 months all questions answered [email or web address] Not available 02/18/2023 17:12:34 04/10/2023 04/10/2023 Will continue current therapy blood work has been ordered all questions have been answered he will follow-up in 4 months [email or web address] Not available 04/23/2023 21:23:44 08/07/2023 08/07/2023 Overall has been doing fine he has had his flu COVID and RSV immunizations will continue current therapy blood work has been ordered all questions have been answered will follow-up in 4 months. Not available 08/07/2023 22:27:15 Plan of Treatment Reminders Order Date Submit Date Provider Last Modified By Organization Details Last Modified Time Details Appointments None recorded. Lab glycohemogl obin, total, blood 2022 023 [facility] (Lab), [address] [place], [address], 3 20:50:46 CBC w/ auto diff 2022 023 [facility] (Lab), [address] [place], [address], 3 14:29:08 CMP, serum or plasma 2022 023 [facility] (Lab), [address] [place], [address], 3 14:36:40 lipid panel, serum 2022 023 [facility] (Lab), [address] [place], [address], 3 14:36:45 PSA, serum or plasma 2022 023 [facility] (Lab), [address] [place], [address], 3 14:23:37 PTH (parathyroi d hormone), intact, serum or plasma [address] (Lab), [address] [place], [address], 3 15:34:36 HbA1c (hemoglobin A1c), blood 2022 023 [facility] (Lab), [address] [place], [address], 3 14:23:31 CMP, serum or plasma [address] (Lab), [address] [place], [address], 3 15:34:36 lipid panel, serum [address] (Lab), [address] [place], [address], 3 15:34:36 CBC w/ auto diff 2022 023 [email or web address] (Lab), [address] [place], [address], 3 15:34:36 Referral None recorded. Procedures None recorded. Surgeries None recorded. Imaging None recorded. Medication Orders mometasone 0.1 % topical cream 2022 023 [facility] [place], [address], 14:27:49 Patient TargetsNo targets recorded. Patient InstructionsNo instructions recorded. Reason for Referral None Reported. Results Created Date Observation Date Name Description Value Unit Range Abnormal Flag Note LastModifiedBy Organization Detail LastModifiedTime 04/10/2004/10/2023 CBC/C OMPLE TE BLD COUNT W/DIF F white blood cells 4.7 x10'3 /uL 4.2-10 .8 Not Available [facility] (Lab) [address] [place], [address], 04/10/2023 13:43:41 04/10/20 23 04/10/2023 CBC/C OMPLE TE BLD COUNT W/DIF F red blood cells 4.31 x10'6 /uL 4.10-5 .80 Not Available [facility] (Lab) [address] [place], [address], 04/10/2023 13:43:41 04/10/20 23 04/10/2023 CBC/C OMPLE TE BLD COUNT W/DIF F hemoglobin 12.2 g/dL 13.2-1 7.0 low Not Available [facility] (Lab) [address] [place], [address], 04/10/2023 13:43:41 04/10/20 23 04/10/2023 CBC/C OMPLE TE BLD COUNT W/DIF F hematocrit 35.1 % 39.3-5 0.0 low Not Available [facility] (Lab) [address] [place], [address], 04/10/2023 13:43:41 04/10/20 23 04/10/2023 CBC/C OMPLE TE BLD COUNT W/DIF F mean red cell volume 81.4 fL 80.0-9 7.0 Not Available [facility] (Lab) [address] [place], [address], 04/10/2023 13:43:41 04/10/20 23 04/10/2023 CBC/C OMPLE TE BLD COUNT W/DIF F mean red cell hemoglobin 28.3 pg 27.0-3 3.0 Not Available [facility] (Lab) [address] [place], [address], 04/10/2023 13:43:41 04/10/20 23 04/10/2023 CBC/C OMPLE TE BLD COUNT W/DIF F mean RBC HGB concentratio n 34.8 g/dL 31.0-3 6.0 Not Available [facility] (Lab) [address] [place], [address], 04/10/2023 13:43:41 04/10/20 23 04/10/2023 CBC/C OMPLE TE BLD COUNT W/DIF F red cell distribution width 14.6 % 11.8-1 5.5 Not Available [facility] (Lab) [address] [place], [address], 04/10/2023 13:43:41 04/10/20 23 04/10/2023 CBC/C OMPLE TE BLD COUNT W/DIF F platelets 174 x10'3 /uL 150-40 0 Not Available [facility] (Lab) [address] [place], [address], 04/10/2023 13:43:41 04/10/20 23 04/10/2023 CBC/C OMPLE TE BLD COUNT W/DIF F mean platelet volume 12.7 fL 9.0-12 .4 high Not Available [facility] (Lab) [address] [place], [address], 04/10/2023 13:43:41 04/10/20 23 04/10/2023 CBC/C OMPLE TE BLD COUNT W/DIF F neutrophils 47.1 % 39.0-7 2.0 Not Available [facility] (Lab) [address] [place], [address], 04/10/2023 13:43:41 04/10/20 23 04/10/2023 CBC/C OMPLE TE BLD COUNT W/DIF F lymphocytes 33.0 % 16.0-4 7.0 Not Available [facility] (Lab) [address] [place], [address], 04/10/2023 13:43:41 04/10/20 23 04/10/2023 CBC/C OMPLE TE BLD COUNT W/DIF F monocytes 15.4 % 5.0-12 .0 high Not Available [facility] (Lab) [address] [place], [address], 04/10/2023 13:43:41 04/10/20 23 04/10/2023 CBC/C OMPLE TE BLD COUNT W/DIF F eosinophils 3.0 % 1.0-7. 0 Not Available [facility] (Lab) [address] [place], [address], 04/10/2023 13:43:41 04/10/20 23 04/10/2023 CBC/C OMPLE TE BLD COUNT W/DIF F basophils 1.1 % 0.0-2. 0 Not Available [facility] (Lab) [address] [place], [address], 04/10/2023 13:43:41 04/10/20 23 04/10/2023 CBC/C OMPLE TE BLD COUNT W/DIF F immature granulocytes 0.4 % 0.00-0 .50 Not Available [facility] (Lab) [address] [place], [address], 04/10/2023 13:43:41 04/10/20 23 04/10/2023 CBC/C OMPLE TE BLD COUNT W/DIF F neutrophils, absolute count 2.20 x10'3 /uL 1.5-8. 0 Not Available [facility] (Lab) [address] [place], [address], 04/10/2023 13:43:41 04/10/20 23 04/10/2023 CBC/C OMPLE TE BLD COUNT W/DIF F lymphocytes, absolute count 1.54 x10'3 /uL 1.07-3 .43 Not Available [facility] (Lab) [address] [place], [address], 04/10/2023 13:43:41 04/10/20 23 04/10/2023 CBC/C OMPLE TE BLD COUNT W/DIF F monocytes, absolute count 0.72 x10'3 /uL 0.29-0 .99 Not Available [facility] (Lab) [address] [place], [address], 04/10/2023 13:43:41 04/10/20 23 04/10/2023 CBC/C OMPLE TE BLD COUNT W/DIF F eosinophils, absolute count 0.14 x10'3 /uL 0.02-0 .53 Not Available [facility] (Lab) [address] [place], [address], 04/10/2023 13:43:41 04/10/20 23 04/10/2023 CBC/C OMPLE TE BLD COUNT W/DIF F basophils, absolute count 0.05 x10'3 /uL 0.01-0 .08 Not Available [facility] (Lab) [address] [place], [address], 04/10/2023 13:43:41 04/10/20 23 04/10/2023 CBC/C OMPLE TE BLD COUNT W/DIF F immature granulocytes ,absolute 0.02 x10'3 /uL 0.00-0 .05 Not Available [facility] (Lab) [address] [place], [address], 04/10/2023 13:43:41 04/10/20 23 04/10/2023 CBC/C OMPLE TE BLD COUNT W/DIF F nucleated red blood cells 0.0 % -0 Not Available [facility] (Lab) [address] [place], [address], 04/10/2023 13:43:41 04/10/20 23 04/10/2023 CBC/C OMPLE TE BLD COUNT W/DIF F NRBC# 0.00 x10'3 /uL Not Available [facility] (Lab) [address] [place], [address], 04/10/2023 13:43:41 04/10/20 23 04/10/2023 PARAT HY.HO RM(PT H)INT ACT-W /O CA intact parathyroid hormone 168.6 pg/mL 24.0-7 8.0 high Pleas e note new refer ence range effec tive 09/16 . Not Available [facility] (Lab) [address] [place], [address], 04/10/2023 14:35:59 04/10/20 23 04/10/2023 COMPR EHENS MAYNOR METAB OLIC PANEL sodium 133 mmol/ L 137-14 5 low Not Available [facility] (Lab) [address] [place], [address], 04/10/2023 14:42:43 04/10/20 23 04/10/2023 COMPR EHENS MAYNOR METAB OLIC PANEL potassium 5.2 mmol/ L 3.5-5. 1 high Not Available [facility] (Lab) [address] [place], [address], 04/10/2023 14:42:43 04/10/20 23 04/10/2023 COMPR EHENS MAYNOR METAB OLIC PANEL chloride 100 mmol/ L 98-107 Not Available [facility] (Lab) [address] [place], [address], 04/10/2023 14:42:43 04/10/20 23 04/10/2023 COMPR EHENS MAYNOR METAB OLIC PANEL carbon dioxide 24 mmol/ L 22-30 Not Available [facility] (Lab) [address] [place], [address], 04/10/2023 14:42:43 04/10/20 23 04/10/2023 COMPR EHENS MAYNOR METAB OLIC PANEL anion gap 14.2 mmol/ L 14-22 Not Available [facility] (Lab) [address] [place], [address], 04/10/2023 14:42:43 04/10/20 23 04/10/2023 COMPR EHENS MAYNOR METAB OLIC PANEL glucose 347 mg/dL 70-99 high Not Available [facility] (Lab) [address] [place], [address], 04/10/2023 14:42:43 04/10/20 23 04/10/2023 COMPR EHENS MAYNOR METAB OLIC PANEL BUN 47 mg/dL 8-19 high Not Available [facility] (Lab) [address] [place], [address], 04/10/2023 14:42:43 04/10/20 23 04/10/2023 COMPR EHENS MAYNOR METAB OLIC PANEL creatinine 2.61 mg/dL 0.66-1 .25 high Not Available [facility] (Lab) [address] [place], [address], 04/10/2023 14:42:43 04/10/20 23 04/10/2023 COMPR EHENS MAYNOR METAB OLIC PANEL GFR 28 Refer ence Range : Hunter ge GFR Healt hy Adult : >60 [...] calcu lator is avail able on the [facility] websi te: https :[email or web address] [email or web address] [email or web address] rg/pr ofess ional s/kdo qi/gf r_cal culat or Not Available [facility] (Lab) [address] [place], [address], 04/10/2023 14:42:43 04/10/20 23 04/10/2023 COMPR EHENS MAYNOR METAB OLIC PANEL alkaline phosphatase 126 U/L 38-126 Not Available [facility] (Lab) [address] [place], [address], 04/10/2023 14:42:43 04/10/20 23 04/10/2023 COMPR EHENS MAYNOR METAB OLIC PANEL alanine aminotransfe rase 23 U/L 0-50 Not Available [facility] (Lab) [address] [place], [address], 04/10/2023 14:42:43 04/10/20 23 04/10/2023 COMPR EHENS MAYNOR METAB OLIC PANEL aspartate aminotransfe rase 30 U/L 15-46 Not Available [facility] (Lab) [address] [place], [address], 04/10/2023 14:42:43 04/10/20 23 04/10/2023 COMPR EHENS MAYNOR METAB OLIC PANEL bilirubin, total 0.30 mg/dL 0.20-1 .30 Not Available [facility] (Lab) [address] [place], [address], 04/10/2023 14:42:43 04/10/20 23 04/10/2023 COMPR EHENS MAYNOR METAB OLIC PANEL calcium 8.6 mg/dL 8.4-10 .2 Not Available [facility] (Lab) [address] [place], [address], 04/10/2023 14:42:43 04/10/20 23 04/10/2023 COMPR EHENS MAYNOR METAB OLIC PANEL total protein 7.3 g/dL 6.3-8. 2 Not Available [facility] (Lab) [address] [place], [address], 04/10/2023 14:42:43 04/10/20 23 04/10/2023 COMPR EHENS MAYNOR METAB OLIC PANEL albumin 4.0 g/dL 3.0-4. 4 Not Available [facility] (Lab) [address] [place], [address], 04/10/2023 14:42:43 04/10/20 23 04/10/2023 COMPR EHENS MAYNOR METAB OLIC PANEL globulin 3.3 g/dL 2.6-4. 2 Not Available [facility] (Lab) [address] [place], [address], 04/10/2023 14:42:43 04/10/20 23 04/10/2023 COMPR EHENS MAYNOR METAB OLIC PANEL A/G ratio 1.2 ratio 1.0-2. 0 Not Available [facility] (Lab) [address] [place], [address], 04/10/2023 14:42:43 04/10/20 23 04/10/2023 LIPID PANEL cholesterol 119 mg/dL 140-19 9 low NIH FRANCI NSUS RECOM MENDA TION FOR PERRY STERO L: ADULT CHILD LOW RISK: <200 <170 BORDE RLINE : <200- 239 ----- HIGH RISK: >240 >200 Not Available [facility] (Lab) [address] [place], [address], 04/10/2023 14:42:51 04/10/20 23 04/10/2023 LIPID PANEL triglyceride s 77 mg/dL 0-150 NIH FRANCI NSUS REPOR T RECOM MENDA TION FOR TRIGL YCERI ROCCO: ADULT CHILD LOW RISK: <150 ----- BODER LINE: 150-1 99 ----- HIGH RISK: >200 ----- Not Available [facility] (Lab) [address] [place], [address], 04/10/2023 14:42:51 04/10/20 23 04/10/2023 LIPID PANEL HDL cholesterol 51 mg/dL 40- Not Available [facility] (Lab) [address] [place], [address], 04/10/2023 14:42:51 04/10/20 23 04/10/2023 LIPID PANEL [...] WILL NOT BE REPOR EJ. Not Available [facility] (Lab) [address] [place], [address], 04/10/2023 14:42:51 04/10/20 23 04/10/2023 HEMOG LOBIN A1C HA1C 8.0 % 4.0-6. 0 high Diabe darrin Scree darek Crite eyal: <5.7% Consi stent with absen ce of diabe darrin 5.7-6 .4% Consi stent with incre ased risk for diabe darirn (pred iabet es) >OR=6 .5% Consi stent with diabe darrin REFER ENCE: Diabe darrin Care 2015, 39(Chavez ppl.1 ):s13 -s22 Not Available [facility] (Lab) [address] [place], [address], 04/10/2023 14:51:17 04/10/20 23 04/10/2023 PSA SCREE N PSA medicare screen 3.04 NG/mL 0.00-4 .00 Not Available [facility] (Lab) [address] [place], [address], 04/10/2023 15:25:14 08/07/20 23 08/07/2023 CBC/C OMPLE TE BLD COUNT W/DIF F white blood cells 4.0 x10'3 /uL 4.2-10 .8 low Not Available [facility] (Lab) [address] [place], [address], 08/07/2023 14:29:07 08/07/20 23 08/07/2023 CBC/C OMPLE TE BLD COUNT W/DIF F red blood cells 4.33 x10'6 /uL 4.10-5 .80 Not Available [facility] (Lab) [address] [place], [address], 08/07/2023 14:29:07 08/07/20 23 08/07/2023 CBC/C OMPLE TE BLD COUNT W/DIF F hemoglobin 12.2 g/dL 13.2-1 7.0 low Not Available [facility] (Lab) [address] [place], [address], 08/07/2023 14:29:07 08/07/20 23 08/07/2023 CBC/C OMPLE TE BLD COUNT W/DIF F hematocrit 35.8 % 39.3-5 0.0 low Not Available [facility] (Lab) [address] [place], [address], 08/07/2023 14:29:07 08/07/20 23 08/07/2023 CBC/C OMPLE TE BLD COUNT W/DIF F mean red cell volume 82.7 fL 80.0-9 7.0 Not Available [facility] (Lab) [address] [place], [address], 08/07/2023 14:29:07 08/07/20 23 08/07/2023 CBC/C OMPLE TE BLD COUNT W/DIF F mean red cell hemoglobin 28.2 pg 27.0-3 3.0 Not Available [facility] (Lab) [address] [place], [address], 08/07/2023 14:29:07 08/07/20 23 08/07/2023 CBC/C OMPLE TE BLD COUNT W/DIF F mean RBC HGB concentratio n 34.1 g/dL 31.0-3 6.0 Not Available [facility] (Lab) [address] [place], [address], 08/07/2023 14:29:07 08/07/20 23 08/07/2023 CBC/C OMPLE TE BLD COUNT W/DIF F red cell distribution width 13.7 % 11.8-1 5.5 Not Available [facility] (Lab) [address] [place], [address], 08/07/2023 14:29:07 08/07/20 23 08/07/2023 CBC/C OMPLE TE BLD COUNT W/DIF F platelets 176 x10'3 /uL 150-40 0 Not Available [facility] (Lab) [address] [place], [address], 08/07/2023 14:29:07 08/07/20 23 08/07/2023 CBC/C OMPLE TE BLD COUNT W/DIF F mean platelet volume 13.3 fL 9.0-12 .4 high Not Available [facility] (Lab) [address] [place], [address], 08/07/2023 14:29:07 08/07/20 23 08/07/2023 CBC/C OMPLE TE BLD COUNT W/DIF F neutrophils 48.0 % 39.0-7 2.0 Not Available [facility] (Lab) [address] [place], [address], 08/07/2023 14:29:07 08/07/20 23 08/07/2023 CBC/C OMPLE TE BLD COUNT W/DIF F lymphocytes 29.6 % 16.0-4 7.0 Not Available [facility] (Lab) [address] [place], [address], 08/07/2023 14:29:07 08/07/20 23 08/07/2023 CBC/C OMPLE TE BLD COUNT W/DIF F monocytes 17.0 % 5.0-12 .0 high Not Available [facility] (Lab) [address] [place], [address], 08/07/2023 14:29:07 08/07/20 23 08/07/2023 CBC/C OMPLE TE BLD COUNT W/DIF F eosinophils 3.8 % 1.0-7. 0 Not Available [facility] (Lab) [address] [place], [address], 08/07/2023 14:29:07 08/07/20 23 08/07/2023 CBC/C OMPLE TE BLD COUNT W/DIF F basophils 1.3 % 0.0-2. 0 Not Available [facility] (Lab) [address] [place], [address], 08/07/2023 14:29:07 08/07/20 23 08/07/2023 CBC/C OMPLE TE BLD COUNT W/DIF F immature granulocytes 0.3 % 0.00-0 .50 Not Available [facility] (Lab) [address] [place], [address], 08/07/2023 14:29:07 08/07/20 23 08/07/2023 CBC/C OMPLE TE BLD COUNT W/DIF F neutrophils, absolute count 1.92 x10'3 /uL 1.5-8. 0 Not Available [facility] (Lab) [address] [place], [address], 08/07/2023 14:29:07 08/07/20 23 08/07/2023 CBC/C OMPLE TE BLD COUNT W/DIF F lymphocytes, absolute count 1.18 x10'3 /uL 1.07-3 .43 Not Available [facility] (Lab) [address] [place], [address], 08/07/2023 14:29:07 08/07/20 23 08/07/2023 CBC/C OMPLE TE BLD COUNT W/DIF F monocytes, absolute count 0.68 x10'3 /uL 0.29-0 .99 Not Available [facility] (Lab) [address] [place], [address], 08/07/2023 14:29:07 08/07/20 23 08/07/2023 CBC/C OMPLE TE BLD COUNT W/DIF F eosinophils, absolute count 0.15 x10'3 /uL 0.02-0 .53 Not Available [facility] (Lab) [address] [place], [address], 08/07/2023 14:29:07 08/07/20 23 08/07/2023 CBC/C OMPLE TE BLD COUNT W/DIF F basophils, absolute count 0.05 x10'3 /uL 0.01-0 .08 Not Available [facility] (Lab) [address] [place], [address], 08/07/2023 14:29:07 08/07/20 23 08/07/2023 CBC/C OMPLE TE BLD COUNT W/DIF F immature granulocytes ,absolute 0.01 x10'3 /uL 0.00-0 .05 Not Available [facility] (Lab) [address] [place], [address], 08/07/2023 14:29:07 08/07/20 23 08/07/2023 CBC/C OMPLE TE BLD COUNT W/DIF F nucleated red blood cells 0.0 % -0 Not Available [facility] (Lab) [address] [place], [address], 08/07/2023 14:29:07 08/07/20 23 08/07/2023 CBC/C OMPLE TE BLD COUNT W/DIF F NRBC# 0.00 x10'3 /uL Not Available [facility] (Lab) [address] [place], [address], 08/07/2023 14:29:07 08/07/20 23 08/07/2023 COMPR EHENS MAYNOR METAB OLIC PANEL sodium 138 mmol/ L 137-14 5 Not Available [facility] (Lab) [address] [place], [address], 08/07/2023 14:36:40 08/07/20 23 08/07/2023 COMPR EHENS MAYNOR METAB OLIC PANEL potassium 4.0 mmol/ L 3.5-5. 1 Not Available [facility] (Lab) [address] [place], [address], 08/07/2023 14:36:40 08/07/20 23 08/07/2023 COMPR EHENS MAYNOR METAB OLIC PANEL chloride 105 mmol/ L 98-107 Not Available [facility] (Lab) [address] [place], [address], 08/07/2023 14:36:40 08/07/20 23 08/07/2023 COMPR EHENS MAYNOR METAB OLIC PANEL carbon dioxide 25 mmol/ L 22-30 Not Available [facility] (Lab) [address] [place], [address], 08/07/2023 14:36:40 08/07/20 23 08/07/2023 COMPR EHENS MAYNOR METAB OLIC PANEL anion gap 12.0 mmol/ L 14-22 low Not Available [facility] (Lab) [address] [place], [address], 08/07/2023 14:36:40 08/07/20 23 08/07/2023 COMPR EHENS MAYNOR METAB OLIC PANEL glucose 134 mg/dL 70-99 high Not Available [facility] (Lab) [address] [place], [address], 08/07/2023 14:36:40 08/07/20 23 08/07/2023 COMPR EHENS MAYNOR METAB OLIC PANEL BUN 48 mg/dL 8-19 high Not Available [facility] (Lab) [address] [place], [address], 08/07/2023 14:36:40 08/07/20 23 08/07/2023 COMPR EHENS MAYNOR METAB OLIC PANEL creatinine 2.70 mg/dL 0.66-1 .25 high Not Available [facility] (Lab) [address] [place], [address], 08/07/2023 14:36:40 08/07/20 23 08/07/2023 COMPR EHENS MAYNOR METAB OLIC PANEL GFR 27 Refer ence Range : Hunter ge GFR Healt hy Adult : >60 [...] calcu lator is avail able on the [facility] websi te: https :[email or web address] [email or web address] clancy/pr sosa vo s/kdo qi/gf r_cal culat or Not Available [facility] (Lab) [address] [place], [address], 08/07/2023 14:36:40 08/07/20 23 08/07/2023 COMPR EHENS MAYNOR METAB OLIC PANEL alkaline phosphatase 97 U/L 38-126 Not Available [facility] (Lab) [address] [place], [address], 08/07/2023 14:36:40 08/07/20 23 08/07/2023 COMPR EHENS MAYNOR METAB OLIC PANEL alanine aminotransfe rase 20 U/L 0-50 Not Available [facility] (Lab) [address] [place], [address], 08/07/2023 14:36:40 08/07/20 23 08/07/2023 COMPR EHENS MAYNOR METAB OLIC PANEL aspartate aminotransfe rase 27 U/L 15-46 Not Available [facility] (Lab) [address] [place], [address], 08/07/2023 14:36:40 08/07/20 23 08/07/2023 COMPR EHENS MAYNOR METAB OLIC PANEL bilirubin, total 0.50 mg/dL 0.20-1 .30 Not Available [facility] (Lab) [address] [place], [address], 08/07/2023 14:36:40 08/07/20 23 08/07/2023 COMPR EHENS MAYNOR METAB OLIC PANEL calcium 9.0 mg/dL 8.4-10 .2 Not Available [facility] (Lab) [address] [place], [address], 08/07/2023 14:36:40 08/07/20 23 08/07/2023 COMPR EHENS MAYNOR METAB OLIC PANEL total protein 7.4 g/dL 6.3-8. 2 Not Available [facility] (Lab) [address] [place], [address], 08/07/2023 14:36:40 08/07/20 23 08/07/2023 COMPR EHENS MAYNOR METAB OLIC PANEL albumin 3.8 g/dL 3.0-4. 4 Not Available [facility] (Lab) [address] [place], [address], 08/07/2023 14:36:40 08/07/20 23 08/07/2023 COMPR EHENS MAYNOR METAB OLIC PANEL globulin 3.6 g/dL 2.6-4. 2 Not Available [facility] (Lab) [address] [place], [address], 08/07/2023 14:36:40 08/07/20 23 08/07/2023 COMPR EHENS MAYNOR METAB OLIC PANEL A/G ratio 1.1 ratio 1.0-2. 0 Not Available [facility] (Lab) [address] [place], [address], 08/07/2023 14:36:40 08/07/20 23 08/07/2023 LIPID PANEL cholesterol 121 mg/dL 140-19 9 low NIH FRANCI NSUS RECOM MENDA TION FOR PERRY STERO L: ADULT CHILD LOW RISK: <200 <170 BORDE RLINE : <200- 239 ----- HIGH RISK: >240 >200 Not Available [facility] (Lab) [address] [place], [address], 08/07/2023 14:36:45 08/07/20 23 08/07/2023 LIPID PANEL triglyceride s 92 mg/dL 0-150 NIH FRANCI NSUS REPOR T RECOM MENDA TION FOR TRIGL YCERI ROCCO: ADULT CHILD LOW RISK: <150 ----- BODER LINE: 150-1 99 ----- HIGH RISK: >200 ----- Not Available [facility] (Lab) [address] [place] [address], [id number], 08/07/2023 14:36:45 08/07/20 23 08/07/2023 LIPID PANEL HDL cholesterol 47 mg/dL 40- Not Available [facility] (Lab) [address] [place] [address], [id number], 08/07/2023 14:36:45 08/07/20 23 08/07/2023 LIPID PANEL [...] WILL NOT BE REPOR EJ. Not Available [facility] (Lab) [address] [place], [address], 08/07/2023 14:36:45 08/07/20 23 08/07/2023 HEMOG LOBIN A1C HA1C 9.8 % 4.0-6. 0 high Diabe darrin Scree darek Crite eyal: <5.7% Consi stent with absen ce of diabe darrin 5.7-6 .4% Consi stent with incre ased risk for diabe darrin (pred iabet es) >OR=6 .5% Consi stent with diabe darrin REFER ENCE: Diabe darrin Care 2016, 39(Chavez ppl.1 ):s13 -s22 Not Available [facility] (Lab) [address], [place], [address], 08/07/2023 20:50:46 12/31/19 23 12/30/2022 (RODRICK) ankle brach ial index * No observ ation record ed. [email or web address] [facility] [address] [place], [address], 01/05/2023 08:03:15 11/21/19 24 11/21/2023 CT, abdom en + pelvi s, w/o contr ast No observ ation record ed. ind[address], [place], [address], 11/23/2023 10:39:23 11/23/19 24 11/21/2023 CT, abdom en, w/o contr ast No observ ation record ed. [address], [place], [address], 11/25/2023 15:38:21 01/18/20 24 01/17/2024 MRI, abdom en + pelvi s, w/wo contr ast No observ ation record ed. [address] [facility] [address] [facility] [address], [place], [address], 03/05/2024 10:17:01 Result Notes None recorded. Problems Name Problem SNOMED Code Status Onset Date Resolution Date Notes Provider Name and Address Organization Details Recorded Time Benign essential hypertens ion 8364288 Active Not Available [facility] 4 11:52:07 Nausea and vomiting 12710443 Completed Not Available [facility] 3 00:46:39 Gastroeso phageal reflux disease without esophagit is 891503850 Active 2021 Not Available [facility] 4 11:52:08 Retention of urine 554012801 Active Not Available [facility] 4 11:52:08 Pure hyperchol esterolem ia 224704336 Active Not Available [facility] 4 11:52:08 Low back pain 178126999 Active 2021 Not Available [facility] 4 11:52:08 Pain in toe 612279824 Completed Not Available [facility] 3 00:46:39 Chest pain 53856868 Completed Not Available [facility] 3 00:46:39 Hypoglyce hugo 357158612 Active Not Available [facility] 4 11:52:08 Pain in coccyx 54539510 Completed Not Available [facility] 3 00:46:40 Sinusitis 88677266 Completed Not Available [facility] 3 00:46:40 Chronic kidney disease stage 3 074830082 Active Not Available [facility] 4 11:52:08 Uncontrol led type 2 diabetes mellitus 331620618 Active Not Available [facility] 4 11:52:08 Herpes zoster 8651664 Completed Not Available [facility] 3 00:46:40 Pain of hip region 61248759 Active 2021 Not Available [facility] 4 11:52:08 Cough 63473972 Active 2021 Not Available [facility] 4 11:52:08 Upper respirato ry infection 93318184 Completed Not Available [facility] 3 00:46:41 Rhinitis 59719713 Completed Not Available [facility] 3 00:46:41 Hemorrhoi ds 68030043 Completed Not Available [facility] 3 00:46:41 Chronic kidney disease 827835217 Active 2021 Not Available [facility] 4 11:52:08 Diabetes mellitus 00218273 Active Not Available [facility] 4 11:52:08 COVID-19 359852450 Active 2022 Not Available [facility] 4 11:52:08 Periphera l arterial occlusive disease 568642939 Active 2022 Not Available [facility] 4 11:52:08 Arthritis 7227839 Active 2022 Not Available [facility] 4 11:52:08 Disorder of eye 466487991 Active 2022 Not Available [facility] 4 11:52:08 Ingrowing toenail 649614601 Active 2022 Not Available [facility] 4 11:52:08 Chronic sinusitis 60677901 Active 2022 Not Available [facility] 4 11:52:08 Acute sinusitis 97999008 Active 2022 Not Available [facility] 4 11:52:07 Eczema of external auditory canal 78245318 Active 2022 Not Available [facility] 4 11:52:08 Impacted cerumen in left ear 77626155295 17801 Active 2022 Not Available [facility] 4 11:52:07 Problem Notes None recorded. Procedures Surgical History Date Name Laterality Status Provider Name and Address Organization Details Recorded Time 01/04/20 23 Nail Debridement completed Dimitrios Hopkins DPM [address], [place], [address], [email or web address] [facility] [employer] [facility] 01/03/2023 12:20:45 12/09/19 23 Nail Debridement completed Dimitrios Hopkins DPM [address], [place], [address], [employer] [facility] [employer] [facility] 12/08/2022 10:15:31 12/09/19 17 Colon ca scrn not hi rsk ind completed Not Available [facility] 10/19/2022 00:42:26 excision of lipoma completed Not Available [facility] 10/19/2022 00:42:26 Imaging Results Imaging Date Name Status LastModified by Organiz ation Details LastModified Time 12/30/2022 (RODRICK) ankle brachial index* completed [email or web address] [facility] [address] [place], [address], 01/05/2023 08:03:15 11/21/2023 CT, abdomen + pelvis, w/o contrast completed [email or web address] [place] [address], [address], 11/23/2023 10:39:23 11/21/2023 CT, abdomen, w/o contrast completed [email or web address], [address], 11/25/2023 15:38:21 01/17/2024 MRI, abdomen + pelvis, w/wo contrast completed [email or web address] [place] [address] [facility] [address] [facility] [address], Medical [address], [place], [address], 03/05/2024 10:17:01 Procedure Notes None recorded. Medical Equipment None Reported. Allergies Allergen ID Allergen Name Allergen Category Reaction Reaction Severity Criticality Documentation Date Start Date Code Code System Note Provider Name and Address Organization Details Recorded Time 334 morphine medicatio n nausea moderate Not available 10/19/2022 7052 RxNorm itchi ng and nause a Not Available [facility] 3 00:51:13 335 Bactrim medicatio n Not available Not available Not available 10/19/2022 35527 9 RxNorm Not Available [facility] 3 00:51:14 Medications Name Sig [...] Not Available Not Available No t Available [employer] Ultra Test strips USE 1 STRIP EACH [...] No t Available Nasonex 50 mcg/actuati on Idalou active Not Available Not Available Not Available [...] propionate 50 mcg/actuati on nasal spray,suspe nsion Idalou 1 spray every day by intranasa l [...] Available No t Available FreeStyle [place] [address] USE DIRECTED FOR BLOOD GLUCOSE MONITORIN G active Not Available Not Available No t Available Fluzone High-Dose Quad (PF) 240 mcg/0.7 mL IM syringe PHARMACIS [...] Details Last Updated DateTime 01/03/2023 172.72 cm Ale Espinal [facility] [employer] [facility] 01/03/2023 11:53:08 Date Recorded Body mass index (BMI) Body weight Heart rate Respiratory rate Oxygen saturation Oxygen saturation in Arterial blood by Pulse oximetry Systolic blood pressure Diastolic blood pressure Provider Name and Address Organization Details Last Updated DateTime 3 24 kg/m2 31206.5 9 g 85 /min 14 /min 98 % 98 % 162 mm[Hg] 73 mm[Hg] Kanika Curiel [employer] [facility] [employer] [facility] 3 12:03:19 Date Recorded Body height Body mass index (BMI) Body weight Body temperature Heart rate Oxygen saturation Oxygen saturation in Arterial blood by Pulse oximetry Systolic blood pressure Diastolic blood pressure Provider Name and Address Organization Details Last Updated DateTime 3 172.72 cm 24.4 kg/m2 20954.5 g 96.6 [degF] 80 /min 97 % 97 % 140 mm[Hg] 86 mm[Hg] Sonal Loza MA [employer] [facility] [employer] [facility] 3 13:26:52 Date Recorded Body height Body mass index (BMI) Body weight Body temperature Heart rate Oxygen saturation Oxygen saturation in Arterial blood by Pulse oximetry Systolic blood pressure Diastolic blood pressure Provider Name and Address Organization Details Last Updated DateTime 3 172.72 cm 25.4 kg/m2 15209.9 3 g 97 [degF] 84 /min 98 % 98 % 130 mm[Hg] 68 mm[Hg] Bernie Funes MA [employer] [facility] [employer] [facility] 3 11:17:47 Date Recorded Body height Body mass index (BMI) Body weight Body temperature Heart rate Oxygen saturation Oxygen saturation in Arterial blood by Pulse oximetry Systolic blood pressure Diastolic blood pressure Provider Name and Address Organization Details Last Updated DateTime 3 172.72 cm 25.2 kg/m2 90100.3 3 g 97.8 [degF] 84 /min 98 % 98 % 128 mm[Hg] 68 mm[Hg] Geena early CMA [employer] [facility] [employer] 12:03:20 Date Recorded Body height Body mass index (BMI) Body weight Body temperature Provider Name and Address Organization Details Last Updated DateTime 08/17/2023 172.72 cm 25.7 kg/m2 47000.11 g 98.1 [degF] Jocelyne Chaves RN [facility] [employer] 08/17/2023 14:01:38 Social History Question Answer Notes LastModified by Organization Details LastModified Time Tobacco Smoking Status Former Smoker quit in Not Available [facility] 10/19/2022 00:41:25 Do You Have An Advance Directive? No MIGRATION.0301 [id number] Information not available 10/19/2022 What Is Your Level Of Alcohol Consumption? None MIGRATION.030 051091 Information not available 10/19/2022 Are You Blind Or Do You Have Difficulty Seeing? Yes Wears Glasses MIGRATION.030 589412 Information not available 10/19/2022 What Is Your Level Of Caffeine Consumption? Occasional MIGRATION.0301 963888 Information not available 10/19/2022 How Much Tobacco Do You Chew? None MIGRATION.0301 578013 Information not available 10/19/2022 In The 14 Days Before Symptom Onset, Have You Had Close Contact With A Laboratory-conf irmed COVID-19 While That Case Was Ill? No MIGRATION.030 178319 Information not available 10/19/2022 In The 14 Days Before Symptom Onset, Have You Had Close Contact With A Person Who Is Under Investigation For COVID-19 While That Person Was Ill? No MIGRATION.030 178865 Information not available 10/19/2022 Are You Deaf Or Do You Have Serious Difficulty Hearing? Yes Diminished MIGRATION.0301 852896 Information not available 10/19/2022 What Type Of Diet Are You Following? REGULAR MIGRATION.0301 468647 Information not available 10/19/2022 Which Illicit Or Recreational Drugs Have You Used? None Cannabis User In The 1970s MIGRATION.0301 556352 Information not available 10/19/2022 Do You Or Have You Ever Used E-cigarettes Or Vape? Never Used Electronic Cigarettes MIGRATION.0301 141871 Information not available 10/19/2022 What Is The Highest Grade Or Level Of School You Have Completed Or The Highest Degree You Have Received? [id number] MIGRATION.0301 323600 Information not available 10/19/2022 What Is Your Occupation? Retired MIGRATION.0301 729361 Information not available 10/19/2022 Have There Been Any Changes To Your Family Or Social Situation? No MIGRATION.0301 492883 Information not available 10/19/2022 What Is The Fluoride Status Of Your Home? Unknown MIGRATION.0301 973028 Information not available 10/19/2022 When Did You Quit Smoking? 16+yearssincelastc igarette MIGRATION.0301 215609 Information not available 10/19/2022 Are There Any Guns Present In Your Home? Yes MIGRATION.0301 190455 Information not available 10/19/2022 Do You Use Insect Repellent Routinely? No MIGRATION.0301 824533 Information not available 10/19/2022 Where Do You Live? SingleLevelHouse MIGRATION.0301 241752 Information not available 10/19/2022 Do You Have A Medical Power Of Automotive Technician? No MIGRATION.0301 164248 Information not available 10/19/2022 What Was The Date Of Your Most Recent Tobacco Screening? 11/14/2022 [email or web address] Information not available 11/14/2022 Do You Have Any Pets? No MIGRATION.0301 713934 Information not available 10/19/2022 What Is Your Relationship Status? MIGRATION.0301 968705 Information not available 10/19/2022 Do You Use Your Seat Belt Or Car Seat Routinely? Yes MIGRATION.0301 019974 Information not available 10/19/2022 Do You Have Smoke And Carbon Monoxide Detectors In Your Home? Yes MIGRATION.0301 780038 Information not available 10/19/2022 Are You Passively Exposed To Smoke? No MIGRATION.0301 038625 Information not available 10/19/2022 Do You Or Have You Ever Used Smokeless Tobacco? Never Used Smokeless Tobacco MIGRATION.0301 447644 Information not available 10/19/2022 Are There Any Smokers In Your House? No MIGRATION.0301 813768 Information not available 10/19/2022 How Much Tobacco Do You Smoke? No Was Less Than 1ppd MIGRATION.0301 880682 Information not available 10/19/2022 What Types Of Sporting Activities Do You Participate In? None MIGRATION.0301 762982 Information not available 10/19/2022 Do You Feel Stressed (tense, Restless, Nervous, Or Anxious, Or Unable To Sleep At Night)? [id number] MIGRATION.0301 788574 Information not available 10/19/2022 Do You Use Any Illicit Or Recreational Drugs? No MIGRATION.0301 978873 Information not available 10/19/2022 Do You Use Sunscreen Routinely? No MIGRATION.0301 166781 Information not available 10/19/2022 Has Tobacco Cessation Counseling Been Provided? No MIGRATION.0301 513585 Information not available 10/19/2022 Have You Recently Traveled Abroad? No MIGRATION.0301 537628 Information not available 10/19/2022 Do You Have Any Dietary Restrictions? No MIGRATION.0301 142497 Information not available 10/19/2022 Do You Or Have You Ever Used Any Other Forms Of Tobacco Or Nicotine? No MIGRATION.0301 003755 Information not available 10/19/2022 Sex: Male Functional Status Question Answer Note LastModified by [employer] Details LastModified Time Do you have difficulty walking or climbing stairs? No MIGRATION.0070535 026 Information not available 10/19/2022 Do you have transportation difficulties? No MIGRATION.8437009 026 Information not available 10/19/2022 Are you able to walk? YESWOREST MIGRATION.2571932 026 Information not available 10/19/2022 Do you have difficulty doing errands alone? No MIGRATION.8368447 026 Information not available 10/19/2022 Are you able to care for yourself? Yes MIGRATION.6645890 026 Information not available 10/19/2022 Do you have difficulty dressing or bathing? No MIGRATION.8565650 026 Information not available 10/19/2022 What is your exercise level? Occasional MIGRATION.5836973 026 Information not available 10/19/2022 Mental Status Question Answer Note LastModified by Organizat ion Details LastModified Time Do you have difficulty concentrating, remembering or making decisions? No MIGRATION.538752968 6 Information not available 10/19/2022 Family History Relationship Description Onset Age of this Age Resolved Age Notes LastModified by Organization Details LastModified Time Father General health good MIGRATION.079 [id number] Not available 10/19/2022 00:42:29 Mother General health good MIGRATION.306 [id number] Not available 10/19/2022 00:42:29 Unspecified Relation Family history of Hypertension MIGRATION.189 6915967 Not available 10/19/2022 00:42:29 Unspecified Relation Arthritis [...] CARE N CORONARY ARTERY DISEASE (CAD) N Impotence N ENDOMETRIOSIS N USE OF BLOOD THINNERS N SKIN [...] GLAUCOMA N FOOT PROBLEM N DIVERTICULITIS N SLEEP APNEA N CHICKENPOX N ALLERGIES/HAYFEVER N INFECTIOUS DISEASE N PROSTATE N HEART ARRHYTHMIA N INSOMNIA N HIGH CHOLESTEROL / HYPERLIPIDEMIA Y EYE PROBLEMS N HYPERTHYROIDISM N NEUROLOGICAL PROBLEMS N EDEMA N CHRONIC PAIN SYNDROME N HYPOTHYROIDISM N CONSTIPATION N CAROTID BLOCKAGE N BACK / NECK PROBLEMS N HAVE YOU BEEN HOSPITALIZED OR SEEN IN [facility] IN THE PAST YEAR ? N BREAST PROBLEMS N DIALYSIS N ECZEMA N OSTEOPOROSIS N ARTHRITIS Y NO SIGNIFICANT PAST MEDICAL HISTORY N DIABETES, TYPE Y ENT N SEASONAL ALLERGIES N HEARTBURN / REFLUX N HEPATITIS / LIVER DISEASE N PULMONARY DISEASE N SLEEP DISORDER N ALZHEIMER'S DISEASE N Brain Problems N FATIGUE N DEMENTIA N HERPES N SEIZURES/EPILEPSY N HEADACHES/MIGRAINES N VASCULAR DISEASE N PACEMAKER N Blood Disorder N DIZZINESS N HEART DISEASE/HEART PROBLEMS N KIDNEY DISEASE Y MULTIPLE SCLEROSIS N CANCER: SPECIFY N CARDIAC ARRHYTHMIA N ANESTHESIA COMPLICATIONS N ATRIAL FIBRILLATION N PULMONARY EMBOLISM N AUTOIMMUNE DISEASE N Immunizations Vaccine Type Date Status Note Provider Nam e and Address Organization Details Recorded Time COVID-19, mRNA, LNP-S, PF, 100 mcg/0.5mL dose or 50 mcg/0.25mL dose 3 completed Not Available [facility] 09/25/2023 11:52:09 RSV, recombinant, protein subunit RSVpreF, adjuvant reconstituted, 0.5 mL, PF 3 completed Not Available [facility] 09/25/2023 11:52:09 Influenza, high-dose, quadrivalent, PF 3 completed Not Available [facility] 09/25/2023 11:52:08 Influenza, split virus, trivalent, preservative 3 completed Not Available [facility] 09/25/2023 11:52:09 COVID-19, mRNA, LNP-S, PF, 100 mcg/0.5mL dose or 50 mcg/0.25mL dose 1 completed Not Available [facility] 09/25/2023 11:52:09 COVID-19, mRNA, LNP-S, PF, 100 mcg/0.5mL dose or 50 mcg/0.25mL dose 1 completed Not Available [facility] 09/25/2023 11:52:09 Influenza, high-dose, quadrivalent, PF 0 completed Not Available [facility] 09/25/2023 11:52:08 pneumococcal polysaccharide PPV23 0 completed Not Available [facility] 09/25/2023 11:52:09 Pneumococcal conjugate PCV 13 9 completed Not Available [facility] 09/25/2023 11:52:09 influenza, unspecified formulation 8 completed Not Available [facility] 09/25/2023 11:52:09 Influenza, high-dose, quadrivalent, PF 2 completed Not Available [facility] 09/25/2023 11:52:08 COVID-19, mRNA, LNP-S, PF, 100 mcg/0.5mL dose or 50 mcg/0.25mL dose 1 completed Not Available [facility] 09/25/2023 11:52:09 Influenza, high-dose, quadrivalent, PF 1 completed Not Available [facility] 09/25/2023 11:52:08 Influenza, high-dose, trivalent, PF 6 completed Not Available [facility] 09/25/2023 11:52:09 Influenza, split virus, trivalent, preservative 5 completed Not Available [facility] 09/25/2023 11:52:09 Influenza, high-dose, trivalent, PF 9 completed Not Available [facility] 09/25/2023 11:52:09 Influenza, high-dose, trivalent, PF 6 completed Not Available [facility] 09/25/2023 11:52:09 Influenza, high-dose, trivalent, PF 7 completed Not Available [facility] 09/25/2023 11:52:09 Pneumococcal conjugate PCV 13 5 completed Not Available [facility] 09/25/2023 11:52:09 Influenza, split virus, trivalent, preservative 4 completed Not Available [facility] 09/25/2023 11:52:09 Influenza, split virus, quadrivalent, PF 5 completed Not Available [facility] 09/25/2023 11:52:09 Past Encounters Encounter ID Performer Location Encounter Start Date Encounter Closed Date Diagnosis/Indication Diagnosis SNOMED-CT Code Diagnosis ICD10 Code Diagnosis Note [id number] _SOPHIE_M IGRATION_ DEFAULT_1 _1 , 10/23/2020 00:00:00 10/23/2020 10:15:13 [id number] [facility] [address] [place] [address] [address] [address] 01/15/2021 00:00:00 01/16/2021 10:56:58 [id number] [facility] [address] [place] [address] Ave[address] [address] 02/19/2021 00:00:00 03/12/2021 21:35:56 [id number] [facility] [address] [place] [address] Ave[address] [address] 05/17/2021 00:00:00 06/06/2021 15:56:26 [id number] [facility] [address] [address] 09/20/2021 00:00:00 09/20/2021 21:21:00 [id number] [facility] [address] [address] 09/27/2021 00:00:00 09/27/2021 21:40:44 [id number] [facility] [address] [place] [address] 10/11/2021 00:00:00 10/17/2021 17:34:54 [id number] [facility] [address] [address] 01/03/2022 00:00:00 01/03/2022 21:54:38 [id number] [facility] [address] [address] 04/04/2022 00:00:00 04/05/2022 21:07:05 [id number] [facility] [address] [address] 08/08/2022 00:00:00 08/08/2022 21:36:45 [id number] Jennyfer Hou MD [facility] [address] [address] 11/14/2022 11:49:09 11/14/2022 12:27:18 Benign essential hypertension 8609726 I10 Chronic ki dney disease stage 3 202107743 N18.30 Diabetes mellitus 116881 09 E11.21 Gastroesop hageal reflux disease without esophagitis 922537525 K21.9 [id number] Dimitrios Hopkins DPM [facility] [place] [address] [facility], [address] [place] [address] 12/08/2022 09:54:28 12/08/2022 12:23:28 Diabetes mellitus 35139269 E11.21 Patient educated on neuropathy , diabetes, diabetic diet, and daily foot exams. Patient is to check feet daily for new wounds, blisters, redness to prevent infection and ulceration s to the feet. Patient will return to clinic in 3 months for diabetic foot workup. Peripheral arterial occlusive disease 471246688 I73.9 Noninvasiv e vascular testing orderedRet urn to office in 3-4 weeks to review [id number] Dimitrios Hopkins DPM [facility] [place] [address] [facility], [address] [place] [address] 01/03/2023 11:50:39 01/03/2023 12:27:55 Peripheral arterial occlusive disease 391475890 I73.9 Noninvasiv e vascular testing reviewed with the patientwil l continue to monitor Ingrowing toenail 209346 009 L60.0 right medial borderSlan t back procedure performedC ontinue wound care daily to prevent infectionF ollow-up in 1 week if not resolved [id number] Jennyfer Hou MD [facility] [place] [address] [place] [address] 02/17/2023 12:38:24 02/17/2023 14:03:57 Chronic kidney disease stage 3 915236223 N18.30 Benign ess ential hypertension 8540793 I10 Diabetes mellitus 838787 09 E11.21 Gastroesop hageal reflux disease without esophagitis 517282817 K21.9 [id number] Jennyfer Hou MD [facility] Internal [facility] [place] [address] [facility] [address] [place] [address] 04/10/2023 11:06:39 04/10/2023 11:55:28 Benign essential hypertension 6067736 I10 Chronic ki dney disease 749737820 N18.9 Diabetes mellitus 817738 09 E11.21 Screening for malignant neoplasm of prostate 037380242 Z12.5 [id number] Ian Parra MD [facility] [place] [address] [place] [address] 08/17/2023 13:51:18 08/17/2023 14:37:34 Eczema of external auditory canal 17422674 H60.549 Impacted c erumen in left ear 4324581015 495332 H61.22 [id number] Jennyfer Hou MD [facility] [address] [facility], [address] [place] [address] 08/07/2023 11:20:31 08/07/2023 12:11:31 Benign essential hypertension 9911742 I10 Uncontroll ed type 2 diabetes mellitus 466619545 E11.65 Chronic ki dney disease stage 3 591390538 N18.30 Pure hypercholesterolemia 298896447 E78.00 Health Concerns Section Related Observation LastModified by Organization Detai ls LastModified Time None Recorded Concern Status LastModified by Organization Details LastModified Time None Recorded Advance Directives Directive N: Payers Encounter Date Sequence Insurance Name Policy Number Policy Soria Covered Member ID Soria Member ID Guarantor Name 01/03/2023 1 [facility] (MEDICARE REPLACEMENT/A DVANTAGE - HMO) [id number] Aliyah Kahn [id number] Aliyah Kahn 02/17/2023 1 [facility] (MEDICARE REPLACEMENT/A DVANTAGE - HMO) [id number] Aliyah Kahn [id number] Aliyah Kahn 04/10/2023 1 [facility] (MEDICARE REPLACEMENT/A DVANTAGE - HMO) [id number] Aliyah Kahn [id number] Aliyah Kahn 08/07/2023 1 [facility] (MEDICARE REPLACEMENT/A DVANTAGE - HMO) [id number] Aliyah Kahn [id number] Aliyah Kahn 08/17/2023 1 [facility] (MEDICARE REPLACEMENT/A DVANTAGE - HMO) [id number] Aliyah Kahn [id number] Aliyah Kahn Notes Date Note Type Note [...] other pedal complaints. Dimitrios Hopkins DPM [address], [place], [address], [email or web address] [facility] [employer] 01/03/2023 12:21:00 3 text/html GERD been doing okayDiabetes no polyphagia no polydipsiaChronic kidney disease he has not had any nausea vomiting skin rashes or fatigueHypertension no headache no dizzinessChronic low back pain about the same Jennyfer Hou MD [address], [place], [address], [employer] [facility] [employer] 02/18/2023 17:12:52 3 text/html GERD been doing okayDiabetes no polyphagia no polydipsiaChronic kidney disease he has not had any nausea vomiting skin rashes or fatigueHypertension no headache no dizzinessChronic low back pain about the same Jennyfer Hou MD [address], [place], [address], [email or web address] [facility] [employer] 04/23/2023 21:24:01 3 text/html GERD been doing okayDiabetes no polyphagia no polydipsiaChronic kidney disease he has not had any nausea vomiting skin rashes or fatigueHypertension no headache no dizzinessChronic low back pain about the same Jennyfer Hou MD [address], [place], [address], [email or web address] [facility] [employer] 08/07/2023 22:28:04 3 text/html this gentleman reports itching of both ears. He was given mometasone almost 3 years ago but has run out Ian Parra MD [address], [place], [address], [facility] [employer] [facility] [employer] 08/17/2023 14:28:03
--- OUTSIDE RECORDS SUMMARY | 2024-12-16 20:42 | XMS_ITS | Data Portability ---
Author Organization [facility]re [facility] Address [address] [place] [address] Care Team Providers Care Maintenance Analyst Name Role Phone JENNYFER HOU Primary Care Provider [phone] Assessment Encounter Date Assessment Date Assessment LastModified by Organization Details LastModified Time 02/13/2024 02/13/2024 we will await the specialist opinion diagnosis and assessment and plan have been discussed as well as target for blood pressure A1c and LDL he will see me back in about 3 months all questions have been answered to patient's satisfaction was also in attendance today. [email or web address] Not available 02/25/2024 20:23:17 03/20/2024 03/20/2024 clinically blood sugars have been doing okay note from Endo reviewed we will follow up with me in 4 months check a urinalysis blood pressures have been doing fine BPH stable renal lesions to be rescanned by specialist GERD has been doing fine on H2 tuan dyslipidemia atorvastatin follow up in 3-4 months [email or web address] Not available 03/20/2024 13:58:02 06/19/2024 06/19/2024 flu B positive. Tamiflu. Rest. Fluids. Isolate for 5 days wear mask for 10 days. Call if worse. Otherwise medicines we will continue. Follow up in 3 months [email or web address] Not available 06/23/2024 15:11:10 09/18/2024 09/18/2024 I will obtain some blood Bliss. Trial of primidone. Continue to follow up with specialists. Agreeable to immunizations today Tdap unfortunately we do not have high dose flu shot in the clinic today he will have to get it at local pharmacy follow up with me in 3 months [email or web address] Not available 09/21/2024 22:39:42 12/03/2024 12/03/2024 Lasix 40 mg daily x3 days he will let me know how that goes BMP in 1 week increase his Lantus to 25 b.i.d. [email or web address] Not available 12/03/2024 22:39:43 Plan of Treatment Reminders Order Date Submit Date Provider Last Modified By Organization Details Last Modified Time Details Appointments ANY 15 2024 11:00A M Jennyfer Hou MD Not available Not available Not available Lab HbA1c (hemoglob in A1c), blood 2024 025 [facility], [address], [address], [place], [address], 09/19/2024 10:13:43 albumin/c reatinine , mass ratio, urine 2024 025 [facility], [address] [facility], [address], [place], [address], 09/19/2024 10:13:39 lipid panel, serum 2024 025 [facility], [address], [address], [place], [address], 09/19/2024 10:13:40 CMP, serum or plasma 2024 025 [facility], [address], [address], [place], [address], 09/19/2024 10:13:42 CBC w/ auto diff 2024 025 [facility], [address], [address], [place], [address], 09/19/2024 10:13:44 influenza virus A + B + SARS-CoV- 2 (COVID19) Ag panel, rapid IA, upper respirato ry specimen 2023 024 [email or web address] In-Office Order, Internal Use Only DO Not Attach Compendium DO Not Attach Compendium, Do Not Delete/merge, [id number] 06/19/2024 15:31:33 urinalysi s complete, reflex culture 2023 024 [facility], [address] [place] [address], [address], [place], [address], 03/21/2024 08:28:28 Referral None recorded. Procedures None recorded. Surgeries None recorded. Imaging None recorded. Medication Orders Lasix 40 mg tablet [address] [facility], [address] [place] [address], [address], 12/03/2024 11:55:25 primidone 50 mg tablet 2024 025 [facility], [address] [place] [address], [address], 09/23/2024 14:06:47 Tamiflu 75 mg capsule [address] [facility], [address] [place] [address], [address], 06/19/2024 15:31:33 Patient TargetsNo targets recorded. Patient Instructions Encounter Date Encounter Id Patient Instructions Last Modified By Organization Details Last Modified Time 02/13/2024 [id number] A healthy lifestyle: care instructions [email or web address] Not available 02/13/2024 13:25:15 09/18/2024 [id number] A healthy lifestyle: care instructions [email or web address] Not available 09/18/2024 14:04:22 12/03/2024 [id number] A healthy lifestyle: care instructions [email or web address] Not available 12/03/2024 11:55:25 Reason for Referral None Reported. Results Created Date Observation Date Name Description Value Unit Range Abnormal Flag Note LastModifiedBy Organization Detail LastModifiedTime 03/20/20 24 03/21/2024 MICRO SCOPI C EXAMI NATIO N WBC 0-5 /hpf 0-5 Not Available [facility] ([facility]) [address], [place], [address], 03/21/2024 08:28:28 03/20/20 24 03/21/2024 MICRO SCOPI C EXAMI NATIO N RBC None seen /hpf 0-2 Not Available [facility] ([facility]) [address], [place], [address], 03/21/2024 08:28:28 03/20/20 24 03/21/2024 MICRO SCOPI C EXAMI NATIO N epithelial cells (non renal) None seen /hpf 0-10 Not Available [facility] ([facility]) [address] [facility], [place], [address], 03/21/2024 08:28:28 03/20/20 24 03/21/2024 MICRO SCOPI C EXAMI NATIO N casts None seen /lpf nonese en Not Available [facility] ([facility]) [address] [facility], [place], [address], 03/21/2024 08:28:28 03/20/20 24 03/21/2024 MICRO SCOPI C EXAMI NATIO N bacteria None seen nonese en/few Not Available [facility] ([facility]) [address] [facility], [place], [address], 03/21/2024 08:28:28 03/20/20 24 03/21/2024 UA/M W/RFL X CULTU RE, ROUTI NE specific gravity 1.015 1.005- 1.030 Not Available [facility] ([facility]) [address] [facility], [place], [address], 03/21/2024 08:28:28 03/20/20 24 03/21/2024 UA/M W/RFL X CULTU RE, ROUTI NE pH 6.0 5.0-7. 5 Not Available [facility] ([facility]) [address] [facility], [place], [address], 03/21/2024 08:28:28 03/20/20 24 03/21/2024 UA/M W/RFL X CULTU REKATHRYN NE urine-color YELLOW yellow Not Available [facility] ([facility]) [address] [place], [address], 03/21/2024 08:28:28 03/20/20 24 03/21/2024 UA/M W/RFL X CULTU REKATHRYN NE appearance CLEAR clear Not Available [facility] ([facility]) [address] [place], [address], 03/21/2024 08:28:28 03/20/20 24 03/21/2024 UA/M W/RFL X CULTU REKATHRYN NE WBC esterase NEGATI VE negati ve Not Available [facility] ([facility]) [address] [place], [address], 03/21/2024 08:28:28 03/20/20 24 03/21/2024 UA/M W/RFL X CULTU REKATHRYN NE protein 1+ negati ve/tra ce abnormal Not Available [facility] ([facility]) [address] [place], [address], 03/21/2024 08:28:28 03/20/20 24 03/21/2024 UA/M W/RFL X CULTJeevan REKATHRYN NE glucose 1+ negati ve abnormal Not Available [facility] ([facility]) [address] [place], [address], 03/21/2024 08:28:28 03/20/20 24 03/21/2024 UA/M W/RFL X CULTU REKATHRYN NE ketones NEGATI VE negati ve Not Available [facility] ([facility]) [address] [place], [address], 03/21/2024 08:28:28 03/20/20 24 03/21/2024 UA/M W/RFL X CULTU RE, ROUTI NE occult blood NEGATI VE negati ve Not Available [facility] ([facility]) [address] [facility], [place], [address], 03/21/2024 08:28:28 03/20/20 24 03/21/2024 UA/M W/RFL X CULTU RE, ROUTI NE bilirubin NEGATI VE negati ve Not Available [facility] ([facility]) [address] [facility], [place], [address], 03/21/2024 08:28:28 03/20/20 24 03/21/2024 UA/M W/RFL X CULTU RE, ROUTI NE urobilinogen ,semi-qn 0.2 mg/dL 0.2-1. 0 Not Available [facility] ([facility]) [address] [facility], [place], [address], 03/21/2024 08:28:28 03/20/20 24 03/21/2024 UA/M W/RFL X CULTU RE, ROUTI NE nitrite, urine NEGATI VE negati ve Not Available [facility] ([facility]) [address] [facility], [place], [address], 03/21/2024 08:28:28 03/20/20 24 03/21/2024 UA/M W/RFL X CULTU RE, ROUTI NE microscopic examination SEE BELOW: Micro scopi c was indic ated and was perfo rmed. Not Available [facility] ([facility]) [address] [facility], [place], [address], 03/21/2024 08:28:28 03/20/20 24 03/21/2024 UA/M W/RFL X CULTU RE, ROUTI NE urinalysis reflex COMMEN T This speci men will not refle x to a Urine Cultu re. Not Available [facility] ([facility]) [address] [place], [address], 03/21/2024 08:28:28 06/19/20 24 06/19/2024 influ zachary virus A + B + SARS- CoV-2 (COVI D19) Ag panel , rapid IA, upper respi rator y speci men Flu A negati ve Not Available In-Office Order Internal Use Only DO Not Attach Compendium DO Not Attach Compendium, Do Not Delete/merge, [id number] 06/19/2024 12:55:06 06/19/20 24 06/19/2024 influ zachary virus A + B + SARS- CoV-2 (COVI D19) Ag panel , rapid IA, upper respi rator y speci men Flu B positi ve Not Available In-Office Order Internal Use Only DO Not Attach Compendium DO Not Attach Compendium, Do Not Delete/merge, [id number] 06/19/2024 12:55:06 06/19/20 24 06/19/2024 influ zachary virus A + B + SARS- CoV-2 (COVI D19) Ag panel , rapid IA, upper respi rator y speci men Rapid SARS CoV 2 Ag, QL IA, respiratory specimen negati ve Not Available In-Office Order Internal Use Only DO Not Attach Compendium DO Not Attach Compendium, Do Not Delete/merge, [id number] 06/19/2024 12:55:06 09/17/1909/17/2024 Hemog lobin A1c/H emogl obin. total in Blood hemoglobin A1C, POC 9.8 % low: 4%high : 5.6% Hemog lobin A1C, POC 9.8 4.0 - 5.6 % Not Available Not Available 10/09/2024 11:38:41 09/17/1909/17/2024 Hemog lobin A1c/H emogl obin. total in Blood interpretati on and review of laboratory results Abnorm al Not Available Not Available 11:38:41 09/18/1909/19/2024 ALBUM IN/CR EATIN INE RATIO ,URIN E creatinine, urine 55.3 mg/dL notest ab. Not Available [facility] ([facility]) [address], [place], [address], 09/19/2024 10:13:38 09/18/19 25 09/19/2024 ALBUM IN/CR EATIN INE RATIO ,URIN E albumin, urine 474.0 ug/mL notest ab. Resul ts confi rmed on dilut ion. Not Available [facility] ([facility]) [address] [facility], [place], [address], 09/19/2024 10:13:38 09/18/19 25 09/19/2024 ALBUM IN/CR EATIN INE RATIO ,URIN E alb/creat ratio 857 mg/g_ creat 0-29 above high normal Beryl l: 0 - 29 Moder ately incre ased: 30 - 300 Sever caitie incre ased: >300 Not Available [facility] ([facility]) [address] [facility], [place], [address], 09/19/2024 10:13:38 09/18/19 25 09/19/2024 LIPID PANEL cholesterol, total 183 mg/dL 100-19 9 Not Available [facility] ([facility]) [address] [place], [address], 09/19/2024 10:13:40 09/18/19 25 09/19/2024 LIPID PANEL triglyceride s 116 mg/dL 0-149 Not Available [facility] ([facility]) [address] [place], [address], 09/19/2024 10:13:40 09/18/19 25 09/19/2024 LIPID PANEL HDL cholesterol 60 mg/dL >39 Not Available [facility] ([facility]) [address] [place], [address], 09/19/2024 10:13:40 09/18/19 25 09/19/2024 LIPID PANEL VLDL cholesterol karen 21 mg/dL 5-40 Not Available [facility] ([facility]) [address] [place], [address], 09/19/2024 10:13:40 09/18/19 25 09/19/2024 LIPID PANEL LDL chol calc ([facility]) 102 mg/dL 0-99 above high normal Not Available [facility] ([facility]) [address] [place], [address], 09/19/2024 10:13:40 09/18/19 25 09/19/2024 COMP. METAB OLIC PANEL (14) glucose 83 mg/dL 70-99 Not Available [facility] ([facility]) [address] [place], [address], 09/19/2024 10:13:41 09/18/19 25 09/19/2024 COMP. METAB OLIC PANEL (14) BUN 43 mg/dL 8-27 above high normal Not Available [facility] ([facility]) [address] [place], [address], 09/19/2024 10:13:41 09/18/19 25 09/19/2024 COMP. METAB OLIC PANEL (14) creatinine 3.01 mg/dL 0.76-1 .27 above high normal Not Available [facility] ([facility]) [address] [place], [address], 09/19/2024 10:13:41 09/18/19 25 09/19/2024 COMP. METAB OLIC PANEL (14) eGFR 20 mL/mi n/1.7 3 >59 below low normal Not Available [facility] ([facility]) [address] [place], [address], 09/19/2024 10:13:41 09/18/19 25 09/19/2024 COMP. METAB OLIC PANEL (14) BUN/creatini ne ratio 14 10-24 Not Available [facility] ([facility]) [address] [place], [address], 09/19/2024 10:13:41 09/18/19 25 09/19/2024 COMP. METAB OLIC PANEL (14) sodium 138 mmol/ L 134-14 4 Not Available [facility] ([place] [facility]) [address] [place], [address], 09/19/2024 10:13:41 09/18/19 25 09/19/2024 COMP. METAB OLIC PANEL (14) potassium 4.8 mmol/ L 3.5-5. 2 Not Available [facility] ([facility]) [address] [place], [address], 09/19/2024 10:13:41 09/18/19 25 09/19/2024 COMP. METAB OLIC PANEL (14) chloride 101 mmol/ L 96-106 Not Available [facility] ([facility]) [address] [place], [address], 09/19/2024 10:13:41 09/18/19 25 09/19/2024 COMP. METAB OLIC PANEL (14) carbon dioxide, total 24 mmol/ L - Not Available [facility] ([facility]) [address] [place], [address], 09/19/2024 10:13:41 09/18/19 25 09/19/2024 COMP. METAB OLIC PANEL (14) calcium 9.2 mg/dL 8.6-10 .2 Not Available [facility] ([facility]) [address] [place], [address], 09/19/2024 10:13:41 09/18/19 25 09/19/2024 COMP. METAB OLIC PANEL (14) protein, total 7.3 g/dL 6.0-8. 5 Not Available [facility] ([facility]) [address] [place], [address], 09/19/2024 10:13:41 09/18/19 25 09/19/2024 COMP. METAB OLIC PANEL (14) albumin 4.2 g/dL 3.7-4. 7 Not Available [facility] ([facility]) [address] [facility] [place], [address], 09/19/2024 10:13:41 09/18/19 25 09/19/2024 COMP. METAB OLIC PANEL (14) globulin, total 3.1 g/dL 1.5-4. 5 Not Available [facility] ([facility]) [address] [place], [address], 09/19/2024 10:13:41 09/18/19 25 09/19/2024 COMP. METAB OLIC PANEL (14) bilirubin, total 0.3 mg/dL 0.0-1. 2 Not Available [facility] ([facility]) [address] [place], [address], 09/19/2024 10:13:41 09/18/19 25 09/19/2024 COMP. METAB OLIC PANEL (14) alkaline phosphatase 99 IU/L 44-121 Not Available [facility] ([facility]) [address] [place], [address], 09/19/2024 10:13:41 09/18/19 25 09/19/2024 COMP. METAB OLIC PANEL (14) AST (SGOT) 21 IU/L 0-40 Not Available [facility] ([facility]) [address] [place], [address], 09/19/2024 10:13:41 09/18/19 25 09/19/2024 COMP. METAB OLIC PANEL (14) ALT (SGPT) 18 IU/L 0-44 Not Available [facility] ([facility]) [address] [place], [address], 09/19/2024 10:13:41 09/18/19 25 09/19/2024 HEMOG LOBIN A1C hemoglobin A1C 10.1 % 4.8-5. 6 above high normal Predi abete s: 5.7 - 6.4 Diabe darrin: >6.4 Glyce cullen contr ol for adult s with diabe darrin: <7.0 Not Available [facility] ([facility]) [address] [facility], [place], [address], 09/19/2024 10:13:43 09/18/19 25 09/19/2024 CBC WITH DIFFE RENTI AL/PL ATELE T WBC 6.1 x10e3 /uL 3.4-10 .8 Not Available [facility] ([facility]) [address] [facility], [place], [address], 09/19/2024 10:13:44 09/18/19 25 09/19/2024 CBC WITH DIFFE RENTI AL/PL ATELE T RBC 4.11 x10e6 /uL 4.14-5 .80 below low normal Not Available [facility] ([facility]) [address] [facility], [place], [address], 09/19/2024 10:13:44 09/18/19 25 09/19/2024 CBC WITH DIFFE RENTI AL/PL ATELE T hemoglobin 11.4 g/dL 13.0-1 7.7 below low normal Not Available [facility] ([facility]) [address] [facility], [place], [address], 09/19/2024 10:13:44 09/18/19 25 09/19/2024 CBC WITH DIFFE RENTI AL/PL ATELE T hematocrit 35.0 % 37.5-5 1.0 below low normal Not Available [facility] ([facility]) [address] [facility], [place], [address], 09/19/2024 10:13:44 09/18/19 25 09/19/2024 CBC WITH DIFFE RENTI AL/PL ATELE T MCV 85 fL 79-97 Not Available [facility] ([facility]) [address] [facility], [place], [address], 09/19/2024 10:13:44 09/18/19 25 09/19/2024 CBC WITH DIFFE RENTI AL/PL ATELE T MCH 27.7 pg 26.6-3 3.0 Not Available [facility] ([facility]) [address] [facility], [place], [address], 09/19/2024 10:13:44 09/18/19 25 09/19/2024 CBC WITH DIFFE RENTI AL/PL ATELE T MCHC 32.6 g/dL 31.5-3 5.7 Not Available [facility] ([facility]) [address] [facility], [place], [address], 09/19/2024 10:13:44 09/18/19 25 09/19/2024 CBC WITH DIFFE RENTI AL/PL ATELE T RDW 14.1 % 11.6-1 5.4 Not Available [facility] ([facility]) [address] [facility], [place], [address], 09/19/2024 10:13:44 09/18/19 25 09/19/2024 CBC WITH DIFFE RENTI AL/PL ATELE T platelets 166 x10e3 /uL 150-45 0 Not Available [facility] ([facility]) [address] [facility], [place], [address], 09/19/2024 10:13:44 09/18/19 25 09/19/2024 CBC WITH DIFFE RENTI AL/PL ATELE T neutrophils 59 % notest ab. Not Available [facility] ([facility]) [address] [facility], [place], [address], 09/19/2024 10:13:44 09/18/19 25 09/19/2024 CBC WITH DIFFE RENTI AL/PL ATELE T lymphs 23 % notest ab. Not Available [facility] ([facility]) [address] [facility], [place], [address], 09/19/2024 10:13:44 09/18/19 25 09/19/2024 CBC WITH DIFFE RENTI AL/PL ATELE T monocytes 15 % notest ab. Not Available [facility] ([facility]) [address] [facility], [place], [address], 09/19/2024 10:13:44 09/18/19 25 09/19/2024 CBC WITH DIFFE RENTI AL/PL ATELE T eos 2 % notest ab. Not Available [facility] ([facility]) [address] [facility], [place], [address], 09/19/2024 10:13:44 09/18/19 25 09/19/2024 CBC WITH DIFFE RENTI AL/PL ATELE T basos 1 % notest ab. Not Available [facility] ([facility]) [address] [facility], [place], [address], 09/19/2024 10:13:44 09/18/19 25 09/19/2024 CBC WITH DIFFE RENTI AL/PL ATELE T neutrophils (absolute) 3.6 x10e3 /uL 1.4-7. 0 Not Available [facility] ([facility]) [address] [facility], [place], [address], 09/19/2024 10:13:44 09/18/19 25 09/19/2024 CBC WITH DIFFE RENTI AL/PL ATELE T lymphs (absolute) 1.4 x10e3 /uL 0.7-3. 1 Not Available [facility] ([facility]) [address] [facility], [place], [address], 09/19/2024 10:13:44 09/18/19 25 09/19/2024 CBC WITH DIFFE RENTI AL/PL ATELE T monocytes(ab solute) 0.9 x10e3 /uL 0.1-0. 9 Not Available [facility] ([facility]) [address] [facility], [place], [address], 09/19/2024 10:13:44 09/18/19 25 09/19/2024 CBC WITH DIFFE RENTI AL/PL ATELE T eos (absolute) 0.1 x10e3 /uL 0.0-0. 4 Not Available [facility] ([facility]) [address] [facility], [place], [address], 09/19/2024 10:13:44 09/18/19 25 09/19/2024 CBC WITH DIFFE RENTI AL/PL ATELE T baso (absolute) 0.0 x10e3 /uL 0.0-0. 2 Not Available [facility] ([facility]) [address] [facility], [place], [address], 09/19/2024 10:13:44 09/18/19 25 09/19/2024 CBC WITH DIFFE RENTI AL/PL ATELE T immature granulocytes 0 % notest ab. Not Available [facility] ([facility]) [address] [facility], [place], [address], 09/19/2024 10:13:44 09/18/19 25 09/19/2024 CBC WITH DIFFE RENTI AL/PL ATELE T immature grans (abs) 0.0 x10e3 /uL 0.0-0. 1 Not Available [facility] ([facility]) [address] [facility], [place], [address], 09/19/2024 10:13:44 12/11/19 25 12/11/2024 BASIC METAB OLIC PANEL (8) glucose 213 mg/dL 70-99 above high normal Not Available [facility] ([facility]) [address] [place], [address], 12/11/2024 06:45:30 12/11/19 25 12/11/2024 BASIC METAB OLIC PANEL (8) BUN 49 mg/dL 8-27 above high normal Not Available [facility] ([facility]) [address] [place], [address], 12/11/2024 06:45:30 12/11/19 25 12/11/2024 BASIC METAB OLIC PANEL (8) creatinine 3.22 mg/dL 0.76-1 .27 above high normal Not Available [facility] ([facility]) [address] [facility], [place], [address], 12/11/2024 06:45:30 12/11/19 25 12/11/2024 BASIC METAB OLIC PANEL (8) eGFR 18 mL/mi n/1.7 3 >59 below low normal Not Available [facility] ([facility]) [address] [facility], [place], [address], 12/11/2024 06:45:30 12/11/19 25 12/11/2024 BASIC METAB OLIC PANEL (8) BUN/creatini ne ratio 15 10-24 Not Available [facility] ([facility]) [address] [facility], [place], [address], 12/11/2024 06:45:30 12/11/19 25 12/11/2024 BASIC METAB OLIC PANEL (8) sodium 137 mmol/ L 134-14 4 Not Available [facility] ([facility]) [address] [facility], [place], [address], 12/11/2024 06:45:30 12/11/19 25 12/11/2024 BASIC METAB OLIC PANEL (8) potassium 4.3 mmol/ L 3.5-5. 2 Not Available [facility] ([facility]) [address] [facility], [place], [address], 12/11/2024 06:45:30 12/11/19 25 12/11/2024 BASIC METAB OLIC PANEL (8) chloride 103 mmol/ L 96-106 Not Available [facility] ([facility]) [address] [facility], [place], [address], 12/11/2024 06:45:30 12/11/19 25 12/11/2024 BASIC METAB OLIC PANEL (8) carbon dioxide, total 22 mmol/ L 20-29 Not Available [facility] ([facility]) [address] [place], [address], 12/11/2024 06:45:30 12/11/1912/11/2024 BASIC METAB OLIC PANEL (8) calcium 8.6 mg/dL 8.6-10 .2 Not Available [facility] ([facility]) [address] [facility], [place], [address], 12/11/2024 06:45:30 Result Notes None recorded. Problems Name Problem SNOMED Code Status Onset Date Resolution Date Notes Provider Name and Address Organization Details Recorded Time Low back pain 355921480 Active 2023 Aubrey Abdullahi [place] null, [place] - [facility] 4 13:17:25 Abdominal pain 13040243 Active 2023 Aubrey Abdullahi [place] [facility] 4 13:17:26 Type 2 diabetes mellitus 95918910 Active 2023 Aubrey Abdullahi [place], [place] [facility] 4 13:17:30 Essential hypertension 37052543 Active 2023 Jennyfer Hou MD Attn: Ladonna g,[address] [place], [address], [place] [facility] 4 22:08:41 Benign prostatic hyperplasia with outflow obstruction 268319606 Active 2023 Jennyfer Hou MD Attn: Ladonna g,[address] [place], [address], [place] [facility] 4 22:08:50 Chronic rhinitis 25744100 Active 2023 Jennyfer Hou MD Attn: Accountin g,[address] [place], [address], [place] [facility] 4 22:08:51 Gastroesophage al reflux disease without esophagitis 718362772 Active 2023 Jennyfer Hou MD Attn: Ladonna g,[address] [place], [address], [place] [facility] 4 22:08:53 Chronic kidney disease stage 3B 125452846 Active 2023 Jennyfer Hou MD Attn: Ladonna guerrero,[address] [facility], [place], [address], [facility] - SI 4 22:08:54 Tremor [id number] Active 2024 Jennyfer Hou MD Attn: Ladonna guerrero,[address] [facility], [place], [address], [place] - SI 5 22:39:56 Administration of diphtheria, pertussis, and tetanus vaccine Active 2024 Jennfyer Hou MD Attn: Ladonna guerrero,[address] [facility], [place], [place], [address], [facility] - [facility] 5 22:39:58 Edema of lower extremity [id number] Active 2024 Aubrey Abdullahi MA [facility], [place] - [facility] 5 10:29:11 Problem Notes None recorded. Medical Equipment None Reported. Allergies No known drug allergies Medications Name Sig Start Date Stop Date Status Note LastModified by Organization Details LastModified Time furosemid e 40 mg tablet TAKE 1 TABLET BY MOUTH ONCE DAILY active Not Available Not Available No t Available primidone 50 mg tablet Take 1 tablet [...] unit/mL (3 mL) subcutane ous pen INJECT 25 UNITS SUBCUTAN EOUSLY TWICE DAILY active Not Available Not Available [...] Available No t Available FreeStyle Herbert 2 Andrews USE DIRECTED FOR BLOOD GLUCOSE MONITORI NG active Not Available Not Available No t Available Vitals Date Recorded Body height Body mass index (BMI) Body weight Heart rate Body temperature Oxygen saturation Oxygen saturation in Arterial blood by Pulse oximetry Systolic blood pressure Diastolic blood pressure Provider Name and Address Organization Details Last Updated DateTime 4 168.91 cm 25.2 kg/m2 72766.3 9 g 86 /min 97.8 [degF] 97 % 97 % 132 mm[Hg] 60 mm[Hg] Kenia Joya MA [facility] 4 11:09:15 Date Recorded Body height Body mass index (BMI) Body weight Heart rate Oxygen saturation Oxygen saturation in Arterial blood by Pulse oximetry Systolic blood pressure Diastolic blood pressure Provider Name and Address Organization Details Last Updated DateTime 4 168.91 cm 25.4 kg/m2 06891.9 8 g 79 /min 98 % 98 % 122 mm[Hg] 64 mm[Hg] Silke Alfaro MA [facility] 4 11:47:00 Date Recorded Body height Body mass index (BMI) Body weight Heart rate Oxygen saturation Oxygen saturation in Arterial blood by Pulse oximetry Systolic blood pressure Diastolic blood pressure Provider Name and Address Organization Details Last Updated DateTime 4 168.91 cm 25.7 kg/m2 84929.6 g 85 /min 98 % 98 % 122 mm[Hg] 68 mm[Hg] Silke Alfaro MA [facility] 4 12:08:00 Date Recorded Body height Body mass index (BMI) Body weight Heart rate Oxygen saturation Oxygen saturation in Arterial blood by Pulse oximetry Systolic blood pressure Diastolic blood pressure Provider Name and Address Organization Details Last Updated DateTime 5 168.91 cm 26 kg/m2 82696.3 5 g 84 /min 98 % 98 % 118 mm[Hg] 62 mm[Hg] Silke Alfaro MA [facility] 5 12:40:11 Date Recorded Body height Body mass index (BMI) Body weight Heart rate Oxygen saturation Oxygen saturation in Arterial blood by Pulse oximetry Systolic blood pressure Diastolic blood pressure Provider Name and Address Organization Details Last Updated DateTime 5 168.91 cm 26.3 kg/m2 22457.8 2 g 86 /min 97 % 97 % 120 mm[Hg] 70 mm[Hg] Silke Alfaro MA [facility] 09:49:54 Social History Question Answer Notes LastModified by Organizat ion Details LastModified Time Tobacco Smoking Status Former Smoker quit 1986 cigarettes JaMYLES Rivas, [facility] 02/13/2024 11:11:05 Do You Have An Advance [...] Date Of Your Most Recent Tobacco Screening? 12/03/2024 Information not available 12/03/2024 What Is Your Current Pack Years? 20-29packye [...] Anxious, Or Unable To Sleep At Night)? [id number] Information not available 03/20/2024 Do You Use [...] Influenza, high-dose, quadrivalent, PF 0 completed Selam [place] null, [place] [facility] 02/12/2024 16:01:21 Influenza, high-dose, quadrivalent, PF 2 completed [place] [facility] 02/12/2024 16:01:21 Influenza, high-dose, quadrivalent, PF 3 completed [place] [facility] 02/12/2024 16:01:21 Influenza, high-dose, quadrivalent, PF 1 completed [place] [facility] 02/12/2024 16:01:21 COVID-19, mRNA, LNP-S, PF, 100 mcg/0.5mL dose or 50 mcg/0.25mL dose 1 completed [place] [facility] 02/12/2024 16:01:21 COVID-19, mRNA, LNP-S, PF, 100 mcg/0.5mL dose or 50 mcg/0.25mL dose 1 completed [place] [facility] 02/12/2024 16:01:21 COVID-19, mRNA, LNP-S, PF, 100 mcg/0.5mL dose or 50 mcg/0.25mL dose 1 completed [place]l [place] [facility] 02/12/2024 16:01:21 RSV, recombinant, protein subunit RSVpreF, adjuvant reconstituted, 0.5 mL, PF 3 completed [place] [facility] 02/12/2024 16:01:21 COVID-19, mRNA, LNP-S, PF, 50 mcg/0.5 mL 3 completed [place] [facility] 02/12/2024 16:01:21 pneumococcal polysaccharide PPV23 0 completed [place] [facility] 02/12/2024 16:01:21 influenza, unspecified formulation 8 completed [place] [facility] 02/12/2024 16:01:21 Pneumococcal conjugate PCV 13 9 completed [place] [facility] 02/12/2024 16:01:21 Pneumococcal conjugate PCV 13 5 completed [place] [facility] 02/12/2024 16:01:21 Influenza, high-dose, trivalent, PF 8 completed [place] [facility] 02/12/2024 16:01:21 Influenza, high-dose, trivalent, PF 6 completed [place] [facility] 02/12/2024 16:01:21 Influenza, high-dose, trivalent, PF 6 completed [place] [facility] 02/12/2024 16:01:21 Influenza, high-dose, trivalent, PF 7 completed Selam Dor[place] null, [place] [facility] 02/12/2024 16:01:21 Influenza, high-dose, trivalent, PF 9 completed [place] [facility] 02/12/2024 16:01:21 Influenza, split virus, trivalent, preservative 3 completed [place] [facility] 02/12/2024 16:01:21 Influenza, split virus, trivalent, preservative 4 completed [place] [facility] 02/12/2024 16:01:21 Influenza, split virus, quadrivalent, PF 5 completed Selam Dor[place] null, [place] [facility] 02/12/2024 16:01:21 Tdap 5 completed Jennyfer Hou MD Attn: Accounting,[address] [place], [address], [facility] - [facility] 09/21/2024 22:33:56 Past Encounters Encounter ID Performer Location Encounter Start Date Encounter Closed Date Diagnosis/Indication Diagnosis SNOMED-CT Code Diagnosis ICD10 Code Diagnosis Note [id number] Jennyfer Hou MD [facility] [address] [facility] [address] [place] [address] 11/13/2023 12:07:50 11/13/2023 13:13:56 Type 2 diabetes mellitus 02257661 E11.9 Low back pain 206322183 M54.50 Abdominal pain 96010578 R10.9 Essential hypertension 59512177 I10 Benign pro static hyperplasia with outflow obstruction 177229742 N40.1 Chronic rhinitis 2590874 6 J31.0 Gastroesop hageal reflux disease without esophagitis 009798410 K21.9 Chronic ki dney disease stage 3B 427683164 N18.32 [id number] Jennyfer Hou MD [facility] (Adult Med) [address] [place] [address] 02/13/2024 10:56:02 02/13/2024 12:02:02 Overweight 031354193 E66.3 Essential hypertension 78838491 I10 Gastroesop hageal reflux disease without esophagitis 406384322 K21.9 Low back pain 446429176 M54.50 Type 2 chato betes mellitus 73343227 E11.9 Chronic ki dney disease stage 3B 332633404 N18.32 Renal mass 381034273 N28 .89 [id number] Jennyfer Hou MD [facility] (Adult Med) [address] [place] [address]85[address] 0 03/20/2024 11:34:31 03/20/2024 12:18:53 Low back pain 595446081 M54.50 Essential hypertension 40986793 I10 Gastroesop hageal reflux disease without esophagitis 684364196 K21.9 Type 2 chato betes mellitus 51158680 E11.9 Chronic ki dney disease stage 3B 883617878 N18.32 [id number] MD [facility] (Adult Med) [address] [place] [address] 0 06/19/2024 11:49:55 06/19/2024 12:44:14 Influenza B virus present 238493266 J10.1 Nasal disc harge present 153512040 R09.89 Type 2 chato betes mellitus 53082180 E11.9 Gastroesop hageal reflux disease without esophagitis 118250895 K21.9 Essential hypertension 95743307 I10 Chronic ki dney disease stage 3B 608470858 N18.32 [id number] Jennyfer Hou MD [facility] (Adult Med) [address] [place] [address] 0 09/18/2024 11:45:49 09/18/2024 13:09:59 Body mass index 25-29 - overweight 421541942 Z68.26 Overweight 815359625 E66 .3 Essential hypertension 50313940 I10 Type 2 chato betes mellitus 67934536 E11.9 Administra tion of diphtheria, pertussis, and tetanus vaccine 584415201 Z23 Tremor 28961055 R25.1 Chronic rhinitis 3643344 6 J31.0 [id number] MD [facility] (Adult Med) [address] [place] [address] 0 12/03/2024 09:13:54 12/03/2024 10:44:44 Body mass index 25-29 - overweight 386053537 Z68.26 Overweight 092470925 E66 .3 Edema of l ower extremity 607951407 R60.0 Type 2 chato betes mellitus 01159547 E11.9 Health Concerns Section Related Observation LastModified by Organization Detai ls LastModified Time None Recorded Concern Status LastModified by Organization Details LastModified Time None Recorded Advance Directives Directive N: Payers Encounter Date Sequence Insurance Name Policy Number Policy Soria Covered Member ID Soria Member ID Guarantor Name 02/13/2024 1 [facility] (MEDICARE REPLACEMENT/A DVANTAGE - HMO) [id number] Aliyah Kahn [id number] Aliyah Kahn 03/20/2024 1 [facility] (MEDICARE REPLACEMENT/A DVANTAGE - HMO) [id number] Aliyah Kahn [id number] Aliyah Kahn 06/19/2024 1 [facility] (MEDICARE REPLACEMENT/A DVANTAGE - HMO) [id number] Aliyah Kahn [id number] Aliyah Kahn 09/18/2024 1 [facility] (MEDICARE REPLACEMENT/A DVANTAGE - HMO) [id number] Aliyah Kahn [id number] Azeemnereyda Femi 12/03/2024 1 [facility] (MEDICARE REPLACEMENT/A DVANTAGE - HMO) [id number] Aliyah Kahn [id number] Aliyah Kahn Notes Date Note Type Note Provider Name and Address Organization Details Recorded Time 02/13/2024 text/html Diabetes no polyphasia no polydipsia. [...] left renal mass he is going to [facility] to see a specialist next week and they are going to contemplate a biopsy Jennyfer Hou MD Attn: Accounting,[address] [facility], [place], [address], [facility] 02/25/2024 20:23:39 03/20/2024 text/html Diabetes [...] at night. his kidney masses were evaluated [facility] and they have chosen to monitor these lesions he will have an MRI they say in May of this year Jennyfer Hou MD Attn: Accounting, [address] [place], [address], [facility] 03/20/2024 13:58:20 06/19/2024 text/html hypertension he has [...] though Jennyfer Hou MD Attn: Accounting, [address] [place], [address], [facility] 06/23/2024 15:11:29 09/18/2024 text/html diabetes he is d ue for blood work sugars I suspect her high at home he is not checking him that much but no polyphagia polydipsia or hypoglycemia. 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 dyslipidemia he is taking his atorvastatin has a kidney lesion that follows at [facility] Urology he does have some tremor of the right hand Jennyfer Hou MD Attn: Accounting, [address] [place], [address], [facility] 09/21/2024 22:40:17 12/03/2024 text/html Acute appointmen t he has had a little bit of swelling in his legs without any chest pain PND orthopnea he has had no dyspnea on exertion also his sugars are up around 2 to 300+ Jennyfer Hou MD Attn: Accounting,[address] [place], [address], [facility] 12/03/2024 22:40:02
--- OUTSIDE RECORDS SUMMARY | 2024-12-16 20:42 | XMS_ITS | Encounter Summary ---
Author Organization [facility] Address [address] [place] [address] Care Team Providers Care Senior Reliability Engineer Name Role Phone Zac Floyd MD Primary Care Provider [phone] Encounter Details Date Type Department Care Team (Late st Contact Info) Description 06/30/2003 Outpatient Historical [facility] [place] [address] [place] [address] HEMATURIA (Primary Dx) Social History Tobacco Use Types Packs/Day Years Used Date Smoking Tobacco: Never Assessed Sex and Gender Information Value Date Recorded Sex Assigned at Not on file Legal Sex Male 3:01 AM HAND TWISTER Gender Identity Not on file Sexual Orientation Not on file documented as of this encounter Plan of Treatment Not on file documented as of this encounter Visit Diagnoses Diagnosis Hematuria- Primary documented in this encounter Care Teams Senior Reliability Engineer Relationship Specialty Start Date End Date Zac Floyd MD [address] [place] [address] PCP - General 06/19/03 documented as of this encounter
[2024-12-16 20:53] VITALS: BP 167/66; PULSE 89; RESP 18; TEMP 36.6; O2SAT 100
[2024-12-17 01:15] VITALS: BP 143/71; PULSE 76; RESP 18; O2SAT 99
--- OUTSIDE RECORDS SUMMARY | 2024-12-17 01:40 | XMS_ITS | Encounter Summary ---
Author Organization [facility] Address [address] [place] [address] Care Team Providers Care Pattern Molder Name Role Phone Zac Floyd MD Primary Care Provider [phone] Encounter Details Date Type Department Care Team (Latest Contact Info) Description 09/06/2007 Outpatient Historical [facility] [place] [address] [place] [address] Unspecified Disorder of Kidney and Ureter Social History Tobacco Use Types Packs/Day Years Used Date Smoking Tobacco: Never Assessed Sex and Gender Information Value Date Recorded Sex Assigned at Not on file Legal Sex Male 3:01 AM DIRECTOR STYLE Gender Identity Not on file Sexual Orientation Not on file documented as of this encounter Plan of Treatment Not on file documented as of this encounter Procedures Procedure Name Priority Date/Time Associated Diagnosis Comments PSA Routine 09/06/2007 2:33 PM DIRECTOR STYLE COMPREHENSIVE METABOLIC PANEL Routine 09/06/2007 2:33 PM DIRECTOR STYLE documented in this encounter Results * PSA (09/06/2007 2:33 PM DIRECTOR STYLE) PSA 1.1 0.0 - 4.0 ng/mL INTERFACE SYSTEM Comment:Performed on [employer] System 09/06/2007 2:33 PM DIRECTOR STYLE us Yvan Kay MD CHEMISTRY ORDERABLES Edited INTERFACE SYSTEM Refer to clinic/hospital department * (ABNORMAL) COMPREHENSIVE METABOLIC PANEL (09/06/2007 2:33 PM DIRECTOR STYLE) GLUCOSE 52(L) 65 - 99 mg/dL INTERFACE [...] and non- Americans is available on the [facility] Intranet at: [email or web address] Select: Lab Policies and Procedures Select: Reference Ranges - GFR 09/06/2007 2:33 PM DIRECTOR STYLE Yvan Kay MD CHEMISTRY ORDERABLES Edited INTERFACE SYSTEM Refer to clinic/hospital department documented in this encounter Visit Diagnoses Diagnosis Unspecified disorder of kidney and ureter documented in this encounter Care Teams Pattern Molder Relationship Specialty Start Date End Date Zac Floyd MD [address] [place] [address] PCP - General 06/19/03 documented as of this encounter
--- OUTSIDE RECORDS SUMMARY | 2024-12-17 01:40 | XMS_ITS | Clinical Summary ---
Author Organization [facility] Cait[facility] rodríguez Address [address] [address] Phone Care Team Providers Care Adjunct Spanish Instructor Name Role Phone James Hou MD Primary Care Provider [phone] Allergies Active Allergy Reactions Criticality Noted Date [...] Type Department Care Team Description 11/24/2024 Refill [facility] [address] [facility] [place] [address] Coral Hubbard NP 10/21/2024 Refill [facility] [address] [facility] [place] [address] Coral Hubbard NP from Last 3 Months [...] 36.4 C (97.6 F) 08/03/2021 10:41 AM FOREIGN EXCHANGE DEALER Respiratory Rate - - Oxygen Saturation - - Inhaled Oxygen Concentration - - Weight 73.5 kg (162 lb) 11/26/2024 12:37 PM CDT Height 172.7 cm (5' 8 ) 11/26/2024 12:37 PM CDT Body Mass Index 24.63 11/26/2024 12:37 PM CDT Plan of Treatment Upcoming Encounters Date Type Department Care Team (Late st Contact Info) Description 06/03/2025 11:20 AM CDT Office Visit [facility] [address] [facility] [facility] [address] [place] [address] Chidi Monae MD [address] [address] Health Maintenance Due Date Last Done Comments Diabetic Foot Exam 02/15/1948 Ophthalmology Exam 02/15/1948 Pneumococcal PPSV23/PCV13 65 + Years / High and Highest Risk (2 of 4 - PPSV23) 11/07/2018 09/12/2018, 07/27/2015 Influenza Vaccine (Season Ended) 2025 05/01/2018, 05/28/2015, 05/28/2015, Additional history exists Insurance [facility] [address] Care Teams Adjunct Spanish Instructor Relationship Specialty Start Date End Date James Hou MD [address] [address] PCP - General 02/12/19
--- OUTSIDE RECORDS SUMMARY | 2024-12-17 01:40 | XMS_ITS | Encounter Summary ---
Author Organization [facility] Address [address] [place] [address] Care Team Providers Care Senior Energy Trader Name Role Phone Zac Floyd MD Primary Care Provider [phone] Encounter Details Date Type Department Care Team (Late st Contact Info) Description 06/30/2003 Outpatient Historical [facility] [place] [address] [place] [address] HEMATURIA (Primary Dx) Social History Tobacco Use Types Packs/Day Years Used Date Smoking Tobacco: Never Assessed Sex and Gender Information Value Date Recorded Sex Assigned at Not on file Legal Sex Male 3:01 AM FORMING DEPARTMENT END FINDER Gender Identity Not on file Sexual Orientation Not on file documented as of this encounter Plan of Treatment Not on file documented as of this encounter Visit Diagnoses Diagnosis Hematuria- Primary documented in this encounter Care Teams Senior Energy Trader Relationship Specialty Start Date End Date Zac Floyd MD [address] [place] [address] PCP - General 06/19/03 documented as of this encounter
--- OUTSIDE RECORDS SUMMARY | 2024-12-17 01:40 | XMS_ITS | Encounter Summary ---
Author Organization [facility] Address [address] [place] [address] Care Team Providers Care It Trainer Name Role Phone Zac Floyd MD Primary Care Provider [phone] Encounter Details Date Type Department Care Team (Late st Contact Info) Description 09/20/2007 Outpatient Historical [place] [address] [place] [address] Unspecified Disorder of Kidney and Ureter Social History Tobacco Use Types Packs/Day Years Used Date Smoking Tobacco: Never Assessed Sex and Gender Information Value Date Recorded Sex Assigned at Not on file Legal Sex Male 3:01 AM COMMERCIAL SALES CONSULTANT Gender Identity Not on file Sexual Orientation Not on file documented as of this encounter Plan of Treatment Not on file documented as of this encounter Procedures Procedure Name Priority Date/Time Associated Diagnosis Comments CT ABDOMEN W WO CONT PELVIS W CONT Routine 09/20/2007 11:20 AM COMMERCIAL SALES CONSULTANT documented in this encounter Results * CT ABDOMEN W WO CONT PELVIS W CONT (09/20/2007 11:20 AM COMMERCIAL SALES CONSULTANT) Anatomical Region Laterality Modality Abdomen Other 09/20/2007 11:2 0 AM COMMERCIAL SALES CONSULTANT Narrative 09/26/2007 8:01 AM COMMERCIAL SALES CONSULTANT [facility] [address] [place], [place] [address] Admit Date: 09/20/2007 ALIYAH KAHN Sex: M Admit Prov: YVAN KAY Date: 1940 Primary Care Prov: ZAC FLOYD CMRN: [id number] Room: [facility] SSN: [id number] IMAGING SERVICES Ordering Prov: N/A Accession Number: [id number] Interpretation EXAM: CT OF THE ABDOMEN WITHOUT [...] Transcribed: 09/25/2007 18:41 DKT Procedure Note James aSrabia - 09/26/2007 [facility] [address] [place], [place] [address] Admit Date: 09/20/2007 ALIYAH KAHN Sex: M Admit Prov: YVAN KAY Date: 1940 Primary Care Prov: ZAC FLOYD CMRN: [id number] Room: [facility] SSN: [id number] IMAGING SERVICES Ordering Prov: N/A Interpretation EXAM: [...] ureter documented in this encounter Care Teams It Trainer Relationship Specialty Start Date End Date Zac Floyd MD [address] [place] [address] PCP - General 06/19/03 documented as of this encounter
--- OUTSIDE RECORDS SUMMARY | 2024-12-17 01:40 | XMS_ITS | Encounter Summary ---
Author Organization [facility] Address [address] [place] [address] Care Team Providers Care Learning And Development Intern Name Role Phone Zac Floyd MD Primary Care Provider [phone] Encounter Details Date Type Department Care Team (Late st Contact Info) Description 07/14/2003 Outpatient Historical [place] [address] [place] [address] CALCULUS OF KIDNEY (Primary Dx) Social History Tobacco Use Types Packs/Day Years Used Date Smoking Tobacco: Never Assessed Sex and Gender Information Value Date Recorded Sex Assigned at Not on file Legal Sex Male 3:01 AM PLANT TAXONOMIST Gender Identity Not on file Sexual Orientation Not on file documented as of this encounter Plan of Treatment Not on file documented as of this encounter Visit Diagnoses Diagnosis Calculus of kidney- Primary documented in this encounter Care Teams Learning And Development Intern Relationship Specialty Start Date End Date Zac Floyd MD [address] [place] [address] PCP - General 06/19/03 documented as of this encounter
--- OUTSIDE RECORDS SUMMARY | 2024-12-17 01:40 | XMS_ITS | Encounter Summary ---
Author Organization [facility] Address [address] [place] [address] Care Team Providers Care Metal Furniture Panel Coverer Name Role Phone Zac Floyd MD Primary Care Provider Encounter Details Date Type Department Care Team (Late st Contact Info) Description 06/19/2003 Outpatient Historical [place] [address] [place] [address] HEMATURIA (Primary Dx) Social History Tobacco Use Types Packs/Day Years Used Date Smoking Tobacco: Never Assessed Sex and Gender Information Value Date Recorded Sex Assigned at Not on file Legal Sex Male 3:01 AM RAILROAD TRACK REPAIR SUPERVISOR Gender Identity Not on file Sexual Orientation Not on file documented as of this encounter Plan of Treatment Not on file documented as of this encounter Visit Diagnoses Diagnosis Hematuria- Primary documented in this encounter Care Teams Metal Furniture Panel Coverer Relationship Specialty Start Date End Date Zac Floyd MD [address] [place] [address] PCP - General 06/19/03 documented as of this encounter
--- OUTSIDE RECORDS SUMMARY | 2024-12-17 01:40 | XMS_ITS | Encounter Summary ---
Author Organization [facility] Address [address] [place] [address] Care Team Providers Care Coloring Checker Name Role Phone Zac Floyd MD Primary Care Provider [phone] Encounter Details Date Type Department Care Team (Late st Contact Info) Description 08/24/2006 Outpatient Historical [facility] [place] [address] [place] [address] Other Specified Congenital Cystic Kidney Disease (Primary Dx) Social History Tobacco Use Types Packs/Day Years Used Date Smoking Tobacco: Never Assessed Sex and Gender Information Value Date Recorded Sex Assigned at Not on file Legal Sex Male 3:01 AM SENIOR RADIATION THERAPIST Gender Identity Not on file Sexual Orientation Not on file documented as of this encounter Plan of Treatment Not on file documented as of this encounter Visit Diagnoses Diagnosis Other specified congenital cystic kidney disease- Primary documented in this encounter Care Teams Coloring Checker Relationship Specialty Start Date End Date Zac Floyd MD [address] [place] [address] PCP - General 06/19/03 documented as of this encounter
--- OUTSIDE RECORDS SUMMARY | 2024-12-17 01:40 | XMS_ITS | Encounter Summary ---
Author Organization [facility] Address [address] [place] [address] Care Team Providers Care Hog Confinement System Manager Name Role Phone Zac Floyd MD Primary Care Provider [phone] Encounter Details Date Type Department Care Team (Late st Contact Info) Description 06/25/2006 Outpatient Historical [facility] Landry Higginbotham DO [address] [place] [address] Er, Authorized P NO ADDRESS ON FILE Orchitis/Epididymit NEC (Primary Dx) Social History Tobacco Use Types Packs/Day Years Used Date Smoking Tobacco: Never Assessed Sex and Gender Information Value Date Recorded Sex Assigned at Not on file Legal Sex Male 3:01 AM DIRECTOR BIOMEDICAL ENGINEERING Gender Identity Not on file Sexual Orientation Not on file documented as of this encounter Plan of Treatment Not on file documented as of this encounter Procedures Procedure Name Priority Date/Time Associated Diagnosis Comments URINALYSIS W/REFLEX MICROSCOPIC Routine 06/25/2006 4:39 PM DIRECTOR BIOMEDICAL ENGINEERING CBC WITH DIFFERENTIAL Routine 06/25/2006 3:53 PM DIRECTOR BIOMEDICAL ENGINEERING CBC WITH DIFFERENTIAL Routine 06/25/2006 3:53 PM DIRECTOR BIOMEDICAL ENGINEERING C-REACTIVE PROTEIN Routine 06/25/2006 3: 53 PM DIRECTOR BIOMEDICAL ENGINEERING documented in this encounter Results * (ABNORMAL) URINALYSIS (06/25/2006 4:39 PM DIRECTOR BIOMEDICAL ENGINEERING) COLOR UA Yellow INTERFACE SYSTEM CLARITY UA [...] Briana 06/25/2006 5:42 PM 06/25/2006 4:39 PM DIRECTOR BIOMEDICAL ENGINEERING Landry Higginbotham DO URINE ORDERABLES Final Result Performing Organization Address [facility] Phone Number INTERFACE SYSTEM Refer to clinic/hospital department * (ABNORMAL) CBC WITH DIFFERENTIAL (06/25/2006 3:53 PM DIRECTOR BIOMEDICAL ENGINEERING) Pathologist [facility] NEUTROPHILS 65 45 - 70 % INTERFAC [...] 0.20 K/uL INTERFACE SYSTEM 06/25/2006 3:53 PM DIRECTOR BIOMEDICAL ENGINEERING Landry Higginbotham DO HEMATOLOGY ORDERABLES Final R esult Performing Organization Address [facility] Phone Number INTERFACE SYSTEM Refer to clinic/hospital department * (ABNORMAL) CBC WITH DIFFERENTIAL (06/25/2006 3:53 PM DIRECTOR BIOMEDICAL ENGINEERING) WBC 6.0 4.0 - 9.8 K/uL INTERFACE [...] 12.4 fL INTERFACE SYSTEM 06/25/2006 3:53 PM DIRECTOR BIOMEDICAL ENGINEERING Landry Higginbotham DO HEMATOLOGY ORDERABLES Final R esult Performing Organization Address [facility] Co de Phone Number INTERFACE SYSTEM Refer to clinic/hospital department * (ABNORMAL) C-REACTIVE PROTEIN (06/25/2006 3:53 PM DIRECTOR BIOMEDICAL ENGINEERING) Pathologist [facility] CRP 4.5(H) 0.0 - 0.8 mg/dL INTERFACE SYSTEM 06/25/2006 3:53 PM DIRECTOR BIOMEDICAL ENGINEERING Landry Higginbotham DO CHEMISTRY ORDERABLES Final Re sult Performing Organization Address [facility] Co de Phone Number INTERFACE SYSTEM Refer to clinic/hospital department documented in this encounter Visit Diagnoses Diagnosis Other orchitis, epididymitis, and epididymo-orchitis, without mention of abscess(604.99)- Primary Other orchitis, epididymitis, and epididymo-orchitis, without mention of abscess documented in this encounter Care Teams Hog Confinement System Manager Relationship Specialty Start Date End Date Zac Floyd MD [address] [address] PCP - General 06/19/03 documented as of this encounter
--- OUTSIDE RECORDS SUMMARY | 2024-12-17 01:41 | XMS_ITS | Encounter Summary ---
Author Organization [facility] Address 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
--- OUTSIDE RECORDS SUMMARY | 2024-12-17 01:41 | XMS_ITS | Referral Summary ---
Author Organization [facility] [address] [place] [address] Care Team Providers Care Manager Therapy Name Role Phone James Hou MD Primary Care Provider Encounters Date Type Department Care Team Description 12/04/2024 Telephone [facility] Medical [facility] Diabetes and Endocrinology [address] [place] [phone] Gretel Burr, PCU RN Med Management 10/08/2024 Orders Only [facility] Medical [facility] Diabetes and Endocrinology [address] [place] [phone] Christian Vasques MD 10/01/2024 Telephone [facility] Diabetes and Endocrinology [address] [place] [phone] Gretel Burr, PCU RN Med Management 09/27/2024 Orders Only [facility] Diabetes and Endocrinology [address] [place] [phone] Christian Vasques MD from Last 3 Months Allergies Active [...] flash glucose scanning reader (FreeStyle Herbert 2 [place]) [facility] Use for BG monitoring 1 each 11/17/19 [...] AVOID THE FACE, AXILLA AND GROIN 08/30/19 25 Active flash glucose sensor (FreeStyle Herbert 2 Sensor) kitIndications: Type 2 diabetes mellitus with hyperglycemia, with long-term current use of insulin (HCC) USE DIRECTED 2 kit 2 10/01/19 25 Active HumaLOG 100 unit/mL pen for injectionIndica tions:Type 2 diabetes mellitus with hyperglycemia, with long-term current use of insulin ([facility]) INJECT 8-16 UNITS SUBCUTANEOUSLY THREE TIMES DAILY BEFORE MEALS WITH SSI MAX DAILY DOSE 48 UNITS 15 mL 3 10/16/19 25 Active Active Problems Problem Noted Date Diagnosed Date CKD (chronic kidney disease) stage 4, GFR 15-29 ml/min 01/02/2023 Assessment & Plan (09/17/2024 1:55 PM [employer] OFFICER): Chronic problem. Managed by Dr Beach at [place]; seen q3mos. 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 Valsartan 160mg daily. Last MA: 03/13/24 (186). Last creat/GFR: 03/13/24 GFR=22, CR=2.77. seeing Dr Núñez at [facility] for L kidney mass & bilat renal cysts. Had MRI 07/05/24 to check kidney lesions (3). Has repeat MRI set up for 11/2024. Will see Dr Núñez 12/06/24. Plan per Dr Núñez's note 07/05/24 is to continue surveillance of slow growing L renal mass. Assessment & Plan (03/13/2024 11:10 AM CDT): Chronic problem. Managed by Dr Beach at [place]. Seen q3mos. 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 Valsartan 160mg daily. Last MA: 07/13/22 (64). Last creat/GFR: 07/13/22 GFR=21, CR=2.85. L Kidney mass. Now seeing Dr Avery Núñez at [facility]. NOV 06/14/24. Will be having MRI also per Mr Kahn. Assessment & Plan (05/08/2023 1:59 PM CDT): Chronic problem. Managed by Dr Beach at [place]. Seen q3mos. NOV 05/30/23. Assessment & Plan (01/02/2023 1:59 PM CDT): Chronic problem. Managed by Dr Beach at [place]. Seen q3mos. Hypoglycemia associated with diabetes 03/04/2019 Assessment & Plan (07/13/2022 2:14 PM [employer] OFFICER): Lower evening Lantus dose Assessment & Plan (09/12/2019 12:57 PM [employer] OFFICER): Order Dexcom Assessment & Plan (03/04/2019 11:17 AM CDT): Dose of Lantus lowered Request DEXCOM Type 2 diabetes mellitus 02/22/2017 Assessment & Plan (09/17/2024 1:54 PM [employer] OFFICER): Chronic problem. Not at goal but A1c [...] DM eye exam. Reports frequent appts to [facility]; appt 2-3 weeks ago. Letter sent [...] infection. Assessment & Plan (08/08/2023 1:42 PM [employer] OFFICER): Hba1c was Lab Results Component Value Date [...] DM eye exam. Reports frequent appts to [facility]; appt 2-3 weeks ago. Letter sent [...] DM eye exam. Reports frequent appts to [facility]. Letter sent to get copy of results. [...] weeks Assessment & Plan (07/13/2022 2:10 PM [employer] OFFICER): With some hypoglycemia Lower evening Lantus to [...] today. Assessment & Plan (09/13/2021 12:40 PM [employer] OFFICER): Chronic problem, not at goal with frequent [...] units Assessment & Plan (08/31/2020 9:49 AM [employer] OFFICER): Hba1c was Lab Results Component Value Date [...] Over 301, take 10 units Will request [employer] CGMS Assessment & Plan (02/24/2020 12:53 PM [...] units Assessment & Plan (09/12/2019 12:55 PM [employer] OFFICER): A1c 8.9. Poor control continues to be [...] reviewed. Assessment & Plan (09/09/2018 7:45 PM [employer] OFFICER): Your A1c worsening to 9.5.Increase Lantus to [...] reviewed. Assessment & Plan (09/04/2017 12:43 PM [employer] OFFICER): Hba1c was 8.0 today, indicating DM control [...] mellitus Assessment & Plan (09/17/2024 12:49 PM [employer] OFFICER): Chronic problem. Currently taking Atorvastatin 10mg. Last lipid panel: 08/07/23 LDL=56, TG=92. Will update labs. Does not mychart. Verified phone #/address to contact re: results. Assessment & Plan (03/13/2024 10:41 AM CDT): Chronic problem. Currently taking Atorvastatin 10mg. Last lipid panel: 07/13/22 LDL=22, PR=841. Will update labs today. Does not mychart. Verified phone #/address to contact re: results. Assessment & Plan (05/08/2023 1:14 PM CDT): Chronic problem. Currently taking Atorvastatin 10mg. Last lipid panel: 07/13/22 LDL=22, SI=392. No changes at this time Assessment & Plan (01/02/2023 1:43 PM CDT): Chronic problem. Currently taking Atorvastatin 10mg. Last lipid panel: 07/13/22 LDL=22, BJ=332. No changes at this time Assessment & Plan (03/15/2022 2:46 PM CDT): Chronic problem. On statin therapy, no changes. Assessment & Plan (09/13/2021 11:22 AM [employer] OFFICER): Chronic problem. On statin therapy, no changes. Assessment & Plan (03/01/2021 9:39 AM CDT): Check lipid panel today Assessment & Plan (11/30/2020 3:30 PM CDT): LDL 72. Continue statin Assessment & Plan (09/12/2019 12:57 PM [employer] OFFICER): Will order lipid panel and adjust as indicated. Assessment & Plan (05/09/2019 9:46 AM CDT): Controlled on current medications. Continue plan. Assessment & Plan (12/03/2018 2:32 PM CDT): At goal on current medications. Hypertension associated with diabetes 01/25/2016 Overview (11/24/2016): Hypertension associated with diabetes Assessment & Plan (09/17/2024 12:49 PM [employer] OFFICER): Chronic problem. BP elevated upon rooming & [...] daily Assessment & Plan (07/13/2022 2:14 PM [employer] OFFICER): Chronic, well controlled Importance of low salt diet and exercise were discussed Continue current meds Update BMP Assessment & Plan (03/15/2022 2:46 PM CDT): Controlled on current medications, no changes. Assessment & Plan (09/13/2021 11:22 AM [employer] OFFICER): Controlled on current medications, no changes. Assessment [...] ARB Assessment & Plan (09/12/2019 12:56 PM [employer] OFFICER): Controlled on current medications. Continue plan. Assessment & Plan (05/09/2019 9:46 AM CDT): Controlled on current medications. Continue plan. Assessment & Plan (12/03/2018 2:32 PM CDT): Controlled on current medications. Assessment & Plan (09/09/2018 7:47 PM [employer] OFFICER): Controlled on current medications. Assessment & Plan (03/21/2018 10:42 AM CDT): Controlled on current medications. Assessment & Plan (12/04/2017 10:15 AM CDT): Controlled on current medications. Assessment & Plan (09/04/2017 12:44 PM [employer] OFFICER): Goal blood pressure is less than 140/85 Low salt diet recommended Daily aerobic exercise Continue current meds, including CHRISTIAN-I or ARB Assessment & Plan (05/24/2017 9:54 AM CDT): Controlled on current medications. Assessment & Plan (02/22/2017 5:03 PM CDT): Continue current medications. Resolved Problems Problem Noted Date Diagnosed Date Resolved Date Hyperlipidemia 02/22/2017 01/02/2023 Assessment & Plan (09/09/2018 7:46 PM [employer] OFFICER): Check lipid panel today Assessment & Plan (03/21/2018 10:42 AM CDT): At goal on current medications. Assessment & Plan (12/04/2017 10:16 AM CDT): At goal on current medications. Assessment & Plan (09/04/2017 12:43 PM [employer] OFFICER): Goal of treatment , LDL cholesterol less [...] on file Legal Sex Male 1:10 PM [employer] OFFICER Gender Identity Not on file Sexual Orientation Not on file Last Filed Vital Signs Vital Sign Reading Time Taken Comments Blood Pressure 164/82 09/17/2024 1:03 PM [employer] OFFICER Pulse 94 09/17/2024 1:03 PM [employer] OFFICER Temperature - - Respiratory Rate 16 09/17/2024 1:03 PM [employer] OFFICER Oxygen Saturation - - Inhaled Oxygen Concentration - - Weight 74.4 kg (164 lb) 09/17/2024 1:03 PM [employer] OFFICER Height 170.2 cm (5' 7.01 ) 09/17/2024 1:03 PM CS T Body Mass Index 25.68 09/17/2024 1:03 PM [employer] OFFICER Plan of Treatment Not on file Procedures Procedure Name Priority Date/Time Associated Diagnosis Comments DIABETES EYE EXAM Routine 09/30/2024 8:45 AM [employer] OFFICER DIABETES EYE EXAM Routine 09/19/2024 7:19 AM [employer] OFFICER LIPID PANEL Routine 09/17/2024 2:00 PM [employer] OFFICER Type 2 diabetes mellitus with hyperglycemia, with long-term current use of insulin (HCC) Hyperlipidemia associated with type 2 diabetes mellitus (HCC) POCT HEMOGLOBIN A1C Routine 09/17/2024 1 :05 PM [employer] OFFICER Type 2 diabetes mellitus with hyperglycemia, with [...] (ABNORMAL) DIABETES EYE EXAM (09/30/2024 8:45 AM [employer] OFFICER) us Historical Provider MD HEALTH MAINTENANCE Final Result * DIABETES EYE EXAM (09/19/2024 7:19 AM [employer] OFFICER) us Historical Provider HEALTH MAINTENANCE Final Result * (ABNORMAL) Lipid panel (09/17/2024 2:00 PM [employer] OFFICER) Cholesterol 182 30 - 199 mg/dL Comment: [...] mg/dL High: >160 mg/dL Calculated using the Bartholomew LDL-C estimating equation. This equation was implemented [...] 3 [place] [facility] Blood 09/17/2024 2:00 PM [employer] OFFICER 09/17/2024 8:37 PM [employer] OFFICER Gretel Burr NP LAB BLOOD [place]AB[place] [address] [place] [facility] [place] [address] * (ABNORMAL) POCT hemoglobin A1c (09/17/2024 1:05 PM [employer] OFFICER) Hemoglobin A1C, POC 9.8 4.0 - 5.6 % Blood 09/17/2024 1:05 PM [employer] OFFICER us Gretel Burr NP POINT OF CARE [...] 03/13/2024 4:26 PM CDT us Gretel Burr NP LAB BLOOD ORDERABLES Shaye l Result [place] [address] [place] [facility] [place] [address] * (ABNORMAL) Albumin Creatinine Ratio, Urine (03/13/2024 [...] CDT 03/13/2024 2:48 PM CDT us Gretel R. Schleeper PCU RN LAB URINE ORDERABLES Shaye alexa Result [place] [address] [facility] [place] [address] from Last 3 Months or Most Recently Relevant to Health Maintenance Insurance MEDICARE ADVANTAGE [place] [id number] MEDICARE ADVANTAGE [place] [address] [place] [address] Care Teams Manager Therapy Relationship Specialty Start Date End Date James Hou MD PCP - General 11/18/16
--- OUTSIDE RECORDS SUMMARY | 2024-12-17 01:41 | XMS_ITS | CONTINUITY OF CARE DOCUMENT ---
Author Name carleen durant Address Unknown Organization [facility] Address [address] [address] [facility] [address] [place] [address] Phone [phone] Care Team Providers Care Maintenance Construction Helper Name Role Phone Donavan COTO, Viviane Unavailable JENNYFER PEREZ MD Unavailable [phone] JENNYFER PEREZ MD Unavailable INSURANCE PROVIDERS Payer name Policy type / Coverage type [place] red libertarian ID UHC MEDICARE COMPLETE HMO Other [id number]
--- OUTSIDE RECORDS SUMMARY | 2024-12-17 01:41 | XMS_ITS | Clinical Summary ---
Author Organization [facility] [address] [place] [phone] Care Team Providers Care Prenatal Teacher Name Role Phone James Hou MD Primary Care Provider [phone] Allergies Active Allergy Reactions Criticality Noted Date [...] 06/30/20 21 Active flash glucose scanning reader (FreeStInfol[employer] [facility] [address] [place]) [facility] 1 each [...] 01/02/2023 Assessment & Plan (09/17/2024 1:55 PM ORANGE PICKER MACHINE OPERATOR): Chronic problem. Managed by Dr Beach at [facility]; seen q3mos. 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 Valsartan 160mg daily. Last MA: 03/13/24 (186). Last creat/GFR: 03/13/24 GFR=22, CR=2.77. seeing Dr Núñez at [facility] for L kidney mass & bilat renal cysts. Had MRI 07/05/24 to check kidney lesions (3). Has repeat MRI set up for 11/2024. Will see Dr Núñez 12/06/24. Plan per Dr Núñez's note 07/05/24 is to continue surveillance of slow growing L renal mass. Assessment & Plan (03/13/2024 11:10 AM CDT): Chronic problem. Managed by Dr Beach at [facility]. Seen q3mos. 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 Valsartan 160mg daily. Last MA: 07/13/22 (64). Last creat/GFR: 07/13/22 GFR=21, CR=2.85. L Kidney mass. Now seeing Dr Avery Núñez at [facility]. 06/14/24. Will be having MRI also per Mr Kahn. Assessment & Plan (05/08/2023 1:59 PM CDT): Chronic problem. Managed by Dr Beach at [facility]. Seen q3mos. NOV 05/30/23. Assessment & Plan (01/02/2023 1:59 PM CDT): Chronic problem. Managed by Dr Beach at [facility]. Seen q3mos. Hypoglycemia associated with diabetes 03/04/2019 Assessment & Plan (07/13/2022 2:14 PM ORANGE PICKER MACHINE OPERATOR): Lower evening Lantus dose Assessment & Plan (09/12/2019 12:57 PM ORANGE PICKER MACHINE OPERATOR): Order Dexcom Assessment & Plan (03/04/2019 11:17 AM CDT): Dose of Lantus lowered Request DEXCOM Type 2 diabetes mellitus 02/22/2017 Assessment & Plan (09/17/2024 1:54 PM ORANGE PICKER MACHINE OPERATOR): Chronic problem. Not at goal but A1c [...] DM eye exam. Reports frequent appts to [facility]; appt 2-3 weeks ago. Letter sent to [...] infection. Assessment & Plan (08/08/2023 1:42 PM ORANGE PICKER MACHINE OPERATOR): Hba1c was Lab Results Component Value Date [...] DM eye exam. Reports frequent appts to [facility]; appt 2-3 weeks ago. Letter sent to [...] DM eye exam. Reports frequent appts to [facility]. Letter sent to get copy of results. [...] weeks Assessment & Plan (07/13/2022 2:10 PM ORANGE PICKER MACHINE OPERATOR): With some hypoglycemia Lower evening Lantus to [...] today. Assessment & Plan (09/13/2021 12:40 PM ORANGE PICKER MACHINE OPERATOR): Chronic problem, not at goal with frequent [...] units Assessment & Plan (08/31/2020 9:49 AM ORANGE PICKER MACHINE OPERATOR): Hba1c was Lab Results Component Value Date [...] Over 301, take 10 units Will request [employer] Herbert CGMS Assessment & Plan (02/24/2020 12:53 [...] units Assessment & Plan (09/12/2019 12:55 PM ORANGE PICKER MACHINE OPERATOR): A1c 8.9. Poor control continues to be [...] reviewed. Assessment & Plan (09/09/2018 7:45 PM ORANGE PICKER MACHINE OPERATOR): Your A1c worsening to 9.5.Increase Lantus to [...] reviewed. Assessment & Plan (09/04/2017 12:43 PM ORANGE PICKER MACHINE OPERATOR): Hba1c was 8.0 today, indicating DM control [...] mellitus Assessment & Plan (09/17/2024 12:49 PM ORANGE PICKER MACHINE OPERATOR): Chronic problem. Currently taking Atorvastatin 10mg. Last lipid panel: 08/07/23 LDL=56, TG=92. Will update labs. Does not mychart. Verified phone #/address to contact re: results. Assessment & Plan (03/13/2024 10:41 AM CDT): Chronic problem. Currently taking Atorvastatin 10mg. Last lipid panel: 07/13/22 LDL=22, UR=224. Will update labs today. Does not mychart. Verified phone #/address to contact re: results. Assessment & Plan (05/08/2023 1:14 PM CDT): Chronic problem. Currently taking Atorvastatin 10mg. Last lipid panel: 07/13/22 LDL=22, DE=717. No changes at this time Assessment & Plan (01/02/2023 1:43 PM CDT): Chronic problem. Currently taking Atorvastatin 10mg. Last lipid panel: 07/13/22 LDL=22, KZ=618. No changes at this time Assessment & Plan (03/15/2022 2:46 PM CDT): Chronic problem. On statin therapy, no changes. Assessment & Plan (09/13/2021 11:22 AM ORANGE PICKER MACHINE OPERATOR): Chronic problem. On statin therapy, no changes. Assessment & Plan (03/01/2021 9:39 AM CDT): Check lipid panel today Assessment & Plan (11/30/2020 3:30 PM CDT): LDL 72. Continue statin Assessment & Plan (09/12/2019 12:57 PM ORANGE PICKER MACHINE OPERATOR): Will order lipid panel and adjust as indicated. Assessment & Plan (05/09/2019 9:46 AM CDT): Controlled on current medications. Continue plan. Assessment & Plan (12/03/2018 2:32 PM CDT): At goal on current medications. Hypertension associated with diabetes 01/25/2016 Overview (11/24/2016): Hypertension associated with diabetes Assessment & Plan (09/17/2024 12:49 PM ORANGE PICKER MACHINE OPERATOR): Chronic problem. BP elevated upon rooming & [...] daily Assessment & Plan (07/13/2022 2:14 PM ORANGE PICKER MACHINE OPERATOR): Chronic, well controlled Importance of low salt diet and exercise were discussed Continue current meds Update BMP Assessment & Plan (03/15/2022 2:46 PM CDT): Controlled on current medications, no changes. Assessment & Plan (09/13/2021 11:22 AM ORANGE PICKER MACHINE OPERATOR): Controlled on current medications, no changes. Assessment [...] ARB Assessment & Plan (09/12/2019 12:56 PM ORANGE PICKER MACHINE OPERATOR): Controlled on current medications. Continue plan. Assessment & Plan (05/09/2019 9:46 AM CDT): Controlled on current medications. Continue plan. Assessment & Plan (12/03/2018 2:32 PM CDT): Controlled on current medications. Assessment & Plan (09/09/2018 7:47 PM ORANGE PICKER MACHINE OPERATOR): Controlled on current medications. Assessment & Plan (03/21/2018 10:42 AM CDT): Controlled on current medications. Assessment & Plan (12/04/2017 10:15 AM CDT): Controlled on current medications. Assessment & Plan (09/04/2017 12:44 PM ORANGE PICKER MACHINE OPERATOR): Goal blood pressure is less than 140/85 Low salt diet recommended Daily aerobic exercise Continue current meds, including CHRISTIAN-I or ARB Assessment & Plan (05/24/2017 9:54 AM CDT): Controlled on current medications. Assessment & Plan (02/22/2017 5:03 PM CDT): Continue current medications. Resolved Problems Problem Noted Date Diagnosed Date Resolved Date Hyperlipidemia 02/22/2017 01/02/2023 Assessment & Plan (09/09/2018 7:46 PM ORANGE PICKER MACHINE OPERATOR): Check lipid panel today Assessment & Plan (03/21/2018 10:42 AM CDT): At goal on current medications. Assessment & Plan (12/04/2017 10:16 AM CDT): At goal on current medications. Assessment & Plan (09/04/2017 12:43 PM ORANGE PICKER MACHINE OPERATOR): Goal of treatment , LDL cholesterol less [...] Type Department Care Team Description 12/04/2024 Telephone [facility] Diabetes and Endocrinology [address] [place] [phone] Gretel Burr, REPAIRER SCREEN CRUSHER Med Management 10/08/2024 Orders Only [facility] Medical [facility] Diabetes and Endocrinology [address] [place] [phone] Christian Vasques MD 10/01/2024 Telephone [facility] Diabetes and Endocrinology [address] [place] [phone] Gretel Burr NP Med Management 09/27/2024 Orders Only [facility] Diabetes and Endocrinology [address] [place] [phone] Provider, MD Christian from Last 3 Months Surgical History Surgery Date Site/Laterality Comments SC NJX AA&/STRD TFRML EPI CERVICAL/THORACIC 1 LEVEL [...] on file Legal Sex Male 1:10 PM ORANGE PICKER MACHINE OPERATOR Gender Identity Not on file Sexual Orientation Not on file Obstetrics History Last Filed Vital Signs Vital Sign Reading Time Taken Comments Blood Pressure 164/82 09/17/2024 1:03 PM ORANGE PICKER MACHINE OPERATOR Pulse 94 09/17/2024 1:03 PM ORANGE PICKER MACHINE OPERATOR Temperature - - Respiratory Rate 16 09/17/2024 1:03 PM ORANGE PICKER MACHINE OPERATOR Oxygen Saturation - - Inhaled Oxygen Concentration - - Weight 74.4 kg (164 lb) 09/17/2024 1:03 PM ORANGE PICKER MACHINE OPERATOR Height 170.2 cm (5' 7.01 ) 09/17/2024 1:03 PM CS T Body Mass Index 25.68 09/17/2024 1:03 PM ORANGE PICKER MACHINE OPERATOR Plan of Treatment Health Maintenance Due Date [...] DIABETES EYE EXAM Routine 09/30/2024 8:45 AM ORANGE PICKER MACHINE OPERATOR DIABETES EYE EXAM Routine 09/19/2024 7:19 AM ORANGE PICKER MACHINE OPERATOR LIPID PANEL Routine 09/17/2024 2:00 PM ORANGE PICKER MACHINE OPERATOR Type 2 diabetes mellitus with hyperglycemia, with long-term current use of insulin (HCC) Hyperlipidemia associated with type 2 diabetes mellitus (HCC) POCT HEMOGLOBIN A1C Routine 09/17/2024 1 :05 PM ORANGE PICKER MACHINE OPERATOR Type 2 diabetes mellitus with hyperglycemia, with [...] (ABNORMAL) DIABETES EYE EXAM (09/30/2024 8:45 AM ORANGE PICKER MACHINE OPERATOR) us Historical Provider HEALTH MAINTENANCE Final Result * DIABETES EYE EXAM (09/19/2024 7:19 AM ORANGE PICKER MACHINE OPERATOR) us Historical Provider HEALTH MAINTENANCE Final Result * (ABNORMAL) Lipid panel (09/17/2024 2:00 PM ORANGE PICKER MACHINE OPERATOR) Cholesterol 182 30 - 199 mg/dL Comment: [...] ratio 3 CARMELITA Blood 09/17/2024 2:00 PM ORANGE PICKER MACHINE OPERATOR 09/17/2024 8:37 PM ORANGE PICKER MACHINE OPERATOR us Gretel Burr NP LAB BLOOD ORDERABLES Shaye l Result CARMELITA [id number] [address] [place] [address] * (ABNORMAL) POCT hemoglobin A1c (09/17/2024 1:05 PM ORANGE PICKER MACHINE OPERATOR) [facility] Hemoglobin A1C, POC 9.8 4.0 - 5.6 % Blood 09/17/2024 1:05 PM ORANGE PICKER MACHINE OPERATOR us Gretel Burr NP POINT OF CARE [...] LAB BLOOD ORDERABLES Shaye l Result CARMELITA [address] [facility] [place] [address] * (ABNORMAL) Albumin Creatinine Ratio, [...] 2:48 PM CDT us Gretel R. Schleeper REPAIRER SCREEN CRUSHER LAB URINE ORDERABLES Shaye l Result CARMELITA [address] [facility] [place] [address] from Last 3 Months or Most Recently Relevant to Health Maintenance Insurance MEDICARE ADVANTAGE MEDICARE ADVANTAGE MEDICARE ADVANTAGE Care Teams Prenatal Teacher Relationship Specialty Start Date End Date James Hou MD PCP - General 11/18/16
--- OUTSIDE RECORDS SUMMARY | 2024-12-17 01:41 | XMS_ITS | Clinical Summary ---
Author Organization [facility] Address [address] [facility] Attn: Epic Prelude ADT [place] [phone] Care Team Providers Care Bulb Filler Name Role Phone Zac Floyd MD Primary Care Provider [phone] Social History Tobacco Use Types Packs/Day Years Used Date Smoking Tobacco: Never Assessed Sex and Gender Information Value Date Recorded Sex Assigned at Not on file Legal Sex Male 3:01 AM CONVENTIONS ASSISTANT Gender Identity Not on file Sexual Orientation Not on file Plan of Treatment Health Maintenance Due Date Last Done Comments DTAP/TDAP/TD VACCINES (1 - Tdap) 1957 PNEUMOCOCCAL VACCINE 50+ YEARS (1 of 1 - PCV) 02/14/19 88 ZOSTER VACCINE (1 of 2) 02/15/1988 RSV VACCINE (60+ or ) (1 - 1-dose 75+ series) 2013 INFLUENZA VACCINE (#1) 2024 Care Teams Bulb Filler Relationship Specialty Start Date End Date Zac Floyd MD [address] [place] [phone] PCP - General 06/19/03
--- OUTSIDE RECORDS SUMMARY | 2024-12-17 01:41 | XMS_ITS | Clinical Summary ---
Author Organization [facility] Address [address] [place] [address] Care Team Providers Care Traffic Recorder Name Role Phone James Hou MD Primary Care Provider Source Comments [facility]research psychiatric [facility] Affiliates and Associated Physician Practices is amultiple site organization consisting of ambulatory clinics and hospital sitesin [place], [place], [place]. This disclosure is being madepursuant to the Care Everywhere program and may not contain all information available regarding this patient. 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 Gender Identity Not on file Sexual Orientation Not on file Last Filed Vital Signs Vital Sign Reading Time Taken Comments Blood Pressure 196/87 07/05/2024 11:02 AM FILTER CLEANER Pulse 99 07/05/2024 11:02 AM FILTER CLEANER Temperature 37.1 C (98.8 F) 07/05/2024 11:02 AM FILTER CLEANER Respiratory Rate 16 02/16/2024 8:11 AM CDT Oxygen Saturation 98% 07/05/2024 11:02 AM FILTER CLEANER Inhaled Oxygen Concentration - - Weight 72.1 kg (159 lb) 07/05/2024 11:02 AM FILTER CLEANER Height 170.2 cm (5' 7 ) 07/05/2024 11:02 AM FILTER CLEANER Body Mass Index 24.9 07/05/2024 11:02 AM FILTER CLEANER Plan of Treatment Upcoming Encounters Date Type Department Care Team (Late st Contact Info) Description 01/03/2025 8:30 AM CDT Office Visit [facility] - Urology [address] [place] [address] Rd [address] [place] [address] Gurwinder Núñez MD [address] [place] [address] Health Maintenance Due Date Last Done Comments [...] this topic Medical Devices Implanted Type Area Passenger Service Supervisor Device Identifier Shelf Expiration Date Model / Serial / Lot Lens Iol Dioptr 21.5 Implanted:Qty: 1 on 01/21/2015 by Marielos Caputo MD at [facility] Left: Eye [employer] 09/20/2019 [id number] / / [id number] Procedures Procedure Name Priority Date/Time Associated [...] Resu lt from Last 3 Months Insurance [facility] MANAGED MEDICARE ADV Care Teams Traffic Recorder Relationship Specialty Start Date End Date James Hou MD PCP - General Internal Medicine 01/19/15
--- NOTE | 2024-12-17 01:48 | ED_ITS ---
HPI - Back Pain/Injury General Chief Complaint: Back Pain/Injury Stated Complaint: right lower back/hip pain Time Seen by Provider: 12/17/24 00:36 History of Present Illness HPI Narrative: 84-year-old male with history of insulin-dependent diabetes presenting to the emergency depart with right lower back and hip pain. Patient states the pain started 3 days ago when he tried to get a lawnmower off the back of his truck. He states he feels like he pulled a muscle. He has been using topical rubbing alcohol and oral Tylenol without any relief of symptoms. No difficulty ambulating, no nausea, vomiting, midline back pain, weakness in the limb or any neuropathy. He states that he has also been having high blood sugars at home but this is a separate issue. Endorses taking 45 units of Lantus at night and sliding scale t.i.d. a.c.. He follows with a diabetes doctor and primary care provider. No polyuria, polydipsia, increased thirst, vision changes. Related Data Allergies Allergy/AdvReac Type Severity Reaction Status Date / Time sulfamethoxazole (From Allergy Unknown Verified 12/16/24 20:41 Bactrim) trimethoprim (From Bactrim) Allergy Unknown Verified 12/16/24 20:41 Review of Systems 2 Review of Systems: As reviewed above in HPI Exam 2 Narrative: GENERAL: [Well-appearing, well-nourished, and in no acute distress.] HEAD: [Normocephalic, atraumatic.] EYES: [PERRLA and EOMI.] ENT: Nares clear, no rhinorrhea or epistaxis. Mucous membranes moist. NECK: Supple. CHEST: [Clear to auscultation. No respiratory distress.] HEART: [Regular rate and rhythm]. No murmur heard. [Normal peripheral pulses.] ABDOMEN: [Soft, nondistended], [nontender], [No rigidity or guarding] EXTREMITIES: Normal range of motion. [No edema.] Reproducible tenderness to palpation over the right-sided low hip/iliac crest region. No midline lumbar tenderness and no paraspinal muscle tenderness. Positive straight leg raise on the right side, negative straight leg raise on the left side. EHL and FHL 5/5 with good strength symmetrically. Good range of motion of hip, knee and ankle. Able to ambulate. SKIN: Warm, dry, no rash. NEURO: [No focal deficits]. Alert and oriented [x3.] PSYCH: [Normal mood and affect.] Course Vital Signs Vital signs: Vital Signs Temperature 36.6 C 12/16/24 20:53 Pulse Rate 89 12/16/24 20:53 Respiratory Rate 18 12/16/24 20:53 Blood Pressure 167/66 H 12/16/24 20:53 Pulse Oximetry 100 12/16/24 20:53 Oxygen Delivery Room Air 12/16/24 20:53 Temperature 36.6 C 12/16/24 20:53 Pulse Rate 88 12/17/24 04:32 Respiratory Rate 18 12/17/24 04:32 Blood Pressure 176/81 H 12/17/24 04:32 Pulse Oximetry 100 12/17/24 04:32 Oxygen Delivery Room Air 12/16/24 20:53 MDM - Back Pain/Injury MDM Narrative Medical decision making narrative: 84-year-old male with a history of insulin-dependent diabetes presenting to the emergency room with right lower back/hip pain. Started 3 days ago after he may have pulled a muscle while moving a lawnmower off of his truck. Is able ambulate, no neurological deficits, no midline back pain, no saddle anesthesias or incontinence issues. He has some reproducible pain over the iliac crest posteriorly on the right hip. No step-offs deformities. EHL and FHL full strength. Ambulatory in the emergency department. Normal vital signs and good distal neuro vasculature. Suspicion presently is for potential lumbago verses osteoarthritis of the hip versus muscle spasm. Low suspicion for spinal process. Patient has a secondary chief complaint of elevated blood sugar readings at home. He is currently asymptomatic from this and has normal vital signs does not appear dehydrated. He had a glucometer that read high in triage. CBC, CMP, beta hydroxybutyrate ordered. He was given a fluid bolus and Toradol and re-evaluated. Patient's workup shows no leukocytosis or anemia worse than his baseline. Normal platelet count. He does have an elevated blood sugar of 428 but has missed his evening insulin dose. No signs of anion gap or acidosis. No significant ketosis. BUN and creatinine at his normal baseline function per review of the chart. Normal electrolytes otherwise. Patient was given a dose of IV insulin and recheck. His x-ray shows no findings. Patient is hydrated here in the emergency department and he will be safely discharged home at this time with prescription medications for continued aches and pains and instructions to follow up with his regular doctor regarding his uncontrolled diabetes. Patient vocalized understanding these instructions and safely discharged. Medical Records Attestation: I reviewed the patient's medical records. Lab Data Attestation: I reviewed the patient's lab results. 12/17/24 02:00 12/17/24 02:00 Labs: Lab Results 12/17/24 Range/Units 02:00 WBC 5.3 (4.5-10.0) K/mm3 RBC 4.13 L (4.6-6.20) M/mm3 Hgb 11.3 L (14.0-18.0) g/dL Hct 33.1 L (42.0-52.0) % MCV 80.1 (80-100) fl MCH 27.4 (26-34) pg MCHC 34.1 (32-36) g/dl RDW 15.0 H (11.5-14.5) % Plt Count 184 (150-375) k/mm3 MPV 11.9 H (7.4-10.4) fl Immature Gran % (Auto) 0.2 (0-0.5) % Neut % (Auto) 52.8 (45.5-73.1) % Lymph % (Auto) 28.8 (18.3-44.2) % Jackson % (Auto) 14.2 H (2.6-8.5) % Eos % (Auto) 3.2 (0-4.4) % Baso % (Auto) 0.8 (0.2-1.2) % Lymph # (Auto) 1.52 (0.9-3.2) K/mm3 Jackson # (Auto) 0.8 H (0.1-0.6) K/mm3 Eos # (Auto) 0.2 (0-0.3) K/mm3 Baso # (Auto) 0.0 (0.0-0.1) K/mm3 Abs Immat Gran (auto) 0.01 (0.00-0.031) K/mm3 Absolute Neuts (auto) 2.8 (1.3-6.7) K/mm3 Absolute Nucleated RBC 0.000 (0.0-0.012) K/mm3 Nucleated RBC % 0.0 (0.0-0.2) % Sodium 133 L (137-145) mmol/L Potassium 4.6 (3.4-5.0) mmol/L Chloride 97 L (98-107) mmol/L Carbon Dioxide 23 (22-30) mmol/L Anion Gap 13 H (4-12) mmol/L BUN 46 H (9-20) mg/dL Creatinine 3.02 H (0.7-1.3) mg/dL Estim Creat Clear Calc 15 ml/min Estimated GFR 20 L (59 - ) Glucose 428 H (65-110) mg/dL Calcium 8.7 (8.4-10.2) mg/dL Total Bilirubin 0.4 (0.2-1.3) mg/dL AST 32 (17-59) U/L ALT 26 (6-50) U/L Alkaline Phosphatase 135 H (38-126) U/L Total Protein 8.0 (6.3-8.2) g/dL Albumin 4.2 (3.5-5.1) g/dL Beta-Hydroxybutyrate/Acetoacetate 0.85 H (0.02-0.27) mmol/L Imaging Data Attestation: I personally reviewed and interpreted this imaging study as follows: My impression: Impressions Hip/Pelvis X-Ray 12/17/24 06:06 Impression: No significant abnormality is seen. Discharge Plan Discharge Clinical Impression: Strain of right hip, Strain of lumbar region, Hyperglycemia Patient Disposition: Home Condition: Stable Instructions: Antibiotic Form, Acute Low Back Pain (ED) Additional Instructions: Your x-rays do not show any broken bones or any dislocations. Your pain is likely from muscle strain and we can prescribe be some medications for symptom control. Your sugars are not controlled, but not causing any acute concern at this time and we have provided you insulin and hydration. You will have to follow-up with your primary doctor and your diabetes doctor for a better regimen regarding your blood sugar. Patient Language: Malay Prescriptions: New methocarbamol 750 mg tablet 750 mg PO TID PRN (Reason: pain) Qty: 20 0RF lidocaine 5 % adhesive patch,medicated 1 patch topical DAILY Qty: 15 0RF Rx Instructions: leave on most painful area for up to 12 hrs Follow-up/Referrals: Ameya,MD James [Primary Care Provider] - Time of Disposition: 06:16
[2024-12-17] MEDS: LACTATED RINGERS 1,000 ML 999 ML IV CONT (01:58)
[2024-12-17] MEDS: KETOROLAC 15 MG/ML VIAL (*BKC) IV PUSH (01:59)
[2024-12-17 02:10] LABS: Basophils Percent Auto 0.8 % (0.2-1.2); Eosinophils Absolute Auto 0.2 K/mm3 (0-0.3); Eosinophils Percent Auto 3.2 % (0-4.4); Hematocrit 33.1 % (42.0-52.0); Hemoglobin 11.3 g/dL (14.0-18.0); Immature Granulocyte Absolute 0.01 K/mm3 (0.00-0.031); Immature Granulocyte Percent A 0.2 % (0-0.5); Lymphocytes Absolute Auto 1.52 K/mm3 (0.9-3.2); Lymphocytes Percent Auto 28.8 % (18.3-44.2); Mean Corpuscular HGB Conc 34.1 g/dl (32-36); Mean Corpuscular Hemoglobin 27.4 pg (26-34); Mean Corpuscular Volume 80.1 fl (80-100); Mean Platelet Volume 11.9 fl (7.4-10.4); Monocytes Absolute Auto 0.8 K/mm3 (0.1-0.6); Monocytes Percent Auto 14.2 % (2.6-8.5); Neutrophils Absolute Auto 2.8 K/mm3 (1.3-6.7); Neutrophils Percent Auto 52.8 % (45.5-73.1); Platelet Count Result 184 k/mm3 (150-375); Red Blood Count 4.13 M/mm3 (4.6-6.20); White Blood Count 5.3 K/mm3 (4.5-10.0)
[2024-12-17 02:17] LABS: Alanine Aminotransferase 26 U/L (6-50); Albumin Level 4.2 g/dL (3.5-5.1); Alkaline Phosphatase 135 U/L (38-126); Anion Gap 13 mmol/L (4-12); Aspartate Amino Transferase 32 U/L (17-59); Bilirubin,Total 0.4 mg/dL (0.2-1.3); Blood Urea Nitrogen 46 mg/dL (9-20); Calcium 8.7 mg/dL (8.4-10.2); Carbon Dioxide 23 mmol/L (22-30); Chloride 97 mmol/L (98-107); Estimated CRCL calculation 15 ml/min; Estimated Glomerular Filt Rate 20; Glucose 428 mg/dL (65-110); Potassium 4.6 mmol/L (3.4-5.0); Sodium 133 mmol/L (137-145)
[2024-12-17 02:32] VITALS: BP 170/84; PULSE 86; RESP 18; O2SAT 99
[2024-12-17] MEDS: INSULIN HUMAN REGULAR (*BKC) 100 UNITS/ML 7.2 UNITS IV PUSH (02:48)
[2024-12-17 02:51] LABS: Beta-Hydroxybutyrate/Acetoacetate 0.85 mmol/L (0.02-0.27)
[2024-12-17 04:32] VITALS: BP 176/81; PULSE 88; RESP 18; O2SAT 100
[2024-12-17 06:36] VITALS: BP 149/81; PULSE 88; RESP 18; O2SAT 100
[2024-12-17 06:38] LABS: Glucose Point of Care 187 mg/dl (65-105)
== END 2024-12-17 06:37 | disposition home or self-care (01) ==
PROVIDERS: Emergency Provider Student in an Organized Health Care Education/Training Program; PCP Internal Medicine
DX: S39.012A Strain of muscle, fascia and tendon of lower back, initial encounter (principal); S76.011A Strain of muscle, fascia and tendon of right hip, initial encounter; E11.65 Type 2 diabetes mellitus with hyperglycemia; Z79.4 Long term (current) use of insulin; X50.0XXA Overexertion from strenuous movement or load, initial encounter
CPT/HCPCS: 36415; 73502; 80053; 82010; 82948; 85025; 96361; 96374; 96375; 99284; J1815; J1885; J7120

== ENCOUNTER 2025-03-07 08:37 | Outpatient (CLI) | payer MEDICARE, SELFPAY ==
--- NOTE | ~2025-03-07 | US_ITS ---
US arterial duplex LE RT 03/07/2025 09:44 Indication: Peripheral vascular disease Procedure: Doppler duplex ultrasound right lower extremity arteries. Comparison: No prior studies for comparison. Findings: The right lower extremity arteries are patent. There is monophasic and biphasic flow in the lower extremity arteries. The following systolic velocities are obtained: Proximal common femoral ar ericka to 201 cm/s, proximal superficial femoral artery 70 cm/s, mid superficial femoral artery 58 cm/s , distal superficial femoral artery 78 cm/s, mid popliteal artery 59 cm/s, distal anterior tibial art chetan 18 cm/s, distal posterior tibial artery 37 cm/s, dorsalis pedis artery 13 cm/s. Impression: 1: Patent lower extremity arteries with pressure gradients below the popliteal artery consistent with peripheral arterial disease. Monophasic and biphasic flow are present. 2: Significant pressure gradient between the common femoral and superficial femoral artery consistent with partially occlusive vascular disease. Consider correlation with CTA abdomen, pelvis and lower e xtremity arteries. Reviewed, dictated and finalized at location A. Impression: 1: Patent lower extremity arteries with pressure gradients below the popliteal artery consistent with peripheral arterial disease. Monophasic and biphasic latha w are present. 2: Significant pressure gradient between the common femoral and superficial fem oral artery consistent with partially occlusive vascular disease. Consider john elation with CTA abdomen, pelvis and lower extremity arteries.
--- OUTSIDE RECORDS SUMMARY | 2025-03-07 08:40 | XMS_ITS | Clinical Summary ---
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
--- OUTSIDE RECORDS SUMMARY | 2025-03-07 08:40 | XMS_ITS | Encounter Summary ---
Author Organization [facility] Address 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
--- OUTSIDE RECORDS SUMMARY | 2025-03-07 08:40 | XMS_ITS | Encounter Summary ---
Author Organization [facility] Address [address] [place] [address] Care Team Providers Care Strategy Intern Name Role Phone Zac Floyd MD Primary Care Provider [phone] Encounter Details Date Type Department Care Team (Late st Contact Info) Description 09/20/2007 Outpatient Historical [place] [address] [place] [address] Unspecified Disorder of Kidney and Ureter Social History Tobacco Use Types Packs/Day Years Used Date Smoking Tobacco: Never Assessed Sex and Gender Information Value Date Recorded Sex Assigned at Not on file Legal Sex Male 3:01 AM LIVING ADVISOR Gender Identity Not on file Sexual Orientation Not on file documented as of this encounter Plan of Treatment Not on file documented as of this encounter Procedures Procedure Name Priority Date/Time Associated Diagnosis Comments CT ABDOMEN W WO CONT PELVIS W CONT Routine 09/20/2007 11:20 AM LIVING ADVISOR documented in this encounter Results * CT ABDOMEN W WO CONT PELVIS W CONT (09/20/2007 11:20 AM LIVING ADVISOR) Anatomical Region Laterality Modality Abdomen Other 09/20/2007 11:2 0 AM LIVING ADVISOR Narrative 09/26/2007 8:01 AM LIVING ADVISOR [facility] [address] [place], [place] [address] Admit Date: 09/20/2007 ALIYAH KAHN Sex: M Admit Prov: YVAN KAY Date: 1940 Primary Care Prov: ZAC FLOYD CMRN: [id number] Room: [facility] SSN: [id number] IMAGING SERVICES Ordering Prov: N/A Accession Number: [id number] Interpretation EXAM: CT OF THE ABDOMEN WITHOUT [...] DKT Procedure Note James Sarabia - 09/26/2007 [facility] [address] [place], [place] [address] Admit Date: 09/20/2007 ALIYAH KAHN Sex: M Admit Prov: YVAN KAY Date: 1940 Primary Care Prov: ZAC FLOYD CMRN: [id number] Room: [facility] SSN: [id number] IMAGING SERVICES Ordering Prov: N/A Interpretation EXAM: [...] ureter documented in this encounter Care Teams Strategy Intern Relationship Specialty Start Date End Date Zac Floyd MD [address] [place] [address] PCP - General 06/19/03 documented as of this encounter
--- OUTSIDE RECORDS SUMMARY | 2025-03-07 08:40 | XMS_ITS | Encounter Summary ---
Author Organization [facility] Address 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
--- OUTSIDE RECORDS SUMMARY | 2025-03-07 08:40 | XMS_ITS | Encounter Summary ---
Author Organization [facility] Address 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
--- OUTSIDE RECORDS SUMMARY | 2025-03-07 08:40 | XMS_ITS | Encounter Summary ---
Author Organization [facility] Address 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
--- OUTSIDE RECORDS SUMMARY | 2025-03-07 08:40 | XMS_ITS | Clinical Summary ---
Author Organization [facility] Caitie rodríguez Address [address], [place] [address] Phone Care Team Providers Care [employer] Music Teacher Name Role Phone James Hou MD [...] MOUTH THREE TIMES A WEEK 15 capsule 2 02/08/20 25 Active calcitriol (ROCALTROL) 0.25 MCG capsule TAKE 1 CAPSULE BY MOUTH THREE TIMES A WEEK 15 capsule 01/07/20 25 025 Discontinued Active Problems Problem Noted [...] Encounters Date Type Department Care Team Description 02/07/2025 Refill [facility] [address] [facility], [address] [place] [address] Coral Hubbard NP 01/06/2025 Refill [facility] [address] [facility], [facility] [address] [place] [address] Coral Hubbard NP from Last 3 Months [...] 36.4 C (97.6 F) 08/03/2021 10:41 AM LOG PROCESSOR OPERATOR Respiratory Rate - - Oxygen Saturation - - Inhaled Oxygen Concentration - - Weight 73.5 kg (162 lb) 11/26/2024 12:37 PM CDT Height 172.7 cm (5' 8) 11/26/2024 12:37 PM CDT Body Mass Index 24.63 11/26/2024 12:37 PM CDT Plan of Treatment Upcoming Encounters Date Type Department Care Team (Late st Contact Info) Description 06/03/2025 11:20 AM CDT Office Visit [facility] [address] [facility], [facility] [address] [place] [address] Chidi Monae MD [address] [address] Health Maintenance Due Date Last Done Comments Diabetic Foot Exam 02/15/1950 Ophthalmology Exam 02/15/1948 Pneumococcal PPSV23/PCV13 65 + Years / High and Highest Risk (2 of 4 - PPSV23, PCV20, or PCV21) 11/07/2018 09/12/2018, 07/27/2015 Influenza Vaccine (#1) 2025 8, 05/28/2015, 05/28/2015, Additional history exists Insurance MEDICARE Care Teams Elementary [employer] Music Teacher Relationship Specialty Start Date End Date James Hou MD [address] [address] PCP - General 02/12/19
--- OUTSIDE RECORDS SUMMARY | 2025-03-07 08:40 | XMS_ITS | Encounter Summary ---
Author Organization [facility] Address 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 Gender Identity Not on file Sexual Orientation Not on file documented as of this encounter Plan of Treatment Not on file documented as of this encounter Procedures Procedure Name Priority Date/Time Associated Diagnosis Comments URINALYSIS W/REFLEX MICROSCOPIC Routine 06/25/2006 4:39 PM KENO WRITER/RUNNER CBC WITH DIFFERENTIAL Routine 06/25/2006 3:53 PM KENO WRITER/RUNNER CBC WITH DIFFERENTIAL Routine 06/25/2006 3:53 PM KENO WRITER/RUNNER C-REACTIVE PROTEIN Routine 06/25/2006 3: 53 PM KENO WRITER/RUNNER documented in this encounter Results * (ABNORMAL) URINALYSIS (06/25/2006 4:39 PM KENO WRITER/RUNNER) COLOR UA Yellow INTERFACE SYSTEM CLARITY UA [...] Briana 06/25/2006 5:42 PM 06/25/2006 4:39 PM KENO WRITER/RUNNER Landry Higginbotham DO URINE ORDERABLES Final Result Performing Organization Address [facility] Phone Number INTERFACE SYSTEM Refer to clinic/hospital department * (ABNORMAL) CBC WITH DIFFERENTIAL (06/25/2006 3:53 PM KENO WRITER/RUNNER) Pathologist [facility] NEUTROPHILS 65 45 - [...] 0.20 K/uL INTERFACE SYSTEM 06/25/2006 3:53 PM KENO WRITER/RUNNER Landry Higginbotham DO HEMATOLOGY ORDERABLES Final R esult Performing Organization Address [facility] Phone Number INTERFACE SYSTEM Refer to clinic/hospital department * (ABNORMAL) CBC WITH DIFFERENTIAL (06/25/2006 3:53 PM KENO WRITER/RUNNER) WBC 6.0 4.0 - 9.8 K/uL INTERFACE [...] 12.4 fL INTERFACE SYSTEM 06/25/2006 3:53 PM KENO WRITER/RUNNER Landry Higginbotham DO HEMATOLOGY ORDERABLES Final R esult Performing Organization Address [facility] Co de Phone Number INTERFACE SYSTEM Refer to clinic/hospital department * (ABNORMAL) C-REACTIVE PROTEIN (06/25/2006 3:53 PM KENO WRITER/RUNNER) Pathologist [facility] CRP 4.5(H) 0.0 - 0.8 mg/dL INTERFACE SYSTEM 06/25/2006 3:53 PM KENO WRITER/RUNNER Landyr Higginbotham DO CHEMISTRY ORDERABLES Final Re sult Performing Organization Address [facility] Co de Phone Number INTERFACE SYSTEM Refer to clinic/hospital department documented in this encounter Visit Diagnoses Diagnosis Other orchitis, epididymitis, and epididymo-orchitis, without mention of abscess(604.99)- Primary Other orchitis, epididymitis, and epididymo-orchitis, without mention of abscess documented in this encounter Care Teams Firmware Architect Relationship Specialty Start Date End Date Zac Floyd MD [address] [address] PCP - General 06/19/03 documented as of this encounter
--- OUTSIDE RECORDS SUMMARY | 2025-03-07 08:40 | XMS_ITS | Encounter Summary ---
Author Organization [facility] Address 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
--- OUTSIDE RECORDS SUMMARY | 2025-03-07 08:40 | XMS_ITS | Encounter Summary ---
Author Organization [facility] Address 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 Gender Identity Not on file Sexual Orientation Not on file documented as of this encounter Plan of Treatment Not on file documented as of this encounter Procedures Procedure Name Priority Date/Time Associated Diagnosis Comments PSA Routine 09/06/2007 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 COMPREHENSIVE METABOLIC PANEL Routine 09/06/2007 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 documented in this encounter Results * PSA (09/06/2007 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) PSA 1.1 0.0 - 4.0 ng/mL INTERFACE SYSTEM Comment:Performed on [employer]70 System 09/06/2007 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 us Yvan Kay MD CHEMISTRY ORDERABLES Edited INTERFACE SYSTEM Refer to clinic/hospital department * (ABNORMAL) COMPREHENSIVE METABOLIC PANEL (09/06/2007 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) GLUCOSE 52(L) 65 - 99 mg/dL INTERFACE [...] and non- Americans is available on the [facility] Intranet at: [email or web address] Select: Lab Policies and Procedures Select: Reference Ranges - GFR 09/06/2007 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
--- OUTSIDE RECORDS SUMMARY | 2025-03-07 08:41 | XMS_ITS | Data Portability ---
[facility] [address] [place] [address] Care Team Providers Care Client Services Administrator Name Role Phone CHRIS JENNYFER Primary Care Provider Assessment Encounter Date Assessment Date Assessment LastModified by Organization Details LastModified Time 06/19/2024 06/19/2024 flu B positive. Tamiflu. Rest. Fluids. Isolate for 5 days wear mask for 10 days. Call if worse. Otherwise medicines we will continue. Follow up in 3 months [email or web address] Not available 06/23/2024 15:11:10 09/18/2024 09/18/2024 I will obtain so me blood Bliss. Trial of primidone. Continue to follow up with specialists. Agreeable to immunizations today Tdap unfortunately we do not have high dose flu shot in the clinic today he will have to get it at local pharmacy follow up with me in 3 months [email or web address] Not available 09/21/2024 22:39:42 12/03/2024 12/03/2024 Lasix 40 mg natasha y x3 days he will let me know how that goes BMP in 1 week increase his Lantus to 25 b.i.d. [email or web address] Not available 12/03/2024 22:39:43 12/18/2024 12/18/2024 I have asked him to call his slot floorperson for guidance on his insulin he is already better with regards to his back so he will keep his regular appointment with me in 2 months again I told him it was very important he get a hold of his diabetic doctor he said he did call them they are going to see him in 2 weeks I said unacceptable they can adjust his insulin now and if they will not I will he can call me back [email or web address] Not available 12/22/2024 15:41:10 02/10/2025 02/10/2025 Etiology is not really delineated but I am going to give him some Keflex only thinking and think about his that there were some aunts at the site but he does not remember any particular time of being bitten by anything we will let me know in a few days how he is progressing he was advised not to do anything to open the bullae [email or web address] Not available 02/10/2025 21:49:21 Plan of Treatment Reminders Order Date Submit Date Provider Last Modified By Organization Details Last Modified Time Details Appointments ANY 15 2024 09:15A Emma Hou MD Not available Not available Not available Lab HbA1c (hemoglob in A1c), blood 2024 025 [facility], [address], [address], [place], [address], 09/19/2024 10:13:43 albumin/c reatinine , mass ratio, urine 2024 025 [facility], [address], [address], [place], [address], 09/19/2024 10:13:39 lipid panel, serum 2024 025 [facility], [address], [address], [place], [address], 09/19/2024 10:13:40 CMP, serum or plasma 2024 025 [facility], [address], [address], [place], [address], 09/19/2024 10:13:42 CBC w/ auto diff 2024 025 [facility], [address], [address], [place], [address], 09/19/2024 10:13:44 influenza virus A + B + SARS-CoV- 2 (COVID19) Ag panel, rapid IA, upper respirato ry specimen 2023 024 In-Office Order, Internal Use Only DO Not Attach Compendium DO Not Attach Compendium, Do Not Delete/merge, [id number] 06/19/2024 15:31:33 Referral None recorded. Procedures None recorded. Surgeries None recorded. Imaging None recorded. Medication Orders cephalexi n [address] [facility], [address] [place] [address], [id number], 02/24/2025 05:02:55 Lasix 40 mg tablet 2024 025 [email or web address] [facility], [address] [place] [address], [id number], 12/03/2024 11:55:25 primidone 50 mg tablet [address] [facility], [address] [place] [address], [id number], 09/23/2024 14:06:47 Tamiflu 75 mg capsule 2023 024 [facility], [address] [place] [address], [id number], 06/19/2024 15:31:33 Patient TargetsNo targets recorded. Patient Instructions Encounter Date Encounter Id Patient Instructions Last Modified By Organization Details Last Modified Time 09/18/2024 [id number] A healthy lifestyle: care instructions [email or web address] Not available 09/18/2024 14:04:22 12/03/2024 [id number] A healthy lifestyle: care instructions [email or web address] Not available 12/03/2024 11:55:25 12/18/2024 [id number] A healthy lifestyle: care instructions [email or web address] Not available 12/18/2024 17:29:38 02/10/2025 [id number] A healthy lifestyle: care instructions [email or web address] Not available 02/10/2025 18:25:03 Reason for Referral None Reported. Results Created Date Observation Date Name Description Value Unit Range Abnormal Flag Note LastModifiedBy Organization Detail LastModifiedTime 06/19/20 24 06/19/2024 influ zachary virus A + B + SARS- CoV-2 (COVI D19) Ag panel , rapid IA, upper respi rator y speci men Flu A negati ve Not Available In-Office Order Internal Use Only DO Not Attach Compendium DO Not Attach Compendium, Do Not Delete/merge, [id number] 06/19/2024 12:55:06 06/19/20 24 06/19/2024 influ zachary virus A + B + SARS- CoV-2 (COVI D19) Ag panel , rapid IA, upper respi rator y speci men Flu B positi ve Not Available In-Office Order Internal Use Only DO Not Attach Compendium DO Not Attach Compendium, Do Not Delete/merge, [id number] 06/19/2024 12:55:06 06/19/20 24 06/19/2024 influ zachary virus A + B + SARS- CoV-2 (COVI D19) Ag panel , rapid IA, upper respi rator y speci men Rapid SARS CoV 2 Ag, QL IA, respiratory specimen negati ve Not Available In-Office Order Internal Use Only DO Not Attach Compendium DO Not Attach Compendium, Do Not Delete/merge, [id number] 06/19/2024 12:55:06 09/17/19 25 09/17/2024 Hemog lobin [...] 55.3 mg/dL notest ab. Not Available [facility] ([facility]) [address] [place], [address], 09/19/2024 10:13:38 09/18/19 25 09/19/2024 ALBUM IN/CR EATIN INE RATIO ,URIN E albumin, urine 474.0 ug/mL notest ab. Resul ts confi rmed on dilut ion. Not Available [facility] ([facility]) [address] [place], [address], 09/19/2024 10:13:38 09/18/19 25 09/19/2024 ALBUM IN/CR EATIN INE RATIO ,URIN E alb/creat ratio 857 mg/g_ creat 0-29 above high normal Beryl l: 0 - 29 Moder ately incre ased: 30 - 300 Sever caitie incre ased: >300 Not Available [facility] ([facility]) [address] [place], [address], 09/19/2024 10:13:38 09/18/19 25 09/19/2024 LIPID PANEL cholesterol, total 183 mg/dL 100-19 9 Not Available [facility] ([facility]) [address] [place], [address], 09/19/2024 10:13:40 09/18/19 25 09/19/2024 LIPID PANEL triglyceride s 116 mg/dL 0-149 Not Available [facility] ([facility]) [address] [place], [address], 09/19/2024 10:13:40 09/18/19 25 09/19/2024 LIPID PANEL HDL cholesterol 60 mg/dL >39 Not Available [facility] ([facility]) [address] [place], [address], 09/19/2024 10:13:40 09/18/19 25 09/19/2024 LIPID PANEL VLDL cholesterol karen 21 mg/dL 5-40 Not Available [facility] ([facility]) [address] [place], [address], 09/19/2024 10:13:40 09/18/19 25 09/19/2024 LIPID PANEL LDL chol calc ([facility]) 102 mg/dL 0-99 above high normal Not Available [facility] ([facility]) [address] [facility] [place], [address], 09/19/2024 10:13:40 09/18/19 25 09/19/2024 COMP. METAB OLIC PANEL (14) glucose 83 mg/dL 70-99 Not Available [facility] ([facility]) [address] [facility] [place], [address], 09/19/2024 10:13:41 09/18/19 25 09/19/2024 COMP. METAB OLIC PANEL (14) BUN 43 mg/dL 8-27 above high normal Not Available [facility] ([facility]) [address] [place], [address], 09/19/2024 10:13:41 09/18/19 25 09/19/2024 COMP. METAB OLIC PANEL (14) creatinine 3.01 mg/dL 0.76-1 .27 above high normal Not Available [facility] ([facility]) [address] [place], [address], 09/19/2024 10:13:41 09/18/19 25 09/19/2024 COMP. METAB OLIC PANEL (14) eGFR 20 mL/mi n/1.7 3 >59 below low normal Not Available [facility] ([facility]) [address] [place], [address], 09/19/2024 10:13:41 09/18/19 25 09/19/2024 COMP. METAB OLIC PANEL (14) BUN/creatini ne ratio 14 10-24 Not Available [facility] ([facility]) [address] [place], [address], 09/19/2024 10:13:41 09/18/19 25 09/19/2024 COMP. METAB OLIC PANEL (14) sodium 138 mmol/ L 134-14 4 Not Available [facility] ([facility]) [address] [facility] [place], [address], 09/19/2024 10:13:41 09/18/19 25 09/19/2024 COMP. METAB OLIC PANEL (14) potassium 4.8 mmol/ L 3.5-5. 2 Not Available [facility] ([facility]) [address] [facility], [place], [address], 09/19/2024 10:13:41 09/18/19 25 09/19/2024 COMP. METAB OLIC PANEL (14) chloride 101 mmol/ L 96-106 Not Available [facility] ([facility]) [address] [facility], [place], [address], 09/19/2024 10:13:41 09/18/19 25 09/19/2024 COMP. METAB OLIC PANEL (14) carbon dioxide, total 24 mmol/ L 20-29 Not Available [facility] ([facility]) [address] [facility], [place], [address], 09/19/2024 10:13:41 09/18/19 25 09/19/2024 COMP. METAB OLIC PANEL (14) calcium 9.2 mg/dL 8.6-10 .2 Not Available [facility] ([facility]) [address] [facility] [place], [address], 09/19/2024 10:13:41 09/18/19 25 09/19/2024 COMP. METAB OLIC PANEL (14) protein, total 7.3 g/dL 6.0-8. 5 Not Available [facility] ([facility]) [address] [facility] [place], [address], 09/19/2024 10:13:41 09/18/19 25 09/19/2024 COMP. METAB OLIC PANEL (14) albumin 4.2 g/dL 3.7-4. 7 Not Available [facility] ([facility]) [address] [facility] [place], [address], 09/19/2024 10:13:41 09/18/19 25 09/19/2024 COMP. METAB OLIC PANEL (14) globulin, total 3.1 g/dL 1.5-4. 5 Not Available [facility] ([facility]) [address] [facility] [place], [address], 09/19/2024 10:13:41 09/18/19 25 09/19/2024 COMP. METAB OLIC PANEL (14) bilirubin, total 0.3 mg/dL 0.0-1. 2 Not Available [facility] ([facility]) [address] [facility] [place], [address], 09/19/2024 10:13:41 09/18/19 25 09/19/2024 COMP. METAB OLIC PANEL (14) alkaline phosphatase 99 IU/L 44-121 Not Available [facility] ([facility]) [address] [facility] [place], [address], 09/19/2024 10:13:41 09/18/19 25 09/19/2024 COMP. METAB OLIC PANEL (14) AST (SGOT) 21 IU/L 0-40 Not Available [facility] ([facility]) [address] [facility] [place], [address], 09/19/2024 10:13:41 09/18/19 25 09/19/2024 COMP. METAB OLIC PANEL (14) ALT (SGPT) 18 IU/L 0-44 Not Available [facility] ([facility]) [address] [facility] [place], [address], 09/19/2024 10:13:41 09/18/19 25 09/19/2024 HEMOG LOBIN A1C hemoglobin A1C 10.1 % 4.8-5. 6 above high normal Predi abete s: 5.7 - 6.4 Diabe darrin: >6.4 Glyce cullen contr ol for adult s with diabe darrin: <7.0 Not Available [facility] ([facility]) [address] [place], [address], 09/19/2024 10:13:43 09/18/19 25 09/19/2024 CBC WITH DIFFE RENTI AL/PL ATELE T WBC 6.1 x10e3 /uL 3.4-10 .8 Not Available [facility] ([facility]) [address] [facility], [place], [address], 09/19/2024 10:13:44 09/18/19 25 09/19/2024 CBC WITH DIFFE RENTI AL/PL ATELE T RBC 4.11 x10e6 /uL 4.14-5 .80 below low normal Not Available [facility] ([facility]) [address] [facility], [place], [address], 09/19/2024 10:13:44 09/18/19 25 09/19/2024 CBC WITH DIFFE RENTI AL/PL ATELE T hemoglobin 11.4 g/dL 13.0-1 7.7 below low normal Not Available [facility] ([facility]) [address] [place], [address], 09/19/2024 10:13:44 09/18/19 25 09/19/2024 CBC WITH DIFFE RENTI AL/PL ATELE T hematocrit 35.0 % 37.5-5 1.0 below low normal Not Available [facility] ([facility]) [address] [place], [address], 09/19/2024 10:13:44 09/18/19 25 09/19/2024 CBC WITH DIFFE RENTI AL/PL ATELE T MCV 85 fL 79-97 Not Available [facility] ([facility]) [address] [place], [address], 09/19/2024 10:13:44 09/18/19 25 09/19/2024 CBC WITH DIFFE RENTI AL/PL ATELE T MCH 27.7 pg 26.6-3 3.0 Not Available [facility] ([facility]) [address] [facility], [place], [address], 09/19/2024 10:13:44 09/18/19 25 09/19/2024 CBC WITH DIFFE RENTI AL/PL ATELE T MCHC 32.6 g/dL 31.5-3 5.7 Not Available [facility] ([facility]) [address] [facility], [place], [address], 09/19/2024 10:13:44 09/18/19 25 09/19/2024 CBC WITH DIFFE RENTI AL/PL ATELE T RDW 14.1 % 11.6-1 5.4 Not Available [facility] ([facility]) [address] [facility], [place], [address], 09/19/2024 10:13:44 09/18/19 25 09/19/2024 CBC WITH DIFFE RENTI AL/PL ATELE T platelets 166 x10e3 /uL 150-45 0 Not Available [facility] ([facility]) [address] [facility], [place], [address], 09/19/2024 10:13:44 09/18/19 25 09/19/2024 CBC WITH DIFFE RENTI AL/PL ATELE T neutrophils 59 % notest ab. Not Available [facility] ([facility]) [address] [place], [address], 09/19/2024 10:13:44 09/18/19 25 09/19/2024 CBC WITH DIFFE RENTI AL/PL ATELE T lymphs 23 % notest ab. Not Available [facility] ([facility]) [address] [place], [address], 09/19/2024 10:13:44 09/18/19 25 09/19/2024 CBC WITH DIFFE RENTI AL/PL ATELE T monocytes 15 % notest ab. Not Available [facility] ([facility]) [address] [facility], [place], [address], 09/19/2024 10:13:44 09/18/19 25 09/19/2024 CBC WITH DIFFE RENTI AL/PL ATELE T eos 2 % notest ab. Not Available [facility] ([facility]) [address] [facility], [place], [address], 09/19/2024 10:13:44 09/18/19 25 09/19/2024 CBC WITH DIFFE RENTI AL/PL ATELE T basos 1 % notest ab. Not Available [facility] ([facility]) [address] [facility], [place], [address], 09/19/2024 10:13:44 09/18/19 25 09/19/2024 CBC WITH DIFFE RENTI AL/PL ATELE T neutrophils (absolute) 3.6 x10e3 /uL 1.4-7. 0 Not Available [facility] ([facility]) [address] [facility], [place], [address], 09/19/2024 10:13:44 09/18/19 25 09/19/2024 CBC WITH DIFFE RENTI AL/PL ATELE T lymphs (absolute) 1.4 x10e3 /uL 0.7-3. 1 Not Available [facility] ([facility]) [address] [place], [address], 09/19/2024 10:13:44 09/18/19 25 09/19/2024 CBC WITH DIFFE RENTI AL/PL ATELE T monocytes(ab solute) 0.9 x10e3 /uL 0.1-0. 9 Not Available [facility] ([facility]) [address] [facility], [place], [address], 09/19/2024 10:13:44 09/18/19 25 09/19/2024 CBC WITH DIFFE RENTI AL/PL ATELE T eos (absolute) 0.1 x10e3 /uL 0.0-0. 4 Not Available [facility] ([facility]) [address] [place], [address], 09/19/2024 10:13:44 09/18/19 25 09/19/2024 CBC WITH DIFFE RENTI AL/PL ATELE T baso (absolute) 0.0 x10e3 /uL 0.0-0. 2 Not Available [facility] ([facility]) [address] [facility], [place], [address], 09/19/2024 10:13:44 09/18/19 25 09/19/2024 CBC WITH DIFFE RENTI AL/PL ATELE T immature granulocytes 0 % notest ab. Not Available [facility] ([facility]) [address] [facility], [place], [address], 09/19/2024 10:13:44 09/18/19 25 09/19/2024 CBC WITH DIFFE RENTI AL/PL ATELE T immature grans (abs) 0.0 x10e3 /uL 0.0-0. 1 Not Available [facility] ([facility]) [address] [place], [address], 09/19/2024 10:13:44 12/11/19 25 12/11/2024 BASIC METAB OLIC PANEL (8) glucose 213 mg/dL 70-99 above high normal Not Available [facility] ([facility]) [address] [place], [address], 12/11/2024 06:45:30 12/11/1912/11/2024 BASIC METAB OLIC PANEL (8) BUN 49 mg/dL 8-27 above high normal Not Available [facility] ([facility]) [address] [place], [address], 12/11/2024 06:45:30 12/11/19 25 12/11/2024 BASIC METAB OLIC PANEL (8) creatinine 3.22 mg/dL 0.76-1 .27 above high normal Not Available [facility] ([facility]) [address] [place], [address], 12/11/2024 06:45:30 12/11/19 25 12/11/2024 BASIC METAB OLIC PANEL (8) eGFR 18 mL/mi n/1.7 3 >59 below low normal Not Available [facility] ([facility]) [address] [place], [address], 12/11/2024 06:45:30 12/11/19 25 12/11/2024 BASIC METAB OLIC PANEL (8) BUN/creatini ne ratio 15 10-24 Not Available [facility] ([facility]) [address] [place], [address], 12/11/2024 06:45:30 12/11/19 25 12/11/2024 BASIC METAB OLIC PANEL (8) sodium 137 mmol/ L 134-14 4 Not Available [facility] ([facility]) [address] [place], [address], 12/11/2024 06:45:30 12/11/19 25 12/11/2024 BASIC METAB OLIC PANEL (8) potassium 4.3 mmol/ L 3.5-5. 2 Not Available [facility] ([facility]) [address] [place], [address], 12/11/2024 06:45:30 12/11/19 25 12/11/2024 BASIC METAB OLIC PANEL (8) chloride 103 mmol/ L 96-106 Not Available [facility] ([facility]) [address] [place], [address], 12/11/2024 06:45:30 12/11/19 25 12/11/2024 BASIC METAB OLIC PANEL (8) carbon dioxide, total 22 mmol/ L 20-29 Not Available [facility] ([facility]) [address] [facility], [place], [address], 12/11/2024 06:45:30 12/11/19 25 12/11/2024 BASIC METAB OLIC PANEL (8) calcium 8.6 mg/dL 8.6-10 .2 Not Available [facility] ([facility]) [address] [facility], [place], [address], 12/11/2024 06:45:30 12/26/19 25 12/25/2024 Hemog lobin A1c/H emogl obin. total in Blood hemoglobin A1C, POC 9.2 % low: 4%high : 5.6% abnormal Hemog lobin A1C, POC 9.2 (A) 4.0 - 5.6 % Not Available Not Available 01/01/2025 11:21:46 12/26/19 25 12/25/2024 Hemog lobin A1c/H emogl obin. total in Blood interpretati on and review of laboratory results Abnorm al Not Available Not Available 11:21:46 12/18/19 25 12/17/2024 XR, hip + pelvi s, unila teral , 2 or 3 view No observ ation record ed. [place] [id number], [place], [address], 12/18/2024 23:19:25 Result Notes None recorded. Problems Name Problem SNOMED Code Status Onset Date Resolution Date Notes Provider Name and Address Organization Details Recorded Time Low back pain 292975160 Active 2023 Aubrey Abdullahi MA null, [place] - [facility] 4 13:17:25 Abdominal pain 47935491 Active 2023 Aubrey Abdullahi [place] [facility] 4 13:17:26 Type 2 diabetes mellitus 89083435 Active 2023 Aubrey Abdullahi [place], [place] [facility] 4 13:17:30 Essential hypertension 90944870 Active 2023 Jennyfer Hou MD Attn: Ladonna guerrero,[address] [place], [address], [place] - [facility] 4 22:08:41 Benign prostatic hyperplasia with outflow obstruction 970368748 Active 2023 Jennyfer Hou MD Attn: Ladonna guerrero,[address] [facility], [place], [address], [place] [facility] 4 22:08:50 Chronic rhinitis 07224205 Active 2023 Jennyfer Hou MD Attn: Ladonna guerrero,[address] [place], [address], [place] [facility] 4 22:08:51 Gastroesophage al reflux disease without esophagitis 864043788 Active 2023 Jennyfer Hou MD Attn: Felishatawanna guerrero,[address] [place], [address], [place] [facility] 4 22:08:53 Chronic kidney disease stage 3B 065405199 Active 2023 Jennyfer Hou MD Attn: Ladonna guerrero,[address] [facility], [place], [address], [place] [facility] 4 22:08:54 Tremor 22214500 Active 2024 Jennyfer Hou MD Attn: Felishatawanna guerrero,[address] [place], [address], [place] [facility] 5 22:39:56 Administration of diphtheria, pertussis, and tetanus vaccine Active 2024 Jennyfer Hou MD Attn: Ladonna yolanda,[address] [place], [address], [place] [facility] 5 22:39:58 Edema of lower extremity 005508139 Active 2024 Aubrey Abdullahi [place] [facility] 5 10:29:11 Problem Notes None recorded. Medical [...] Not Available Not Available No t Available methocarb michelet 750 mg tablet TAKE 1 TABLET BY MOUTH THREE TIMES DAILY NEEDED FOR PAIN active Not Available Not Available No t Available tamsulosi n 0.4 mg capsule Take 1 capsule by mouth daily 2024 active Not Available Not Available Not Avai lable amlodipin e 10 mg tablet TAKE 1 TABLET BY MOUTH ONCE DAILY active Not Available Not Available No t Available cephalexi n 500 mg capsule Take 1 capsule twice a day by oral route for 7 days. 02/24 completed Not Available Not Available Not Available oseltamiv ir 75 mg capsule TAKE [...] t Available finasteri de 5 mg tablet Take 1 tablet by mouth once daily 2024 active Not Available Not Available Not Avai lable mometason e 0.1 % topical cream APPLY [...] Available No t Available FreeStyle Herbert 2 Stearns USE DIRECTED FOR BLOOD GLUCOSE MONITORI NG active Not Available Not Available No t Available Vitals Date Recorded Body height Body mass index (BMI) Body weight Heart rate Oxygen saturation Oxygen saturation in Arterial blood by Pulse oximetry Systolic And Diastolic Provider Name and Address Organization Details Last Updated DateTime 5 168.91 cm 26 kg/m2 83812.3 5 g 84 /min 98 % 98 % 118/62 mm[Hg] Silke Alfaro [place] - [facility] 5 12:40:11 Date Recorded Body height Body mass index (BMI) Body weight Heart rate Oxygen saturation Oxygen saturation in Arterial blood by Pulse oximetry Systolic And Diastolic Provider Name and Address Organization Details Last Updated DateTime 5 168.91 cm 26.3 kg/m2 93741.8 2 g 86 /min 97 % 97 % 120/70 mm[Hg] Silke Alfaro MA [facility] 5 09:49:54 Date Recorded Body height Body mass index (BMI) Body weight Heart rate Oxygen saturation Oxygen saturation in Arterial blood by Pulse oximetry Systolic And Diastolic Provider Name and Address Organization Details Last Updated DateTime 5 168.91 cm 25.2 kg/m2 29242.7 5 g 73 /min 99 % 99 % 138/74 mm[Hg] Silke Alfaro MA [facility] 5 12:01:28 Date Recorded Body height Body mass index (BMI) Body weight Heart rate Oxygen saturation Oxygen saturation in Arterial blood by Pulse oximetry Systolic And Diastolic Provider Name and Address Organization Details Last Updated DateTime 5 168.91 cm 24.8 kg/m2 02297.4 1 g 84 /min 98 % 98 % 120/64 mm[Hg] Silke Alfaro MA [facility] 5 16:37:53 Date Recorded Body height Body mass index (BMI) Body weight Heart rate Oxygen saturation Oxygen saturation in Arterial blood by Pulse oximetry Systolic And Diastolic Provider Name and Address Organization Details Last Updated DateTime 4 168.91 cm 25.7 kg/m2 81628.6 g 85 /min 98 % 98 % 122/68 mm[Hg] Silke Alfaro MA [facility] 4 12:08:00 Social History Question Answer Notes LastModified by Organizat ion Details LastModified Time Tobacco Smoking Status Former Smoker quit 1987 [address]a MA [facility] 02/13/2024 11:11:05 Do You Have An Advance Directive? No Information not available 03/20/2024 Are You Blind Or Do You Have Difficulty Seeing? Yes Glasses Information not available 03/20/2024 What Is Your Level Of Caffeine Consumption? Moderate Information not available 03/20/2024 In The 14 Days Before Symptom Onset, Have You Had Close Contact With A Laboratory-radhames daron COVID-19 While That Case Was Ill? No [...] Date Of Your Most Recent Tobacco Screening? 02/10/2025 Information not available 02/10/2025 What Is Your Current Pack Years? 20-29packye [...] No Information not available 02/13/2024 Do You Use Sunscreen Routinely? No Information not available 03/20/2024 Has Tobacco Cessation Counseling Been Provided? No Information not available 02/13/2024 How Many Years Have You Smoked Tobacco? 30 Information not available 02/13/2024 Sex: Male Functional Status Question Answer Note LastModified by Organizat ion Details LastModified Time Do you or have you ever used any other forms of tobacco or nicotine? No Information not available 02/13/2024 What is your level of alcohol consumption? Moderate quit 1987 Information not available 02/13/2024 Are you currently employed? No Information not available 03/20/2024 Are you able to care for yourself? Yes Information not available 03/20/2024 What is your exercise level? None Information not available 03/20/2024 Mental Status Question Answer Note LastModified by Organization D etails LastModified Time Do you feel stressed (tense, restless, nervous, or anxious, or unable to sleep at night)? [id number] Information not available 03/20/2024 Family History Nothing Reported. Medical History Condition Response High Blood Pressure Y Diabetes Y Immunizations Vaccine Type Date Status Note Provider Nam e and Address Organization Details Recorded Time Influenza, high-dose, quadrivalent, PF 0 completed Selam [place], [place] [facility] 02/12/2024 16:01:21 Influenza, high-dose, quadrivalent, PF 2 completed [place] [facility] 02/12/2024 16:01:21 Influenza, high-dose, quadrivalent, PF 3 completed [place]l [place] [facility] 02/12/2024 16:01:21 Influenza, high-dose, quadrivalent, PF 1 [place] [facility] 02/12/2024 16:01:21 COVID-19, mRNA, LNP-S, PF, 100 mcg/0.5mL dose or 50 mcg/0.25mL dose 1 completed [place] [facility] 02/12/2024 16:01:21 COVID-19, mRNA, LNP-S, PF, 100 mcg/0.5mL dose or 50 mcg/0.25mL dose 1 completed [place] [facility] 02/12/2024 16:01:21 COVID-19, mRNA, LNP-S, PF, 100 mcg/0.5mL dose or 50 mcg/0.25mL dose 1 completed [place] [facility] 02/12/2024 16:01:21 RSV, recombinant, protein subunit RSVpreF, adjuvant reconstituted, 0.5 mL, PF 3 completed [place] [facility] 02/12/2024 16:01:21 COVID-19, mRNA, LNP-S, PF, 50 mcg/0.5 mL 3 completed [place] [facility] 02/12/2024 16:01:21 pneumococcal polysaccharide PPV23 0 completed [place] [facility] 02/12/2024 16:01:21 influenza, unspecified formulation 8 completed [place] [facility] 02/12/2024 16:01:21 Pneumococcal conjugate PCV 13 9 completed [place] [facility] 02/12/2024 16:01:21 Pneumococcal conjugate PCV 13 5 completed [place] [facility] 02/12/2024 16:01:21 Influenza, high-dose, trivalent, PF 8 completed [place] [facility] 02/12/2024 16:01:21 Influenza, high-dose, trivalent, PF 6 completed [place] [facility] 02/12/2024 16:01:21 Influenza, high-dose, trivalent, PF 6 completed [place] [facility] 02/12/2024 16:01:21 Influenza, high-dose, trivalent, PF 7 completed [place] [facility] 02/12/2024 16:01:21 Influenza, high-dose, trivalent, PF 9 completed [place] [facility] 02/12/2024 16:01:21 Influenza, split virus, trivalent, preservative 3 completed [place] [facility] 02/12/2024 16:01:21 Influenza, split virus, trivalent, preservative 4 completed [place] [facility] 02/12/2024 16:01:21 Influenza, split virus, quadrivalent, PF 5 completed [place] [facility] 02/12/2024 16:01:21 Tdap 5 completed Jennyfer Hou MD Attn: Accounting,[address] [facility], [place], [address], [facility] 09/21/2024 22:33:56 Past Encounters Encounter ID Performer Location Encounter Start Date Encounter Closed Date Diagnosis/Indication Diagnosis SNOMED-CT Code Diagnosis ICD10 Code Diagnosis Note [id number] Jennyfer Hou MD [facility] - [facility] [address] [place] [address] 11/13/2023 12:07:50 11/13/2023 13:13:56 Type 2 diabetes mellitus 11343313 E11.9 Low back pain 971670906 M54.50 Abdominal pain 52590943 R10.9 Essential hypertension 27190623 I10 Benign pro static hyperplasia with outflow obstruction 835643691 N40.1 Chronic rhinitis 4489457 6 J31.0 Gastroesop hageal reflux disease without esophagitis 655905542 K21.9 Chronic ki dney disease stage 3B 692535032 N18.32 [id number] Jennyfer Hou MD [facility] (Adult Med) [address] [place] [phone] 02/13/2024 10:56:02 02/13/2024 12:02:02 Overweight 768992732 E66.3 Essential hypertension 17717821 I10 Gastroesop hageal reflux disease without esophagitis 734497909 K21.9 Low back pain 526576202 M54.50 Type 2 chato betes mellitus 63530397 E11.9 Chronic ki dney disease stage 3B 903097497 N18.32 Renal mass 093124220 N28 .89 [id number] Jennyfer Hou MD [facility] (Adult Med) [address] [place] [address] 03/20/2024 11:34:31 03/20/2024 12:18:53 Low back pain 975183357 M54.50 Essential hypertension 79490817 I10 Gastroesop hageal reflux disease without esophagitis 905487864 K21.9 Type 2 chato betes mellitus 10274200 E11.9 Chronic ki dney disease stage 3B 893184205 N18.32 [id number] Jennyfer Hou MD [facility] (Adult Med) [address] [place] [address] 06/19/2024 11:49:55 06/19/2024 12:44:14 Influenza B virus present 618338503 J10.1 Nasal disc harge present 264705259 R09.89 Type 2 chato betes mellitus 60120051 E11.9 Gastroesop hageal reflux disease without esophagitis 965224233 K21.9 Essential hypertension 41190361 I10 Chronic ki dney disease stage 3B 192208148 N18.32 [id number] [facility] [address] [place] [address] 09/18/2024 11:45:49 09/18/2024 13:09:59 Body mass index 25-29 - overweight 061608905 Z68.26 Overweight 246228208 E66 .3 Essential hypertension 48085698 I10 Type 2 chato betes mellitus 77941191 E11.9 Administra tion of diphtheria, pertussis, and tetanus vaccine 186470839 Z23 Tremor 93323348 R25.1 Chronic rhinitis 8947447 6 J31.0 [id number] MD Sera Buck (Adult Med) [address] [place] [address] 12/03/2024 09:13:54 12/03/2024 10:44:44 Body mass index 25-29 - overweight 439177102 Z68.26 Overweight 495912698 E66 .3 Edema of l ower extremity 546228613 R60.0 Type 2 chato betes mellitus 53697897 E11.9 [id number] MD Sera Buck (Adult Med) [address] [place] [address] 12/18/2024 11:49:12 12/18/2024 13:24:34 Overweight in adulthood with body mass index of 25 or more but less than 30 147487054 E66.3 Z68.25 Overweight 476339379 E66 .3 Low back pain 941818360 M54.50 [id number] Jennyfer Hou MD [facility] - [place] [address] [place] [address] 02/10/2025 16:12:48 02/10/2025 17:29:16 Normal weight 43482655 Z68.24 Cellulitis of foot 12009 6007 L03.119 Health Concerns Section Related Observation LastModified by Organization Detai ls LastModified Time None Recorded Concern Status LastModified by Organization Details LastModified Time None Recorded Advance Directives Directive N: Payers Insurance Date Sequence Insurance Name Policy Number Policy Soria Covered Member ID Soria Member ID Guarantor Name 02/10/2025 1 [facility] (MEDICARE REPLACEMENT/A DVANTAGE - HMO) [id number] Aliyah Kahn [id number] Aliyah Kahn Notes Date Note Type Note Provider Name and Address Organization Details Recorded Time 06/19/2024 text/html hypertension he has not had [...] though Jennyfer Hou MD Attn: Accounting, [address] [place], [address], [place] [facility] 06/23/2024 15:11:29 09/18/2024 text/html diabetes he is d ue for blood work sugars I suspect her high at home he is not checking him that much but no polyphagia polydipsia or hypoglycemia. 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 dyslipidemia he is taking his atorvastatin has a kidney lesion that follows at [facility] he does have some tremor of the right hand Jennyfer Hou MD Attn: Accounting, [address] [facility], [place], [address], [place] [facility] 09/21/2024 22:40:17 12/03/2024 text/html Acute appointmen t he has had a little bit of swelling in his legs without any chest pain PND orthopnea he has had no dyspnea on exertion also his sugars are up around 2 to 300+ Jennyfer Hou MD Attn: Accounting, [address] [place], [address], [place] [facility] 12/03/2024 22:40:02 12/18/2024 text/html ER follow up for back pain they gave him Lidoderm patch that is feeling a little bit better blood sugar 311 this morning Jennyfer Hou MD Attn: Accounting,[address] [place], [address], [facility] - [facility] 12/22/2024 15:41:28 02/10/2025 text/html Blister on his f oot found after fishing Jennyfer Hou MD Attn: Accounting,[address] [facility], [place], [address], [facility] - [facility] 02/10/2025 21:49:52
--- OUTSIDE RECORDS SUMMARY | 2025-03-07 08:41 | XMS_ITS | Data Portability ---
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 Assessment Encounter Date Assessment Date Assessment LastModified by Organization Details LastModified Time 02/17/2023 02/17/2023 Will continue with current therapy will follow-up in 4 months all questions answered [email or web address] Not available 02/18/2023 17:12:34 04/10/2023 04/10/2023 Will continue current therapy blood work has been ordered all questions have been answered he will follow-up in 4 months [email or web address] Not available 04/23/2023 21:23:44 08/07/2023 08/07/2023 Overall has been doing fine he has had his flu COVID and RSV immunizations will continue current therapy blood work has been ordered all questions have been answered will follow-up in 4 months. [email or web address] Not available 08/07/2023 22:27:15 Plan of Treatment Reminders Order Date Submit Date Provider Last Modified By Organization Details Last Modified Time Details Appointments Establish ed Patient 15 2024 01:45P Emma Hopkins DPM Not available Not available Not available Lab glycohemo globin, total, blood 2022 023 [facility] (Lab), [address] [place], [address], 08/07/2023 20:50:46 CBC w/ auto diff 2022 023 [facility] (Lab), [address] [place], [address], 08/07/2023 14:29:08 CMP, serum or plasma 2022 023 [facility] (Lab), [address] [place], [address], 08/07/2023 14:36:40 lipid panel, serum 2022 023 [facility] (Lab), [address] [place], [address], 08/07/2023 14:36:45 PSA, serum or plasma 2022 023 [facility] (Lab), [address] [place], [address], 05/12/2023 14:23:37 PTH (parathyr oid hormone), intact, serum or plasma [address] (Lab), [address] [place], [address], 04/10/2023 15:34:36 HbA1c (hemoglob in A1c), blood 2022 023 [facility] (Lab), [address] [place], [address], 05/12/2023 14:23:31 CMP, serum or plasma [address] (Lab), [address] [place], [address], 04/10/2023 15:34:36 lipid panel, serum [address] (Lab), [address] [place], [address], 04/10/2023 15:34:36 CBC w/ auto diff 2022 023 [email or web address] [facility] (Lab), [address] [place], [address], 04/10/2023 15:34:36 Referral None recorded. Procedures None recorded. Surgeries None recorded. Imaging None recorded. Medication Orders mometason e 0.1 % topical cream 2022 023 [facility], [address] [place], [address], 08/17/2023 14:27:49 Patient TargetsNo targets recorded. Patient InstructionsNo instructions recorded. Reason for Referral None Reported. Results Created Date Observation Date Name Description Value Unit Range Abnormal Flag Note LastModifiedBy Organization Detail LastModifiedTime 04/10/20 23 04/10/2023 CBC/C OMPLE TE BLD COUNT W/DIF F white blood cells 4.7 x10'3 /uL 4.2-10 .8 Not Available [facility] (Lab) [address] [place], [address], 04/10/2023 13:43:41 04/10/20 23 04/10/2023 CBC/C OMPLE TE BLD COUNT W/DIF F red blood cells 4.31 x10'6 /uL 4.10-5 .80 Not Available [facility] (Lab) [address] [place], [address], 04/10/2023 13:43:41 04/10/20 23 04/10/2023 CBC/C OMPLE TE BLD COUNT W/DIF F hemoglobin 12.2 g/dL 13.2-1 7.0 low Not Available [facility] (Lab) [address] [place], [address], 04/10/2023 13:43:41 04/10/20 23 04/10/2023 CBC/C OMPLE TE BLD COUNT W/DIF F hematocrit 35.1 % 39.3-5 0.0 low Not Available [facility] (Lab) [address] [place], [address], 04/10/2023 13:43:41 04/10/20 23 04/10/2023 CBC/C OMPLE TE BLD COUNT W/DIF F mean red cell volume 81.4 fL 80.0-9 7.0 Not Available [facility] (Lab) [address] [place], [address], 04/10/2023 13:43:41 04/10/20 23 04/10/2023 CBC/C OMPLE TE BLD COUNT W/DIF F mean red cell hemoglobin 28.3 pg 27.0-3 3.0 Not Available [facility] (Lab) [address] [place], [address], 04/10/2023 13:43:41 04/10/20 23 04/10/2023 CBC/C OMPLE TE BLD COUNT W/DIF F mean RBC HGB concentratio n 34.8 g/dL 31.0-3 6.0 Not Available [facility] (Lab) [address] [place], [address], 04/10/2023 13:43:41 04/10/20 23 04/10/2023 CBC/C OMPLE TE BLD COUNT W/DIF F red cell distribution width 14.6 % 11.8-1 5.5 Not Available [facility] (Lab) [address] [place], [address], 04/10/2023 13:43:41 04/10/20 23 04/10/2023 CBC/C OMPLE TE BLD COUNT W/DIF F platelets 174 x10'3 /uL 150-40 0 Not Available [facility] (Lab) [address] [place], [address], 04/10/2023 13:43:41 04/10/20 23 04/10/2023 CBC/C OMPLE TE BLD COUNT W/DIF F mean platelet volume 12.7 fL 9.0-12 .4 high Not Available [facility] (Lab) [address] [place], [address], 04/10/2023 13:43:41 04/10/20 23 04/10/2023 CBC/C OMPLE TE BLD COUNT W/DIF F neutrophils 47.1 % 39.0-7 2.0 Not Available [facility] (Lab) [address] [place], [address], 04/10/2023 13:43:41 04/10/20 23 04/10/2023 CBC/C OMPLE TE BLD COUNT W/DIF F lymphocytes 33.0 % 16.0-4 7.0 Not Available [facility] (Lab) [address] [place], [address], 04/10/2023 13:43:41 04/10/20 23 04/10/2023 CBC/C OMPLE TE BLD COUNT W/DIF F monocytes 15.4 % 5.0-12 .0 high Not Available [facility] (Lab) [address] [place], [address], 04/10/2023 13:43:41 04/10/20 23 04/10/2023 CBC/C OMPLE TE BLD COUNT W/DIF F eosinophils 3.0 % 1.0-7. 0 Not Available [facility] (Lab) [address] [place], [address], 04/10/2023 13:43:41 04/10/20 23 04/10/2023 CBC/C OMPLE TE BLD COUNT W/DIF F basophils 1.1 % 0.0-2. 0 Not Available [facility] (Lab) [address] [place], [address], 04/10/2023 13:43:41 04/10/20 23 04/10/2023 CBC/C OMPLE TE BLD COUNT W/DIF F immature granulocytes 0.4 % 0.00-0 .50 Not Available [facility] (Lab) [address] [place], [address], 04/10/2023 13:43:41 04/10/20 23 04/10/2023 CBC/C OMPLE TE BLD COUNT W/DIF F neutrophils, absolute count 2.20 x10'3 /uL 1.5-8. 0 Not Available [facility] (Lab) [address] [place], [address], 04/10/2023 13:43:41 04/10/20 23 04/10/2023 CBC/C OMPLE TE BLD COUNT W/DIF F lymphocytes, absolute count 1.54 x10'3 /uL 1.07-3 .43 Not Available [facility] (Lab) [address] [place], [address], 04/10/2023 13:43:41 04/10/20 23 04/10/2023 CBC/C OMPLE TE BLD COUNT W/DIF F monocytes, absolute count 0.72 x10'3 /uL 0.29-0 .99 Not Available [facility] (Lab) [address] [place], [address], 04/10/2023 13:43:41 04/10/20 23 04/10/2023 CBC/C OMPLE TE BLD COUNT W/DIF F eosinophils, absolute count 0.14 x10'3 /uL 0.02-0 .53 Not Available [facility] (Lab) [address] [place], [address], 04/10/2023 13:43:41 04/10/20 23 04/10/2023 CBC/C OMPLE TE BLD COUNT W/DIF F basophils, absolute count 0.05 x10'3 /uL 0.01-0 .08 Not Available [facility] (Lab) [address] [place], [address], 04/10/2023 13:43:41 04/10/20 23 04/10/2023 CBC/C OMPLE TE BLD COUNT W/DIF F immature granulocytes ,absolute 0.02 x10'3 /uL 0.00-0 .05 Not Available [facility] (Lab) [address] [place], [address], 04/10/2023 13:43:41 04/10/20 23 04/10/2023 CBC/C OMPLE TE BLD COUNT W/DIF F nucleated red blood cells 0.0 % -0 Not Available [facility] (Lab) [address] [place], [address], 04/10/2023 13:43:41 04/10/20 23 04/10/2023 CBC/C OMPLE TE BLD COUNT W/DIF F NRBC# 0.00 x10'3 /uL Not Available [facility] (Lab) [address] [place], [address], 04/10/2023 13:43:41 04/10/20 23 04/10/2023 PARAT HY.HO RM(PT H)INT ACT-W /O CA intact parathyroid hormone 168.6 pg/mL 24.0-7 8.0 high Pleas e note new refer ence range effec tive 09/16 . Not Available [facility] (Lab) [address] [place], [address], 04/10/2023 14:35:59 04/10/20 23 04/10/2023 COMPR EHENS MAYNOR METAB OLIC PANEL sodium 133 mmol/ L 137-14 5 low Not Available [facility] (Lab) [address] [place], [address], 04/10/2023 14:42:43 04/10/20 23 04/10/2023 COMPR EHENS MAYNOR METAB OLIC PANEL potassium 5.2 mmol/ L 3.5-5. 1 high Not Available [facility] (Lab) [address] [place], [address], 04/10/2023 14:42:43 04/10/20 23 04/10/2023 COMPR EHENS MAYNOR METAB OLIC PANEL chloride 100 mmol/ L 98-107 Not Available [facility] (Lab) [address] [place], [address], 04/10/2023 14:42:43 04/10/20 23 04/10/2023 COMPR EHENS MAYNOR METAB OLIC PANEL carbon dioxide 24 mmol/ L 22-30 Not Available [facility] (Lab) [address] [place], [address], 04/10/2023 14:42:43 04/10/20 23 04/10/2023 COMPR EHENS MAYNOR METAB OLIC PANEL anion gap 14.2 mmol/ L 14-22 Not Available [facility] (Lab) [address] [place], [address], 04/10/2023 14:42:43 04/10/20 23 04/10/2023 COMPR EHENS MAYNOR METAB OLIC PANEL glucose 347 mg/dL 70-99 high Not Available [facility] (Lab) [address] [place], [address], 04/10/2023 14:42:43 04/10/20 23 04/10/2023 COMPR EHENS MAYNOR METAB OLIC PANEL BUN 47 mg/dL 8-19 high Not Available [facility] (Lab) [address] [place], [address], 04/10/2023 14:42:43 04/10/20 23 04/10/2023 COMPR EHENS MAYNOR METAB OLIC PANEL creatinine 2.61 mg/dL 0.66-1 .25 high Not Available [facility] (Lab) [address] [place], [address], 04/10/2023 14:42:43 0804/10/2023 COMPR EHENS MAYNOR METAB OLIC PANEL GFR 28 Refer ence Range : [place] ge GFR Healt hy Adult : >60 [...] calcu lator is avail able on the [facility] websi te: https :[email or web address] persaud.josie clancy/rey vo s/kdo qi/gf r_cal culat or Not Available [facility] (Lab) [address] [place], [address], 04/10/2023 14:42:43 04/10/2004/10/2023 COMPR EHENS MAYNOR METAB OLIC PANEL alkaline phosphatase 126 U/L 38-126 Not Available [facility] (Lab) [address] [place], [address], 04/10/2023 14:42:43 04/10/20 23 04/10/2023 COMPR EHENS MAYNOR METAB OLIC PANEL alanine aminotransfe rase 23 U/L 0-50 Not Available [facility] (Lab) [address] [place], [address], 04/10/2023 14:42:43 04/10/20 23 04/10/2023 COMPR EHENS MAYNOR METAB OLIC PANEL aspartate aminotransfe rase 30 U/L 15-46 Not Available [facility] (Lab) [address] [place], [address], 04/10/2023 14:42:43 04/10/20 23 04/10/2023 COMPR EHENS MAYNOR METAB OLIC PANEL bilirubin, total 0.30 mg/dL 0.20-1 .30 Not Available [facility] (Lab) [address] [place], [address], 04/10/2023 14:42:43 04/10/20 23 04/10/2023 COMPR EHENS MAYNOR METAB OLIC PANEL calcium 8.6 mg/dL 8.4-10 .2 Not Available [facility] (Lab) [address] [place], [address], 04/10/2023 14:42:43 04/10/20 23 04/10/2023 COMPR EHENS MAYNOR METAB OLIC PANEL total protein 7.3 g/dL 6.3-8. 2 Not Available [facility] (Lab) [address] [place], [address], 04/10/2023 14:42:43 04/10/20 23 04/10/2023 COMPR EHENS MAYNOR METAB OLIC PANEL albumin 4.0 g/dL 3.0-4. 4 Not Available [facility] (Lab) [address] [place], [address], 04/10/2023 14:42:43 04/10/20 23 04/10/2023 COMPR EHENS MAYNOR METAB OLIC PANEL globulin 3.3 g/dL 2.6-4. 2 Not Available [facility] (Lab) [address] [place], [address], 04/10/2023 14:42:43 04/10/20 23 04/10/2023 COMPR EHENS MAYNOR METAB OLIC PANEL A/G ratio 1.2 ratio 1.0-2. 0 Not Available [facility] (Lab) [address] [place] [address], [address], 04/10/2023 14:42:43 04/10/20 23 04/10/2023 LIPID PANEL cholesterol 119 mg/dL 140-19 9 low NIH FRANCI NSUS RECOM MENDA TION FOR PERRY STERO L: ADULT CHILD LOW RISK: <200 <170 BORDE RLINE : <200- 239 ----- HIGH RISK: >240 >200 Not Available [facility] (Lab) [address] [place] [address], [address], 04/10/2023 14:42:51 04/10/20 23 04/10/2023 LIPID PANEL triglyceride s 77 mg/dL 0-150 NIH FRANCI NSUS REPOR T RECOM MENDA TION FOR TRIGL YCERI ROCCO: ADULT CHILD LOW RISK: <150 ----- BODER LINE: 150-1 99 ----- HIGH RISK: >200 ----- Not Available [facility] (Lab) [address] [place] [address], [address], 04/10/2023 14:42:51 04/10/20 23 04/10/2023 LIPID PANEL HDL cholesterol 51 mg/dL 40- Not Available [facility] (Lab) [address] [place] [address], [address], 04/10/2023 14:42:51 04/10/20 23 04/10/2023 LIPID PANEL [...] WILL NOT BE REPOR EJ. Not Available [facility] (Lab) [address] [place], [address], 04/10/2023 14:42:51 04/10/2004/10/2023 HEMOG LOBIN A1C HA1C 8.0 % 4.0-6. 0 high Diabe darrin Scree darek Crite eyal: <5.7% Consi stent with absen ce of diabe darrin 5.7-6 .4% Consi stent with incre ased risk for diabe darrin (pred iabet es) >OR=6 .5% Consi stent with diabe darrin REFER ENCE: Diabe darrin Care 2016, 39(Chavez ppl.1 ):s13 -s22 Not Available [facility] (Lab) [address] [place], [address], 04/10/2023 14:51:17 04/10/20 23 04/10/2023 PSA SCREE N PSA medicare screen 3.04 NG/mL 0.00-4 .00 Not Available [facility] (Lab) [address] [place], [address], 04/10/2023 15:25:14 08/07/20 23 08/07/2023 CBC/C OMPLE TE BLD COUNT W/DIF F white blood cells 4.0 x10'3 /uL 4.2-10 .8 low Not Available [facility] (Lab) [address] [place], [address], 08/07/2023 14:29:07 08/07/20 23 08/07/2023 CBC/C OMPLE TE BLD COUNT W/DIF F red blood cells 4.33 x10'6 /uL 4.10-5 .80 Not Available [facility] (Lab) [address] [place], [address], 08/07/2023 14:29:07 08/07/20 23 08/07/2023 CBC/C OMPLE TE BLD COUNT W/DIF F hemoglobin 12.2 g/dL 13.2-1 7.0 low Not Available [facility] (Lab) [address] [place], [address], 08/07/2023 14:29:07 08/07/20 23 08/07/2023 CBC/C OMPLE TE BLD COUNT W/DIF F hematocrit 35.8 % 39.3-5 0.0 low Not Available [facility] (Lab) [address] [place], [address], 08/07/2023 14:29:07 08/07/20 23 08/07/2023 CBC/C OMPLE TE BLD COUNT W/DIF F mean red cell volume 82.7 fL 80.0-9 7.0 Not Available [facility] (Lab) [address] [place], [address], 08/07/2023 14:29:07 08/07/20 23 08/07/2023 CBC/C OMPLE TE BLD COUNT W/DIF F mean red cell hemoglobin 28.2 pg 27.0-3 3.0 Not Available [facility] (Lab) [address] [place], [address], 08/07/2023 14:29:07 08/07/20 23 08/07/2023 CBC/C OMPLE TE BLD COUNT W/DIF F mean RBC HGB concentratio n 34.1 g/dL 31.0-3 6.0 Not Available [facility] (Lab) [address] [place], [address], 08/07/2023 14:29:07 08/07/20 23 08/07/2023 CBC/C OMPLE TE BLD COUNT W/DIF F red cell distribution width 13.7 % 11.8-1 5.5 Not Available [facility] (Lab) [address] [place], [address], 08/07/2023 14:29:07 08/07/20 23 08/07/2023 CBC/C OMPLE TE BLD COUNT W/DIF F platelets 176 x10'3 /uL 150-40 0 Not Available [facility] (Lab) [address] [place], [address], 08/07/2023 14:29:07 08/07/20 23 08/07/2023 CBC/C OMPLE TE BLD COUNT W/DIF F mean platelet volume 13.3 fL 9.0-12 .4 high Not Available [facility] (Lab) [address] [place], [address], 08/07/2023 14:29:07 08/07/20 23 08/07/2023 CBC/C OMPLE TE BLD COUNT W/DIF F neutrophils 48.0 % 39.0-7 2.0 Not Available [facility] (Lab) [address] [place], [address], 08/07/2023 14:29:07 08/07/20 23 08/07/2023 CBC/C OMPLE TE BLD COUNT W/DIF F lymphocytes 29.6 % 16.0-4 7.0 Not Available [facility] (Lab) [address] [place], [address], 08/07/2023 14:29:07 08/07/20 23 08/07/2023 CBC/C OMPLE TE BLD COUNT W/DIF F monocytes 17.0 % 5.0-12 .0 high Not Available [facility] (Lab) [address] [place], [address], 08/07/2023 14:29:07 08/07/20 23 08/07/2023 CBC/C OMPLE TE BLD COUNT W/DIF F eosinophils 3.8 % 1.0-7. 0 Not Available [facility] (Lab) [address] [place], [address], 08/07/2023 14:29:07 08/07/20 23 08/07/2023 CBC/C OMPLE TE BLD COUNT W/DIF F basophils 1.3 % 0.0-2. 0 Not Available [facility] (Lab) [address] [place], [address], 08/07/2023 14:29:07 08/07/20 23 08/07/2023 CBC/C OMPLE TE BLD COUNT W/DIF F immature granulocytes 0.3 % 0.00-0 .50 Not Available [facility] (Lab) [address] [place], [address], 08/07/2023 14:29:07 08/07/20 23 08/07/2023 CBC/C OMPLE TE BLD COUNT W/DIF F neutrophils, absolute count 1.92 x10'3 /uL 1.5-8. 0 Not Available [facility] (Lab) [address] [place], [address], 08/07/2023 14:29:07 08/07/20 23 08/07/2023 CBC/C OMPLE TE BLD COUNT W/DIF F lymphocytes, absolute count 1.18 x10'3 /uL 1.07-3 .43 Not Available [facility] (Lab) [address] [place], [address], 08/07/2023 14:29:07 08/07/20 23 08/07/2023 CBC/C OMPLE TE BLD COUNT W/DIF F monocytes, absolute count 0.68 x10'3 /uL 0.29-0 .99 Not Available [facility] (Lab) [address] [place], [address], 08/07/2023 14:29:07 08/07/20 23 08/07/2023 CBC/C OMPLE TE BLD COUNT W/DIF F eosinophils, absolute count 0.15 x10'3 /uL 0.02-0 .53 Not Available [facility] (Lab) [address] [place], [address], 08/07/2023 14:29:07 08/07/20 23 08/07/2023 CBC/C OMPLE TE BLD COUNT W/DIF F basophils, absolute count 0.05 x10'3 /uL 0.01-0 .08 Not Available [facility] (Lab) [address] [place], [address], 08/07/2023 14:29:07 08/07/20 23 08/07/2023 CBC/C OMPLE TE BLD COUNT W/DIF F immature granulocytes ,absolute 0.01 x10'3 /uL 0.00-0 .05 Not Available [facility] (Lab) [address] [place], [address], 08/07/2023 14:29:07 08/07/20 23 08/07/2023 CBC/C OMPLE TE BLD COUNT W/DIF F nucleated red blood cells 0.0 % -0 Not Available [facility] (Lab) [address] [place], [address], 08/07/2023 14:29:07 08/07/20 23 08/07/2023 CBC/C OMPLE TE BLD COUNT W/DIF F NRBC# 0.00 x10'3 /uL Not Available [facility] (Lab) [address] [place], [address], 08/07/2023 14:29:07 08/07/20 23 08/07/2023 COMPR EHENS MAYNOR METAB OLIC PANEL sodium 138 mmol/ L 137-14 5 Not Available [facility] (Lab) [address] [place], [address], 08/07/2023 14:36:40 08/07/20 23 08/07/2023 COMPR EHENS MAYNOR METAB OLIC PANEL potassium 4.0 mmol/ L 3.5-5. 1 Not Available [facility] (Lab) [address] [place], [address], 08/07/2023 14:36:40 08/07/20 23 08/07/2023 COMPR EHENS MAYNOR METAB OLIC PANEL chloride 105 mmol/ L 98-107 Not Available [facility] (Lab) [address] [place], [address], 08/07/2023 14:36:40 08/07/20 23 08/07/2023 COMPR EHENS MAYNOR METAB OLIC PANEL carbon dioxide 25 mmol/ L 22-30 Not Available [facility] (Lab) [address] [place], [address], 08/07/2023 14:36:40 08/07/20 23 08/07/2023 COMPR EHENS MAYNOR METAB OLIC PANEL anion gap 12.0 mmol/ L 14-22 low Not Available [facility] (Lab) [address] [place], [address], 08/07/2023 14:36:40 08/07/20 23 08/07/2023 COMPR EHENS MAYNOR METAB OLIC PANEL glucose 134 mg/dL 70-99 high Not Available [facility] (Lab) [address] [place], [address], 08/07/2023 14:36:40 08/07/20 23 08/07/2023 COMPR EHENS MAYNOR METAB OLIC PANEL BUN 48 mg/dL 8-19 high Not Available [facility] (Lab) [address] [place], [address], 08/07/2023 14:36:40 08/07/20 23 08/07/2023 COMPR EHENS MAYNOR METAB OLIC PANEL creatinine 2.70 mg/dL 0.66-1 .25 high Not Available [facility] (Lab) [address] [place], [address], 08/07/2023 14:36:40 08/07/20 23 08/07/2023 COMPR EHENS MAYNOR METAB OLIC PANEL GFR 27 Refer ence Range : [place] ge GFR Healt hy Adult : >60 [...] calcu lator is avail able on the [facility] websi te: https :[email or web address] [email or web address] [email or web address] [email or web address]/pr ofess ional s/kdo qi/gf r_cal culat or Not Available [facility] (Lab) [address] [place], [address], 08/07/2023 14:36:40 08/07/20 23 08/07/2023 COMPR EHENS MAYNOR METAB OLIC PANEL alkaline phosphatase 97 U/L 38-126 Not Available [facility] (Lab) [address] [place], [address], 08/07/2023 14:36:40 08/07/20 23 08/07/2023 COMPR EHENS MAYNOR METAB OLIC PANEL alanine aminotransfe rase 20 U/L 0-50 Not Available [facility] (Lab) [address] [place], [address], 08/07/2023 14:36:40 08/07/20 23 08/07/2023 COMPR EHENS MAYNOR METAB OLIC PANEL aspartate aminotransfe rase 27 U/L 15-46 Not Available [facility] (Lab) [address] [place], [address], 08/07/2023 14:36:40 08/07/20 23 08/07/2023 COMPR EHENS MAYNOR METAB OLIC PANEL bilirubin, total 0.50 mg/dL 0.20-1 .30 Not Available [facility] (Lab) [address] [place], [address], 08/07/2023 14:36:40 08/07/20 23 08/07/2023 COMPR EHENS MAYNOR METAB OLIC PANEL calcium 9.0 mg/dL 8.4-10 .2 Not Available [facility] (Lab) [address] [place], [address], 08/07/2023 14:36:40 08/07/20 23 08/07/2023 COMPR EHENS MAYNOR METAB OLIC PANEL total protein 7.4 g/dL 6.3-8. 2 Not Available [facility] (Lab) [address] [place], [address], 08/07/2023 14:36:40 08/07/20 23 08/07/2023 COMPR EHENS MAYNOR METAB OLIC PANEL albumin 3.8 g/dL 3.0-4. 4 Not Available [facility] (Lab) [address] [place], [address], 08/07/2023 14:36:40 08/07/20 23 08/07/2023 COMPR EHENS MAYNOR METAB OLIC PANEL globulin 3.6 g/dL 2.6-4. 2 Not Available [facility] (Lab) [address] [place], [address], 08/07/2023 14:36:40 08/07/20 23 08/07/2023 COMPR EHENS MAYNOR METAB OLIC PANEL A/G ratio 1.1 ratio 1.0-2. 0 Not Available [facility] (Lab) [address] [place], [address], 08/07/2023 14:36:40 08/07/20 23 08/07/2023 LIPID PANEL cholesterol 121 mg/dL 140-19 9 low NIH FRANCI NSUS RECOM MENDA TION FOR PERRY STERO L: ADULT CHILD LOW RISK: <200 <170 BORDE RLINE : <200- 239 ----- HIGH RISK: >240 >200 Not Available [facility] (Lab) [address] [place], [address], 08/07/2023 14:36:45 08/07/20 23 08/07/2023 LIPID PANEL triglyceride s 92 mg/dL 0-150 NIH FRANCI NSUS REPOR T RECOM MENDA TION FOR TRIGL YCERI ROCCO: ADULT CHILD LOW RISK: <150 ----- BODER LINE: 150-1 99 ----- HIGH RISK: >200 ----- Not Available [facility] (Lab) [address] [place], [address], 08/07/2023 14:36:45 08/07/20 23 08/07/2023 LIPID PANEL HDL cholesterol 47 mg/dL 40- Not Available [facility] (Lab) [address] [place], [address], 08/07/2023 14:36:45 08/07/20 23 08/07/2023 LIPID PANEL [...] Not Available [facility] (Lab) [address] [place], [address], 08/07/2023 14:36:45 08/07/20 23 08/07/2023 HEMOG LOBIN A1C HA1C 9.8 % 4.0-6. 0 high Diabe darrin Roxi Moreno eyal: <5.7% Consi stent with absen ce of diabe darrin 5.7-6 .4% Consi stent with incre ased risk for diabe darrin (pred iabet es) >OR=6 .5% Consi stent with diabe darrin REFER ENCE: Diabe darrin Care 2016, 39(Chavez ppl.1 ):s13 -s22 Not Available [facility] ([facility]) [address] [place], [address], 08/07/2023 20:50:46 11/21/19 24 11/21/2023 CT, abdom en + pelvi s, w/o contr ast No observ ation record ed. [address] [facility], [place], [address], 11/23/2023 10:39:23 11/23/19 24 11/21/2023 CT, abdom en, w/o contr ast No observ ation record ed. [address] [facility], [place], [address], 11/25/2023 15:38:21 01/18/20 24 01/17/2024 MRI, abdom en + pelvi s, w/wo contr ast No observ ation record ed. [address] [facility] [address], [address], [place], [address], 03/05/2024 10:17:01 Result Notes None recorded. Problems Name Problem SNOMED Code Status Onset Date Resolution Date Notes Provider Name and Address Organization Details Recorded Time Benign essential hypertens ion 4488802 Active Not Available [facility] 4 11:52:07 Nausea and vomiting 83604283 Completed Not Available [facility] 3 00:46:39 Retention of urine 086655967 Active Not Available [facility] 4 11:52:08 Pure hyperchol esterolem ia 618050712 Active Not Available [facility] 4 11:52:08 Pain in toe 547174563 Completed Not Available [facility] 3 00:46:39 Chest pain 30171218 Completed Not Available [facility] 3 00:46:39 Hypoglyce hugo 091026294 Active Not Available [facility] 4 11:52:08 Pain in coccyx 24808731 Completed Not Available [facility] 3 00:46:40 Sinusitis 71674772 Completed Not Available [facility] 3 00:46:40 Chronic kidney disease stage 3 584502316 Active Not Available [facility] 4 11:52:08 Uncontrol led type 2 diabetes mellitus 915311629 Active Not Available [facility] 4 11:52:08 Herpes zoster 4740573 Completed Not Available [facility] 3 00:46:40 Upper respirato ry infection 78612398 Completed Not Available [facility] 3 00:46:41 Rhinitis 65304694 Completed Not Available [facility] 3 00:46:41 Hemorrhoi ds 47646037 Completed Not Available [facility] 3 00:46:41 Diabetes mellitus 35113076 Active Not Available [facility] 4 11:52:08 Low back pain 398140962 Active 2021 Not Available [facility] 4 11:52:08 Gastroeso phageal reflux disease without esophagit is 005834248 Active 2021 Not Available [facility] 4 11:52:08 Chronic kidney disease 346616045 Active 2021 Not Available [facility] 4 11:52:08 Cough 82898988 Active 2021 Not Available [facility] 4 11:52:08 Pain of hip region 37154015 Active 2021 Not Available [facility] 4 11:52:08 COVID-19 993616465 Active 2022 Not Available [facility] 4 11:52:08 Periphera l arterial occlusive disease 624404793 Active 2022 Not Available [facility] 4 11:52:08 Arthritis 8291472 Active 2022 Not Available [facility] 4 11:52:08 Disorder of eye 586686471 Active 2022 Not Available [facility] 4 11:52:08 Ingrowing toenail 433497031 Active 2022 Not Available [facility] 4 11:52:08 Chronic sinusitis 47772938 Active 2022 Not Available [facility] 4 11:52:08 Acute sinusitis 72806611 Active 2022 Not Available [facility] 4 11:52:07 Eczema of external auditory canal 66001084 Active 2022 Not Available [facility] 4 11:52:08 Impacted cerumen in left ear 09709916365 58725 Active 2022 Not Available [facility] 4 11:52:07 Periphera l arterial disease 473963968 Active 2024 Dimitrios Hopkins DPM [address], [place], [address] , [employer] 5 15:38:49 Notes:Some problems listed i n Document: #[id number] could not be added to this patient's chart. Please review this document and add these problems to the patient's chart manually as needed. Problem Notes None recorded. Procedures Surgical History Date Name Laterality Status Provider Name and Address Organization Details Recorded Time 01/04/20 23 Nail Debridement completed Dimitrios Hopkins DPM [address], [place], [address], [employer] 01/03/2023 12:20:45 12/09/19 23 Nail Debridement completed Dimitrios Hopkins DPM [address], [place], [address], [employer] 12/08/2022 10:15:31 12/09/19 17 Colon ca scrn not hi rsk ind completed Not Available [facility] 10/19/2022 00:42:26 excision of lipoma completed Not Available [facility] 10/19/2022 00:42:26 Imaging Results None recorded. Procedure Notes None recorded. Medical Equipment None Reported. Allergies Allergen ID Allergen Name Allergen Category Reaction Reaction Severity Criticality Documentation Date Start Date Code Code System Note Provider Name and Address Organization Details Recorded Time 334 morphine medicatio n nausea moderate Not available 10/19/2022 7052 RxNorm itchi ng and nause a Not Available [facility] 3 00:51:13 335 Bactrim medicatio n Not available Not available Not available 10/19/2022 18832 9 RxNorm Not Available [facility] 3 00:51:14 Medications Name Sig Start Date Stop Date Status Note LastModified by Organization Details LastModified Time amoxicillin 500 mg capsule 11/07 completed Not Available Not Available Not Available furosemide 40 mg tablet TAKE 1 TABLET BY MOUTH ONCE DAILY active Not Available Not Available No t Available primidone 50 mg tablet TAKE 1 TABLET BY MOUTH TWICE DAILY active Not Available Not Available No t Available atorvastati n 10 mg tablet TAKE [...] completed Not Available Not Available Not Available triamcinolo ne acetonide 0.1 % topical cream APPLY TO AFFECTED AREA ONCE TO TWICE DAILY FOR UP TO TWO WEEKS. TAKE A SMALL BREAK FOR 1-2 DAYS, AND REPEAT NECESSARY FOR FLARES. AVOID THE FACE, AXILLA AND GROIN active Not Available Not Available No t Available amoxicillin 500 mg tablet Take 1 [...] Not Available Not Available No t Available prednisolon e acetate 1 % eye drops,suspe nsion INSTILL 1 DROP INTO RIGHT EYE THREE TIMES DAILY FOR 1 WEEK THEN TWICE DAILY FOR 2 WEEKS active Not Available Not Available No t Available methocarbam ol 750 mg tablet TAKE 1 TABLET BY [...] Available Not Available cephalexin 500 mg capsule TAKE 1 CAPSULE BY MOUTH TWICE DAILY FOR 7 DAYS active Not Available Not Available No t Available oseltamivir 75 mg capsule TAKE 1 CAPSULE BY MOUTH ONCE DAILY FOR 5 DAYS active Not Available Not Available No t Available promethazin e 25 mg tablet TAKE [...] No t Available Nasonex 50 mcg/actuati on Cerulean active Not Available Not Available Not Available Anusol-HC 25 mg rectal suppository Insert 1 supposito ry twice a day by rectal route for 14 days. 07/23 completed Not Available Not Available Not Available methylpredn isolone 4 mg tablets in a dose pack Take 1 dose pk by oral route as directed. 11/06 completed Not Available Not Available Not Available clobetasol 0.05 % scalp solution APPLY SOLUTION TOPICALLY TWICE DAILY TO AFFECTED AREA OF SCALP FOR 2 WEEKS, REPEAT NEEDED FOR FLARES active Not Available Not Available No t Available cefdinir 300 mg capsule TAKE 1 CAPSULE BY MOUTH EVERY 12 HOURS 08/16 completed Not Available Not Available Not Available fluticasone propionate 50 mcg/actuati on nasal spray,suspe nsion Cerulean 1 spray every day by intranasa l route. 09/18 completed Not Available Not Available Not Available calcitriol 0.25 mcg capsule TAKE 1 CAPSULE BY [...] unit/mL (3 mL) subcutaneou s pen INJECT 40 UNITS SUBCUTANE OUSLY NIGHTLY active Not Available Not Available No t Available Bystolic 10 mg tablet Take 1 tablet every day by oral route. 02/19 completed Not Available Not Available Not Available Humalog KwikPen (U-100) Insulin 100 unit/mL subcutaneou s INJECT 8-16 UNITS SUBCUTANE OUSLY THREE TIMES DAILY BEFORE MEALS WITH SSI [...] cream perineal applicator APPLY A THIN LAYER TOPICALLY TO THE AFFECTED AREA(S) TWICE DAILY active Not Available Not Available No t Available FreeStyle Herbert 2 Sensor kit USE DIRECTED active Not Available Not Available No t Available FreeStyle Herbert 2 [place] USE DIRECTED FOR BLOOD GLUCOSE MONITORIN G [...] Not Available Vitals Date Recorded Body height Body mass index (BMI) Body weight Body temperature Heart rate Oxygen saturation Oxygen saturation in Arterial blood by Pulse oximetry Systolic And Diastolic Provider Name and Address Organization Details Last Updated DateTime 3 172.72 cm 24.4 kg/m2 87074.5 g 96.6 [degF] 80 /min 97 % 97 % 140/86 mm[Hg] Sonal Loza MA [facility] [employer] [facility] 3 13:26:52 Date Recorded Body height Body mass index (BMI) Body weight Heart rate Respiratory rate Oxygen saturation Oxygen saturation in Arterial blood by Pulse oximetry Systolic And Diastolic Provider Name and Address Organization Details Last Updated DateTime 5 172.72 cm 25.7 kg/m2 34875.1 1 g 91 /min 14 /min 98 % 98 % 187/82 mm[Hg] Kanika Curiel [facility] [employer] [facility] 5 15:15:35 Date Recorded Body height Body mass index (BMI) Body weight Body temperature Heart rate Oxygen saturation Oxygen saturation in Arterial blood by Pulse oximetry Systolic And Diastolic Provider Name and Address Organization Details Last Updated DateTime 3 172.72 cm 25.4 kg/m2 09778.9 3 g 97 [degF] 84 /min 98 % 98 % 130/68 mm[Hg] Bernie Funes MA [facility] [employer] [facility] 3 11:17:47 Date Recorded Body height Body mass index (BMI) Body weight Body temperature Heart rate Oxygen saturation Oxygen saturation in Arterial blood by Pulse oximetry Systolic And Diastolic Provider Name and Address Organization Details Last Updated DateTime 3 172.72 cm 25.2 kg/m2 00963.3 3 g 97.8 [degF] 84 /min 98 % 98 % 128/68 mm[Hg] Geena early CMA [facility] [employer] [facility] 3 12:03:20 Date Recorded Body height Body mass index (BMI) Body weight Body temperature Provider Name and Address Organization Details Last Updated DateTime 08/17/2023 172.72 cm 25.7 kg/m2 99966.11 g 98.1 [degF] Jocelyne Chaves RN [facility] [employer] [facility] 08/17/2023 14:01:38 Social History Question Answer Notes LastModified by Organization Details LastModified Time Tobacco Smoking Status Former Smoker quit in Not Available [facility] 10/19/2022 00:41:25 Do You Have An Advance Directive? No MIGRATION.0301 [id number] Information not available 10/19/2022 Are You Blind Or Do You Have Difficulty Seeing? Yes Wears Glasses MIGRATION.030 155320 Information not available 10/19/2022 What Is Your Level Of Caffeine Consumption? Occasional MIGRATION.0301 954781 Information not available 10/19/2022 How Much Tobacco Do You Chew? None MIGRATION.030 486997 Information not available 10/19/2022 In The 14 Days Before Symptom Onset, Have You Had Close Contact With A Laboratory-conf irmed COVID-19 While That Case Was Ill? No MIGRATION.030 650276 Information not available 10/19/2022 In The 14 Days Before Symptom Onset, Have You Had Close Contact With A Person Who Is Under Investigation For COVID-19 While That Person Was Ill? No MIGRATION.030 180583 Information not available 10/19/2022 Are You Deaf Or Do You Have Serious Difficulty Hearing? Yes Diminished MIGRATION.030 923508 Information not available 10/19/2022 What Type Of Diet Are You Following? REGULAR MIGRATION.030 689847 Information not available 10/19/2022 Which Illicit Or Recreational Drugs Have You Used? None Cannabis User In The 1970s MIGRATION.0301 773532 Information not available 10/19/2022 What Is The Highest Grade Or Level Of School You Have Completed Or The Highest Degree You Have Received? [id number] MIGRATION.030 205821 Information not available 10/19/2022 Have There Been Any Changes To Your Family Or Social Situation? No MIGRATION.030 183959 Information not available 10/19/2022 What Is The Fluoride Status Of Your Home? Unknown MIGRATION.030 346543 Information not available 10/19/2022 When Did You Quit Smoking? 14+yearssincelastc igarette MIGRATION.030 362395 Information not available 10/19/2022 Are There Any Guns Present In Your Home? Yes MIGRATION.030 976529 Information not available 10/19/2022 Do You Use Insect Repellent Routinely? No MIGRATION.0301 343397 Information not available 10/19/2022 Where Do You Live? SingleLevelHouse MIGRATION.0301 529427 Information not available 10/19/2022 Do You Have A Medical Power Of Sausage Cutter? No MIGRATION.0301 629299 Information not available 10/19/2022 What Was The Date Of Your Most Recent Tobacco Screening? 11/14/2022 [email or web address] Information not available 11/14/2022 Do You Have Any Pets? No MIGRATION.0301 435076 Information not available 10/19/2022 What Is Your Relationship Status? MIGRATION.0301 881001 Information not available 10/19/2022 Do You Use Your Seat Belt Or Car Seat Routinely? Yes MIGRATION.0301 117527 Information not available 10/19/2022 Do You Have Smoke And Carbon Monoxide Detectors In Your Home? Yes MIGRATION.0301 482183 Information not available 10/19/2022 Are You Passively Exposed To Smoke? No MIGRATION.0301 409673 Information not available 10/19/2022 Are There Any Smokers In Your House? No MIGRATION.0301 230529 Information not available 10/19/2022 How Much Tobacco Do You Smoke? No Was Less Than 1ppd MIGRATION.0301 559937 Information not available 10/19/2022 What Types Of Sporting Activities Do You Participate In? None MIGRATION.0301 827238 Information not available 10/19/2022 Do You Use Sunscreen Routinely? No MIGRATION.0301 777846 Information not available 10/19/2022 Has Tobacco Cessation Counseling Been Provided? No MIGRATION.0301 409135 Information not available 10/19/2022 Have You Recently Traveled Abroad? No MIGRATION.0301 984567 Information not available 10/19/2022 Do You Have Difficulty Walking Or Climbing Stairs? No MIGRATION.0301 282203 Information not available 10/19/2022 Do You Have Any Dietary Restrictions? No MIGRATION.0301 472714 Information not available 10/19/2022 Sex: Male Functional Status Question Answer Note LastModified by Organizat ion Details LastModified Time Do you use any illicit or recreational drugs? No MIGRATION.014787 2730 Information not available 10/19/2022 Do you or have you ever used any other forms of tobacco or nicotine? No MIGRATION.354893 6134 Information not available 10/19/2022 What is your level of alcohol consumption? None MIGRATION.875246 2394 Information not available 10/19/2022 Do you or have you ever used smokeless tobacco? Never used smokeless tobacco MIGRATION.670617 6038 Information not available 10/19/2022 Do you have transportation difficulties? No MIGRATION.842236 7393 Information not available 10/19/2022 Are you able to walk? YESWOREST MIGRATION.842449 0203 Information not available 10/19/2022 Do you have difficulty doing errands alone? No MIGRATION.364334 9749 Information not available 10/19/2022 Are you able to care for yourself? Yes MIGRATION.819127 5867 Information not available 10/19/2022 What is your occupation? retired MIGRATION.113134 4456 Information not available 10/19/2022 Do you have difficulty dressing or bathing? No MIGRATION.719757 0866 Information not available 10/19/2022 Do you or have you ever used e-cigarettes or vape? Never used electronic cigarettes MIGRATION.239139 6503 Information not available 10/19/2022 What is your exercise level? Occasional MIGRATION.469587 9024 Information not available 10/19/2022 Mental Status Question Answer Note LastModified by Organizat ion Details LastModified Time Do you feel stressed (tense, restless, nervous, or anxious, or unable to sleep at night)? [id number] MIGRATION.39107874 26 Information not available 10/19/2022 Do you have difficulty concentrating, remembering or making decisions? No MIGRATION.87153322 26 Information not available 10/19/2022 Family History Relationship Description Onset Age of this Age Resolved Age Notes LastModified by Organization Details LastModified Time Father General health good MIGRATION.556 [id number] Not available 10/19/2022 00:42:29 Mother General health good MIGRATION.195 [id number] Not available 10/19/2022 00:42:29 Unspecified Relation Family history of Hypertension MIGRATION.672 5903278 Not available 10/19/2022 00:42:29 Unspecified Relation Arthritis [...] EAR OR HEARING PROBLEMS Y MUMPS N DEPRESSION (INCLUDING POST ) N BOWEL PROBLEMS N STROKE/TIA N ULCERS N BENIGN PROSTATIC [...] HAVE YOU BEEN HOSPITALIZED OR SEEN IN [facility] IN THE PAST YEAR ? N BREAST PROBLEMS N DIALYSIS N ECZEMA N OSTEOPOROSIS N ARTHRITIS Y NO SIGNIFICANT PAST MEDICAL HISTORY N DIABETES, TYPE Y ENT N SEASONAL ALLERGIES N HEARTBURN / REFLUX N HEPATITIS / LIVER DISEASE N PULMONARY DISEASE N SLEEP DISORDER N ALZHEIMER'S DISEASE N FATIGUE N Brain Problems N HERPES N DEMENTIA N SEIZURES/EPILEPSY N HEADACHES/MIGRAINES N VASCULAR DISEASE N PACEMAKER N Blood Disorder N DIZZINESS N KIDNEY DISEASE Y HEART DISEASE/HEART PROBLEMS N MULTIPLE SCLEROSIS N CARDIAC ARRHYTHMIA N CANCER: SPECIFY N ANESTHESIA COMPLICATIONS N ATRIAL FIBRILLATION N PULMONARY EMBOLISM N AUTOIMMUNE DISEASE N Immunizations Vaccine Type Date Status Note Provider Nam e and Address Organization Details Recorded Time COVID-19, mRNA, LNP-S, PF, 100 mcg/0.5mL dose or 50 mcg/0.25mL dose 3 completed Not Available [facility] 09/25/2023 11:52:09 RSV, recombinant, protein subunit RSVpreF, adjuvant reconstituted, 0.5 mL, PF 3 completed Not Available [facility] 09/25/2023 11:52:09 Influenza, high-dose, quadrivalent, PF 3 completed Not Available [facility] 09/25/2023 11:52:08 Influenza, split virus, trivalent, preservative 3 completed Not Available [facility] 09/25/2023 11:52:09 COVID-19, mRNA, LNP-S, PF, 100 mcg/0.5mL dose or 50 mcg/0.25mL dose 1 completed Not Available [facility] 09/25/2023 11:52:09 COVID-19, mRNA, LNP-S, PF, 100 mcg/0.5mL dose or 50 mcg/0.25mL dose 1 completed Not Available [facility] 09/25/2023 11:52:09 Influenza, high-dose, quadrivalent, PF 0 completed Not Available [facility] 09/25/2023 11:52:08 pneumococcal polysaccharide PPV23 0 completed Not Available [facility] 09/25/2023 11:52:09 Pneumococcal conjugate PCV 13 9 completed Not Available [facility] 09/25/2023 11:52:09 influenza, unspecified formulation 8 completed Not Available [facility] 09/25/2023 11:52:09 Influenza, high-dose, quadrivalent, PF 2 completed Not Available [facility] 09/25/2023 11:52:08 COVID-19, mRNA, LNP-S, PF, 100 mcg/0.5mL dose or 50 mcg/0.25mL dose 1 completed Not Available [facility] 09/25/2023 11:52:09 Influenza, high-dose, quadrivalent, PF 1 completed Not Available [facility] 09/25/2023 11:52:08 Influenza, high-dose, trivalent, PF 6 completed Not Available [facility] 09/25/2023 11:52:09 Influenza, split virus, trivalent, preservative 5 completed Not Available [facility] 09/25/2023 11:52:09 Influenza, high-dose, trivalent, PF 9 completed Not Available [facility] 09/25/2023 11:52:09 Influenza, high-dose, trivalent, PF 6 completed Not Available [facility] 09/25/2023 11:52:09 Influenza, high-dose, trivalent, PF 7 completed Not Available [facility] 09/25/2023 11:52:09 Pneumococcal conjugate PCV 13 5 completed Not Available [facility] 09/25/2023 11:52:09 Influenza, split virus, trivalent, preservative 4 completed Not Available [facility] 09/25/2023 11:52:09 Influenza, split virus, quadrivalent, PF 5 completed Not Available [facility] 09/25/2023 11:52:09 Past Encounters Encounter ID Performer Location Encounter Start Date Encounter Closed Date Diagnosis/Indication Diagnosis SNOMED-CT Code Diagnosis ICD10 Code Diagnosis Note [id number] [facility] _ATHENA_M IGRATION_ DEFAULT_1 _1 , 10/23/2020 00:00:00 10/23/2020 10:15:13 [id number] Jennyfer Hou MD [facility] Internal Med [facility] [address] [facility] [address] [address] 01/15/2021 00:00:00 01/16/2021 10:56:58 [id number] Jennyfer Hou MD [facility] Internal Med [facility] [address] [facility] [address] [address] 02/19/2021 00:00:00 03/12/2021 21:35:56 [id number] Jennyfer Hou MD [facility] Internal Med [facility] [address] [facility] [address] [address] 05/17/2021 00:00:00 06/06/2021 15:56:26 [id number] Jennyfer Hou MD [facility] Internal Med [facility] [address] [facility] [address] [address] 09/20/2021 00:00:00 09/20/2021 21:21:00 [id number] Jennyfer Hou MD [facility] Internal Med [facility] [address] [facility] [address] [address] 09/27/2021 00:00:00 09/27/2021 21:40:44 [id number] Jennyfer Hou MD [facility] Internal Med [facility] [address] [facility] [address] [address] 10/11/2021 00:00:00 10/17/2021 17:34:54 [id number] Jennyfer Hou MD [facility] Internal Med [facility] [address] [place] [address]., [address] [address] 01/03/2022 00:00:00 01/03/2022 21:54:38 [id number] Jennyfer Hou MD [facility] Internal Med [facility] [address] [place] [address], [address] [address] 04/04/2022 00:00:00 04/05/2022 21:07:05 [id number] Jennyfer Hou MD [facility] Internal Med [facility] [address] [place] [address] 08/08/2022 00:00:00 08/08/2022 21:36:45 [id number] Jennyfer Hou MD [facility] Internal Med [facility] [address] [facility], [address] [address] 11/14/2022 11:49:09 11/14/2022 12:27:18 Benign essential hypertension 9693011 I10 Chronic ki dney disease stage 3 035601813 N18.30 Diabetes mellitus 156702 09 E11.21 Gastroesop hageal reflux disease without esophagitis 520167530 K21.9 [id number] Dimitrios Hopkins DPM [facility] [address] [address] 12/08/2022 09:54:28 12/08/2022 12:23:28 Diabetes mellitus 31202814 E11.21 Patient educated on neuropathy , diabetes, diabetic diet, and daily foot exams. Patient is to check feet daily for new wounds, blisters, redness to prevent infection and ulceration s to the feet. Patient will return to clinic in 3 months for diabetic foot workup. Peripheral arterial occlusive disease 701776807 I73.9 Noninvasiv e vascular testing orderedRet urn to office in 3-4 weeks to review [id number] Dimitrios Hopkins DPM [facility] [place] [address] [place] [address] [address] [place] [address] 01/03/2023 11:50:39 01/03/2023 12:27:55 Peripheral arterial occlusive disease 116691158 I73.9 Noninvasiv e vascular testing reviewed with the patientwil l continue to monitor Ingrowing toenail [id number] L60.0 right medial borderSlan t back procedure performedC ontinue wound care daily to prevent infectionF ollow-up in 1 week if not resolved [id number] Jennyfer Hou MD [facility] Internal Med [facility] [address] [facility], [facility] 15 [place] [address] 02/17/2023 12:38:24 02/17/2023 14:03:57 Chronic kidney disease stage 3 [id number] N18.30 Benign ess ential hypertension 2230990 I10 Diabetes mellitus 401757 09 E11.21 Gastroesop hageal reflux disease without esophagitis [id number] K21.9 [id number] Jennyfer Hou MD [facility] Internal Med [facility] [address] [facility], [facility] [address] [place] [address] 04/10/2023 11:06:39 04/10/2023 11:55:28 Benign essential hypertension 0014007 I10 Chronic ki dney disease [id number] N18.9 Diabetes mellitus 014642 09 E11.21 Screening for malignant neoplasm of prostate [id number] Z12.5 [id number] Ian Parra MD [facility] ENT [place] [address] [place] [address] 08/17/2023 13:51:18 08/17/2023 14:37:34 Eczema of external auditory canal 57105058 H60.549 Impacted c erumen in left ear [id number] H61.22 [id number] Jennyfer Hou MD [facility] Internal Med [facility] [address] [facility], [facility] 15 [place] [address] 08/07/2023 11:20:31 08/07/2023 12:11:31 Benign essential hypertension 0678956 I10 Uncontroll ed type 2 diabetes mellitus 080422625 E11.65 Chronic ki dney disease stage 3 [id number] N18.30 Pure hypercholesterolemia [id number] E78.00 Health Concerns Section Related Observation LastModified by Organization Detai ls LastModified Time None Recorded Concern Status LastModified by Organization Details LastModified Time None Recorded Advance Directives Directive N: Payers Insurance Date Sequence Insurance Name Policy Number Policy Soria Covered Member ID Soria Member ID Guarantor Name 02/27/2025 1 [facility] (MEDICARE REPLACEMENT/A DVANTAGE - HMO) [id number] Aliyah Femi [id number] Azeemnereyda Kahn Notes Date Note Type Note Provider Name and Address Organization Details Recorded Time 3 text/html GERD been doing okayDiabetes no polyphagia no polydipsiaChronic kidney disease he has not had any nausea vomiting skin rashes or fatigueHypertension no headache no dizzinessChronic low back pain about the same Jennyfer Hou MD [address] [employer], [place], [address], [employer] 02/18/2023 17:12:52 3 text/html GERD been doing okayDiabetes no polyphagia no polydipsiaChronic kidney disease he has not had any nausea vomiting skin rashes or fatigueHypertension no headache no dizzinessChronic low back pain about the same Jennyfer Hou MD [address] [employer], [place], [address], [employer] 04/23/2023 21:24:01 3 text/html GERD been doing okayDiabetes no polyphagia no polydipsiaChronic kidney disease he has not had any nausea vomiting skin rashes or fatigueHypertension no headache no dizzinessChronic low back pain about the same Jennyfer Hou MD [address] [employer], [place], [address], [employer] 08/07/2023 22:28:04 3 text/html this gentleman reports itching of both ears. He was given mometasone almost 3 years ago but has run out Ian Parra MD [address] [employer], [place], [address], [employer] [facility] 08/17/2023 14:28:03
--- OUTSIDE RECORDS SUMMARY | 2025-03-07 08:41 | XMS_ITS | Clinical Summary ---
Author Organization [facility] [address] [place] [address] Care Team Providers Care Coremaker Experimental Name Role Phone James Hou MD Primary Care Provider Ozzie Guadarrama MD Unavailable Gretel Burr NP Unavailable Allergies Active Allergy Reactions Criticality Noted Date Comments Morphine Nausea only Medium 05/07/2019 Sulfa Unknown 01/04/2018 Sulfamethoxazole-Trimeth oprim Other (See comments) Low 03/04/2019 Sulfasalazine Unknown 01/21/2015 Turned penis black in color Medications cholecalcifero l (VITAMIN D3) 2,000 unit capsule take one [...] FOR INJECTIONS 4 TIMES DAILY 100 11 014 Active tamsulosin (FLOMAX) 0.4 mg capsule,extend ed release 24hr take 1 capsule by oral [...] 320mg 021 Active flash glucose scanning reader (HigherNextStyle Herbert 2 [place]) [facility] Use for BG monitoring 1 each 023 Active insulin aspart niacinamide (FIASP) 100 unit/mL (3 mL) pen for injectionIndic ations:Type 2 diabetes mellitus with hyperglycemia, with long-term current use of insulin (HCC) Inject 4-8 Units under the skin 3 (three) times a day before meals 3 mL 023 Active omeprazole (PriLOSEC) 20 mg capsule TAKE 1 CAPSULE BY MOUTH BEFORE BREAKFAST 023 Active calcitRIOL (ROCALTROL) 0.25 mcg capsule Take 1 capsule (0.25 mcg total) by mouth 3 (three) times a week 023 Active famotidine (PEPCID) 20 mg tablet Take 1 tablet (20 mg total) by mouth 2 (two) times a day Active LANTUS 100 unit/mL (3 mL) pen for injectionIndic ations:Type 2 diabetes mellitus with hyperglycemia, with long-term current use of insulin (HCC) Inject 40 Units under the skin nightly 45 mL 2 024 2024 Active Additional Information Patient taking differently: 25 Unitssubcutaneous2 times daily, Reported on 12/25/2024 clobetasoL (TEMOVATE) 0.05 % external solution APPLY SOLUTION TOPICALLY TWICE DAILY TO AFFECTED AREA OF SCALP FOR 2 WEEKS, REPEAT NEEDED FOR FLARES 025 Active Procto-Med HC 2.5 % rectal cream APPLY A THIN LAYER TOPICALLY TO THE AFFECTED AREA(S) TWICE DAILY 024 Active triamcinolone (KENALOG) 0.1 % cream APPLY TO AFFECTED AREA ONCE TO TWICE DAILY FOR UP TO TWO WEEKS. TAKE A SMALL BREAK FOR 1-2 DAYS, AND REPEAT NECESSARY FOR FLARES. AVOID THE FACE, AXILLA AND GROIN 025 Active HumaLOG 100 unit/mL pen for injectionIndic ations:Type 2 diabetes mellitus with hyperglycemia, with long-term current use of insulin (HCC) INJECT 8-16 UNITS SUBCUTANEOUSLY THREE TIMES DAILY BEFORE MEALS WITH SSI MAX DAILY DOSE 48 UNITS 15 mL 3 025 Active furosemide (LASIX) 40 mg tablet Take 1 tablet (40 mg total) by mouth daily 025 Active methocarbamoL (ROBAXIN) 750 mg tablet Take 1 tablet (750 mg total) by mouth 3 (three) times a day as needed for pain 025 Active primidone (MYSOLINE) 50 mg tablet Take 1 tablet (50 mg total) by mouth 2 (two) times a day 025 Active flash glucose sensor (FreeStyle Herbert 2 Sensor) kitIndications :Type 2 diabetes mellitus with hyperglycemia, with long-term current use of insulin (HCC) USE DIRECTED 2 kit 025 Active flash glucose sensor (FreeStyle Herbert 2 Sensor) kitIndications :Type 2 diabetes mellitus with hyperglycemia, with long-term current use of insulin (HCC) USE DIRECTED 1 kit 3 025 2024 Discontinued Active Problems Problem Noted Date Diagnosed Date CKD (chronic kidney disease) stage 4, GFR 15-29 ml/min 01/02/2023 Assessment & Plan (12/25/2024 1:53 PM CDT): Chronic problem. Managed by Dr Monae at [facility]; seen q3mos. 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 Valsartan 160mg daily. Last MA: 03/13/24 (186). Last creat/GFR: 03/13/24 GFR=22, CR=2.77. Currently seeing Dr Núñez at [facility] for L kidney mass & bilat renal cysts. Had MRI 07/05/24 to check kidney lesions (3). Had repeat MRI set up for 12/06/24. Will see Dr Núñez 01/03/25. Plan per Dr Núñez's note 07/05/24 is to continue surveillance of slow growing L renal mass. Assessment & Plan (09/17/2024 1:55 PM CIVIL PROJECT ENGINEER): Chronic problem. Managed by Dr Beach at [facility]; seen q3mos. 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 Valsartan 160mg daily. Last MA: 03/13/24 (186). Last creat/GFR: 03/13/24 GFR=22, CR=2.77. seeing Dr Núñez at [facility] for L kidney mass & bilat renal cysts. Had MRI 07/05/24 to check kidney lesions (3). Has repeat MRI set up for 11/2024. Will see Dr Núñez 12/06/24. Plan per Dr Núñez's note 07/05/24 is to continue surveillance of slow growing L renal mass. Assessment & Plan (03/13/2024 11:10 AM CDT): Chronic problem. Managed by Dr Beach at [facility]. Seen q3mos. 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 Valsartan 160mg daily. Last MA: 07/13/22 (64). Last creat/GFR: 07/13/22 GFR=21, CR=2.85. L Kidney mass. Now seeing Dr Avery Núñez at [facility]. 06/14/24. Will be having MRI also per Mr Kahn. Assessment & Plan (05/08/2023 1:59 PM CDT): Chronic problem. Managed by Dr Beach at [facility]. Seen q3mos. NOV 05/30/23. Assessment & Plan (01/02/2023 1:59 PM CDT): Chronic problem. Managed by Dr Beach at [facility]. Seen q3mos. Hypoglycemia associated with diabetes 03/04/2019 Assessment & Plan (07/13/2022 2:14 PM CIVIL PROJECT ENGINEER): Lower evening Lantus dose Assessment & Plan (09/12/2019 12:57 PM CIVIL PROJECT ENGINEER): Order Dexcom Assessment & Plan (03/04/2019 11:17 AM CDT): Dose of Lantus lowered Request DEXCOM Type 2 diabetes mellitus 02/22/2017 Assessment & Plan (12/25/2024 1:53 PM CDT): Chronic problem. Not at goal but A1c improved slightly from 9.8% 09/17/24 to 9.2% today. PCP made lantus changes approx 2 wks ago. No changes right now as past few days have been really good on Freestyle. If he starts improving diet & notices that sugars are going lower--back off on the lantus by 2 units at each dose (would be 23 twice daily). Current medications: Lantus 25 twice daily Humalog: breakfast 8 units (10 units if over 250), lunch 12 units (14 units if over 250), dinner 16 units (18 units if over 250) UTD on labs. UTD on DM eye exam (09/30/24 mild NPDR [facility] [employer]) Strive for regular exercise (30min most days) and diet (get at least 4-5 servings of fruit and veggies daily, avoid processed foods, increase lean protein intake and decrease carb portions as well as fruit juices, regular soda & desserts). Watch carbs and simple sugars. Check the blood sugar Freestyle. Check the feet daily for skin breakdown and infection. Assessment & Plan (09/17/2024 1:54 PM CIVIL PROJECT ENGINEER): Chronic problem. Not at goal but A1c [...] DM eye exam. Reports frequent appts to [facility]; appt 2-3 weeks ago. Letter sent to [...] infection. Assessment & Plan (08/08/2023 1:42 PM CIVIL PROJECT ENGINEER): Hba1c was Lab Results Component Value Date [...] DM eye exam. Reports frequent appts to [facility]; appt 2-3 weeks ago. Letter sent to [...] DM eye exam. Reports frequent appts to [facility]. Letter sent to get copy of results. [...] weeks Assessment & Plan (07/13/2022 2:10 PM CIVIL PROJECT ENGINEER): With some hypoglycemia Lower evening Lantus to [...] today. Assessment & Plan (09/13/2021 12:40 PM CIVIL PROJECT ENGINEER): Chronic problem, not at goal with frequent [...] units Assessment & Plan (08/31/2020 9:49 AM CIVIL PROJECT ENGINEER): Hba1c was Lab Results Component Value Date [...] Over 301, take 10 units Will request SMRxTe CGMS Assessment & Plan (02/24/2020 12:53 PM [...] units Assessment & Plan (09/12/2019 12:55 PM CIVIL PROJECT ENGINEER): A1c 8.9. Poor control continues to be [...] reviewed. Assessment & Plan (09/09/2018 7:45 PM CIVIL PROJECT ENGINEER): Your A1c worsening to 9.5.Increase Lantus to [...] reviewed. Assessment & Plan (09/04/2017 12:43 PM CIVIL PROJECT ENGINEER): Hba1c was 8.0 today, indicating DM control [...] type 2 diabetes mellitus Assessment & Plan (12/25/2024 1:11 PM CDT): Chronic problem. Currently taking Atorvastatin 10mg. Last lipid panel: 09/17/24 LDL=94, VN=210. Assessment & Plan (09/17/2024 12:49 PM CIVIL PROJECT ENGINEER): Chronic problem. Currently taking Atorvastatin 10mg. Last lipid panel: 08/07/23 LDL=56, TG=92. Will update labs. Does not mychart. Verified phone #/address to contact re: results. Assessment & Plan (03/13/2024 10:41 AM CDT): Chronic problem. Currently taking Atorvastatin 10mg. Last lipid panel: 07/13/22 LDL=22, PU=315. Will update labs today. Does not mychart. Verified phone #/address to contact re: results. Assessment & Plan (05/08/2023 1:14 PM CDT): Chronic problem. Currently taking Atorvastatin 10mg. Last lipid panel: 07/13/22 LDL=22, WT=661. No changes at this time Assessment & Plan (01/02/2023 1:43 PM CDT): Chronic problem. Currently taking Atorvastatin 10mg. Last lipid panel: 07/13/22 LDL=22, HT=973. No changes at this time Assessment & Plan (03/15/2022 2:46 PM CDT): Chronic problem. On statin therapy, no changes. Assessment & Plan (09/13/2021 11:22 AM CIVIL PROJECT ENGINEER): Chronic problem. On statin therapy, no changes. Assessment & Plan (03/01/2021 9:39 AM CDT): Check lipid panel today Assessment & Plan (11/30/2020 3:30 PM CDT): LDL 72. Continue statin Assessment & Plan (09/12/2019 12:57 PM CIVIL PROJECT ENGINEER): Will order lipid panel and adjust as indicated. Assessment & Plan (05/09/2019 9:46 AM CDT): Controlled on current medications. Continue plan. Assessment & Plan (12/03/2018 2:32 PM CDT): At goal on current medications. Hypertension associated with diabetes 01/25/2016 Overview (11/24/2016): Hypertension associated with diabetes Assessment & Plan (12/25/2024 1:12 PM CDT): Chronic problem. Currently taking Valsartan 160mg daily, amlodipine 10mg daily Assessment & Plan (09/17/2024 12:49 PM CIVIL PROJECT ENGINEER): Chronic problem. BP elevated upon rooming & [...] daily Assessment & Plan (07/13/2022 2:14 PM CIVIL PROJECT ENGINEER): Chronic, well controlled Importance of low salt diet and exercise were discussed Continue current meds Update BMP Assessment & Plan (03/15/2022 2:46 PM CDT): Controlled on current medications, no changes. Assessment & Plan (09/13/2021 11:22 AM CIVIL PROJECT ENGINEER): Controlled on current medications, no changes. Assessment [...] ARB Assessment & Plan (09/12/2019 12:56 PM CIVIL PROJECT ENGINEER): Controlled on current medications. Continue plan. Assessment & Plan (05/09/2019 9:46 AM CDT): Controlled on current medications. Continue plan. Assessment & Plan (12/03/2018 2:32 PM CDT): Controlled on current medications. Assessment & Plan (09/09/2018 7:47 PM CIVIL PROJECT ENGINEER): Controlled on current medications. Assessment & Plan (03/21/2018 10:42 AM CDT): Controlled on current medications. Assessment & Plan (12/04/2017 10:15 AM CDT): Controlled on current medications. Assessment & Plan (09/04/2017 12:44 PM CIVIL PROJECT ENGINEER): Goal blood pressure is less than 140/85 Low salt diet recommended Daily aerobic exercise Continue current meds, including CHRISTIAN-I or ARB Assessment & Plan (05/24/2017 9:54 AM CDT): Controlled on current medications. Assessment & Plan (02/22/2017 5:03 PM CDT): Continue current medications. Resolved Problems Problem Noted Date Diagnosed Date Resolved Date Hyperlipidemia 02/22/2017 01/02/2023 Assessment & Plan (09/09/2018 7:46 PM CIVIL PROJECT ENGINEER): Check lipid panel today Assessment & Plan (03/21/2018 10:42 AM CDT): At goal on current medications. Assessment & Plan (12/04/2017 10:16 AM CDT): At goal on current medications. Assessment & Plan (09/04/2017 12:43 PM CIVIL PROJECT ENGINEER): Goal of treatment , LDL cholesterol less [...] Encounters Date Type Department Care Team Description 12/25/2024 1:00 PM CDT Office Visit [facility] Diabetes and Endocrinology [address] [place] [phone] Gretel Burr, AMANDA Type 2 diabetes mellitus with hyperglycemia, with long-term current use of insulin (HCC) (Primary Dx); Hypertension associated with diabetes (HCC); Hyperlipidemia associated with type 2 diabetes mellitus (HCC); CKD (chronic kidney disease) stage 4, GFR 15-29 ml/min (HCC) from Last 3 Months Surgical History Surgery Date Site/Laterality Comments ID NJX AA&/STRD TFRML EPI CERVICAL/THORACIC 1 LEVEL Corticosteroid Inj Transforaminal Approach Cervical W/ Fluoroscopic Guidance - left C8 (Added by PRABHJOT Conv) Medical History Medical History Date Comments [...] on file Legal Sex Male 1:10 PM CIVIL PROJECT ENGINEER Gender Identity Not on file Sexual Orientation Not on file Obstetrics History Last Filed Vital Signs Vital Sign Reading Time Taken Comments Blood Pressure 130/70 12/25/2024 1:11 PM CDT Pulse 81 12/25/2024 1:11 PM CDT Temperature - - Respiratory Rate 18 12/25/2024 1:11 PM CDT Oxygen Saturation - - Inhaled Oxygen Concentration - - Weight 72.6 kg (160 lb) 12/25/2024 1:11 PM CDT Height 170.2 cm (5' 7.01) 12/25/2024 1:11 PM CD T Body Mass Index 25.05 12/25/2024 1:11 PM CDT Plan of Treatment Health Maintenance Due Date Last Done Comments DTaP/Tdap/Td Vaccine (1 - Tdap) 1951 Hepatitis B Screening 02/15/1958 Zoster Vaccine (1 of 2) 02/15/1988 Well Visit 65+ 2003 Depression Screening 08/08/2024 08/08/2023, 01/02/2023, 11/16/2022, Additional history exists Fall Risk Assessment 08/08/2024 08/08/2023 Albumin Creatinine Ratio, Urine 03/13/2025 03/13/2024, 07/13/2022, 03/01/2021, Additional history exists eGFR 03/13/2025 03/13/2024, 06/22, 03/01/2021, Additional history exists Influenza Vaccine (#1) 2025 9, 05/01/2018, 04/26/2018, Additional history exists Hemoglobin A1C 06/27/2025 12/25/2024, 08/22, 03/13/2024, Additional history exists Foot Exam 09/17/2025 09/17/2024, 02/19, 05/08/2023, Additional history exists Lipid Panel 09/17/2025 09/17/2024, 07/21, 07/13/2022, Additional history exists Dilated Eye Exam 09/30/2025 09/30/2024, , 07/29/2024, Additional history exists Pneumococcal vaccine 65+ Completed 020, 09/12/2018, 07/27/2015 Procedures Procedure Name Priority Date/Time Associated Diagnosis Comments POCT GLUCOSE Routine 12/25/2024 1:14 PM CDT Type 2 diabetes mellitus with hyperglycemia, with long-term current use of insulin (HCC) POCT HEMOGLOBIN A1C Routine 12/25/2024 1 :14 PM CDT Type 2 diabetes mellitus with hyperglycemia, with long-term current use of insulin (HCC) HM DIABETES EYE EXAM Routine 09/30/2024 8:45 AM CIVIL PROJECT ENGINEER LIPID PANEL Routine 09/17/2024 2:00 PM CIVIL PROJECT ENGINEER Type 2 diabetes mellitus with hyperglycemia, with long-term current use of insulin (HCC) Hyperlipidemia associated with type 2 diabetes mellitus (HCC) EGFR Routine 03/13/2024 11:17 AM CDT Type 2 diabetes mellitus with hyperglycemia, with long-term current use of insulin (HCC) Hypertension associated with diabetes (HCC) ALBUMIN CREATININE RATIO, URINE Routine 03/13/2024 11:17 AM CDT Type 2 diabetes mellitus with hyperglycemia, with long-term current use of insulin (HCC) from Last 3 Months or Most Recently Relevant to Health Maintenance Results * (ABNORMAL) POCT hemoglobin A1c (12/25/2024 1:14 PM CDT) Hemoglobin A1C, POC 9.2(A) 4.0 - 5.6 % Blood 12/25/2024 1:14 PM CDT us Gretel Burr NP POINT OF CARE TEST ORDERA BLES Final Result * (ABNORMAL) POCT glucose (12/25/2024 1:14 PM CDT) Glucose Blood, POC 228 Normal Fasting 70 - 100, Random <200 mg/dL Blood 12/25/2024 1:14 PM CDT Gretel Burr NP POINT OF CARE TEST ORDERA BLES Final Result * (ABNORMAL) DIABETES EYE EXAM (09/30/2024 8:45 AM CIVIL PROJECT ENGINEER) Historical Provider HEALTH MAINTENANCE Final Result * (ABNORMAL) Lipid panel (09/17/2024 2:00 PM CIVIL PROJECT ENGINEER) Cholesterol 182 30 - 199 mg/dL Comment: [...] on 2024. Non-HDL Cholesterol 121 mg/dL [place] Comment: Interpretive Data Ages < [...] 3 [place] Blood 09/17/2024 2:00 PM CIVIL PROJECT ENGINEER 09/17/2024 8:37 PM CIVIL PROJECT ENGINEER us Gretel Burr NP LAB BLOOD ORDERAB[place] [address] [address] Department [place] [address] * (ABNORMAL) eGFR (03/13/2024 11:17 AM CDT) [...] CDT 03/13/2024 4:26 PM CDT Gretel Burr VALET ATTENDANT LAB BLOOD ORDERABLES Shaye l Result Performing Organization Address City/State/[facility] [place] [address] [place] [address] * (ABNORMAL) Albumin Creatinine Ratio, Urine (03/13/2024 11:17 AM CDT) Albumin Ur 106.1 mg/L Comment: Interpretive Data No reference range established. Current interpretive data was last revised 2019. Creatinine Ur 57.1 mg/dL [facility] Comment: Interpretive Data No reference range established. Current interpretive data was last revised 2019. Albumin Creatinine Ratio, Ur 186(H) 1 - 29 mg/g [facility] Urine 03/13/2024 11:1 7 AM CDT 03/13/2024 2:48 PM CDT us Gretelpedro Burr VALET ATTENDANT LAB URINE ORDERABLES Shaye l Result Performing Organization Address [facility] [place] [address] [address] Department [place] [address] from Last 3 Months or Most Recently Relevant to Health Maintenance Insurance [id number] MEDICARE ADVANTAGE [address] MEDICARE ADVANTAGE MEDICARE ADVANTAGE Care Teams Coremaker Experimental Relationship Specialty Start Date End Date James Hou MD PCP - General 11/18/16 [place] [address] [address] [address] Consulting Physician Endocrinology Diabetes & Metabolism 12/25/24 [place] [address] [address] [address] Nurse Practitioner Endocrinology Diabetes & Metabolism 12/25/24
--- OUTSIDE RECORDS SUMMARY | 2025-03-07 08:41 | XMS_ITS | Clinical Summary ---
Author Organization [facility] Address [address] [place] [address] Care Team Providers Care Greenskeeper Head Name Role Phone James Hou MD Primary Care Provider [phone] Source Comments [facility],non-owned Affiliates and Associated Physician Practices is amultiple site organization consisting of ambulatory clinics and hospital sitesin [place], [place], [place] and [place]. This disclosure is being madepursuant to the Care Everywhere program and may not contain all information available regarding this patient. Last updated 18.[facility] Allergies Active Allergy Reactions Criticality Noted Date [...] Encounters Date Type Department Care Team Description 01/03/2025 8:30 AM CDT Office Visit [facility] - Urology [address] [place] [address] Gurwinder Núñez MD Renal mass (Primary Dx) 01/03/2025 Travel 12/06/2024 7:27 AM CDT - 12/06/2024 11:59 PM CDT Hospital Encounter [facility] - MRI [address] [place] [address] Gurwinder Núñez MD Discharge Disposition: Home or Self Care from Last 3 Months Social History Tobacco Use Types Packs/Day Years Used Date Smoking Tobacco: Never Smokeless Tobacco: Never Alcohol Use Standard Drinks/Week Comments No 0 (1 standard drink = 0.6 oz pur e alcohol) Sex and Gender Information Value Date Recorded Sex Assigned at Not on file Legal Sex Male 6:46 AM LUNCHROOM MONITOR Gender Identity Not on file Sexual Orientation Not on file Last Filed Vital Signs Vital Sign Reading Time Taken Comments Blood Pressure 192/87 01/03/2025 9:03 AM CDT Pulse 83 01/03/2025 9:03 AM CDT Temperature 36.4 C (97.6 F) 01/03/2025 9:03 AM CDT Respiratory Rate 18 01/03/2025 9:03 AM CDT Oxygen Saturation 100% 01/03/2025 9:03 AM CDT Inhaled Oxygen Concentration - - Weight 72.1 kg (159 lb) 07/05/2024 11:02 AM LUNCHROOM MONITOR Height 170.2 cm (5' 7) 07/05/2024 11:02 AM LUNCHROOM MONITOR Body Mass Index 24.9 07/05/2024 11:02 AM LUNCHROOM MONITOR Plan of Treatment Upcoming Encounters Date Type Department Care Team (Late st Contact Info) Description 01/02/2026 8:15 AM CDT Office Visit [facility] - Urology [address] [place] [address] Gurwinder Núñez MD [address] [address] Health Maintenance Due Date Last Done Comments [...] MEDICARE AWV CALENDAR YEAR 2024 INFLUENZA VACCINE (#1) 2025 9, 05/01/2018, 06/08/2017, Additional history exists HEPATITIS B [...] this topic Medical Devices Implanted Type Area Chemical Process Project Engineer Device Identifier Shelf Expiration Date Model / Serial / Lot Lens Iol Dioptr 21.5 Implanted:Qty: 1 on 01/21/2015 by Marielos Caputo MD at [facility] Left: Eye [employer]ensing 09/20/2019 [id number] / / [id number] Procedures Procedure Name Priority Date/Time Associated Diagnosis Comments HI MSR PVR U&/BLADD CAPCTY US NON Routine 01/03/2025 12:51 PM CDT Renal mass MRI ABDOMEN WWO CONTRAST Routine 12/06/2024 9:41 AM CDT Bilateral renal cysts from Last 3 Months Results * HI MSR PVR U&/BLADD CAPCTY US NON (01/03/2025 12:51 PM CDT) Narrative Raven Álvarez LPN - 01/03/2025 12:51 PM CDT Raven Álvarez LPN 01/03/2025 12:52 PM Bladder Scan performed on 01/03/2025: Results showinml us Gurwinder Núñez MD PROCEDURE/MINOR SURGICAL O RDERABLES Final Result * MRI Abdomen Wwo Contrast (12/06/2024 9:41 [...] Rocio Harrison MD on 12/06/2024 1:00 PM us Gurwinder Núñez MD MR ORDERABLES Final Resu lt from Last 3 Months Insurance MANAGED MEDICARE ADV Care Teams Greenskeeper Head Relationship Specialty Start Date End Date James Hou MD PCP - General Internal Medicine 01/19/15
--- OUTSIDE RECORDS SUMMARY | 2025-03-07 08:41 | XMS_ITS | Referral Summary ---
Author Organization [facility] [address] [place] [address] Care Team Providers Care Hand Fabric Cutter Name Role Phone James Hou MD Primary Care Provider [phone] Ozzie Guadarrama MD Unavailable Gretel Burr NP Unavailable [phone] Encounters Date Type Department Care Team Description 12/25/2024 1:00 PM CDT Office Visit [facility] Diabetes and Endocrinology [address] [place] [address] Gretel Burr, AMANDA Type 2 diabetes mellitus with hyperglycemia, with long-term current use of insulin (HCC) (Primary Dx); Hypertension associated with diabetes ([facility]); Hyperlipidemia associated with type 2 diabetes mellitus ([facility]); CKD (chronic kidney disease) stage 4, GFR 15-29 ml/min ([facility]) from Last 3 Months Allergies Active Allergy [...] flash glucose scanning reader (FreeStyle Herbert 2 [place]) [facility] Use for BG monitoring 1 each 023 [...] TO THE AFFECTED AREA(S) TWICE DAILY Active triamcinolone (KENALOG) 0.1 % cream APPLY TO AFFECTED AREA ONCE TO TWICE DAILY FOR UP TO TWO WEEKS. TAKE A SMALL BREAK FOR 1-2 DAYS, AND REPEAT NECESSARY FOR FLARES. AVOID THE FACE, AXILLA AND GROIN 025 Active HumaLOG 100 unit/mL pen for injectionIndic ations:Type 2 diabetes mellitus with hyperglycemia, with long-term current use of insulin ([facility]) INJECT 8-16 UNITS SUBCUTANEOUSLY THREE TIMES [...] Chronic problem. Managed by Dr Monae at [facility]; seen q3mos. 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 Valsartan 160mg daily. Last MA: 03/13/24 (186). Last creat/GFR: 03/13/24 GFR=22, CR=2.77. Currently seeing Dr Núñez at [facility] for L kidney mass & bilat renal cysts. Had MRI 07/05/24 to check kidney lesions (3). Had repeat MRI set up for 12/06/24. Will see Dr Núñez 01/03/25. Plan per Dr Núñez's note 07/05/24 is to continue surveillance of slow growing L renal mass. Assessment & Plan (09/17/2024 1:55 PM SOLE ROUNDING MACHINE OPERATOR): Chronic problem. Managed by Dr Beach at [facility]; seen q3mos. 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 Valsartan 160mg daily. Last MA: 03/13/24 (186). Last creat/GFR: 03/13/24 GFR=22, CR=2.77. seeing Dr Núñez at [facility] for L kidney mass & bilat renal cysts. Had MRI 07/05/24 to check kidney lesions (3). Has repeat MRI set up for 11/2024. Will see Dr Núñez 12/06/24. Plan per Dr Núñez's note 07/05/24 is to continue surveillance of slow growing L renal mass. Assessment & Plan (03/13/2024 11:10 AM CDT): Chronic problem. Managed by Dr Beach at [facility]. Seen q3mos. 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 Valsartan 160mg daily. Last MA: 07/13/22 (64). Last creat/GFR: 07/13/22 GFR=21, CR=2.85. L Kidney mass. Now seeing Dr Avery Núñez at [facility]. 06/14/24. Will be having MRI also per Mr Kahn. Assessment & Plan (05/08/2023 1:59 PM CDT): Chronic problem. Managed by Dr Beach at [facility]. Seen q3mos. NOV 05/30/23. Assessment & Plan (01/02/2023 1:59 PM CDT): Chronic problem. Managed by Dr Beach at [facility]. Seen q3mos. Hypoglycemia associated with diabetes 03/04/2019 Assessment & Plan (07/13/2022 2:14 PM SOLE ROUNDING MACHINE OPERATOR): Lower evening Lantus dose Assessment & Plan (09/12/2019 12:57 PM SOLE ROUNDING MACHINE OPERATOR): Order Dexcom Assessment & Plan [...] infection. Assessment & Plan (09/17/2024 1:54 PM SOLE ROUNDING MACHINE OPERATOR): Chronic problem. Not at goal [...] DM eye exam. Reports frequent appts to [facility]; appt 2-3 weeks ago. Letter sent to [...] infection. Assessment & Plan (08/08/2023 1:42 PM SOLE ROUNDING MACHINE OPERATOR): Hba1c was Lab Results Component [...] DM eye exam. Reports frequent appts to [facility]; appt 2-3 weeks ago. Letter sent [...] DM eye exam. Reports frequent appts to [facility]. Letter sent to get copy of results. [...] weeks Assessment & Plan (07/13/2022 2:10 PM SOLE ROUNDING MACHINE OPERATOR): With some hypoglycemia Lower evening [...] today. Assessment & Plan (09/13/2021 12:40 PM SOLE ROUNDING MACHINE OPERATOR): Chronic problem, not at goal [...] units Assessment & Plan (08/31/2020 9:49 AM SOLE ROUNDING MACHINE OPERATOR): Hba1c was Lab Results Component [...] Over 301, take 10 units Will request Phlexglobale CGMS Assessment & Plan (02/24/2020 12:53 PM [...] units Assessment & Plan (09/12/2019 12:55 PM SOLE ROUNDING MACHINE OPERATOR): A1c 8.9. Poor control continues [...] reviewed. Assessment & Plan (09/09/2018 7:45 PM SOLE ROUNDING MACHINE OPERATOR): Your A1c worsening to 9.5.Increase [...] reviewed. Assessment & Plan (09/04/2017 12:43 PM SOLE ROUNDING MACHINE OPERATOR): Hba1c was 8.0 today, indicating [...] Atorvastatin 10mg. Last lipid panel: 09/17/24 LDL=94, PX=971. Assessment & Plan (09/17/2024 12:49 PM SOLE ROUNDING MACHINE OPERATOR): Chronic problem. Currently taking Atorvastatin 10mg. Last lipid panel: 08/07/23 LDL=56, TG=92. Will update labs. Does not mychart. Verified phone #/address to contact re: results. Assessment & Plan (03/13/2024 10:41 AM CDT): Chronic problem. Currently taking Atorvastatin 10mg. Last lipid panel: 07/13/22 LDL=22, PE=296. Will update labs today. Does not mychart. Verified phone #/address to contact re: results. Assessment & Plan (05/08/2023 1:14 PM CDT): Chronic problem. Currently taking Atorvastatin 10mg. Last lipid panel: 07/13/22 LDL=22, CE=085. No changes at this time Assessment & Plan (01/02/2023 1:43 PM CDT): Chronic problem. Currently taking Atorvastatin 10mg. Last lipid panel: 07/13/22 LDL=22, WQ=685. No changes at this time Assessment & Plan (03/15/2022 2:46 PM CDT): Chronic problem. On statin therapy, no changes. Assessment & Plan (09/13/2021 11:22 AM SOLE ROUNDING MACHINE OPERATOR): Chronic problem. On statin therapy, no changes. Assessment & Plan (03/01/2021 9:39 AM CDT): Check lipid panel today Assessment & Plan (11/30/2020 3:30 PM CDT): LDL 72. Continue statin Assessment & Plan (09/12/2019 12:57 PM SOLE ROUNDING MACHINE OPERATOR): Will order lipid panel and [...] daily Assessment & Plan (09/17/2024 12:49 PM SOLE ROUNDING MACHINE OPERATOR): Chronic problem. BP elevated upon [...] daily Assessment & Plan (07/13/2022 2:14 PM SOLE ROUNDING MACHINE OPERATOR): Chronic, well controlled Importance of low salt diet and exercise were discussed Continue current meds Update BMP Assessment & Plan (03/15/2022 2:46 PM CDT): Controlled on current medications, no changes. Assessment & Plan (09/13/2021 11:22 AM SOLE ROUNDING MACHINE OPERATOR): Controlled on current medications, no [...] ARB Assessment & Plan (09/12/2019 12:56 PM SOLE ROUNDING MACHINE OPERATOR): Controlled on current medications. Continue plan. Assessment & Plan (05/09/2019 9:46 AM CDT): Controlled on current medications. Continue plan. Assessment & Plan (12/03/2018 2:32 PM CDT): Controlled on current medications. Assessment & Plan (09/09/2018 7:47 PM SOLE ROUNDING MACHINE OPERATOR): Controlled on current medications. Assessment & Plan (03/21/2018 10:42 AM CDT): Controlled on current medications. Assessment & Plan (12/04/2017 10:15 AM CDT): Controlled on current medications. Assessment & Plan (09/04/2017 12:44 PM SOLE ROUNDING MACHINE OPERATOR): Goal blood pressure is less than 140/85 Low salt diet recommended Daily aerobic exercise Continue current meds, including CHRISTIAN-I or ARB Assessment & Plan (05/24/2017 9:54 AM CDT): Controlled on current medications. Assessment & Plan (02/22/2017 5:03 PM CDT): Continue current medications. Resolved Problems Problem Noted Date Diagnosed Date Resolved Date Hyperlipidemia 02/22/2017 01/02/2023 Assessment & Plan (09/09/2018 7:46 PM SOLE ROUNDING MACHINE OPERATOR): Check lipid panel today Assessment & Plan (03/21/2018 10:42 AM CDT): At goal on current medications. Assessment & Plan (12/04/2017 10:16 AM CDT): At goal on current medications. Assessment & Plan (09/04/2017 12:43 PM SOLE ROUNDING MACHINE OPERATOR): Goal of treatment , LDL [...] on file Legal Sex Male 1:10 PM SOLE ROUNDING MACHINE OPERATOR Gender Identity Not on file [...] 12/25/2024 1:11 PM CDT Plan of Treatment Not on file Procedures Procedure Name Priority Date/Time Associated Diagnosis Comments POCT GLUCOSE Routine 12/25/2024 1:14 PM CDT Type 2 diabetes mellitus with hyperglycemia, with long-term current use of insulin ([facility]) POCT HEMOGLOBIN A1C Routine 12/25/2024 1 :14 PM CDT Type 2 diabetes mellitus with hyperglycemia, with long-term current use of insulin ([facility]) DIABETES EYE EXAM Routine 09/30/2024 8:45 AM SOLE ROUNDING MACHINE OPERATOR LIPID PANEL Routine 09/17/2024 2:00 PM SOLE ROUNDING MACHINE OPERATOR Type 2 diabetes mellitus with hyperglycemia, with long-term current use of insulin (HCC) Hyperlipidemia associated with type 2 diabetes mellitus (HCC) EGFR Routine 03/13/2024 11:17 AM CDT Type 2 diabetes mellitus with hyperglycemia, with long-term current use of insulin ([facility]) Hypertension associated with diabetes ([facility]) ALBUMIN CREATININE RATIO, URINE Routine 03/13/2024 11:17 AM CDT Type 2 diabetes mellitus with hyperglycemia, with long-term current use of insulin (HCC) from Last 3 Months or Most Recently Relevant to Health Maintenance Results * (ABNORMAL) POCT hemoglobin A1c (12/25/2024 1:14 PM CDT) Hemoglobin A1C, POC 9.2(A) 4.0 - 5.6 % Blood 12/25/2024 1:14 PM CDT Gretel Burr NP POINT OF CARE TEST ORDERA BLES Final Result * (ABNORMAL) POCT glucose (12/25/2024 1:14 PM CDT) Pathologist [facility] Glucose Blood, POC 228 Normal Fasting 70 - 100, Random <200 mg/dL Blood 12/25/2024 1:14 PM CDT Gretel Burr NP POINT OF CARE TEST ORDERA BLES Final Result * (ABNORMAL) DIABETES EYE EXAM (09/30/2024 8:45 AM SOLE ROUNDING MACHINE OPERATOR) Historical Provider HEALTH MAINTENANCE Final Result * (ABNORMAL) Lipid panel (09/17/2024 2:00 PM SOLE ROUNDING MACHINE OPERATOR) Cholesterol 182 30 - 199 [...] NCEP Expert Panel. Circulation 2004;110:227 3. Puma Francisco. AMANDA Cardiol. 2020 December 19;5(5):540-548. doi: 10.1001/jamacardio.2020.0013 [...] 3 CARMELITA CH Blood 09/17/2024 2:00 PM SOLE ROUNDING MACHINE OPERATOR 09/17/2024 8:37 PM SOLE ROUNDING MACHINE OPERATOR us Gretel Burr NP LAB BLOOD ORDERABLES Shaye l Result CARMELITA [id number] [address] Department [place] [address] * (ABNORMAL) eGFR (03/13/2024 11:17 AM CDT) [...] CDT 03/13/2024 4:26 PM CDT Gretel Burr STAB SETTER AND DRILLER LAB BLOOD ORDERABLES [place] [address] [facility] [place] [address] * (ABNORMAL) Albumin Creatinine Ratio, Urine (03/13/2024 11:17 AM CDT) Albumin Ur 106.1 mg/L Comment: Interpretive Data No reference range established. Current interpretive data was last revised 2019. Creatinine Ur 57.1 mg/dL [facility] Comment: Interpretive Data No reference range established. Current interpretive data was last revised 2019. Albumin Creatinine Ratio, Ur 186(H) 1 - 29 mg/g [facility] [place] Urine 03/13/2024 11:1 7 AM CDT 03/13/2024 2:48 PM CDT us Gretel Burr STAB SETTER AND DRILLER LAB URINE ORDERABLES Shaye l Result Performing Organization Address [facility] [place] [address] [address] [facility] [address] from Last 3 Months or Most Recently Relevant to Health Maintenance Insurance [id number] MEDICARE ADVANTAGE MEDICARE ADVANTAGE MEDICARE ADVANTAGE Care Teams Hand Fabric Cutter Relationship Specialty Start Date End Date James Hou MD PCP - General 11/18/16 [place] [address] [address] Consulting Physician Endocrinology Diabetes & Metabolism 12/25/24 [place] [address] [address] [facility] [address], [place] [address] Nurse Practitioner Endocrinology Diabetes & Metabolism 12/25/24
== END 2025-03-07 08:38 | disposition home or self-care (01) ==
PROVIDERS: PCP Internal Medicine; Visit Provider Podiatrist Foot & Ankle Surgery
DX: I73.9 Peripheral vascular disease, unspecified (principal)
CPT/HCPCS: 93925; 93926

== ENCOUNTER 2025-05-09 10:42 | Outpatient (CLI) | payer MEDICARE, SELFPAY ==
--- OUTSIDE RECORDS SUMMARY | 2025-05-08 11:15 | XMS_ITS | Continuity of Care Document ---
Author Organization [facility] Address [address] [place] [address] Phone Care Team Providers Care Implementation Project Coordinator Name Role Phone Claire COTO, [facility], Misael Unavailable Unavailab le Allergies, Adverse Reactions, Alerts Substance Reaction Status Criticality trimethoprim Active No Information sulfamethoxazole Active No Informat ion Medications Medication Instructions Dosage Effective Dates (start - stop) Status Comments hydralazine 50 mg tablet take 1 tablet by oral route 2 times every day with food 50 MG - Active finasteride 5 mg tablet take 1 pill a day - Active Humalog KwikPen (U-100) Insulin 100 unit/mL subcutaneous - Active calcitriol 0.25 mcg capsule take 1 pill three times a week - Active tamsulosin 0.4 mg capsule take 1 pill a day - Active omeprazole 20 mg capsule,delayed release TAKE 1 CAPSULE BY MOUTH BEFORE BREAKFAST - Active valsartan 160 mg tablet take 2 pills once a day - Active amlodipine 10 mg tablet TAKE 1 TABLET BY MOUTH ONCE DAILY - Active atorvastatin 10 mg tablet TAKE 1 TABLET BY MOUTH ONCE DAILY - Active montelukast 10 mg tablet TAKE 1 TABLET BY MOUTH ONCE DAILY - Active Lantus Solostar U-100 Insulin 100 unit/mL (3 mL) subcutaneous pen - Active Procedures Procedure Date Complex e/m visit add on OFFICE/OUTPATIENT VISIT, EST TTE W/DOPPLER, COMPLETE OFFICE/OUTPATIENT VISIT, NEW Advance Directives Directive Yes / No Effective Date File Name No Information Encounters Encounter Description Practice Location Reason(s) For Visit Diagnoses Date Provider Providers Copied on Encounter OFFICE/OUTPAT IENT VISIT, [facility], [address] [place] [address], [id number] , tel: [phone] [facility] follow up (chief complaint) PVDHTNType 2 diabetes mellitus with unspecified complicationsCKD 5 Claire Misael. [address] [place], [place], [id number] , . tel: [phone] Primary Practice Provider: James Hou, [address] [place] [address], [facility]. [phone] erring Provider: James Hou, [address] [place] [address], [address]. tel:[phone] [facility], [address] [place] [address], [id number] , tel: [phone] [facility] No Information 5 Claire Misael. [address] [place], [place], [id number] , . tel: [phone] Referring Provider: James Hou, [address] [place] [address], [address]. tel:[phone] OFFICE/OUTPAT IENT VISIT, [facility], [address] [place] [address], [id number] , tel: [phone] [facility] new patient (chief complaint) PVDHTNType 2 diabetes mellitus with unspecified complicationsCKDLV 5 Claire Misael. [address] [place], [place], [id number] , . tel: [phone] Referring Provider: James Hou, [facility] [place], [place], [facility]. tel:[phone] Family History Family Member Type Diagnosis Age At Onset No Information Payers Payer name Insurance type Covered libertarian ID Authoriza tion(s) [facility] MEDICARE COMPLETE POS HMO [id number] Social History Type Description Quantity Date Captured Comments Alcohol Use Details Unknown Caffeine Use Details Unknown Tobacco Use Status No Information Smoking Status No Information Sex Male Vital Signs Date / Time: Height Weight BMI Pulse Rate Blood Pressure Temperature Respiratory Rate Body Surface Area Head Circumference Head Circ. Percentile Wt./Maikel. Percentile BMI percentile Pulse Ox Inhaled Ox 3:55 PM 68.00 in 72.575 kg (160.00 lbs) 24.3 3 kg/m eter (2) 87 /min 173/81 mm[Hg] 97 % Chief Complaint And Reason For Visit From encounter dated '05/08/2025 16:15'. follow up (chief complaint). Description: sofia feet and legs swell Reason For Referral Reason For Referral No Information Plan Of Treatment Date Type Action Status Appointment Aliyah Kahn BOOKED Future Order: Lab Order Basic Me tabolic Panel BMP ([id number]), Ordered on: Ordered Future Order: Lab Order [id number] FR ([id number]), Ordered on: Ordered Future Order: Radiology Order Ec hocardiogram, Complete Transthoracic ([id number]), Ordered on: Ordered Future Order: Lab Order Basic Me tabolic Panel BMP ([id number]), Ordered on: Ordered Future Order: Lab Order CBC ([id number]), Ordered on: Ordered Future Order: Lab Order PTT ([id number]), Ordered on: Ordered Future Order: Lab Order Prothrom bin Time (PT) ([id number]), Ordered on: Ordered Future Order: Lab Order Lipid Pa marielos ([id number]), Ordered on: Ordered Future Order: Radiology Order Ao rta (Abdominal and bilateral Iliofemoral) Angiogram (with serialography) ([id number]), Ordered on: Ordered History Of Present Illness Encounter Date Complaint History Of Prese nt Illness follow up sofia feet and leg s swell new patient Blister on Right foot. Rt leg gets cold. Had a Doppler done at [facility] and showed a blockage in rt leg Functional Status Date Functional Assessmen t No Information Instructions Date Instruction Additional Infor mation No Information Assessments Type Assessment Date assessment PVD assessment HTN assessment Type 2 diabetes mellitus with un specified complications assessment CKD Patient Care Teams Name Effective Dates (start - stop) Status Members No Information
--- OUTSIDE RECORDS SUMMARY | 2025-05-09 10:48 | XMS_ITS | Encounter Summary ---
Author Organization [facility] Address 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
--- OUTSIDE RECORDS SUMMARY | 2025-05-09 10:48 | XMS_ITS | Encounter Summary ---
Author Organization [facility] Address 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
--- OUTSIDE RECORDS SUMMARY | 2025-05-09 10:48 | XMS_ITS | Encounter Summary ---
Author Organization [facility] Address 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 CALENDER LET OFF HELPER Gender Identity Not on file Sexual Orientation Not on file documented as of this encounter Plan of Treatment Not on file documented as of this encounter Procedures Procedure Name Priority Date/Time Associated Diagnosis Comments CT ABDOMEN W WO CONT PELVIS W CONT Routine 09/20/2007 11:20 AM CALENDER LET OFF HELPER documented in this encounter Results * CT ABDOMEN W WO CONT PELVIS W CONT (09/20/2007 11:20 AM CALENDER LET OFF HELPER) Anatomical Region Laterality Modality Abdomen Other 09/20/2007 11:2 0 AM CALENDER LET OFF HELPER Narrative 09/26/2007 8:01 AM CALENDER LET OFF HELPER [facility] [address], [place] [address] Admit Date: 09/20/2007 ALIYAH KAHN Sex: M Admit Prov: YVAN KAY Date: 1940 Primary Care Prov: ZAC FLOYD CMRN: [id number] Room: [facility] SSN: [id number] IMAGING SERVICES Ordering Prov: N/A Accession Number: [id number] Interpretation EXAM: CT OF THE ABDOMEN WITHOUT [...] DKT Procedure Note James Sarabia - 09/26/2007 [facility] [address], [place] [address] Admit Date: 09/20/2007 ALIYAH KAHN Sex: M Admit Prov: YVAN KAY Date: 1940 Primary Care Prov: ZAC FLOYD CMRN: [id number] Room: [facility] SSN: [id number] IMAGING SERVICES Ordering Prov: N/A Interpretation EXAM: [...] ureter documented in this encounter Care Teams Human Geography Faculty Member Relationship Specialty Start Date End Date Zac Floyd MD [address] [place] [address] PCP - General 06/19/03 documented as of this encounter
--- OUTSIDE RECORDS SUMMARY | 2025-05-09 10:48 | XMS_ITS | Clinical Summary ---
Author Organization [facility] Cait[facility] rodríguez Address [address], [place] [address] Phone Care Team Providers Care Hospital Education Coordinator Name Role Phone James Hou MD Primary Care Provider [phone] Allergies Active Allergy Reactions Criticality Noted Date Comments Sulfamethoxazole-Trimethoprim Medications metoprolol tartrate (LOPRESSOR) 50 MG tablet One tablet two times daily 0 6 Active amLODIPine (NORVASC) 10 MG tablet One tablet daily 0 6 Active montelukast (SINGULAIR) 10 MG tablet One tablet daily 0 6 Active cholecalciferol (VITAMIN D-3) 1000 units tablet One tablet daily 0 6 Active valsartan (DIOVAN) 320 MG tablet One tablet daily 0 6 Active insulin glargine (LANTUS) 100 UNIT/ML injection 22 units at noon and 22 units at bedtime 0 6 Active Additional Information Patient taking differently:Subcutaneous,Indications: 18 units at noon and 18 units at bedtime, Reported on 04/30/2024 atorvastatin (LIPITOR) 10 MG tablet 1 tab by mouth daily 0 8 Active Additional Information Patient taking differently: 10 mgOral Daily, Reported on 04/30/2024 omeprazole (PriLOSEC) [address] capsule 1 capsule by mouth daily 0 8 Active insulin lispro (HUMALOG MAUREEN KWIKPEN) 100 UNIT/ML injection sliding scale 0 8 Active aspirin 81 MG tablet Take 81 mg by mouth 1 (one) time each day. Active finasteride (PROSCAR) 5 MG tablet finasteride 5 mg tablet TAKE 1 TABLET BY MOUTH ONCE DAILY Active tamsulosin (FLOMAX) 0.4 MG 24 hr capsule Take 0.4 mg by mouth 1 (one) time each day 9 Active famotidine (PEPCID) 20 MG tablet Take by mouth Active calcitriol (ROCALTROL) 0.25 MCG capsule TAKE 1 CAPSULE BY MOUTH THREE TIMES A WEEK 15 capsule 2 5 Active Active Problems Problem Noted Date Diagnosed [...] Type Department Care Team Description 02/07/2025 Refill [facility] [address] [place] [address] Coral Hubbard, AMANDA from Last 3 Months [...] on file Legal Sex Male 8:40 AM [facility] Gender Identity Not on file Sexual Orientation Not on file Last Filed Vital Signs Vital Sign Reading Time Taken Comments Blood Pressure 160/82 11/26/2024 12:37 PM CDT Pulse 83 11/26/2024 12:37 PM CDT Temperature 36.4 C (97.6 F) 08/03/2021 10:41 AM PROJECT 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 Respiratory Rate - - Oxygen Saturation - - Inhaled Oxygen Concentration - - Weight 73.5 kg (162 lb) 11/26/2024 12:37 PM CDT Height 172.7 cm (5' 8) 11/26/2024 12:37 PM CDT Body Mass Index 24.63 11/26/2024 12:37 PM CDT Plan of Treatment Upcoming Encounters Date Type Department Care Team (Late st Contact Info) Description 06/03/2025 11:20 AM CDT Office Visit [facility] [address] [facility], [address] [place] [address] Vladislav Douglas MD [address] [address] Health Maintenance Due Date Last Done Comments Diabetic Foot Exam 02/15/1950 Ophthalmology Exam 02/15/1948 Pneumococcal PPSV23/PCV13 65 + Years / High and Highest Risk (2 of 4 - PPSV23, PCV20, or PCV21) 11/07/2018 09/12/2018, 07/27/2015 COVID-19 Vaccine ( - 2024-2 6 season) 2025 06/13/2023, 07/28/2021, 11/09/2020, Additional history exists Influenza Vaccine (#1) 2025 8, 05/28/2015, 05/28/2015, Additional history exists Insurance [employer] MEDICARE Care Teams Hospital Education Coordinator Relationship Specialty Start Date End Date James Hou MD [address] [facility] [address] [place] [id number] [facility] - General 02/12/19
--- OUTSIDE RECORDS SUMMARY | 2025-05-09 10:48 | XMS_ITS | Encounter Summary ---
Author Organization [facility] Address [address] [place] [address] Care Team Providers Care Powerplant Operator Name Role Phone Zac Floyd MD Primary Care Provider [phone] Encounter Details Date Type Department Care Team (Late st Contact Info) Description 06/25/2006 Emergency [facility] EM[facility]GENCY [facility] Landry Higginbotham DO [address] [place] [address] Er, Authorized P NO ADDRESS ON FILE Orchitis/Epididymit NEC (Primary Dx) Social History Tobacco Use Types Packs/Day Years Used Date Smoking Tobacco: Never Assessed Sex and Gender Information Value Date Recorded Sex Assigned at Not on file Legal Sex Male 3:01 AM TRACER CLERK Gender Identity Not on file Sexual Orientation Not on file documented as of this encounter Plan of Treatment Not on file documented as of this encounter Procedures Procedure Name Priority Date/Time Associated Diagnosis Comments URINALYSIS W/REFLEX MICROSCOPIC Routine 06/25/2006 4:39 PM TRACER CLERK CBC WITH DIFFERENTIAL Routine 06/25/2006 3:53 PM TRACER CLERK CBC WITH DIFFERENTIAL Routine 06/25/2006 3:53 PM TRACER CLERK C-REACTIVE PROTEIN Routine 06/25/2006 3: 53 PM TRACER CLERK documented in this encounter Results * (ABNORMAL) URINALYSIS (06/25/2006 4:39 PM TRACER CLERK) COLOR UA Yellow INTERFACE SYSTEM CLARITY UA [...] Briana 06/25/2006 5:42 PM 06/25/2006 4:39 PM TRACER CLERK Landry Higginbotham DO URINE ORDERABLES Final Result Performing Organization Address [facility] Phone Number INTERFACE SYSTEM Refer to clinic/hospital department * (ABNORMAL) CBC WITH DIFFERENTIAL (06/25/2006 3:53 PM TRACER CLERK) Pathologist [facility] NEUTROPHILS 65 45 - [...] 0.20 K/uL INTERFACE SYSTEM 06/25/2006 3:53 PM TRACER CLERK Landry Higginbotham DO HEMATOLOGY ORDERABLES Final R esult Performing Organization Address [facility] Phone Number INTERFACE SYSTEM Refer to clinic/hospital department * (ABNORMAL) CBC WITH DIFFERENTIAL (06/25/2006 3:53 PM TRACER CLERK) WBC 6.0 4.0 - 9.8 K/uL INTERFACE [...] 12.4 fL INTERFACE SYSTEM 06/25/2006 3:53 PM TRACER CLERK Landry Higginbotham DO HEMATOLOGY ORDERABLES Final R esult Performing Organization Address [facility] Co de Phone Number INTERFACE SYSTEM Refer to clinic/hospital department * (ABNORMAL) C-REACTIVE PROTEIN (06/25/2006 3:53 PM TRACER CLERK) Pathologist [facility] CRP 4.5(H) 0.0 - 0.8 mg/dL INTERFACE SYSTEM 06/25/2006 3:53 PM TRACER CLERK Landry Higginbotham DO CHEMISTRY ORDERABLES Final Re sult Performing Organization Address [facility] Co de Phone Number INTERFACE SYSTEM Refer to clinic/hospital department documented in this encounter Visit Diagnoses Diagnosis Other orchitis, epididymitis, and epididymo-orchitis, without mention of abscess(604.99)- Primary Other orchitis, epididymitis, and epididymo-orchitis, without mention of abscess documented in this encounter Care Teams Powerplant Operator Relationship Specialty Start Date End Date Zac Floyd MD [address] [address] PCP - General 06/19/03 documented as of this encounter
--- OUTSIDE RECORDS SUMMARY | 2025-05-09 10:48 | XMS_ITS | Clinical Summary ---
Author Organization [facility] [employer] Address [address] [place] [address] Care Team Providers Care Deputy Prosecuting Attorney Name Role Phone James Hou MD Primary Care Provider [phone] Source Comments [facility],non-owned Affiliates and Associated Physician Practices is amultiple site organization consisting of ambulatory clinics and hospital sitesin [place], [place], [place] and [place]. This disclosure is being madepursuant to the Care Everywhere program and may not contain all information available regarding this patient. Last updated 18.[facility] [employer] Allergies Active Allergy Reactions Criticality Noted Date [...] on file Legal Sex Male 6:46 AM CLIENT RELATIONSHIP EXECUTIVE Gender Identity Not on file Sexual Orientation [...] 72.1 kg (159 lb) 07/05/2024 11:02 AM CLIENT RELATIONSHIP EXECUTIVE Height 170.2 cm (5' 7) 07/05/2024 11:02 AM CLIENT RELATIONSHIP EXECUTIVE Body Mass Index 24.9 07/05/2024 11:02 AM CLIENT RELATIONSHIP EXECUTIVE Plan of Treatment Upcoming Encounters Date Type Department Care Team (Late st Contact Info) Description 01/02/2026 8:15 AM CDT Office Visit [facility] - Urology [address] [place] [address] [address] [place] [address] Gurwinder Núñez MD [address] [place] [phone] Health Maintenance Due Date Last Done Comments DTAP/TDAP/TD VACCINES (1 - Tdap) 1957 PNEUMOCOCCAL VACCINE 50+ (1 of 1 - PCV) 02/15/1988 ZOSTER VACCINE (1 of 2) 02/15/1988 Respiratory Syncytial Virus (RSV) Vaccine Pt: or over 60 yrs (1 - 1-dose 75+ series) 2013 DEPRESSION SCREENING 08/21/2024 MEDICARE AWV CALENDAR YEAR 2024 COVID-19 VACCINE ( - 2024- season) 2025 06/13/2023, 07/28/2021, 11/09/2020, Additional history exists INFLUENZA VACCINE (#1) 2025 , 05/01/2018, 06/08/2017, Additional history exists HEPATITIS B [...] this topic Medical Devices Implanted Type Area Coil Connector Device Identifier Shelf Expiration Date Model / Serial / Lot Lens Iol Dioptr 21.5 Implanted:Qty: 1 on 01/21/2015 by Marielos Caputo MD at [facility] Left: Eye [employer] 09/20/2019 [id number] / / [id number] Insurance [facility] MANAGED MEDICARE ADV Care Teams Deputy Prosecuting Attorney Relationship Specialty Start Date End Date James Hou MD PCP - General Internal Medicine 01/19/15
--- OUTSIDE RECORDS SUMMARY | 2025-05-09 10:48 | XMS_ITS | Encounter Summary ---
Author Organization [facility] Address 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
--- OUTSIDE RECORDS SUMMARY | 2025-05-09 10:48 | XMS_ITS | Encounter Summary ---
Author Organization [facility] Address [address] [place] [address] Care Team Providers Care Science Liaison Name Role Phone Zac Floyd MD Primary Care Provider [phone] Encounter Details Date Type Department Care Team (Latest Contact Info) Description 09/06/2007 Outpatient Historical [place] [address] [place] [address] Unspecified Disorder of Kidney and Ureter Social History Tobacco Use Types Packs/Day Years Used Date Smoking Tobacco: Never Assessed Sex and Gender Information Value Date Recorded Sex Assigned at Not on file Legal Sex Male 3:01 AM STUDENT AMBASSADOR Gender Identity Not on file Sexual Orientation Not on file documented as of this encounter Plan of Treatment Not on file documented as of this encounter Procedures Procedure Name Priority Date/Time Associated Diagnosis Comments PSA Routine 09/06/2007 2:33 PM STUDENT AMBASSADOR COMPREHENSIVE METABOLIC PANEL Routine 09/06/2007 2:33 PM STUDENT AMBASSADOR documented in this encounter Results * PSA (09/06/2007 2:33 PM STUDENT AMBASSADOR) PSA 1.1 0.0 - 4.0 ng/mL INTERFACE SYSTEM Comment:Performed on [employer] System 09/06/2007 2:33 PM STUDENT AMBASSADOR us Yvan Kay MD CHEMISTRY ORDERABLES Edited INTERFACE SYSTEM Refer to clinic/hospital department * (ABNORMAL) COMPREHENSIVE METABOLIC PANEL (09/06/2007 2:33 PM STUDENT AMBASSADOR) GLUCOSE 52(L) 65 - 99 mg/dL INTERFACE [...] and non- Americans is available on the [facility] Intranet at: [email or web address] Select: Lab Policies and Procedures Select: Reference Ranges - GFR 09/06/2007 2:33 PM STUDENT AMBASSADOR Yvan Kay MD CHEMISTRY ORDERABLES Edited INTERFACE SYSTEM Refer to clinic/hospital department documented in this encounter Visit Diagnoses Diagnosis Unspecified disorder of kidney and ureter documented in this encounter Care Teams Science Liaison Relationship Specialty Start Date End Date Zac Floyd MD [address] [place] [address] PCP - General 06/19/03 documented as of this encounter
--- OUTSIDE RECORDS SUMMARY | 2025-05-09 10:48 | XMS_ITS | Encounter Summary ---
Author Organization [email or web address] Address [address] [place] [address] Care Team Providers Care Conference Manager Name Role Phone Zac Floyd MD Primary Care Provider [phone] Encounter Details Date Type Department Care Team (Late st Contact Info) Description 08/24/2006 Outpatient [facility] [place] [address] [place] [address] Other Specified Congenital Cystic Kidney Disease (Primary Dx) Social History Tobacco Use Types Packs/Day Years Used Date Smoking Tobacco: Never Assessed Sex and Gender Information Value Date Recorded Sex Assigned at Not on file Legal Sex Male 3: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
--- OUTSIDE RECORDS SUMMARY | 2025-05-09 10:48 | XMS_ITS | Encounter Summary ---
Author Organization [facility] Address [address] [place] [address] Care Team Providers Care Supervisor [employer] Name Role Phone Zac Floyd MD Primary Care Provider [phone] Encounter Details Date Type Department Care Team (Late st Contact Info) Description 07/14/2003 Outpatient Historical [place] [address] [place] [address] CALCULUS OF KIDNEY (Primary Dx) Social History Tobacco Use Types Packs/Day Years Used Date Smoking Tobacco: Never Assessed Sex and Gender Information Value Date Recorded Sex Assigned at Not on file Legal Sex Male 3:01 AM CHEF CONCIERGE Gender Identity Not on file Sexual Orientation Not on file documented as of this encounter Plan of Treatment Not on file documented as of this encounter Visit Diagnoses Diagnosis Calculus of kidney- Primary documented in this encounter Care Teams Supervisor [employer] Relationship Specialty Start Date End Date Zac Floyd MD [address] [place] [address] PCP - General 06/19/03 documented as of this encounter
--- OUTSIDE RECORDS SUMMARY | 2025-05-09 10:48 | XMS_ITS | Clinical Summary ---
Author Organization [facility] Address [address] [facility] Attn: Epic Prelude ADT [place] [address] Care Team Providers Care Marina Dry Dock Manager Name Role Phone Zac Floyd MD Primary Care Provider Social History Tobacco Use Types Packs/Day Years Used Date Smoking Tobacco: Never Assessed Sex and Gender Information Value Date Recorded Sex Assigned at Not on file Legal Sex Male 3:01 AM DYED YARN OPERATOR Gender Identity Not on file Sexual Orientation Not on file Plan of Treatment Health Maintenance Due Date Last Done Comments DTAP/TDAP/TD VACCINES (1 - Tdap) 1957 PNEUMOCOCCAL VACCINE 50+ YEARS (1 of 1 - PCV) 02/14/19 88 ZOSTER VACCINE (1 of 2) 02/15/1988 RSV VACCINE (60+ or ) (1 - 1-dose 75+ series) 2013 INFLUENZA VACCINE (#1) 2025 Care Teams Marina Dry Dock Manager Relationship Specialty Start Date End Date Zac Floyd MD [address] [place] [address] PCP - General 06/19/03
--- OUTSIDE RECORDS SUMMARY | 2025-05-09 10:49 | XMS_ITS | Clinical Summary ---
Author Organization [facility] [address] [place] [address] Care Team Providers Care Well Driller Helper Name Role Phone James Hou MD Primary Care Provider [phone] Ozzie Guadarrama MD Unavailable Gretel Burr NP [...] 320mg 021 Active flash glucose scanning reader (OwlparrotStVidedressing Herbert 2 [address]) [facility] Use for BG monitoring 1 each 023 [...] mouth 2 (two) times a day Active clobetasoL (TEMOVATE) 0.05 % external solution [...] hyperglycemia, with long-term current use of insulin ([facility]) INJECT 8-16 UNITS SUBCUTANEOUSLY THREE TIMES [...] of insulin (HCC) USE DIRECTED 2 kit 1 025 Active LANTUS 100 unit/mL (3 mL) pen for injectionIndic ations:Type 2 diabetes mellitus with hyperglycemia, with long-term current use of insulin ([facility]) Inject 25 Units under the skin 2 (two) times a day 45 mL 3 025 Active LANTUS 100 unit/mL (3 mL) pen for injectionIndic ations:Type 2 diabetes mellitus with hyperglycemia, with long-term current use of insulin ([facility]) Inject 40 Units under the skin nightly 45 mL 2 024 2024 Discontinued Active Problems Problem Noted Date Diagnosed Date CKD (chronic kidney disease) stage 4, GFR 15-29 ml/min 01/02/2023 Assessment & Plan (12/25/2024 1:53 PM CDT): Chronic problem. Managed by Dr Monae at [place]; seen q3mos. 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 Valsartan 160mg daily. Last MA: 03/13/24 (186). Last creat/GFR: 03/13/24 GFR=22, CR=2.77. Currently seeing Dr Núñez at [facility] for L kidney mass & bilat renal cysts. Had MRI 07/05/24 to check kidney lesions (3). Had repeat MRI set up for 12/06/24. Will see Dr Núñez 01/03/25. Plan per Dr Núñez's note 07/05/24 is to continue surveillance of slow growing L renal mass. Assessment & Plan (09/17/2024 1:55 PM HUMAN RESOURCES MANAGER MANUFACTURING): Chronic problem. Managed by Dr Beach at [place]; seen q3mos. 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 Valsartan 160mg daily. Last MA: 03/13/24 (186). Last creat/GFR: 03/13/24 GFR=22, CR=2.77. seeing Dr Núñez at [facility] for L kidney mass & bilat renal cysts. Had MRI 07/05/24 to check kidney lesions (3). Has repeat MRI set up for 11/2024. Will see Dr Núñez 12/06/24. Plan per Dr Núñez's note 07/05/24 is to continue surveillance of slow growing L renal mass. Assessment & Plan (03/13/2024 11:10 AM CDT): Chronic problem. Managed by Dr Beach at [place]. Seen q3mos. 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 Valsartan 160mg daily. Last MA: 07/13/22 (64). Last creat/GFR: 07/13/22 GFR=21, CR=2.85. L Kidney mass. Now seeing Dr Avery Núñez at [facility]. 06/14/24. Will be having MRI also per Mr Kahn. Assessment & Plan (05/08/2023 1:59 PM CDT): Chronic problem. Managed by Dr Beach at [place]. Seen q3mos. NOV 05/30/23. Assessment & Plan (01/02/2023 1:59 PM CDT): Chronic problem. Managed by Dr Beach at [place]. Seen q3mos. Hypoglycemia associated with diabetes 03/04/2019 Assessment & Plan (07/13/2022 2:14 PM HUMAN RESOURCES MANAGER MANUFACTURING): Lower evening Lantus dose Assessment & Plan (09/12/2019 12:57 PM HUMAN RESOURCES MANAGER MANUFACTURING): Order Dexcom Assessment & Plan (03/04/2019 11:17 [...] infection. Assessment & Plan (09/17/2024 1:54 PM HUMAN RESOURCES MANAGER MANUFACTURING): Chronic problem. Not at goal but A1c [...] DM eye exam. Reports frequent appts to [facility]; appt 2-3 weeks ago. Letter sent to [...] infection. Assessment & Plan (08/08/2023 1:42 PM HUMAN RESOURCES MANAGER MANUFACTURING): Hba1c was Lab Results Component Value Date [...] DM eye exam. Reports frequent appts to [facility]; appt 2-3 weeks ago. Letter sent [...] DM eye exam. Reports frequent appts to [facility]. Letter sent to get copy of results. [...] weeks Assessment & Plan (07/13/2022 2:10 PM HUMAN RESOURCES MANAGER MANUFACTURING): With some hypoglycemia Lower evening Lantus to [...] today. Assessment & Plan (09/13/2021 12:40 PM HUMAN RESOURCES MANAGER MANUFACTURING): Chronic problem, not at goal with frequent [...] units Assessment & Plan (08/31/2020 9:49 AM HUMAN RESOURCES MANAGER MANUFACTURING): Hba1c was Lab Results Component Value Date [...] Over 301, take 10 units Will request [facility] Assessment & Plan (02/24/2020 12:53 PM [...] units Assessment & Plan (09/12/2019 12:55 PM HUMAN RESOURCES MANAGER MANUFACTURING): A1c 8.9. Poor control continues to be [...] reviewed. Assessment & Plan (09/09/2018 7:45 PM HUMAN RESOURCES MANAGER MANUFACTURING): Your A1c worsening to 9.5.Increase Lantus to [...] reviewed. Assessment & Plan (09/04/2017 12:43 PM HUMAN RESOURCES MANAGER MANUFACTURING): Hba1c was 8.0 today, indicating DM control [...] Atorvastatin 10mg. Last lipid panel: 09/17/24 LDL=94, MO=514. Assessment & Plan (09/17/2024 12:49 PM HUMAN RESOURCES MANAGER MANUFACTURING): Chronic problem. Currently taking Atorvastatin 10mg. Last lipid panel: 08/07/23 LDL=56, TG=92. Will update labs. Does not mychart. Verified phone #/address to contact re: results. Assessment & Plan (03/13/2024 10:41 AM CDT): Chronic problem. Currently taking Atorvastatin 10mg. Last lipid panel: 07/13/22 LDL=22, MU=454. Will update labs today. Does not mychart. Verified phone #/address to contact re: results. Assessment & Plan (05/08/2023 1:14 PM CDT): Chronic problem. Currently taking Atorvastatin 10mg. Last lipid panel: 07/13/22 LDL=22, SG=681. No changes at this time Assessment & Plan (01/02/2023 1:43 PM CDT): Chronic problem. Currently taking Atorvastatin 10mg. Last lipid panel: 07/13/22 LDL=22, HU=921. No changes at this time Assessment & Plan (03/15/2022 2:46 PM CDT): Chronic problem. On statin therapy, no changes. Assessment & Plan (09/13/2021 11:22 AM HUMAN RESOURCES MANAGER MANUFACTURING): Chronic problem. On statin therapy, no changes. Assessment & Plan (03/01/2021 9:39 AM CDT): Check lipid panel today Assessment & Plan (11/30/2020 3:30 PM CDT): LDL 72. Continue statin Assessment & Plan (09/12/2019 12:57 PM HUMAN RESOURCES MANAGER MANUFACTURING): Will order lipid panel and adjust as [...] daily Assessment & Plan (09/17/2024 12:49 PM HUMAN RESOURCES MANAGER MANUFACTURING): Chronic problem. BP elevated upon rooming & [...] daily Assessment & Plan (07/13/2022 2:14 PM HUMAN RESOURCES MANAGER MANUFACTURING): Chronic, well controlled Importance of low salt diet and exercise were discussed Continue current meds Update BMP Assessment & Plan (03/15/2022 2:46 PM CDT): Controlled on current medications, no changes. Assessment & Plan (09/13/2021 11:22 AM HUMAN RESOURCES MANAGER MANUFACTURING): Controlled on current medications, no changes. Assessment [...] ARB Assessment & Plan (09/12/2019 12:56 PM HUMAN RESOURCES MANAGER MANUFACTURING): Controlled on current medications. Continue plan. Assessment & Plan (05/09/2019 9:46 AM CDT): Controlled on current medications. Continue plan. Assessment & Plan (12/03/2018 2:32 PM CDT): Controlled on current medications. Assessment & Plan (09/09/2018 7:47 PM HUMAN RESOURCES MANAGER MANUFACTURING): Controlled on current medications. Assessment & Plan (03/21/2018 10:42 AM CDT): Controlled on current medications. Assessment & Plan (12/04/2017 10:15 AM CDT): Controlled on current medications. Assessment & Plan (09/04/2017 12:44 PM HUMAN RESOURCES MANAGER MANUFACTURING): Goal blood pressure is less than 140/85 Low salt diet recommended Daily aerobic exercise Continue current meds, including CHRISTIAN-I or ARB Assessment & Plan (05/24/2017 9:54 AM CDT): Controlled on current medications. Assessment & Plan (02/22/2017 5:03 PM CDT): Continue current medications. Resolved Problems Problem Noted Date Diagnosed Date Resolved Date Hyperlipidemia 02/22/2017 01/02/2023 Assessment & Plan (09/09/2018 7:46 PM HUMAN RESOURCES MANAGER MANUFACTURING): Check lipid panel today Assessment & Plan (03/21/2018 10:42 AM CDT): At goal on current medications. Assessment & Plan (12/04/2017 10:16 AM CDT): At goal on current medications. Assessment & Plan (09/04/2017 12:43 PM HUMAN RESOURCES MANAGER MANUFACTURING): Goal of treatment , LDL cholesterol less [...] Plan (02/22/2017 5:03 PM CDT): Check labs Surgical History Surgery Date Site/Laterality Comments NE NJX AA&/STRD TFRML EPI CERVICAL/THORACIC 1 LEVEL Corticosteroid Inj Transforaminal Approach Cervical W/ Fluoroscopic Guidance - left C8 (Added by TW Conv) Medical History Medical History Date Comments Hx Other Medical claustrophobic; Comments: PETERSEN 07/02/2014 - Type 2 diabetes mellitus Diabete s type 2 Hyperlipidemia Hyperlipidemia Hypertension Hypertension Family [...] on file Legal Sex Male 1:10 PM HUMAN RESOURCES MANAGER MANUFACTURING Gender Identity Not on file Sexual Orientation [...] Health Maintenance Due Date Last Done Comments Hepatitis B Screening 02/15/1958 Zoster Vaccine (1 of 2) 02/15/1988 Well Visit 65+ 2003 Depression Screening 08/08/2024 08/08/2023, 01/02/2023, 11/16/2022, Additional history exists Fall Risk Assessment 08/08/2024 08/08/2023 Albumin Creatinine Ratio, Urine 03/13/2025 03/13/2024, 07/13/2022, 03/01/2021, Additional history exists eGFR 03/13/2025 03/13/2024, 06/22, 03/01/2021, Additional history exists Covid-19 Vaccine (2024- 6 season) 2025 06/13/2023, 07/28/2021, 11/09/2020, Additional history exists Influenza Vaccine (#1) 2025 9, 05/01/2018, 04/26/2018, Additional history exists Hemoglobin A1C 06/27/2025 12/25/2024, 08/22, 03/13/2024, Additional history exists Foot Exam 09/17/2025 09/17/2024, 02/19, 05/08/2023, Additional history exists Lipid Panel 09/17/2025 09/17/2024, 07/21, 07/13/2022, Additional history exists Dilated Eye Exam 09/30/2025 09/30/2024, , 07/29/2024, Additional history exists DTaP/Tdap/Td Vaccine (2 - Td or Tdap) 09/18/2034 09/18/2024 Pneumococcal vaccine 65+ Completed 020, 09/12/2018, 07/27/2015 Procedures Procedure Name Priority Date/Time Associated Diagnosis Comments POCT HEMOGLOBIN A1C Routine 12/25/2024 1 :14 PM CDT Type 2 diabetes mellitus with hyperglycemia, with long-term current use of insulin (HCC) DIABETES EYE EXAM Routine 09/30/2024 8:45 AM HUMAN RESOURCES MANAGER MANUFACTURING LIPID PANEL Routine 09/17/2024 2:00 PM HUMAN RESOURCES MANAGER MANUFACTURING Type 2 diabetes mellitus with hyperglycemia, with [...] Blood 12/25/2024 1:14 PM CDT Gretel Burr DRIVER TRAINER POINT OF CARE TEST ORDERA BLES Final Result * (ABNORMAL) DIABETES EYE EXAM (09/30/2024 8:45 AM HUMAN RESOURCES MANAGER MANUFACTURING) us Historical Provider HEALTH MAINTENANCE Final Result * (ABNORMAL) Lipid panel (09/17/2024 2:00 PM HUMAN RESOURCES MANAGER MANUFACTURING) Cholesterol 182 30 - 199 mg/dL Comment: [...] 3 [facility] Blood 09/17/2024 2:00 PM HUMAN RESOURCES MANAGER MANUFACTURING 09/17/2024 8:37 PM HUMAN RESOURCES MANAGER MANUFACTURING us Gretel Burr NP LAB BLOOD [place] [address] [address] [facility] [place] [address] * (ABNORMAL) eGFR (03/13/2024 11:17 AM CDT) [...] LAB BLOOD ORDERABLES Shaye l Result [place] [address] [address] [facility] [place] [address] * (ABNORMAL) Albumin Creatinine Ratio, [...] LAB URINE ORDERABLES Shaye l Result [place] [address] [address] [facility] [place] [address] from Last 3 Months or Most Recently Relevant to Health Maintenance Insurance MEDICARE ADVANTAGE [facility] MEDIC[facility] Address: [place] [address] MEDICARE ADVANTAGE [facility] MEDICARE Address: [address] [place] [address] MEDICARE ADVANTAGE Care Teams Well Driller Helper Relationship Specialty Start Date End Date James Hou MD PCP - General 11/18/16 [place] [address] [address] [address] Consulting Physician Endocrinology Diabetes & Metabolism 12/25/24 [place] [address] [address] [address] Nurse Practitioner Endocrinology Diabetes & Metabolism 12/25/24
[2025-05-09 12:29] LABS: Alanine Aminotransferase 19 U/L (6-50); Albumin Level 4.0 g/dL (3.5-5.1); Alkaline Phosphatase 93 U/L (38-126); Anion Gap 11 mmol/L (4-12); Aspartate Amino Transferase 29 U/L (17-59); Bilirubin,Total 0.5 mg/dL (0.2-1.3); Blood Urea Nitrogen 57 mg/dL (9-20); Calcium 8.6 mg/dL (8.4-10.2); Carbon Dioxide 22 mmol/L (22-30); Chloride 104 mmol/L (98-107); Estimated Glomerular Filt Rate 16; Glucose 175 mg/dL (65-110); Potassium 4.4 mmol/L (3.4-5.0); Sodium 137 mmol/L (137-145); Total Protein 7.6 g/dL (6.3-8.2)
== END 2025-05-09 10:43 | disposition home or self-care (01) ==
LOC: ANHLAB 10:46
PROVIDERS: PCP Internal Medicine; Visit Provider Internal Medicine Cardiovascular Disease
DX: E11.22 Type 2 diabetes mellitus with diabetic chronic kidney disease (principal); I12.9 Hypertensive chronic kidney disease with stage 1 through stage 4 chronic kidney disease, or unspecified chronic kidney disease; N18.9 Chronic kidney disease, unspecified; I73.9 Peripheral vascular disease, unspecified; I51.7 Cardiomegaly
CPT/HCPCS: 36415; 80053

== ENCOUNTER 2025-06-02 12:32 | Outpatient (CLI) | payer MEDICARE, SELFPAY ==
[2025-06-02 13:11] LABS: Hematocrit 33.5 % (42.0-52.0); Hemoglobin 11.4 g/dL (14.0-18.0); Immature Granulocyte Percent A 0.2 % (0-0.5); Lymphocytes Absolute Auto 0.73 K/mm3 (0.9-3.2); Mean Corpuscular HGB Conc 34.0 g/dl (32-36); Mean Corpuscular Hemoglobin 27.9 pg (26-34); Mean Corpuscular Volume 81.9 fl (80-100); Nucleated Red Blood Cells Absolute Auto 0.000 K/mm3 (0.0-0.012); Nucleated Red Blood Cells Perc 0.0 % (0.0-0.2); Platelet Count Result 180 k/mm3 (150-375); Red Blood Count 4.09 M/mm3 (4.6-6.20); White Blood Count 4.7 K/mm3 (4.5-10.0)
[2025-06-02 13:32] LABS: Albumin Level 4.0 g/dL (3.5-5.1); Anion Gap 10 mmol/L (4-12); Blood Urea Nitrogen 59 mg/dL (9-20); Calcium 8.6 mg/dL (8.4-10.2); Carbon Dioxide 24 mmol/L (22-30); Chloride 102 mmol/L (98-107); Estimated Glomerular Filt Rate 15; Glucose 279 mg/dL (65-110); Potassium 4.9 mmol/L (3.4-5.0); Sodium 136 mmol/L (137-145)
--- OUTSIDE RECORDS SUMMARY | 2025-06-02 13:33 | XMS_ITS | Encounter Summary ---
Author Organization [facility] Address [address] [place] [address] Care Team Providers Care Powder Coat Painter Name Role Phone Zac Floyd MD Primary Care Provider [phone] Encounter Details Date Type Department Care Team (Late st Contact Info) Description 06/19/2003 Outpatient Historical [place] [address] [place] [address] HEMATURIA (Primary Dx) Social History Tobacco Use Types Packs/Day Years Used Date Smoking Tobacco: Never Assessed Sex and Gender Information Value Date Recorded Sex Assigned at Not on file Legal Sex Male 3:01 AM ZIPPER SETTER Gender Identity Not on file Sexual Orientation Not on file documented as of this encounter Plan of Treatment Not on file documented as of this encounter Visit Diagnoses Diagnosis Hematuria- Primary documented in this encounter Care Teams Powder Coat Painter Relationship Specialty Start Date End Date Zac Floyd MD [address] [place] [address] PCP - General 06/19/03 documented as of this encounter
--- OUTSIDE RECORDS SUMMARY | 2025-06-02 13:33 | XMS_ITS | Encounter Summary ---
Author Organization [facility] Address [address] [place] [address] Care Team Providers Care Contour Grinder Name Role Phone Zac Floyd MD Primary Care Provider [phone] Encounter Details Date Type Department Care Team (Late st Contact Info) Description 06/25/2006 Emergency [facility] Landry Higginbotham DO [address] [place] [address] Er, Authorized P NO ADDRESS ON FILE Orchitis/Epididymit NEC (Primary Dx) Social History Tobacco Use Types Packs/Day Years Used Date Smoking Tobacco: Never Assessed Sex and Gender Information Value Date Recorded Sex Assigned at Not on file Legal Sex Male 3:01 AM DRUG COUNSELOR Gender Identity Not on file Sexual Orientation Not on file documented as of this encounter Plan of Treatment Not on file documented as of this encounter Procedures Procedure Name Priority Date/Time Associated Diagnosis Comments URINALYSIS W/REFLEX MICROSCOPIC Routine 06/25/2006 4:39 PM DRUG COUNSELOR CBC WITH DIFFERENTIAL Routine 06/25/2006 3:53 PM DRUG COUNSELOR CBC WITH DIFFERENTIAL Routine 06/25/2006 3:53 PM DRUG COUNSELOR C-REACTIVE PROTEIN Routine 06/25/2006 3: 53 PM DRUG COUNSELOR documented in this encounter Results * (ABNORMAL) URINALYSIS (06/25/2006 4:39 PM DRUG COUNSELOR) COLOR UA Yellow INTERFACE SYSTEM CLARITY UA [...] Briana 06/25/2006 5:42 PM 06/25/2006 4:39 PM DRUG COUNSELOR Landry Higginbotham DO URINE ORDERABLES Final Result Performing Organization Address [facility] Phone Number INTERFACE SYSTEM Refer to clinic/hospital department * (ABNORMAL) CBC WITH DIFFERENTIAL (06/25/2006 3:53 PM DRUG COUNSELOR) Pathologist [facility] NEUTROPHILS 65 45 - 70 % [...] 0.20 K/uL INTERFACE SYSTEM 06/25/2006 3:53 PM DRUG COUNSELOR Landry Higginbotham DO HEMATOLOGY ORDERABLES Final R esult Performing Organization Address [facility] Phone Number INTERFACE SYSTEM Refer to clinic/hospital department * (ABNORMAL) CBC WITH DIFFERENTIAL (06/25/2006 3:53 PM DRUG COUNSELOR) WBC 6.0 4.0 - 9.8 K/uL INTERFACE [...] 12.4 fL INTERFACE SYSTEM 06/25/2006 3:53 PM DRUG COUNSELOR Landry Higginbotham DO HEMATOLOGY ORDERABLES Final R esult Performing Organization Address [facility] Co de Phone Number INTERFACE SYSTEM Refer to clinic/hospital department * (ABNORMAL) C-REACTIVE PROTEIN (06/25/2006 3:53 PM DRUG COUNSELOR) Pathologist [facility] CRP 4.5(H) 0.0 - 0.8 mg/dL INTERFACE SYSTEM 06/25/2006 3:53 PM DRUG COUNSELOR Landry Higginbotham DO CHEMISTRY ORDERABLES Final Re sult Performing Organization Address [facility] Co de Phone Number INTERFACE SYSTEM Refer to clinic/hospital department documented in this encounter Visit Diagnoses Diagnosis Other orchitis, epididymitis, and epididymo-orchitis, without mention of abscess(604.99)- Primary Other orchitis, epididymitis, and epididymo-orchitis, without mention of abscess documented in this encounter Care Teams Contour Grinder Relationship Specialty Start Date End Date Zac Floyd MD [address] [address] PCP - General 06/19/03 documented as of this encounter
--- OUTSIDE RECORDS SUMMARY | 2025-06-02 13:33 | XMS_ITS | Encounter Summary ---
Author Organization [facility] Address 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
--- OUTSIDE RECORDS SUMMARY | 2025-06-02 13:33 | XMS_ITS | Encounter Summary ---
Author Organization [facility] Address [address] [place] [address] Care Team Providers Care Email Operations Manager Name Role Phone Zac Floyd MD Primary Care Provider [phone] Encounter Details Date Type Department Care Team (Latest Contact Info) Description 09/06/2007 Outpatient Historical [facility] [place] [address] [place] [address] Unspecified Disorder of Kidney and Ureter Social History Tobacco Use Types Packs/Day Years Used Date Smoking Tobacco: Never Assessed Sex and Gender Information Value Date Recorded Sex Assigned at Not on file Legal Sex Male 3:01 AM PROOF OPERATOR Gender Identity Not on file Sexual Orientation Not on file documented as of this encounter Plan of Treatment Not on file documented as of this encounter Procedures Procedure Name Priority Date/Time Associated Diagnosis Comments PSA Routine 09/06/2007 2:33 PM PROOF OPERATOR COMPREHENSIVE METABOLIC PANEL Routine 09/06/2007 2:33 PM PROOF OPERATOR documented in this encounter Results * PSA (09/06/2007 2:33 PM PROOF OPERATOR) PSA 1.1 0.0 - 4.0 ng/mL INTERFACE SYSTEM Comment:Performed on [employer]70 System 09/06/2007 2:33 PM PROOF OPERATOR us Yvan Kay MD CHEMISTRY ORDERABLES Edited INTERFACE SYSTEM Refer to clinic/hospital department * (ABNORMAL) COMPREHENSIVE METABOLIC PANEL (09/06/2007 2:33 PM PROOF OPERATOR) GLUCOSE 52(L) 65 - 99 mg/dL INTERFACE [...] [facility] Intranet at: [email or web address] Select: Lab Policies and Procedures Select: Reference Ranges - GFR 09/06/2007 2:33 PM PROOF OPERATOR Yvan Kay MD CHEMISTRY ORDERABLES Edited INTERFACE SYSTEM Refer to clinic/hospital department documented in this encounter Visit Diagnoses Diagnosis Unspecified disorder of kidney and ureter documented in this encounter Care Teams Email Operations Manager Relationship Specialty Start Date End Date Zac Floyd MD [address] [place] [address] PCP - General 06/19/03 documented as of this encounter
--- OUTSIDE RECORDS SUMMARY | 2025-06-02 13:33 | XMS_ITS | Clinical Summary ---
Author Organization [facility] rodr[facility]guez Address [address] [address] Phone Care Team Providers Care Plate Drying Machine Tender Name Role Phone James Hou MD Primary Care Provider [phone] Allergies Active Allergy Reactions Criticality Noted Date [...] MOUTH THREE TIMES A WEEK 15 capsule 05/27/20 25 Active calcitriol (ROCALTROL) 0.25 MCG capsule TAKE 1 CAPSULE BY MOUTH THREE TIMES A WEEK 15 capsule 2 02/08/20 25 025 Discontinued Active Problems Problem Noted [...] Encounters Date Type Department Care Team Description 05/26/2025 Refill [facility] [address] [place] [address] Coral Hubbard, AMANDA from Last 3 Months [...] 36.4 C (97.6 F) 08/03/2021 10:41 AM DETENTION DEPUTY Respiratory Rate - - Oxygen Saturation - - Inhaled Oxygen Concentration - - Weight 73.5 kg (162 lb) 11/26/2024 12:37 PM CDT Height 172.7 cm (5' 8) 11/26/2024 12:37 PM CDT Body Mass Index 24.63 11/26/2024 12:37 PM CDT Plan of Treatment Upcoming Encounters Date Type Department Care Team (Late st Contact Info) Description 06/03/2025 11:20 AM CDT Office Visit [facility] [address] [place] [address] Vladislav Douglas MD [address] [address] Health Maintenance Due Date Last Done Comments Diabetic Foot Exam 02/15/1950 Ophthalmology Exam 02/15/1950 Pneumococcal PPSV23/PCV13 65 + Years / High and Highest Risk (2 of 4 - PPSV23, PCV20, or PCV21) 11/07/2018 09/12/2018, 07/27/2015 COVID-19 Vaccine (5 - 2024-2 6 season) 2025 06/13/2023, 07/28/2021, 11/09/2020, Additional history exists Influenza Vaccine (#1) 2025 8, 05/28/2015, 05/28/2015, Additional history exists Insurance MEDICARE Care Teams Plate Drying Machine Tender Relationship Specialty Start Date End Date James Hou MD [address] [id number] PCP - General 02/12/19
--- OUTSIDE RECORDS SUMMARY | 2025-06-02 13:33 | XMS_ITS | Encounter Summary ---
Author Organization [facility] Address 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
--- OUTSIDE RECORDS SUMMARY | 2025-06-02 13:33 | XMS_ITS | Data Portability ---
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 [email or web address] Not available 08/07/2023 22:27:15 02/27/2025 02/27/2025 This note is dictated and transcribed by [employer]. Bundle Collector variances may occur. Despite proofreading, typographical errors may occur. Occasional wrong-word or '[id number]' substitutions may have occurred due to the inherent limitations of voice recording. Read the chart carefully and recognize, using context, where substitutions have occurred. Not available 02/27/2025 15:38:42 03/13/2025 03/13/2025 This note is dictated and transcribed by [employer]. Bundle Collector variances may occur. Despite proofreading, typographical errors may occur. Occasional wrong-word or '[id number]-[id number]' substitutions may have occurred due to the inherent limitations of voice recording. Read the chart carefully and recognize, using context, where substitutions have occurred. Not available 03/13/2025 14:44:09 Plan of Treatment Reminders Order Date Submit Date Provider Last Modified By Organization Details Last Modified Time Details Appointments Establish ed Patient 15 2024 11:30A Emma Hopkins DPM Not available Not available Not available Establish ed Patient 10 2025 11:20A M Dimitrios Hopkins DPM Not available Not available Not available Lab glycohemo globin, total, blood 2022 023 [facility] (Lab), [address] [place], [address], 08/07/2023 20:50:46 CBC w/ auto diff 2022 023 [facility] (Lab), [address] [place], [address], 08/07/2023 14:29:08 CMP, serum or plasma 2022 023 [facility] (Lab), [address] [place], [address], 08/07/2023 14:36:40 lipid panel, serum 2022 023 [facility] (Lab), [address] [place], [address], 08/07/2023 14:36:45 PSA, serum or plasma 2022 023 [facility] (Lab), [address] [place], [address], 05/12/2023 14:23:37 PTH (parathyr oid hormone), intact, serum or plasma 2022 023 [email or web address] [facility] (Lab), [address] [place], [address], 04/10/2023 15:34:36 HbA1c (hemoglob in A1c), blood 2022 023 [email or web address] [facility] (Lab), [address] [place], [address], 05/12/2023 14:23:31 CMP, serum or plasma [address] (Lab), [address] [place], [address], 04/10/2023 15:34:36 lipid panel, serum [address] (Lab), [address] [place], [address], 04/10/2023 15:34:36 CBC w/ auto diff [address] (Lab), [address] [place], [address], 04/10/2023 15:34:36 Referral vascular surgeon referral - [facility]- nohemy PLEASE CALL PT TO SCHEDULE AN APPT....T MARLEY YOU!!! 2024 025 [email or web address] Kerwin Schultz MD, [address] [facility], [address], [place], [address], 05/12/2025 08:32:20 Procedures None recorded. Surgeries None recorded. Imaging US, duplex, arterial, lower extremity - PLEASE CALL PT TO SCHEDULE AN APPT....T MARLEY YOU! 2024 025 [facility], [address] [facility], [address], [address], 03/11/2025 16:43:33 Medication Orders mometason e 0.1 % topical cream 2022 023 [facility], [address] [facility] [place], [address], 08/17/2023 14:27:49 Patient TargetsNo targets recorded. Patient InstructionsNo instructions recorded. Reason for Referral Vascular Surgeon Referral fo r Peripheral arterial occlusive disease [facility] TO [facility]ULE AN [facility]PT....THANK YOU!!! Referring Physician: Dimitrios Hopkins, Podiatric Surgery, Encounter Date: 03/13/2025 Results Created Date Observation Date Name Description Value Unit Range Abnormal Flag Note LastModifiedBy Organization Detail LastModifiedTime 04/10/20 23 04/10/2023 CBC/C OMPLE TE BLD COUNT W/DIF F white blood cells 4.7 x10'3 /uL 4.2-10 .8 Not Available [facility] (Lab) [address] [place], [address], 04/10/2023 13:43:41 04/10/20 23 04/10/2023 CBC/C OMPLE TE BLD COUNT W/DIF F red blood cells 4.31 x10'6 /uL 4.10-5 .80 Not Available [facility] (Lab) [address] [place], [address], 04/10/2023 13:43:41 04/10/20 23 04/10/2023 CBC/C OMPLE TE BLD COUNT W/DIF F hemoglobin 12.2 g/dL 13.2-1 7.0 low Not Available [facility] (Lab) [address] [place], [address], 04/10/2023 13:43:41 04/10/20 23 04/10/2023 CBC/C OMPLE TE BLD COUNT W/DIF F hematocrit 35.1 % 39.3-5 0.0 low Not Available [facility] (Lab) [address] [place], [address], 04/10/2023 13:43:41 04/10/20 23 04/10/2023 CBC/C OMPLE TE BLD COUNT W/DIF F mean red cell volume 81.4 fL 80.0-9 7.0 Not Available [facility] (Lab) [address] [place], [address], 04/10/2023 13:43:41 04/10/20 23 04/10/2023 CBC/C OMPLE TE BLD COUNT W/DIF F mean red cell hemoglobin 28.3 pg 27.0-3 3.0 Not Available [facility] (Lab) [address] [place], [address], 04/10/2023 13:43:41 04/10/20 23 04/10/2023 CBC/C OMPLE TE BLD COUNT W/DIF F mean RBC HGB concentratio n 34.8 g/dL 31.0-3 6.0 Not Available [facility] (Lab) [address] [place], [address], 04/10/2023 13:43:41 04/10/20 23 04/10/2023 CBC/C OMPLE TE BLD COUNT W/DIF F red cell distribution width 14.6 % 11.8-1 5.5 Not Available [facility] (Lab) [address] [place], [address], 04/10/2023 13:43:41 04/10/20 23 04/10/2023 CBC/C OMPLE TE BLD COUNT W/DIF F platelets 174 x10'3 /uL 150-40 0 Not Available [facility] (Lab) [address] [place], [address], 04/10/2023 13:43:41 04/10/20 23 04/10/2023 CBC/C OMPLE TE BLD COUNT W/DIF F mean platelet volume 12.7 fL 9.0-12 .4 high Not Available [facility] (Lab) [address] [place], [address], 04/10/2023 13:43:41 04/10/20 23 04/10/2023 CBC/C OMPLE TE BLD COUNT W/DIF F neutrophils 47.1 % 39.0-7 2.0 Not Available [facility] (Lab) [address] [place], [address], 04/10/2023 13:43:41 04/10/20 23 04/10/2023 CBC/C OMPLE TE BLD COUNT W/DIF F lymphocytes 33.0 % 16.0-4 7.0 Not Available [facility] (Lab) [address] [place], [address], 04/10/2023 13:43:41 04/10/20 23 04/10/2023 CBC/C OMPLE TE BLD COUNT W/DIF F monocytes 15.4 % 5.0-12 .0 high Not Available [facility] (Lab) [address] [place], [address], 04/10/2023 13:43:41 04/10/20 23 04/10/2023 CBC/C OMPLE TE BLD COUNT W/DIF F eosinophils 3.0 % 1.0-7. 0 Not Available [facility] (Lab) [address] [place], [address], 04/10/2023 13:43:41 04/10/20 23 04/10/2023 CBC/C OMPLE TE BLD COUNT W/DIF F basophils 1.1 % 0.0-2. 0 Not Available [facility] (Lab) [address] [place], [address], 04/10/2023 13:43:41 04/10/20 23 04/10/2023 CBC/C OMPLE TE BLD COUNT W/DIF F immature granulocytes 0.4 % 0.00-0 .50 Not Available [facility] (Lab) [address] [place], [address], 04/10/2023 13:43:41 04/10/20 23 04/10/2023 CBC/C OMPLE TE BLD COUNT W/DIF F neutrophils, absolute count 2.20 x10'3 /uL 1.5-8. 0 Not Available [facility] (Lab) [address] [place], [address], 04/10/2023 13:43:41 04/10/20 23 04/10/2023 CBC/C OMPLE TE BLD COUNT W/DIF F lymphocytes, absolute count 1.54 x10'3 /uL 1.07-3 .43 Not Available [facility] (Lab) [address] [place], [address], 04/10/2023 13:43:41 04/10/20 23 04/10/2023 CBC/C OMPLE TE BLD COUNT W/DIF F monocytes, absolute count 0.72 x10'3 /uL 0.29-0 .99 Not Available [facility] (Lab) [address] [place], [address], 04/10/2023 13:43:41 04/10/20 23 04/10/2023 CBC/C OMPLE TE BLD COUNT W/DIF F eosinophils, absolute count 0.14 x10'3 /uL 0.02-0 .53 Not Available [facility] (Lab) [address] [place], [address], 04/10/2023 13:43:41 04/10/20 23 04/10/2023 CBC/C OMPLE TE BLD COUNT W/DIF F basophils, absolute count 0.05 x10'3 /uL 0.01-0 .08 Not Available [facility] (Lab) [address] [place], [address], 04/10/2023 13:43:41 04/10/20 23 04/10/2023 CBC/C OMPLE TE BLD COUNT W/DIF F immature granulocytes ,absolute 0.02 x10'3 /uL 0.00-0 .05 Not Available [facility] (Lab) [address] [place], [address], 04/10/2023 13:43:41 04/10/20 23 04/10/2023 CBC/C OMPLE TE BLD COUNT W/DIF F nucleated red blood cells 0.0 % -0 Not Available [facility] (Lab) [address] [place], [address], 04/10/2023 13:43:41 04/10/20 23 04/10/2023 CBC/C OMPLE TE BLD COUNT W/DIF F NRBC# 0.00 x10'3 /uL Not Available [facility] (Lab) [address] [place], [address], 04/10/2023 13:43:41 04/10/20 23 04/10/2023 PARAT HY.HO RM(PT H)INT ACT-W /O CA intact parathyroid hormone 168.6 pg/mL 24.0-7 8.0 high Pleas e note new refer ence range effec tive 09/16 . Not Available [facility] (Lab) [address] [place], [address], 04/10/2023 14:35:59 04/10/20 23 04/10/2023 COMPR EHENS MAYNOR METAB OLIC PANEL sodium 133 mmol/ L 137-14 5 low Not Available [facility] (Lab) [address] [place], [address], 04/10/2023 14:42:43 04/10/20 23 04/10/2023 COMPR EHENS MAYNOR METAB OLIC PANEL potassium 5.2 mmol/ L 3.5-5. 1 high Not Available [facility] (Lab) [address] [place], [address], 04/10/2023 14:42:43 04/10/20 23 04/10/2023 COMPR EHENS MAYNOR METAB OLIC PANEL chloride 100 mmol/ L 98-107 Not Available [facility] (Lab) [address] [place], [address], 04/10/2023 14:42:43 04/10/20 23 04/10/2023 COMPR EHENS MAYNOR METAB OLIC PANEL carbon dioxide 24 mmol/ L 22-30 Not Available [facility] (Lab) [address] [place], [address], 04/10/2023 14:42:43 04/10/20 23 04/10/2023 COMPR EHENS MAYNOR METAB OLIC PANEL anion gap 14.2 mmol/ L 14-22 Not Available [facility] (Lab) [address] [place], [address], 04/10/2023 14:42:43 04/10/20 23 04/10/2023 COMPR EHENS MAYNOR METAB OLIC PANEL glucose 347 mg/dL 70-99 high Not Available [facility] (Lab) [address] [place], [address], 04/10/2023 14:42:43 04/10/20 23 04/10/2023 COMPR EHENS MAYNOR METAB OLIC PANEL BUN 47 mg/dL 8-19 high Not Available [facility] (Lab) [address] [place], [address], 04/10/2023 14:42:43 04/10/20 23 04/10/2023 COMPR EHENS MAYNOR METAB OLIC PANEL creatinine 2.61 mg/dL 0.66-1 .25 high Not Available [facility] (Lab) [address] [place], [address], 04/10/2023 14:42:43 04/10/20 23 04/10/2023 COMPR EHENS MAYNOR METAB OLIC PANEL GFR 28 Refer ence Range : [place] ge GFR Healt hy Adult : >60 [...] or ethni c subgr oups, such as Hiskong nics. Outsi de the valid ated ophelia [...] calcu lator is avail able on the [facility] websi te: https ://cris w.daria persaud.o rg/pr ofess ional s/kdo qi/gf r_cal culat or Not Available [facility] (Lab) [address] [place], [address], 04/10/2023 14:42:43 04/10/20 23 04/10/2023 COMPR EHENS MAYNOR METAB OLIC PANEL alkaline phosphatase 126 U/L 38-126 Not Available [facility] (Lab) [address] [place], [address], 04/10/2023 14:42:43 04/10/20 23 04/10/2023 COMPR EHENS MAYNOR METAB OLIC PANEL alanine aminotransfe rase 23 U/L 0-50 Not Available [facility] (Lab) [address] [place], [address], 04/10/2023 14:42:43 04/10/20 23 04/10/2023 COMPR EHENS MAYNOR METAB OLIC PANEL aspartate aminotransfe rase 30 U/L 15-46 Not Available [facility] (Lab) [address] [place], [address], 04/10/2023 14:42:43 04/10/20 23 04/10/2023 COMPR EHENS MAYNOR METAB OLIC PANEL bilirubin, total 0.30 mg/dL 0.20-1 .30 Not Available [facility] (Lab) [address] [place], [address], 04/10/2023 14:42:43 04/10/20 23 04/10/2023 COMPR EHENS MAYNOR METAB OLIC PANEL calcium 8.6 mg/dL 8.4-10 .2 Not Available [facility] (Lab) [address] [place], [address], 04/10/2023 14:42:43 04/10/20 23 04/10/2023 COMPR EHENS MAYNOR METAB OLIC PANEL total protein 7.3 g/dL 6.3-8. 2 Not Available [facility] (Lab) [address] [place], [address], 04/10/2023 14:42:43 04/10/20 23 04/10/2023 COMPR EHENS MAYNOR METAB OLIC PANEL albumin 4.0 g/dL 3.0-4. 4 Not Available [facility] (Lab) [address] [place], [address], 04/10/2023 14:42:43 04/10/20 23 04/10/2023 COMPR EHENS MAYNOR METAB OLIC PANEL globulin 3.3 g/dL 2.6-4. 2 Not Available [facility] (Lab) [address] [place], [address], 04/10/2023 14:42:43 04/10/20 23 04/10/2023 COMPR EHENS MAYNOR METAB OLIC PANEL A/G ratio 1.2 ratio 1.0-2. 0 Not Available [facility] (Lab) [address] [place], [address], 04/10/2023 14:42:43 04/10/20 23 04/10/2023 LIPID PANEL cholesterol 119 mg/dL 140-19 9 low NIH FRANCI NSUS RECOM MENDA TION FOR PERRY STERO L: ADULT CHILD LOW RISK: <200 <170 BORDE RLINE : <200- 239 ----- HIGH RISK: >240 >200 Not Available [facility] (Lab) [address] [place], [address], 04/10/2023 14:42:51 04/10/20 23 04/10/2023 LIPID PANEL triglyceride s 77 mg/dL 0-150 NIH FRANCI NSUS REPOR T RECOM MENDA TION FOR TRIGL YCERI ROCCO: ADULT CHILD LOW RISK: <150 ----- BODER LINE: 150-1 99 ----- HIGH RISK: >200 ----- Not Available [facility] (Lab) [address] [place], [address], 04/10/2023 14:42:51 04/10/20 23 04/10/2023 LIPID PANEL HDL cholesterol 51 mg/dL 40- Not Available [facility] (Lab) [address] [place], [address], 04/10/2023 14:42:51 04/10/20 23 04/10/2023 LIPID PANEL [...] WILL NOT BE REPOR EJ. Not Available [facility] (Lab) [address] [place], [address], 04/10/2023 14:42:51 04/10/20 23 04/10/2023 HEMOG LOBIN A1C HA1C 8.0 % 4.0-6. 0 high Diabe darrin Scree darek Crite eyal: <5.7% Consi stent with absen ce of diabe darrin 5.7-6 .4% Consi stent with incre ased risk for diabe darrin (pred iabet es) >OR=6 .5% Consi stent with diabe darrin REFER ENCE: Diabe darrin Care 2015, 39(Chavez ppl.1 ):s13 -s22 Not Available [facility] (Lab) [address] [place], [address], 04/10/2023 14:51:17 04/10/20 23 04/10/2023 PSA SCREE N PSA medicare screen 3.04 NG/mL 0.00-4 .[address] [facility] (Lab) [address] [place], [address], 04/10/2023 15:25:14 08/07/20 23 08/07/2023 CBC/C OMPLE TE BLD COUNT W/DIF F white blood cells 4.0 x10'3 /uL 4.2-10 .8 low Not Available [facility] (Lab) [address] [place], [address], 08/07/2023 14:29:07 08/07/20 23 08/07/2023 CBC/C OMPLE TE BLD COUNT W/DIF F red blood cells 4.33 x10'6 /uL 4.10-5 .80 Not Available [facility] (Lab) [address] [place], [address], 08/07/2023 14:29:07 08/07/20 23 08/07/2023 CBC/C OMPLE TE BLD COUNT W/DIF F hemoglobin 12.2 g/dL 13.2-1 7.0 low Not Available [facility] (Lab) [address] [place], [address], 08/07/2023 14:29:07 08/07/20 23 08/07/2023 CBC/C OMPLE TE BLD COUNT W/DIF F hematocrit 35.8 % 39.3-5 0.0 low Not Available [facility] (Lab) [address] [place], [address], 08/07/2023 14:29:07 08/07/20 23 08/07/2023 CBC/C OMPLE TE BLD COUNT W/DIF F mean red cell volume 82.7 fL 80.0-9 7.[address] [facility] (Lab) [address] [place], [address], 08/07/2023 14:29:07 08/07/20 23 08/07/2023 CBC/C OMPLE TE BLD COUNT W/DIF F mean red cell hemoglobin 28.2 pg 27.0-3 3.0 Not Available [facility] (Lab) [address] [place], [address], 08/07/2023 14:29:07 08/07/20 23 08/07/2023 CBC/C OMPLE TE BLD COUNT W/DIF F mean RBC HGB concentratio n 34.1 g/dL 31.0-3 6.0 Not Available [facility] (Lab) [address] [place], [address], 08/07/2023 14:29:07 08/07/20 23 08/07/2023 CBC/C OMPLE TE BLD COUNT W/DIF F red cell distribution width 13.7 % 11.8-1 5.5 Not Available [facility] (Lab) [address] [place], [address], 08/07/2023 14:29:07 08/07/20 23 08/07/2023 CBC/C OMPLE TE BLD COUNT W/DIF F platelets 176 x10'3 /uL 150-40 0 Not Available [facility] (Lab) [address] [place], [address], 08/07/2023 14:29:07 08/07/20 23 08/07/2023 CBC/C OMPLE TE BLD COUNT W/DIF F mean platelet volume 13.3 fL 9.0-12 .4 high Not Available [facility] (Lab) [address] [place], [address], 08/07/2023 14:29:07 08/07/20 23 08/07/2023 CBC/C OMPLE TE BLD COUNT W/DIF F neutrophils 48.0 % 39.0-7 2.[address] [facility] (Lab) [address] [place], [address], 08/07/2023 14:29:07 08/07/20 23 08/07/2023 CBC/C OMPLE TE BLD COUNT W/DIF F lymphocytes 29.6 % 16.0-4 7.0 Not Available [facility] (Lab) [address] [place], [address], 08/07/2023 14:29:07 08/07/20 23 08/07/2023 CBC/C OMPLE TE BLD COUNT W/DIF F monocytes 17.0 % 5.0-12 .0 high Not Available [facility] (Lab) [address] [place], [address], 08/07/2023 14:29:07 08/07/20 23 08/07/2023 CBC/C OMPLE TE BLD COUNT W/DIF F eosinophils 3.8 % 1.0-7. 0 Not Available [facility] (Lab) [address] [place], [address], 08/07/2023 14:29:07 08/07/20 23 08/07/2023 CBC/C OMPLE TE BLD COUNT W/DIF F basophils 1.3 % 0.0-2. 0 Not Available [facility] (Lab) [address] [place], [address], 08/07/2023 14:29:07 08/07/20 23 08/07/2023 CBC/C OMPLE TE BLD COUNT W/DIF F immature granulocytes 0.3 % 0.00-0 .50 Not Available [facility] (Lab) [address] [place], [address], 08/07/2023 14:29:07 08/07/20 23 08/07/2023 CBC/C OMPLE TE BLD COUNT W/DIF F neutrophils, absolute count 1.92 x10'3 /uL 1.5-8. 0 Not Available [facility] (Lab) [address] [place], [address], 08/07/2023 14:29:07 08/07/20 23 08/07/2023 CBC/C OMPLE TE BLD COUNT W/DIF F lymphocytes, absolute count 1.18 x10'3 /uL 1.07-3 .43 Not Available [facility] (Lab) [address] [place], [address], 08/07/2023 14:29:07 08/07/20 23 08/07/2023 CBC/C OMPLE TE BLD COUNT W/DIF F monocytes, absolute count 0.68 x10'3 /uL 0.29-0 .99 Not Available [facility] (Lab) [address] [place], [address], 08/07/2023 14:29:07 08/07/20 23 08/07/2023 CBC/C OMPLE TE BLD COUNT W/DIF F eosinophils, absolute count 0.15 x10'3 /uL 0.02-0 .53 Not Available [facility] (Lab) [address] [place], [address], 08/07/2023 14:29:07 08/07/20 23 08/07/2023 CBC/C OMPLE TE BLD COUNT W/DIF F basophils, absolute count 0.05 x10'3 /uL 0.01-0 .08 Not Available [facility] (Lab) [address] [place], [address], 08/07/2023 14:29:07 08/07/20 23 08/07/2023 CBC/C OMPLE TE BLD COUNT W/DIF F immature granulocytes ,absolute 0.01 x10'3 /uL 0.00-0 .05 Not Available [facility] (Lab) [address] [place], [address], 08/07/2023 14:29:07 08/07/20 23 08/07/2023 CBC/C OMPLE TE BLD COUNT W/DIF F nucleated red blood cells 0.0 % -0 Not Available [facility] (Lab) [address] [place], [address], 08/07/2023 14:29:07 08/07/20 23 08/07/2023 CBC/C OMPLE TE BLD COUNT W/DIF F NRBC# 0.00 x10'3 /uL Not Available [facility] (Lab) [address] [place], [address], 08/07/2023 14:29:07 08/07/20 23 08/07/2023 COMPR EHENS MAYNOR METAB OLIC PANEL sodium 138 mmol/ L 137-14 5 Not Available [facility] (Lab) [address] [place], [address], 08/07/2023 14:36:40 08/07/20 23 08/07/2023 COMPR EHENS MAYNOR METAB OLIC PANEL potassium 4.0 mmol/ L 3.5-5. 1 Not Available [facility] (Lab) [address] [place], [address], 08/07/2023 14:36:40 08/07/20 23 08/07/2023 COMPR EHENS MAYNOR METAB OLIC PANEL chloride 105 mmol/ L 98-107 Not Available [facility] (Lab) [address] [place], [address], 08/07/2023 14:36:40 08/07/20 23 08/07/2023 COMPR EHENS MAYNOR METAB OLIC PANEL carbon dioxide 25 mmol/ L 22-[address] [facility] (Lab) [address] [place], [address], 08/07/2023 14:36:40 08/07/20 23 08/07/2023 COMPR EHENS MAYNOR METAB OLIC PANEL anion gap 12.0 mmol/ L 14-22 low Not Available [facility] (Lab) [address] [place], [address], 08/07/2023 14:36:40 08/07/20 23 08/07/2023 COMPR EHENS MAYNOR METAB OLIC PANEL glucose 134 mg/dL 70-99 high Not Available [facility] (Lab) [address] [place], [address], 08/07/2023 14:36:40 08/07/20 23 08/07/2023 COMPR EHENS MAYNOR METAB OLIC PANEL BUN 48 mg/dL 8-19 high Not Available [facility] (Lab) [address] [place], [address], 08/07/2023 14:36:40 08/07/20 23 08/07/2023 COMPR EHENS MAYNOR METAB OLIC PANEL creatinine 2.70 mg/dL 0.66-1 .25 high Not Available [facility] (Lab) [address] [place], [address], 08/07/2023 14:36:40 08/07/20 23 08/07/2023 COMPR EHENS MAYNOR METAB OLIC PANEL GFR 27 Refer ence Range : [place] ge GFR Healt hy Adult : >60 [...] calcu lator is avail able on the [facility] websi te: https ://cris mckee.daria persaud.o julieth/pr ofess ional s/kdo qi/gf r_cal culat or Not Available [facility] (Lab) [address] [place], [address], 08/07/2023 14:36:40 08/07/20 23 08/07/2023 COMPR EHENS MAYNOR METAB OLIC PANEL alkaline phosphatase 97 U/L 38-126 Not Available [facility] (Lab) [address] [place], [address], 08/07/2023 14:36:40 08/07/20 23 08/07/2023 COMPR EHENS MAYNOR METAB OLIC PANEL alanine aminotransfe rase 20 U/L 0-50 Not Available [facility] (Lab) [address] [place], [address], 08/07/2023 14:36:40 08/07/20 23 08/07/2023 COMPR EHENS MAYNRO METAB OLIC PANEL aspartate aminotransfe rase 27 U/L 15-46 Not Available [facility] (Lab) [address] [place], [address], 08/07/2023 14:36:40 08/07/20 23 08/07/2023 COMPR EHENS MAYNOR METAB OLIC PANEL bilirubin, total 0.50 mg/dL 0.20-1 .30 Not Available [facility] (Lab) [address] [place], [address], 08/07/2023 14:36:40 08/07/20 23 08/07/2023 COMPR EHENS MAYNOR METAB OLIC PANEL calcium 9.0 mg/dL 8.4-10 .2 Not Available [facility] (Lab) [address] [place], [address], 08/07/2023 14:36:40 08/07/20 23 08/07/2023 COMPR EHENS MAYNOR METAB OLIC PANEL total protein 7.4 g/dL 6.3-8. 2 Not Available [facility] (Lab) [address] [place], [address], 08/07/2023 14:36:40 08/07/20 23 08/07/2023 COMPR EHENS [facility] METAB OLIC PANEL albumin 3.8 g/dL 3.0-4. 4 Not Available [facility] (Lab) [address] [place], [address], 08/07/2023 14:36:40 08/07/20 23 08/07/2023 COMPR EHENS [facility] METAB OLIC PANEL globulin 3.6 g/dL 2.6-4. 2 Not Available [facility] (Lab) [address] [place], [address], 08/07/2023 14:36:40 08/07/20 23 08/07/2023 COMPR EHENS [facility] METAB OLIC PANEL A/G ratio 1.1 ratio 1.0-2. 0 Not Available [facility] (Lab) [address] [place], [address], 08/07/2023 14:36:40 08/07/20 23 08/07/2023 LIPID PANEL cholesterol 121 mg/dL 140-19 9 low NIH FRANCI NSUS RECOM MENDA TION FOR PERRY STERO L: ADULT CHILD LOW RISK: <200 <170 BORDE RLINE : <200- 239 ----- HIGH RISK: >240 >200 Not Available [facility] (Lab) [address] [place], [address], 08/07/2023 14:36:45 08/07/20 23 08/07/2023 LIPID PANEL triglyceride s 92 mg/dL 0-150 NIH FRANCI NSUS REPOR T RECOM MENDA TION FOR TRIGL YCERI ROCCO: ADULT CHILD LOW RISK: <150 ----- BODER LINE: 150-1 99 ----- HIGH RISK: >200 ----- Not Available [facility] (Lab) [address] [place], [address], 08/07/2023 14:36:45 08/07/20 23 08/07/2023 LIPID PANEL HDL cholesterol 47 mg/dL 40- Not Available [facility] (Lab) [address] [place], [address], 08/07/2023 14:36:45 08/07/20 23 08/07/2023 LIPID PANEL [...] WILL NOT BE REPOR EJ. Not Available [facility] (Lab) [address] [place], [address], 08/07/2023 14:36:45 08/07/20 23 08/07/2023 HEMOG LOBIN A1C HA1C 9.8 % 4.0-6. 0 high Diabe darrin Scree darek Crite eyal: <5.7% Consi stent with absen ce of diabe darrin 5.7-6 .4% Consi stent with incre ased risk for diabe darrin (pred iabet es) >OR=6 .5% Consi stent with diabe darrin REFER ENCE: Diabe darrin Care 2016, 39(Chavez ppl.1 ):s13 -s22 Not Available [facility] ([facility]) [address] [facility], [place], [address], 08/07/2023 20:50:46 11/21/19 24 11/21/2023 CT, abdom en + pelvi s, w/o contr ast No observ ation record ed. [address] [facility], [place], [address], 11/23/2023 10:39:23 11/23/19 24 11/21/2023 CT, abdom en, w/o contr ast No observ ation record ed. [address] [facility], [place], [address], 11/25/2023 15:38:21 01/18/20 24 01/17/2024 MRI, abdom en + pelvi s, w/wo contr ast No observ ation record ed. [address] [facility] [address] [place], [facility] [address], [place], [address], 03/05/2024 10:17:01 03/11/20 25 03/07/2025 US, duple x, arter ial, lower extre mity No observ ation record ed. [email or web address] [address], [place], [address], 03/11/2025 17:29:32 Result Notes None recorded. Problems Name Problem SNOMED Code Status Onset Date Resolution Date Notes Provider Name and Address Organization Details Recorded Time Benign essential hypertens ion 7517974 Active Not Available [facility] 4 11:52:07 Nausea and vomiting 02293394 Completed Not Available [facility] 3 00:46:39 Retention of urine 118006013 Active Not Available [facility] 4 11:52:08 Pure hyperchol esterolem ia 306802816 Active Not Available [facility] 4 11:52:08 Pain in toe 246317625 Completed Not Available [facility] 3 00:46:39 Chest pain 70061792 Completed Not Available [facility] 3 00:46:39 Hypoglyce hugo 319398654 Active Not Available [facility] 4 11:52:08 Pain in coccyx 32246979 Completed Not Available [facility] 3 00:46:40 Sinusitis 01890938 Completed Not Available [facility] 3 00:46:40 Chronic kidney disease stage 3 369886572 Active Not Available [facility] 4 11:52:08 Uncontrol led type 2 diabetes mellitus 666160784 Active Not Available [facility] 4 11:52:08 Herpes zoster 1184253 Completed Not Available [facility] 3 00:46:40 Upper respirato ry infection 23625650 Completed Not Available [facility] 3 00:46:41 Rhinitis 12402568 Completed Not Available [facility] 3 00:46:41 Hemorrhoi ds 73605607 Completed Not Available [facility] 3 00:46:41 Diabetes mellitus 31323322 Active Not Available [facility] 4 11:52:08 Low back pain 985994725 Active 2021 Not Available [facility] 4 11:52:08 Gastroeso phageal reflux disease without esophagit is 245101502 Active 2021 Not Available [facility] 4 11:52:08 Chronic kidney disease 001460788 Active 2021 Not Available [facility] 4 11:52:08 Cough 95414687 Active 2021 Not Available [facility] 4 11:52:08 Pain of hip region 95208857 Active 2021 Not Available [facility] 4 11:52:08 COVID-19 311689483 Active 2022 Not Available [facility] 4 11:52:08 Periphera l arterial occlusive disease 560028620 Active 2022 Dimitrios Hopkins DPM [address], [place], [address] , [employer] 5 14:44:20 Arthritis 8474897 Active 2022 Dimitrios Hopkins DPM [address], [address], [place], [address] , [email or web address] 5 14:46:53 Disorder of eye 009507508 Active 2022 Not Available [facility] 4 11:52:08 Ingrowing toenail 691900625 Active 2022 Not Available [facility] 4 11:52:08 Chronic sinusitis 43939416 Active 2022 Not Available [facility] 4 11:52:08 Acute sinusitis 08268070 Active 2022 Not Available [facility] 4 11:52:07 Eczema of external auditory canal 42689247 Active 2022 Not Available [facility] 4 11:52:08 Impacted cerumen in left ear 13907891039 22604 Active 2022 Not Available [facility] 4 11:52:07 Periphera l arterial disease 876100693 Active 2024 Dimitrios Hopkins DPM [address], [address], [place], [address] , [employer] 5 15:38:49 Blister of foot 532361053 Active 2024 Dimitrios Hopkins DPM [address], [address], [place], [address] , [employer] 5 10:52:27 Notes:Some problems listed i n Document: #[id number] could not be added to this patient's chart. Please review this document and add these problems to the patient's chart manually as needed. Problem Notes None recorded. Procedures Surgical History Date Name Laterality Status Provider Name and Address Organization Details Recorded Time 01/04/20 23 Nail Debridement completed Dimitrios Hopkins DPM [address], [place], [address], [facility] [employer] [facility] 01/03/2023 12:20:45 12/09/19 23 Nail Debridement completed Dimitrios Hopkins DPM [address], [place], [address], [facility] [employer] [facility] 12/08/2022 10:15:31 12/09/19 17 Colon ca scrn not hi rsk ind completed Not Available [facility] 10/19/2022 00:42:26 excision of lipoma completed Not Available [facility] 10/19/2022 00:42:26 Imaging Results None recorded. Procedure Notes None recorded. Medical Equipment None Reported. Allergies Allergen ID Allergen Name Allergen Category Reaction Reaction Severity Criticality Documentation Date Start Date Code Code System Note Provider Name and Address Organization Details Recorded Time 334 morphine medicatio n nausea moderate Not available 10/19/2022 7052 RxNorm itchi ng and nause a Not Available [facility] 3 00:51:13 335 Bactrim medicatio n Not available Not available Not available 10/19/2022 24068 9 RxNorm Not Available [facility] 3 00:51:14 Medications Name Sig Start Date [...] No t Available Nasonex 50 mcg/actuati on [place] active Not Available Not Available Not Available [...] propionate 50 mcg/actuati on nasal spray,suspe nsion [place] 1 spray every day by intranasa l [...] Available No t Available [employer] Herbert 2 Marydel USE DIRECTED FOR BLOOD GLUCOSE MONITORIN G active Not Available Not Available No t Available Fluzone High-Dose Quad 2020 (PF) 240 mcg/0.7 mL IM syringe PHARMACIS [...] Updated DateTime 5 172.72 cm 25.7 kg/m2 72742.1 1 g 91 /min 14 /min 98 % 98 % 187/82 mm[Hg] Kanika Curiel [facility] [employer] [facility] 5 15:15:35 Date Recorded Body height Body mass index (BMI) Body weight Heart rate Body temperature Oxygen saturation Oxygen saturation in Arterial blood by Pulse oximetry Systolic And Diastolic Provider Name and Address Organization Details Last Updated DateTime 5 172.72 cm 25.7 kg/m2 76623.1 1 g 88 /min 97.7 [degF] 97 % 97 % 169/80 mm[Hg] KARLA Hernández [facility] [employer] [facility] 5 14:23:17 Date Recorded Body height Body mass index (BMI) Body weight Body temperature Heart rate Oxygen saturation Oxygen saturation in Arterial blood by Pulse oximetry Systolic And Diastolic Provider Name and Address Organization Details Last Updated DateTime 3 172.72 cm 25.4 kg/m2 16073.9 3 g 97 [degF] 84 /min 98 % 98 % 130/68 mm[Hg] Bernie Funes MA [facility] [employer] [facility] 3 11:17:47 Date Recorded Body height Body mass index (BMI) Body weight Body temperature Heart rate Oxygen saturation Oxygen saturation in Arterial blood by Pulse oximetry Systolic And Diastolic Provider Name and Address Organization Details Last Updated DateTime 3 172.72 cm 25.2 kg/m2 87109.3 3 g 97.8 [degF] 84 /min 98 % 98 % 128/68 mm[Hg] Geena early CMA [place] [facility] [employer] [facility] 12:03:20 Date Recorded Body height Body mass index (BMI) Body weight Body temperature Provider Name and Address Organization Details Last Updated DateTime 08/17/2023 172.72 cm 25.7 kg/m2 75330.11 g 98.1 [degF] Jocelyne Chaves RN [facility] [employer] [facility] 08/17/2023 14:01:38 Social History Question Answer Notes LastModified by Organization Details LastModified Time Tobacco Smoking Status Former Smoker quit in Not Available [facility] 10/19/2022 00:41:25 Do You Have An Advance Directive? No MIGRATION.030 716156 Information not available 10/19/2022 Are You Blind Or Do You Have Difficulty Seeing? Yes Wears Glasses MIGRATION.030 898083 Information not available 10/19/2022 What Is Your Level Of Caffeine Consumption? Occasional MIGRATION.030 744449 Information not available 10/19/2022 How Much Tobacco Do You Chew? None MIGRATION.030 623258 Information not available 10/19/2022 In The 14 Days Before Symptom Onset, Have You Had Close Contact With A Laboratory-conf irmed COVID-19 While That Case Was Ill? No MIGRATION.030 137047 Information not available 10/19/2022 In The 14 Days Before Symptom Onset, Have You Had Close Contact With A Person Who Is Under Investigation For COVID-19 While That Person Was Ill? No MIGRATION.030 088510 Information not available 10/19/2022 Are You Deaf Or Do You Have Serious Difficulty Hearing? Yes Diminished MIGRATION.030 579134 Information not available 10/19/2022 What Type Of Diet Are You Following? REGULAR MIGRATION.0301 939840 Information not available 10/19/2022 Which Illicit Or Recreational Drugs Have You Used? None Cannabis User In The 1970s MIGRATION.0301 465155 Information not available 10/19/2022 What Is The Highest Grade Or Level Of School You Have Completed Or The Highest Degree You Have Received? DH61924-5 MIGRATION.030 164512 Information not available 10/19/2022 Have There Been Any Changes To Your Family Or Social Situation? No MIGRATION.0301 936122 Information not available 10/19/2022 What Is The Fluoride Status Of Your Home? Unknown MIGRATION.0301 135601 Information not available 10/19/2022 When Did You Quit Smoking? 14+yearssincelastc igarette MIGRATION.0301 942845 Information not available 10/19/2022 Are There Any Guns Present In Your Home? Yes MIGRATION.0301 057573 Information not available 10/19/2022 Do You Use Insect Repellent Routinely? No MIGRATION.0301 476978 Information not available 10/19/2022 Where Do You Live? SingleLevelHouse MIGRATION.0301 991365 Information not available 10/19/2022 Do You Have A Medical Power Of Breakdown Man? No MIGRATION.0301 096381 Information not available 10/19/2022 What Was The Date Of Your Most Recent Tobacco Screening? 03/13/2025 [email or web address] Information not available 03/13/2025 Do You Have Any Pets? No MIGRATION.0301 980036 Information not available 10/19/2022 What Is Your Relationship Status? MIGRATION.0301 666820 Information not available 10/19/2022 Do You Use Your Seat Belt Or Car Seat Routinely? Yes MIGRATION.0301 899903 Information not available 10/19/2022 Do You Have Smoke And Carbon Monoxide Detectors In Your Home? Yes MIGRATION.0301 235464 Information not available 10/19/2022 Are You Passively Exposed To Smoke? No MIGRATION.0301 662778 Information not available 10/19/2022 Are There Any Smokers In Your House? No MIGRATION.0301 180175 Information not available 10/19/2022 How Much Tobacco Do You Smoke? No Was Less Than 1ppd MIGRATION.0301 581123 Information not available 10/19/2022 What Types Of Sporting Activities Do You Participate In? None MIGRATION.0301 144376 Information not available 10/19/2022 Do You Use Sunscreen Routinely? No MIGRATION.0301 269699 Information not available 10/19/2022 Has Tobacco Cessation Counseling Been Provided? No MIGRATION.0301 632038 Information not available 10/19/2022 Have You Recently Traveled Abroad? No MIGRATION.0301 920222 Information not available 10/19/2022 Do You Have Difficulty Walking Or Climbing Stairs? No MIGRATION.0301 347266 Information not available 10/19/2022 Do You Have Any Dietary Restrictions? No MIGRATION.0301 086962 Information not available 10/19/2022 Sex: Male Functional Status Question Answer Note LastModified by Organizat ion Details LastModified Time Do you use any illicit or recreational drugs? No MIGRATION.013074 3456 Information not available 10/19/2022 Do you or have you ever used any other forms of tobacco or nicotine? No MIGRATION.216998 6189 Information not available 10/19/2022 What is your level of alcohol consumption? None MIGRATION.792262 0857 Information not available 10/19/2022 Do you or have you ever used smokeless tobacco? Never used smokeless tobacco MIGRATION.089891 9720 Information not available 10/19/2022 Do you have transportation difficulties? No MIGRATION.414909 3729 Information not available 10/19/2022 Are you able to walk independently without assistance or assistive devices? YESWOREST MIGRATION.110361 4632 Information not available 10/19/2022 Do you have difficulty doing errands alone? No MIGRATION.643386 8308 Information not available 10/19/2022 Are you able to care for yourself independently? Yes MIGRATION.950862 0459 Information not available 10/19/2022 What is your occupation? retired MIGRATION.481555 2003 Information not available 10/19/2022 Do you have difficulty dressing, bathing, grooming, or toileting? No MIGRATION.500406 6786 Information not available 10/19/2022 Do you or have you ever used e-cigarettes or vape? Never used electronic cigarettes MIGRATION.490739 4941 Information not available 10/19/2022 What is your exercise level? Occasional MIGRATION.118491 8204 Information not available 10/19/2022 Mental Status Question Answer Note LastModified by Organizat ion Details LastModified Time Do you feel stressed (tense, restless, nervous, or anxious, or unable to sleep at night)? [id number] MIGRATION.26349890 26 Information not available 10/19/2022 Do you have difficulty concentrating, remembering or making decisions? No MIGRATION.85407780 26 Information not available 10/19/2022 Family History Relationship Description Onset Age of this Age Resolved Age Notes LastModified by Organization Details LastModified Time Father General health good MIGRATION.438 [id number] Not available 10/19/2022 00:42:29 Mother General health good MIGRATION.778 6091895 Not available 10/19/2022 00:42:29 Unspecified Relation Family history of Hypertension MIGRATION.454 8182496 Not available 10/19/2022 00:42:29 Unspecified Relation Arthritis [email or web address] Not available 023 11:55:08 Notes:NO ENT Medical History Condition Response NERVE DISEASE N BLINDNESS N RHEUMATIC FEVER N KIDNEY STONES N BLADDER PROBLEMS N MRSA N OTHER # 1 N POLIO N LUNG DISEASE/DISORDER N COPD N RADIATION / CHEMOTHERAPY N Other # 2 N BLOOD DISEASES N SURGERY N EAR OR HEARING PROBLEMS Y MUMPS N BOWEL PROBLEMS N DEPRESSION (INCLUDING POST ) N STROKE/TIA N ULCERS N BENIGN PROSTATIC HYPERPLASIA N MEASLES N MYOCARDIAL INFARCTION N OBESITY N GERD/NAUSEA N ANEURYSM N URINARY/BLADDER/KIDNEY PROBLEMS Y CORONARY ARTERY DISEASE (CAD) N INPATIENT PSYCH CARE N ENDOMETRIOSIS N Impotence N USE OF [...] HAVE YOU BEEN HOSPITALIZED OR SEEN IN [facility] IN THE PAST YEAR ? N [...] 50 mcg/0.25mL dose 3 completed Not Available [facility] 09/25/2023 11:52:09 RSV, recombinant, protein subunit RSVpreF, adjuvant reconstituted, 0.5 mL, PF 3 completed Not Available [facility] 09/25/2023 11:52:09 Influenza, high-dose, quadrivalent, PF 3 completed Not Available [facility] 09/25/2023 11:52:08 Influenza, split virus, trivalent, preservative 3 completed Not Available [facility] 09/25/2023 11:52:09 COVID-19, mRNA, LNP-S, PF, 100 mcg/0.5mL dose or 50 mcg/0.25mL dose 1 completed Not Available [facility] 09/25/2023 11:52:09 COVID-19, mRNA, LNP-S, PF, 100 mcg/0.5mL dose or 50 mcg/0.25mL dose 1 completed Not Available [facility] 09/25/2023 11:52:09 Influenza, high-dose, quadrivalent, PF 0 completed Not Available [facility] 09/25/2023 11:52:08 pneumococcal polysaccharide PPV23 0 completed Not Available [facility] 09/25/2023 11:52:09 Pneumococcal conjugate PCV 13 9 completed Not Available [facility] 09/25/2023 11:52:09 influenza, unspecified formulation 8 completed Not Available [facility] 09/25/2023 11:52:09 Influenza, high-dose, quadrivalent, PF 2 completed Not Available [facility] 09/25/2023 11:52:08 COVID-19, mRNA, LNP-S, PF, 100 mcg/0.5mL dose or 50 mcg/0.25mL dose 1 completed Not Available [facility] 09/25/2023 11:52:09 Influenza, high-dose, quadrivalent, PF 1 completed Not Available [facility] 09/25/2023 11:52:08 Influenza, high-dose, trivalent, PF 6 completed Not Available [facility] 09/25/2023 11:52:09 Influenza, split virus, trivalent, preservative 5 completed Not Available [facility] 09/25/2023 11:52:09 Influenza, high-dose, trivalent, PF 9 completed Not Available [facility] 09/25/2023 11:52:09 Influenza, high-dose, trivalent, PF 6 completed Not Available [facility] 09/25/2023 11:52:09 Influenza, high-dose, trivalent, PF 7 completed Not Available [facility] 09/25/2023 11:52:09 Pneumococcal conjugate PCV 13 5 completed Not Available [facility] 09/25/2023 11:52:09 Influenza, split virus, trivalent, preservative 4 completed Not Available [facility] 09/25/2023 11:52:09 Influenza, split virus, quadrivalent, PF 5 completed Not Available [facility] 09/25/2023 11:52:09 Past Encounters Encounter ID Performer Location Encounter Start Date Encounter Closed Date Diagnosis/Indication Diagnosis SNOMED-CT Code Diagnosis ICD10 Code Diagnosis IMO Codes Diagnosis Note [id number] [facility] _ATHENA_M IGRATION_ DEFAULT_1 _1 , 10/23/2020 00:00:00 10/23/2020 10:15:13 [id number] Jennyfer Hou MD [facility] Internal Med [facility] [address] [facility] [address] 01/15/2021 00:00:00 01/16/2021 10:56:58 [id number] Jennyfer Hou MD [facility] Internal Med [facility] [address] [facility] [address] 02/19/2021 00:00:00 03/12/2021 21:35:56 [id number] Jennyfer Hou MD [facility] Internal Med [facility] [address] [facility] [address] [address] 05/17/2021 00:00:00 06/06/2021 15:56:26 [id number] Jennyfer Hou MD [facility] [address] [place] [address] [address] 09/20/2021 00:00:00 09/20/2021 21:21:00 [id number] Jennyfer Hou MD [facility] Internal Med [facility] [address] [place] [address] [address] [address] 09/27/2021 00:00:00 09/27/2021 21:40:44 [id number] Jennyfer Hou MD [facility] Internal Med [facility] [address] [place] [address] [address] 10/11/2021 00:00:00 10/17/2021 17:34:54 [id number] Jennyfer Hou MD [facility] Internal Med [facility] [address] [place] [address] [address] 01/03/2022 00:00:00 01/03/2022 21:54:38 [id number] Jennyfer Hou MD [facility] Internal Med [facility] [address] [place] [address] 1 04/04/2022 00:00:00 04/05/2022 21:07:05 [id number] Jennyfer Hou MD [facility] Internal Med [facility] [address] [place] [address] [address] 08/08/2022 00:00:00 08/08/2022 21:36:45 [id number] Jennyfer Hou MD [facility] Internal Med [facility] [address] [place] [address] [address] [address] 11/14/2022 11:49:09 11/14/2022 12:27:18 Benign essential hypertension 4573834 I10 Chronic ki dney disease stage 3 160148969 N18.30 Diabetes mellitus 381815 09 E11.21 Gastroesop hageal reflux disease without esophagitis 203006831 K21.9 [id number] Dimitrios Hopkins DPM [facility] [place] [address] [address] 12/08/2022 09:54:28 12/08/2022 12:23:28 Diabetes mellitus 17699219 E11.21 Patient educated on neuropathy , diabetes, diabetic diet, and daily foot exams. Patient is to check feet daily for new wounds, blisters, redness to prevent infection and ulceration s to the feet. Patient will return to clinic in 3 months for diabetic foot workup. Peripheral arterial occlusive disease 479178686 I73.9 Noninvasiv e vascular testing orderedRet urn to office in 3-4 weeks to review [id number] Dimitrios Hopkins DPM [facility] [place] [address] [address] 01/03/2023 11:50:39 01/03/2023 12:27:55 Peripheral arterial occlusive disease 446255882 I73.9 Noninvasiv e vascular testing reviewed with the patientwil l continue to monitor Ingrowing toenail 216863 009 L60.0 right medial borderSlan t back procedure performedC ontinue wound care daily to prevent infectionF ollow-up in 1 week if not resolved [id number] Jennyfer Hou MD [facility] [address] [address] 02/17/2023 12:38:24 02/17/2023 14:03:57 Chronic kidney disease stage 3 165493190 N18.30 Benign ess ential hypertension 0295584 I10 Diabetes mellitus 659910 09 E11.21 Gastroesop hageal reflux disease without esophagitis 792137685 K21.9 [id number] Jennyfer Hou MD [facility] [address]43 [facility], [address] [address] 04/10/2023 11:06:39 04/10/2023 11:55:28 Benign essential hypertension 9083725 I10 Chronic ki dney disease 348939270 N18.9 Diabetes mellitus 371813 09 E11.21 Screening for malignant neoplasm of prostate 019776858 Z12.5 [id number] Ian Parra MD [facility] [place] [address] [place] [address] 08/17/2023 13:51:18 08/17/2023 14:37:34 Eczema of external auditory canal 91998097 H60.549 Impacted c erumen in left ear 1632658362 687054 H61.22 [id number] Jennyfer Hou MD [facility] [address] [facility] [place] [address] 08/07/2023 11:20:31 08/07/2023 12:11:31 Benign essential hypertension 8715736 I10 Uncontroll ed type 2 diabetes mellitus 492992473 E11.65 Chronic ki dney disease stage 3 281648388 N18.30 Pure hypercholesterolemia 636020393 E78.00 [id number] Dimitrios Hopkins DPM [facility] [place] [address] [facility] [address] [place] [address] 02/27/2025 15:07:32 03/18/2025 11:42:08 Peripheral arterial disease 602621351 I73.9 [id number] Noninvasiv e vascular testing reviewed with the patientwil l continue to monitor Diabetes mellitus 103163 09 E11.21 Patient educated on neuropathy , diabetes, diabetic diet, and daily foot exams. Patient is to check feet daily for new wounds, blisters, redness to prevent infection and ulceration s to the feet. Patient will return to clinic in 3 months for diabetic foot workup. Arthritis 4853384 M19.90 [id number] 1st tarsometat arsal joint area, rightrecom mend offloading Lacing- offloading performed today right shoewill continue to monitorfol low-up 3 months- if new wounds present seek medical attention immediatel y Blister of foot 36991336 3 S90.821A 2773424 recommend daily wound caremonito r for signs of infection present seek medical attention immediatel yFollow-up in 1 week [id number] Dimitrios Hopkins DPM [facility] [place] [address] [place] [address] 03/13/2025 14:14:08 03/14/2025 15:21:34 Diabetes mellitus [id number] E11.21 Patient educated on neuropathy , diabetes, diabetic diet, and daily foot exams. Patient is to check feet daily for new wounds, blisters, redness to prevent infection and ulceration s to the feet. Patient will return to clinic in 3 months for diabetic foot workup. Peripheral arterial occlusive disease [id number] I77.9 [id number] arterial ultrasound reviewed- partial occlusion SFA lesion rightrefer [facility] vascular surgery Arthritis [id number] M19.90 [id number] 1st tarsometat arsal joint area, rightrecom mend offloading Lacing- offloading performed today right shoewill continue to monitorfol low-up 3 months- if new wounds present seek medical attention immediatel y Health Concerns Section Related Observation LastModified by Organization Detai ls LastModified Time None Recorded Concern Status LastModified by Organization Details LastModified Time None Recorded Advance Directives Directive N: Payers Insurance Date Sequence Insurance Name Policy Number Policy Soria Covered Member ID Soria Member ID Guarantor Name 03/12/2025 1 [facility] (MEDICARE REPLACEMENT/A DVANTAGE - HMO) [id number] Aliyah Kahn [id number] Aliyah Kahn Notes Date Note Type Note Provider Name and Address Organization Details Recorded Time 3 text/html GERD been doing okayDiabetes no polyphagia no polydipsiaChronic kidney disease he has not had any nausea vomiting skin rashes or fatigueHypertension no headache no dizzinessChronic low back pain about the same Jennyfer Hou MD [address], [place], [address], [employer] 04/23/2023 21:24:01 3 text/html GERD been doing okayDiabetes no polyphagia no polydipsiaChronic kidney disease he has not had any nausea vomiting skin rashes or fatigueHypertension no headache no dizzinessChronic low back pain about the same Jennyfer Hou MD [address], [place], [address], [employer] 08/07/2023 22:28:04 3 text/html this gentleman reports itching of both ears. He was given mometasone almost 3 years ago but has run out Ian Parra MD [address], [place], [address], [employer] 08/17/2023 14:28:03 5 text/html Patient is 85-year-old male who returns to the office for diabetic foot care. patient states he recently developed a blister to the top of his right foot. Patient denies knowing how this occurred. Patient denies any fever, chills, nausea or vomiting. Patient states overall he is doing well he continues have arthritis. Patient states that he does get cramping of his lower extremity when at rest and when he is walking. Patient denies any other complaints. Dimitrios Hopkins DPM [address] [facility], [facility] [address], [place], [address], [email or web address] 03/17/2025 10:54:42 5 text/html . Patient is a 85-year-old male diabetic who presents the office for follow-up on arterial ultrasounds. Patient also follows up for wound healing to the right foot. Patient has arthritis with a wound to the dorsal midfoot which is completely healed he has no further wounds but has a high area of pressure to the area. Patient had arterial ultrasounds which confirms that he has peripheral arterial disease that is moderate to severe with high-grade lesion with stenosis to the SFA area. Patient states he does get cramping and has cold extremities to the right lower extremity. Patient denies any further wounds. Patient denies any other complaints. Dimitrios Hopkins DPM [address] [facility], [facility] [address], [place], [address], [email or web address] 03/13/2025 14:48:22
--- OUTSIDE RECORDS SUMMARY | 2025-06-02 13:34 | XMS_ITS | Clinical Summary ---
Author Organization [facility] Physician Office Building [address] [place] [address] Care Team Providers Care Installations Inspector Name Role Phone James Hou MD Primary Care Provider [phone] Ozzie Guadarrama MD Unavailable Gretel Burr NP Unavailable [phone] Allergies Active Allergy Reactions Criticality Noted Date [...] 320mg 021 Active flash glucose scanning reader ([employer] Herbert 2 [place]) [facility] Use for BG monitoring 1 each 023 [...] 2 (two) times a day 025 Active LANTUS 100 unit/mL (3 mL) pen for injectionIndic ations:Type 2 diabetes mellitus with hyperglycemia, with long-term current use of insulin (HCC) Inject 25 Units under the skin 2 (two) times a day 45 mL 3 025 Active blood-glucose sensor (FreeStyle Herbert 2 Plus Sensor) deviceIndicati ons:Type 2 diabetes mellitus with hyperglycemia, with long-term current use of insulin ([facility]) Use as directed to monitor blood sugar, change sensor every 15 days 2 each 11 Active flash glucose sensor (FreeStyle Herbert 2 Sensor) kitIndications :Type 2 diabetes mellitus with hyperglycemia, with long-term current use of insulin (HCC) USE DIRECTED 2 kit 1 025 2024 Discontinued blood-glucose sensor (FreeStyle Herbert 2 Plus Sensor) deviceIndicati ons:Type 2 diabetes mellitus with hyperglycemia, with long-term current use of insulin ([facility]) Use to monitor Blood Glucose. Change sensor every 15 days. 2 each 11 025 2024 Discontinued(D uplicate order) Active Problems Problem Noted Date Diagnosed Date CKD (chronic kidney disease) stage 4, GFR 15-29 ml/min 01/02/2023 Assessment & Plan (12/25/2024 1:53 PM CDT): Chronic problem. Managed by Dr Monae at [facility]; seen q3mos. 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 Valsartan 160mg daily. Last MA: 03/13/24 (186). Last creat/GFR: 03/13/24 GFR=22, CR=2.77. Currently seeing Dr Núñez at [facility] for L kidney mass & bilat renal cysts. Had MRI 07/05/24 to check kidney lesions (3). Had repeat MRI set up for 12/06/24. Will see Dr Núñez 01/03/25. Plan per Dr Núñez's note 07/05/24 is to continue surveillance of slow growing L renal mass. Assessment & Plan (09/17/2024 1:55 PM TOW MOTOR DRIVER): Chronic problem. Managed by Dr [place] at [facility]; seen q3mos. 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 Valsartan 160mg daily. Last MA: 03/13/24 (186). Last creat/GFR: 03/13/24 GFR=22, CR=2.77. seeing Dr Núñez at [facility] for L kidney mass & bilat renal cysts. Had MRI 07/05/24 to check kidney lesions (3). Has repeat MRI set up for 11/2024. Will see Dr Núñez 12/06/24. Plan per Dr Núñez's note 07/05/24 is to continue surveillance of slow growing L renal mass. Assessment & Plan (03/13/2024 11:10 AM CDT): Chronic problem. Managed by Dr [place] at [facility]. Seen q3mos. 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 Valsartan 160mg daily. Last MA: 07/13/22 (64). Last creat/GFR: 07/13/22 GFR=21, CR=2.85. L Kidney mass. Now seeing Dr Avery Núñez at [facility]. 06/14/24. Will be having MRI also per Mr Kahn. Assessment & Plan (05/08/2023 1:59 PM CDT): Chronic problem. Managed by Dr [place] at [facility]. Seen q3mos. NOV 05/30/23. Assessment & Plan (01/02/2023 1:59 PM CDT): Chronic problem. Managed by Dr [place] at [facility]. Seen q3mos. Hypoglycemia associated with diabetes 03/04/2019 Assessment & Plan (07/13/2022 2:14 PM TOW MOTOR DRIVER): Lower evening Lantus dose Assessment & Plan (09/12/2019 12:57 PM TOW MOTOR DRIVER): Order Dexcom Assessment & Plan (03/04/2019 11:17 [...] infection. Assessment & Plan (09/17/2024 1:54 PM TOW MOTOR DRIVER): Chronic problem. Not at goal but A1c [...] DM eye exam. Reports frequent appts to [facility]; appt 2-3 weeks ago. Letter sent to [...] infection. Assessment & Plan (08/08/2023 1:42 PM TOW MOTOR DRIVER): Hba1c was Lab Results Component Value Date [...] DM eye exam. Reports frequent appts to [facility]; appt 2-3 weeks ago. Letter sent [...] DM eye exam. Reports frequent appts to [facility]. Letter sent to get copy of results. [...] weeks Assessment & Plan (07/13/2022 2:10 PM TOW MOTOR DRIVER): With some hypoglycemia Lower evening Lantus to [...] today. Assessment & Plan (09/13/2021 12:40 PM TOW MOTOR DRIVER): Chronic problem, not at goal with frequent [...] units Assessment & Plan (08/31/2020 9:49 AM TOW MOTOR DRIVER): Hba1c was Lab Results Component Value Date [...] Over 301, take 10 units Will request [employer] CGMS Assessment & Plan (02/24/2020 12:53 PM [...] units Assessment & Plan (09/12/2019 12:55 PM TOW MOTOR DRIVER): A1c 8.9. Poor control continues to be [...] reviewed. Assessment & Plan (09/09/2018 7:45 PM TOW MOTOR DRIVER): Your A1c worsening to 9.5.Increase Lantus to [...] reviewed. Assessment & Plan (09/04/2017 12:43 PM TOW MOTOR DRIVER): Hba1c was 8.0 today, indicating DM control [...] Atorvastatin 10mg. Last lipid panel: 09/17/24 LDL=94, ZK=953. Assessment & Plan (09/17/2024 12:49 PM TOW MOTOR DRIVER): Chronic problem. Currently taking Atorvastatin 10mg. Last lipid panel: 08/07/23 LDL=56, TG=92. Will update labs. Does not mychart. Verified phone #/address to contact re: results. Assessment & Plan (03/13/2024 10:41 AM CDT): Chronic problem. Currently taking Atorvastatin 10mg. Last lipid panel: 07/13/22 LDL=22, CM=038. Will update labs today. Does not mychart. Verified phone #/address to contact re: results. Assessment & Plan (05/08/2023 1:14 PM CDT): Chronic problem. Currently taking Atorvastatin 10mg. Last lipid panel: 07/13/22 LDL=22, YA=544. No changes at this time Assessment & Plan (01/02/2023 1:43 PM CDT): Chronic problem. Currently taking Atorvastatin 10mg. Last lipid panel: 07/13/22 LDL=22, OC=633. No changes at this time Assessment & Plan (03/15/2022 2:46 PM CDT): Chronic problem. On statin therapy, no changes. Assessment & Plan (09/13/2021 11:22 AM TOW MOTOR DRIVER): Chronic problem. On statin therapy, no changes. Assessment & Plan (03/01/2021 9:39 AM CDT): Check lipid panel today Assessment & Plan (11/30/2020 3:30 PM CDT): LDL 72. Continue statin Assessment & Plan (09/12/2019 12:57 PM TOW MOTOR DRIVER): Will order lipid panel and adjust as [...] daily Assessment & Plan (09/17/2024 12:49 PM TOW MOTOR DRIVER): Chronic problem. BP elevated upon rooming & [...] daily Assessment & Plan (07/13/2022 2:14 PM TOW MOTOR DRIVER): Chronic, well controlled Importance of low salt diet and exercise were discussed Continue current meds Update BMP Assessment & Plan (03/15/2022 2:46 PM CDT): Controlled on current medications, no changes. Assessment & Plan (09/13/2021 11:22 AM TOW MOTOR DRIVER): Controlled on current medications, no changes. Assessment [...] ARB Assessment & Plan (09/12/2019 12:56 PM TOW MOTOR DRIVER): Controlled on current medications. Continue plan. Assessment & Plan (05/09/2019 9:46 AM CDT): Controlled on current medications. Continue plan. Assessment & Plan (12/03/2018 2:32 PM CDT): Controlled on current medications. Assessment & Plan (09/09/2018 7:47 PM TOW MOTOR DRIVER): Controlled on current medications. Assessment & Plan (03/21/2018 10:42 AM CDT): Controlled on current medications. Assessment & Plan (12/04/2017 10:15 AM CDT): Controlled on current medications. Assessment & Plan (09/04/2017 12:44 PM TOW MOTOR DRIVER): Goal blood pressure is less than 140/85 Low salt diet recommended Daily aerobic exercise Continue current meds, including CHRISTIAN-I or ARB Assessment & Plan (05/24/2017 9:54 AM CDT): Controlled on current medications. Assessment & Plan (02/22/2017 5:03 PM CDT): Continue current medications. Resolved Problems Problem Noted Date Diagnosed Date Resolved Date Hyperlipidemia 02/22/2017 01/02/2023 Assessment & Plan (09/09/2018 7:46 PM TOW MOTOR DRIVER): Check lipid panel today Assessment & Plan (03/21/2018 10:42 AM CDT): At goal on current medications. Assessment & Plan (12/04/2017 10:16 AM CDT): At goal on current medications. Assessment & Plan (09/04/2017 12:43 PM TOW MOTOR DRIVER): Goal of treatment , LDL cholesterol less [...] labs Surgical History Surgery Date Site/Laterality Comments ND NJX AA&/STRD TFRML EPI CERVICAL/THORACIC 1 LEVEL [...] on file Legal Sex Male 1:10 PM TOW MOTOR DRIVER Gender Identity Not on file Sexual Orientation [...] 06/22, 03/01/2021, Additional history exists Covid-19 Vaccine (2024-2 6 season) 2025 06/13/2023, 07/28/2021, 11/09/2020, Additional [...] DIABETES EYE EXAM Routine 09/30/2024 8:45 AM TOW MOTOR DRIVER LIPID PANEL Routine 09/17/2024 2:00 PM TOW MOTOR DRIVER Type 2 diabetes mellitus with hyperglycemia, with [...] (ABNORMAL) DIABETES EYE EXAM (09/30/2024 8:45 AM TOW MOTOR DRIVER) Historical Provider HEALTH MAINTENANCE Final Result * (ABNORMAL) Lipid panel (09/17/2024 2:00 PM TOW MOTOR DRIVER) Cholesterol 182 30 - 199 mg/dL Comment: [...] 3 CARMELITA CH Blood 09/17/2024 2:00 PM TOW MOTOR DRIVER 09/17/2024 8:37 PM TOW MOTOR DRIVER us Gretel R. Schleeper GROUND SUPPORT AGENT LAB BLOOD ORDERABLES Shaye l Result Performing Organization Address [facility] [place] [address] [address] [place] [address] * (ABNORMAL) eGFR (03/13/2024 11:17 AM CDT) [...] CDT 03/13/2024 4:26 PM CDT Gretel Burr GROUND SUPPORT AGENT LAB BLOOD ORDERABLES Shaye l Result Performing Organization Address [facility]/[place] [address] [address] [place] [address] * (ABNORMAL) Albumin Creatinine Ratio, Urine (03/13/2024 [...] NP LAB URINE ORDERABLES Shaye l Result [place] [address] [address] [place] [address] from Last 3 Months or Most Recently Relevant to Health Maintenance Insurance [facility]IC[facility] Address: [address] [address] [place] [id number] MEDICARE [facility] MED[facility] Address: [address] [address] [place] [address] [facility] MEDICARE [facility] Address: [address] [address] Care Teams Installations Inspector Relationship Specialty Start Date End Date James Hou MD PCP - General 11/18/16 [place] [address] [address] [facility] [address] [place] [address] Consulting Physician Endocrinology Diabetes & Metabolism 12/25/24 [place] [address] [address] [facility] [address] [place] [address] Nurse Practitioner Endocrinology Diabetes & Metabolism 12/25/24
--- OUTSIDE RECORDS SUMMARY | 2025-06-02 13:34 | XMS_ITS | Clinical Summary ---
Author Organization [facility] [employer] Address [address] [place] [address] Care Team Providers Care Fur Storage Clerk Name Role Phone James Hou MD Primary Care Provider [phone] Source Comments [facility],non-owned Affiliates and Associated Physician Practices is amultiple site organization consisting of ambulatory clinics and hospital sitesin [place], [place], [place] and [place]. This disclosure is being madepursuant to the Care Everywhere program and may not contain all information available regarding this patient. Last updated 18.[facility] [employer] Allergies Active Allergy Reactions Criticality Noted Date [...] on file Legal Sex Male 6:46 AM FIRE EQUIPMENT INSPECTOR HELPER Gender Identity Not on file Sexual [...] 72.1 kg (159 lb) 07/05/2024 11:02 AM FIRE EQUIPMENT INSPECTOR HELPER Height 170.2 cm (5' 7) 07/05/2024 11:02 AM FIRE EQUIPMENT INSPECTOR HELPER Body Mass Index 24.9 07/05/2024 11:02 AM FIRE EQUIPMENT INSPECTOR HELPER Plan of Treatment Upcoming Encounters Date Type Department Care Team (Late st Contact Info) Description 01/02/2026 8:15 AM CDT Office Visit [facility] - Urology [address] [place] [address] [address] [place] [address] Gurwinder Núñez MD [address] [place] [address] Health Maintenance Due Date Last Done Comments [...] this topic Medical Devices Implanted Type Area Barrel And Receiver Aligner Device Identifier Shelf Expiration Date Model / Serial / Lot Lens Iol Dioptr 21.5 Implanted:Qty: 1 on 01/21/2015 by Marielos Caputo MD at [facility] Left: Eye [employer] 09/20/2019 [id number] / / [id number] Insurance [facility] MANAGED MEDICARE ADV Care Teams Fur Storage Clerk Relationship Specialty Start Date End Date James Hou MD PCP - General Internal Medicine 01/19/15
--- OUTSIDE RECORDS SUMMARY | 2025-06-02 13:34 | XMS_ITS | Encounter Summary ---
Author Organization [facility] Address [address] [place] [address] Care Team Providers Care Director Radio News Name Role Phone Zac Floyd MD Primary Care Provider [phone] Encounter Details Date Type Department Care Team (Late st Contact Info) Description 09/20/2007 Outpatient Historical [place] [address] [place] [address] Unspecified Disorder of Kidney and Ureter Social History Tobacco Use Types Packs/Day Years Used Date Smoking Tobacco: Never Assessed Sex and Gender Information Value Date Recorded Sex Assigned at Not on file Legal Sex Male 3:01 AM FLOOR FINISHER Gender Identity Not on file Sexual Orientation Not on file documented as of this encounter Plan of Treatment Not on file documented as of this encounter Procedures Procedure Name Priority Date/Time Associated Diagnosis Comments CT ABDOMEN W WO CONT PELVIS W CONT Routine 09/20/2007 11:20 AM FLOOR FINISHER documented in this encounter Results * CT ABDOMEN W WO CONT PELVIS W CONT (09/20/2007 11:20 AM FLOOR FINISHER) Anatomical Region Laterality Modality Abdomen Other 09/20/2007 11:2 0 AM FLOOR FINISHER Narrative 09/26/2007 8:01 AM FLOOR FINISHER [facility] [address], [place] [address] Admit Date: 09/20/2007 ALIYAH KAHN Sex: M Admit Prov: YVAN KAY Date: 1940 Primary Care Prov: ZAC FLOYD CMRN: [id number] Room: [facility] SSN: [id number] IMAGING SERVICES Ordering Prov: N/A Accession Number: [id number] Interpretation EXAM: CT OF THE ABDOMEN WITHOUT [...] DKT Procedure Note James Sarabia - 09/26/2007 [facility] [address] [place], [place] [address] Admit Date: 09/20/2007 ALIYAH KAHN Sex: M Admit Prov: YVAN KAY Date: 1940 Primary Care Prov: ZAC FLOYD CMRN: [id number] Room: [facility] SSN: [id number] IMAGING SERVICES Ordering Prov: N/A Interpretation EXAM: [...] ureter documented in this encounter Care Teams Director Radio News Relationship Specialty Start Date End Date Zac Floyd MD [address] [place] [address] PCP - General 06/19/03 documented as of this encounter
--- OUTSIDE RECORDS SUMMARY | 2025-06-02 13:34 | XMS_ITS | Encounter Summary ---
Author Organization [facility] Address 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
--- OUTSIDE RECORDS SUMMARY | 2025-06-02 13:34 | XMS_ITS | Encounter Summary ---
Author Organization [facility] Address [address] [place] [address] Care Team Providers Care Tavern Car Attendant Name Role Phone Zac Floyd MD Primary Care Provider [phone] Encounter Details Date Type Department Care Team (Late st Contact Info) Description 08/24/2006 Outpatient [facility] [place] [address] [place] [address] Other Specified Congenital Cystic Kidney Disease (Primary Dx) Social History Tobacco Use Types Packs/Day Years Used Date Smoking Tobacco: Never Assessed Sex and Gender Information Value Date Recorded Sex Assigned at Not on file Legal Sex Male 3:01 AM HORSE RACER Gender Identity Not on file Sexual Orientation Not on file documented as of this encounter Plan of Treatment Not on file documented as of this encounter Visit Diagnoses Diagnosis Other specified congenital cystic kidney disease- Primary documented in this encounter Care Teams Tavern Car Attendant Relationship Specialty Start Date End Date Zac Floyd MD [address] [place] [address] PCP - General 06/19/03 documented as of this encounter
--- OUTSIDE RECORDS SUMMARY | 2025-06-02 13:34 | XMS_ITS | Clinical Summary ---
Author Organization [facility] Address [address] [facility] Attn: Epic Prelude ADT [place] [address] Care Team Providers Care Buyer Broker Name Role Phone Zac Floyd MD Primary Care Provider Social History Tobacco Use Types Packs/Day Years Used Date Smoking Tobacco: Never Assessed Sex and Gender Information Value Date Recorded Sex Assigned at Not on file Legal Sex Male 3:01 AM COMMUNICATIONS SUPERINTENDENT Gender Identity Not on file Sexual Orientation Not on file Plan of Treatment Health Maintenance Due Date Last Done Comments DTAP/TDAP/TD VACCINES (1 - Tdap) 1959 PNEUMOCOCCAL VACCINE 50+ YEARS (1 of 1 - PCV) 02/14/19 88 ZOSTER VACCINE (1 of 2) 02/15/1988 RSV VACCINE (60+ or ) (1 - 1-dose 75+ series) 2013 INFLUENZA VACCINE (#1) 2025 Care Teams Buyer Broker Relationship Specialty Start Date End Date Zac Floyd MD [address] [place] [address] PCP - General 06/19/03
[2025-06-02 13:53] LABS: Parathyroid Intact 134.0 pg/mL (14.5-75.2)
== END 2025-06-02 12:33 | disposition home or self-care (01) ==
PROVIDERS: PCP Internal Medicine; Visit Provider Internal Medicine Nephrology
DX: N18.4 Chronic kidney disease, stage 4 (severe) (principal)
CPT/HCPCS: 36415; 80069; 83970; 85025